=== PATIENT | female | born 1970 | race Caucasian/White ===

== ENCOUNTER 2020-05-08 11:27 | Day surgery (SDC) | payer OTHER ==
[2020-05-06 10:50] VITALS: BMI 47.3
[~2020-05-08 11:27] MED LIST: LACTATED RINGERS 1,000 ML IV SCH
[2020-05-08] MEDS ORDERED: LIDOCAINE 1% (10MG/ML) FOR IV START INTRADERMA ONE (12:14)
[2020-05-08 12:22] VITALS: TEMP 97.6
[2020-05-08 12:22] LABS: Glucose,Whole Blood 133 mg/dL (75-99)
[2020-05-08] MEDS ORDERED: MIDAZOLAM 2 MG/2 ML VIAL ONE (13:00)
[2020-05-08] MEDS ORDERED: fentaNYL (PF) 50 MCG/ML 2 ML AMP ONE (13:00)
[2020-05-08] MEDS ORDERED: LIDOCAINE 1% INJ 10MG/ML (20 ML MDV) ONE (13:00)
[2020-05-08] MEDS ORDERED: PROPOFOL 10 MG/ML 20 ML VIAL IV ONE (13:00)
--- NOTE | 2020-05-08 14:13 | P.PCN ---
Date of Procedure: 05/08/20 Description of Procedure: BRIEF HISTORY: Patient is a 49-year-old female presented for outpatient colonoscopy for screening for malignant neoplasm of the colon. No prior colonoscopies. No change in bowel habits. PROCEDURE PERFORMED: Colonoscopy with polypectomy. PREOPERATIVE DIAGNOSIS: Screening for malignant neoplasm of the colon, no prior colonoscopies. ESTIMATED BLOOD LOSS: Minimal. IV sedation per Anesthesia. PROCEDURE: After informed consent was obtained, the patient, was brought into the endoscopy unit. IV sedation was administered by Anesthesia under continuous monitoring. Digital rectal examination was normal. Initially the Olympus CF-190 flexible video colonoscope was then inserted in the rectum, gradually advanced into the cecum without any difficulty. Careful examination was performed as the scope was gradually being withdrawn. Ileocecal valve and the appendiceal orifice were visualized and appeared normal. Prep was excellent. Mucosa of the cecum, ascending colon, transverse colon, descending colon, sigmoid colon, and rectum appeared normal. 3 mm sigmoid polyp removed with cold forcep polypectomy. Retroflexion was performed in the rectum and no lesions were seen, low-grade internal hemorrhoids noted. The patient tolerated the procedure well. IMPRESSION: Sigmoid polyp removed with cold forcep polypectomy. Otherwise, normal-appearing colon from rectum to cecum. RECOMMENDATIONS: Findings of this examination were discussed with the patient and her family. Okay to resume diet. Okay to resume medications. Await pathology for polypectomy. Recommendation is for repeat colonoscopy in 5 years for polyps, pending pathology from polypectomy.
[2020-05-08 14:27] VITALS: BP 107/70; PULSE 74; RESP 16
== END 2020-05-08 14:46 | disposition home or self-care (01) ==
LOC: ORWHC2ENDO 11:27
PROVIDERS: ATTEND Internal Medicine
DX: Z12.11 Encounter for screening for malignant neoplasm of colon (principal); D12.5 Benign neoplasm of sigmoid colon; K64.8 Other hemorrhoids; J45.909 Unspecified asthma, uncomplicated; E66.01 Morbid (severe) obesity due to excess calories; Z87.891 Personal history of nicotine dependence; Z79.891 Long term (current) use of opiate analgesic; Z79.899 Other long term (current) drug therapy; Z87.19 Personal history of other diseases of the digestive system; Z98.890 Other specified postprocedural states; Z98.51 Tubal ligation status; Z68.42 Body mass index [BMI] 45.0-49.9, adult
CPT/HCPCS: 81025; 88305; 45380; J2250; J2001; J3010; J2704

== ENCOUNTER 2020-10-14 09:55 | Inpatient (IN) | payer OTHER ==
--- NOTE | 2020-10-14 10:31 | ED ---
General Adult HPI - General Chief complaint: Shortness of Breath Stated complaint: covid+/low oxygen Time Seen by Provider: 10/14/20 10:00 Source: patient, RN notes reviewed, old records reviewed Mode of arrival: ambulatory Limitations: no limitations - History of Present Illness Initial comments: This is a 49-year-old female with past medical history significant for diabetes and morbid obesity and asthma. Patient states she started having symptoms of COVID on October 03 she was tested on the and was positive on the . Patient states today she felt good but she was very short of breath so she came to the emergency department. Patient is oxygenating at 88% on 5 L. Patient denies any chest pain. Patient denies any recent fever chills per patient denies abdominal pain patient denies nausea or vomiting. Patient denies any swelling to the legs or calf tenderness. - Related Data Home Medications Medication Instructions Recorded Confirmed Albuterol Inhaler [Ventolin Hfa 1 puff INHALATION DIRECTED PRN 05/06/20 05/08/20 Inhaler] Aspirin/Acetaminophen/Caffeine 1 each PO DIRECTED PRN 05/06/20 05/08/20 [Excedrin Migraine Caplet] Cannabidiol (Cbd) [Epidiolex] 1 dose PO DIRECTED 05/06/20 05/08/20 L.acidoph,Paracasei, B.lactis 1 each PO DAILY 05/06/20 05/08/20 [Probiotic] Magnesium (Unknown Dose) 1 tab PO DAILY 05/06/20 05/08/20 Rizatriptan Benzoate [Rizatriptan] 10 mg PO DIRECTED PRN 05/06/20 05/08/20 traMADol HCL [Ultram] 50 mg PO Q6HR PRN 05/06/20 05/08/20 Allergies Allergy/AdvReac Type Severity Reaction Status Date / Time No Known Allergies Allergy Verified 10/14/20 10:08 Review of Systems ROS Statement: Those systems with pertinent positive or pertinent negative responses have been documented in the HPI. ROS Other: All systems not noted in ROS Statement are negative. Past Medical History Past Medical History: Asthma Additional Past Medical History / Comment(s): CHIARI MALFORMATION., MIGRAINES, 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, BORDERLINE DIABETES., STATES STOOL POSITIVE FOR BLOOD WITH SPICE MILLER HAMMER MILL EXAM EARLIER THIS YEAR. History of Any Multi-Drug Resistant Organisms: None Reported Past Surgical History: Hernia Repair, Orthopedic Surgery, Tubal Ligation, Uterine Ablation Additional Past Surgical History / Comment(s): ARTHROSCOPY KNEE, LEFT ANKLE SURGERY X2 FOR X-TRA BONE GROWTH, LEFT FX FIBULA WITH PLATE AND SCREWS, UMBILICAL HERNIA SURGERY (CHILD). Past Anesthesia/Blood Transfusion Reactions: No Reported Reaction Past Psychological History: Anxiety, Depression Smoking Status: Former smoker Past Alcohol Use History: Occasional Past Drug Use History: Marijuana - Past Family History Mother Family Medical History: No Reported History General Exam - General Exam Comments Initial Comments: GENERAL: Patient is well-developed and well-nourished. Patient is nontoxic and well- hydrated and is in mild distress. ENT: Neck is soft and supple. No significant lymphadenopathy is noted. Oropharynx is clear. Moist mucous membranes. Neck has full range of motion without eliciting any pain. EYES: The sclera were anicteric and conjunctiva were pink and moist. Extraocular movements were intact and pupils were equal round and reactive to light. Eyelids were unremarkable. PULMONARY: Unlabored respirations. Good breath sounds bilaterally. Patient has crackles bilaterally CARDIOVASCULAR: There is a regular rate and rhythm without any murmurs gallops or rubs. ABDOMEN: Soft and nontender with normal bowel sounds. SKIN: Skin is clear with no lesions or rashes and otherwise unremarkable. NEUROLOGIC: Patient is alert and oriented x3. Cranial nerves II through XII are grossly intact. Motor and sensory are also intact. Normal speech, volume and content. Symmetrical smile. MUSCULOSKELETAL: Normal extremities with adequate strength and full range of motion. No lower extremity swelling or edema. No calf tenderness. LYMPHATICS: No significant lymphadenopathy is noted PSYCHIATRIC: Normal psychiatric evaluation. Limitations: no limitations Course Vital Signs 10/14/20 10/14/20 10/14/20 10:06 11:19 12:11 Temperature 97.8 F Pulse Rate 99 86 Respiratory 20 18 Rate Blood Pressure 139/85 123/71 O2 Sat by Pulse 84 L 90 L 94 L Oximetry Medical Decision Making - Medical Decision Making EKG shows normal sinus rhythm at 91 bpm [place] interval 134 QRS is 88 QT interval 37 2 QTC is 467. EKG shows no ST segment elevation or depression Patient's chest x-ray shows bilateral opacifications consistent with COVID pneumonia I started the patient on steroids I spoke with Dr. Ortega he agreed to admit the patient admitted the patient I wrote admitting orders I consult the pulmonary - Lab Data Result diagrams: 10/14/20 10:56 10/14/20 10:56 Lab Results 10/14/20 10/14/20 10/14/20 Range/Units 10:56 10:56 10:56 WBC 6.6 (3.8-10.6) k/uL RBC 4.96 (3.80-5.40) m/uL Hgb 14.9 (11.4-16.0) gm/dL Hct 42.3 (34.0-46.0) % MCV 85.3 (80.0-100.0) fL MCH 30.0 (25.0-35.0) pg MCHC 35.2 (31.0-37.0) g/dL RDW 12.5 (11.5-15.5) % Plt Count 250 (150-450) k/uL MPV 7.5 Neutrophils % 81 % Lymphocytes % 14 % Monocytes % 3 % Eosinophils % 0 % Basophils % 1 % Neutrophils # 5.3 (1.3-7.7) k/uL Lymphocytes # 0.9 L (1.0-4.8) k/uL Monocytes # 0.2 (0-1.0) k/uL Eosinophils # 0.0 (0-0.7) k/uL Basophils # 0.0 (0-0.2) k/uL Sodium 139 (137-145) mmol/L Potassium 4.2 (3.5-5.1) mmol/L Chloride 103 (98-107) mmol/L Carbon Dioxide 28 (22-30) mmol/L Anion Gap 8 mmol/L BUN 9 (7-17) mg/dL Creatinine 0.59 (0.52-1.04) mg/dL Est GFR (CKD-EPI)AfAm >90 (>60 ml/min/1.73 sqM) Est GFR (CKD-EPI)NonAf >90 (>60 ml/min/1.73 sqM) Glucose 150 H (74-99) mg/dL Plasma Lactic Acid Jeffy 1.2 (0.7-2.0) mmol/L Calcium 8.7 (8.4-10.2) mg/dL Magnesium 2.2 (1.6-2.3) mg/dL Total Bilirubin 0.9 (0.2-1.3) mg/dL AST 70 H (14-36) U/L ALT 53 H (4-34) U/L Alkaline Phosphatase 49 (38-126) U/L Lactate Dehydrogenase 1491 H (313-618) U/L C-Reactive Protein 64.0 H (<10.0) mg/L Total Protein 6.8 (6.3-8.2) g/dL Albumin 3.8 (3.5-5.0) g/dL Disposition Clinical Impression: Pneumonia due to COVID-19 virus Disposition: ADMITTED IP TO THIS HOSP Referrals: Pierce Silva MD [Primary Care Provider] - 1-2 days Time of Disposition: 12:17
--- NOTE | 2020-10-14 11:07 | XR ---
EXAMINATION TYPE: XR chest 1V portable DATE OF EXAM: 10/14/2020 Comparison: None Clinical History: 49-year-old female Suspected COVID-19 pneumonia Findings: Heart normal size. Bilateral patchy and confluent consolidation especially in the mid and lower lungs . Impression: Bilateral patchy and confluent COVID pneumonia especially in the mid and lower lungs.
[2020-10-14 11:34] LABS: Basophils % (A) 1 %; Eosinophils % (A) 0 %; HCT 42.3 % (34.0-46.0); HGB 14.9 gm/dL (11.4-16.0); Lymphocytes # (A) 0.9 k/uL (1.0-4.8); Lymphocytes % (A) 14 %; MCHC 35.2 g/dL (31.0-37.0); MCV 85.3 fL (80.0-100.0); Mean Platelet Volume 7.5; Monocytes # (A) 0.2 k/uL (0-1.0); Monocytes % (A) 3 %; Neutrophils # (A) 5.3 k/uL (1.3-7.7); Neutrophils % (A) 81 %; Platelet Count 250 k/uL (150-450); RBC 4.96 m/uL (3.80-5.40); RDW 12.5 % (11.5-15.5); WBC 6.6 k/uL (3.8-10.6)
[2020-10-14 11:47] LABS: ALT 53 U/L (4-34); AST 70 U/L (14-36); African American GFR (CKD) >90 (>60 ml/min/1.73 sqM); Albumin 3.8 g/dL (3.5-5.0); Alkaline Phosphatase 49 U/L (38-126); Anion Gap 8 mmol/L; Blood Urea Nitrogen 9 mg/dL (7-17); Calcium 8.7 mg/dL (8.4-10.2); Carbon Dioxide 28 mmol/L (22-30); Chloride 103 mmol/L (98-107); Glucose 150 mg/dL (74-99); LDH 1491 U/L (313-618); Magnesium 2.2 mg/dL (1.6-2.3); Non-African American GFR(CKD) >90 (>60 ml/min/1.73 sqM); Potassium 4.2 mmol/L (3.5-5.1); Sodium 139 mmol/L (137-145); Total Bilirubin 0.9 mg/dL (0.2-1.3); Total Protein 6.8 g/dL (6.3-8.2)
[2020-10-14 11:56] LABS: D-Dimer 0.56 mg/L FEU (<0.60); INR 0.9 (<1.2)
[2020-10-14] MEDS ORDERED: DEXAMETHASONE SOD PHOSPHATE 10 MG/ML 1 ML VIAL IV STA (11:57)
[2020-10-14 12:17] LABS: Partial Thromboplastin Time 19.1 sec (22.0-30.0)
[2020-10-14] MEDS ORDERED: SODIUM CHLORIDE 0.9% 1,000 ML IV ONE (14:41)
[2020-10-14] MEDS: ZINC SULFATE 220 MG CAP PO SCH (17:51)
[2020-10-14] MEDS: ASCORBIC ACID 500 MG TAB PO SCH (17:51)
[2020-10-14] MEDS: ENOXAPARIN 40 MG/0.4 ML SYRINGE SQ SCH (17:51)
[2020-10-14] MEDS: CHOLECALCIFEROL 25 MCG (1000 IU) TABLET PO SCH (17:51)
--- NOTE | 2020-10-14 19:03 | P.HPIM ---
History of Present Illness H&P Date: 10/14/20 Chief Complaint: Short of breath History of presenting complaint: This is a pleasant 49-year-old patient of Dr. Logan Silva. Chronic stable medical conditions include but Chiari malformation of the brain, asthma, herniated disc in the back and neck, with pain anxiety depression, GERD, diabetes type 2. Patient around October stools started getting symptoms that included headache cough progressive shortness of breath diarrhea had fever and chills body aches. She did come back positive for COVID 19 on the fourth. Since symptoms have been progressive she came down to the ER. Initial pulse ox was 88% on 5 L. Review of systems: GEN.: Tired fever or chills EYES: None HEENT: None NECK: None RESPIRATORY: None CARDIOVASCULAR: None GASTROINTESTINAL: Some diarrhea GENITOURINARY: None MUSCULOSKELETAL: Aches and pains LYMPHATICS: None HEMATOLOGICAL: None PSYCHIATRY: None NEUROLOGICAL: None Past medical history to include: Asthma, but Chiari malformation, migraines, herniated disc with back and neck pain, diabetes mellitus type 2, anxiety depression Social history: Patient smoked up one pack a week for about 10 years stopped over 20 years ago. Does occasional marijuana Gummi's and CBD oil. Lives with her boyfriend. Family history: Reviewed, noncontributory to presentation Physical examination: VITAL SIGNS: 97.8, 99, 20, 139/85, 84% on room air GENERAL: BMI 48.6, sitting up in bed, she out of breath. EYES: Pupils equal. Conjunctiva normal. HEENT: External appearance of nose and ears normal, oral cavity grossly normal. NECK: JVD not raised; masses not palpable. HEART: First and second heart sounds are normal; no edema. LUNGS:[ Respiratory rate increased; decreased breath sounds. ABDOMEN: Soft, nontender, liver spleen not palpable, no masses palpable. PSYCH: [Alert and oriented x3; mood and affect tired. NEUROLOGICAL: Cranial nerves grossly intact; no facial asymmetry, power and sensation grossly intact. LYMPHATICS: No lymph nodes palpable in the axilla and neck INVESTIGATIONS, reviewed in the clinical context: WBC 6.6 hemoglobin 14.9 platelets 250 lymphocyte 0.9 d-dimer 0.56 potassium 4.2 creatinine 0.59 AST 70 ALT 53 CRP 64 Coronavirus [PCR]-detected EKG tracing personally reviewed by me-normal sinus rhythm Chest x-ray film personally reviewed by me-bilateral diffuse infiltrates Assessment and plan: -Acute bilateral COVID 19 pneumonia with symptoms starting about 10 days ago Patient started IV Decadron, subcu Lovenox, vitamin C vitamin D zinc and Pepcid. Pulmonary consulted. -Acute hypoxic respiratory failure from COVID 19 pneumonia Currently on 5 L of nasal cannula -Morbid obesity BMI 48.6 For weight loss measures and follow-up with PCP upon discharge -Diabetes mellitus type 2 Follow Accu-Cheks -GERD Continue with omeprazole -Chronic neck and back pain from arthralgia Tylenol when necessary -Nonspecific hepatitis Hepatic ultrasound Care was discussed with the patient. Questions were answered. Have the patient sit up in a chair and uses incentive spirometry Given the complexity and severity of patient's condition expect the patient to be in the hospital at least for 2 overnights Past Medical History Past Medical History: Asthma Additional Past Medical History / Comment(s): CHIARI MALFORMATION., MIGRAINES, 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, BORDERLINE DIABETES., STATES STOOL POSITIVE FOR BLOOD WITH STAFF COUNSEL EXAM EARLIER THIS YEAR. History of Any Multi-Drug Resistant Organisms: None Reported Past Surgical History: Hernia Repair, Orthopedic Surgery, Tubal Ligation, Uterine Ablation Additional Past Surgical History / Comment(s): ARTHROSCOPY KNEE, LEFT ANKLE SURGERY X2 FOR X-TRA BONE GROWTH, LEFT FX FIBULA WITH PLATE AND SCREWS, UMBILICAL HERNIA SURGERY (CHILD). Past Anesthesia/Blood Transfusion Reactions: No Reported Reaction Past Psychological History: Anxiety, Depression Smoking Status: Former smoker Past Alcohol Use History: Occasional Past Drug Use History: Marijuana - Past Family History Mother Family Medical History: No Reported History Medications and Allergies Home Medications Medication Instructions Recorded Confirmed Type Albuterol Inhaler [Ventolin Hfa 2 puff INHALATION RT-Q4H PRN 05/06/20 10/14/20 History Inhaler] Rizatriptan Benzoate [Rizatriptan] 10 mg PO DAILY PRN 05/06/20 10/14/20 History traMADol HCL [Ultram] 50 mg PO Q6HR PRN 05/06/20 10/14/20 History Albuterol Nebulized [Ventolin 2.5 mg INHALATION RT-Q6H PRN 10/14/20 10/14/20 History Nebulized] Azithromycin [Zithromax] 500 mg PO DAILY 10/14/20 10/14/20 History Dexamethasone [Decadron] 6 mg PO DAILY 10/14/20 10/14/20 History Liraglutide [Victoza 2-Primitivo] 0.6 mg PO DAILY 10/14/20 10/14/20 History Omeprazole 40 mg PO DAILY 10/14/20 10/14/20 History Allergies Allergy/AdvReac Type Severity Reaction Status Date / Time No Known Allergies Allergy Verified 10/14/20 12:37 Physical Exam Vitals: Vital Signs Temp Pulse Resp BP Pulse Ox 10/14/20 16:02 98.7 F 87 20 135/88 91 L 10/14/20 12:11 94 L 10/14/20 11:19 86 18 123/71 90 L 10/14/20 10:06 97.8 F 99 20 139/85 84 L Intake and Output 10/14/20 10/14/20 10/14/20 06:59 14:59 22:59 Other: Weight 153.768 kg Results CBC & Chem 7: 10/14/20 10:56 10/14/20 10:56 Labs: Abnormal Lab Results - Last 24 Hours (Table) 10/14/20 10/14/20 10/14/20 Range/Units 10:56 10:56 10:56 Lymphocytes # 0.9 L (1.0-4.8) k/uL APTT 19.1 L (22.0-30.0) sec Glucose 150 H (74-99) mg/dL AST 70 H (14-36) U/L ALT 53 H (4-34) U/L Lactate Dehydrogenase 1491 H (313-618) U/L C-Reactive Protein 64.0 H (<10.0) mg/L Coronavirus (PCR) (Not Detectd) 10/14/20 Range/Units 12:05 Lymphocytes # (1.0-4.8) k/uL APTT (22.0-30.0) sec Glucose (74-99) mg/dL AST (14-36) U/L ALT (4-34) U/L Lactate Dehydrogenase (313-618) U/L C-Reactive Protein (<10.0) mg/L Coronavirus (PCR) Detected A (Not Detectd)
[2020-10-14] MEDS: FAMOTIDINE 20 MG TAB PO SCH (21:35)
[2020-10-15 00:22] LABS: Ferritin 629.4 ng/mL (10.0-291.0)
[2020-10-15] MEDS ORDERED: VANCOMYCIN 1,000 MG in SODIUM CHLORIDE 0.9% 250 ML IVPB STA (05:39)
[2020-10-15] MEDS ORDERED: VANCOMYCIN IV PER PHARMACY 1 EACH MISC MISCELLANE PRN (05:47)
[2020-10-15] MEDS ORDERED: VANCOMYCIN 2,500 MG in SODIUM CHLORIDE 0.9% 500 ML 500 ML IVPB ONE (06:00)
[2020-10-15] MEDS: ENOXAPARIN 40 MG/0.4 ML SYRINGE SQ SCH ×2 (06:01→17:28)
[2020-10-15 07:30] LABS: C Reactive Protein 43.6 mg/L (<10.0)
[2020-10-15] MEDS: FAMOTIDINE 20 MG TAB PO SCH ×2 (08:34→20:34)
[2020-10-15] MEDS: ZINC SULFATE 220 MG CAP PO SCH (08:34)
[2020-10-15] MEDS: CHOLECALCIFEROL 25 MCG (1000 IU) TABLET PO SCH (08:34)
[2020-10-15] MEDS: DEXAMETHASONE SOD PHOSPHATE 10 MG/ML 1 ML VIAL IV SCH (08:34)
[2020-10-15] MEDS: ASCORBIC ACID 500 MG TAB PO SCH (08:34)
[2020-10-15] MEDS ORDERED: dexAMETHasone 2 MG TAB PO SCH (09:00)
--- NOTE | 2020-10-15 10:54 | US ---
EXAMINATION TYPE: US abdomen limited DATE OF EXAM: 10/15/2020 COMPARISON: NONE CLINICAL HISTORY: Mildly elevated LFT. COVID pneumonia EXAM MEASUREMENTS: Liver Length: 17.7 cm Gallbladder Wall: 0.2 cm CBD: 0.5 cm Right Kidney: 9.5 x 5.8 x 4.8 cm Pancreas: hyperechoic with mid and tail obscured by overlying bowel gas Liver: hyperechoic suggests fatty liver, especially noted left lobe. Gallbladder: wnl Evidence for sonographic Rose's sign: no CBD: wnl Right Kidney: No hydronephrosis or masses seen Suboptimal study due to underlying shortness of breath. Visualized portion of pancreas unremarkable. Visualized liver heterogeneously hyperechoic. No surrounding ascites. Evaluation for focal masses sub optimal due to the heterogeneity. No intrahepatic or extrahepatic biliary dilatation. Limited images right kidney show no gross hydronephrosis. Gallbladder shows no intraluminal stones. IMPRESSION: Heterogeneous hyperechoic appearance of the liver could be on basis of diffuse fatty infi ltration and/or underlying hepatocellular disease. Former is favored.
--- NOTE | 2020-10-15 14:34 | P.CNPUL ---
History of Present Illness Consult date: 10/15/20 Reason for consult: dyspnea, pneumonia History of present illness: 49-year-old female patient hospitalized for COVID 19 related pneumonia and a p ulmonary consultation was requested. The patient is morbidly obese and she has previous history of coronary artery malformation and migraines. She is diabetic and she has chronic anxiety and depression. Her symptoms started on 10/03/2020 where the patient became fatigued and tired and she was having some body aches and cough and progressively she developed shortness of breath. She got tested o n 10/04/2020 and outpatient basis and she checked positive. Following that, the patient was placed on steroids which I believe it was in the form of Decadron. Despite all this, the patient progressed and the patient came into the hospital because of worsening shortness of breath. She was found to be hypoxic and she is currently on 5 L about 2 by nasal cannula with a pulse ox of 88%. Chest x-ra y showing diffuse breath and pulmonary infiltrates. The blood work is showing an LDH level of 1445, CRP of 43.6, and a d-dimer of 0.57. Otherwise, the rest of the blood work essentially within normal limits. White cell count at 6.6 with a lymphopenia and a lymphocyte count of 0.9. Coagulation profile is within normal limits. D-dimer is at 0.57. She is currently back on Decadron orally and she is on 5 L of oxygen by nasal cannula. Review of Systems Constitutional: Reports fatigue, Reports fever, Reports poor appetite, Reports weakness Eyes: denies as per HPI, denies blurred vision, denies bulging eye, denies decreased vision, denies diplopia, denies discharge, denies dry eye, denies irritation, denies itching, denies pain, denies photophobia, denies loss of peripheral vision, denies loss of vision, denies tunnel vision/blind spots Ears: deny: decreased hearing, ear discharge, earache, tinnitus Ears, nose, mouth and throat: Reports as per HPI Breasts: absent: as per HPI, change in shape, gynecomastia, masses, nipple discharge, pain, skin changes, swelling Cardiovascular: Reports as per HPI, Reports decreased exercise tolerance, Reports dyspnea on exertion Respiratory: Reports cough, Reports dyspnea Genitourinary: Reports as per HPI Menstruation: Reports as per HPI Musculoskeletal: Reports as per HPI Musculoskeletal: absent: ankle pain, ankle stiffness, ankle swelling, as per HPI, elbow pain, elbow stiffness, elbow swelling, foot pain, foot stiffness, foot swelling, hand pain, hand stiffness, hand swelling, hip pain, hip stiffness, hip swelling, knee pain, knee stiffness, knee swelling, shoulder pain, shoulder stiffness, shoulder swelling, wrist pain, wrist stiffness, wrist swelling Integumentary: Reports as per HPI Neurological: Reports as per HPI, Reports weakness Psychiatric: Reports as per HPI Endocrine: Reports as per HPI, Reports fatigue Hematologic/Lymphatic: Reports as per HPI Allergic/Immunologic: Reports as per HPI Past Medical History Past Medical History: Asthma, Diabetes Mellitus, Sleep Apnea/CPAP/BIPAP Additional Past Medical History / Comment(s): CHIARI MALFORMATION., MIGRAINES, 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, STATES STOOL POSITIVE FOR BLOOD WITH BED PLACEMENT COORDINATOR EXAM EARLIER THIS YEAR. History of Any Multi-Drug Resistant Organisms: None Reported Past Surgical History: Hernia Repair, Orthopedic Surgery, Tubal Ligation, Uterine Ablation Additional Past Surgical History / Comment(s): ARTHROSCOPY KNEE, LEFT ANKLE SURGERY X2 FOR X-TRA BONE GROWTH, LEFT FX FIBULA WITH PLATE AND SCREWS, UMBILICAL HERNIA SURGERY (CHILD). Past Anesthesia/Blood Transfusion Reactions: No Reported Reaction Additional Past Anesthesia/Blood Transfusion Reaction / Comment(s): last time she had sx she had a hard time waking up from anethesia Past Psychological History: Anxiety, Depression Smoking Status: Former smoker Past Alcohol Use History: Occasional Additional Past Alcohol Use History / Comment(s): QUIT SMOKING 18 PLUS YEARS AG O, SMOKED 1 PACK/WEEK, SMOKED 10 YEARS. Past Drug Use History: Marijuana Additional Drug Use History / Comment(s): OCCASIONAL THC GUMMIES. , CBD OIL - Past Family History Mother Family Medical History: No Reported History Medications and Allergies Home Medications Medication Instructions Recorded Confirmed Type Albuterol Inhaler [Ventolin Hfa 2 puff INHALATION RT-Q4H PRN 05/06/20 10/14/20 History Inhaler] Rizatriptan Benzoate [Rizatriptan] 10 mg PO DAILY PRN 05/06/20 10/14/20 History traMADol HCL [Ultram] 50 mg PO Q6HR PRN 05/06/20 10/14/20 History Albuterol Nebulized [Ventolin 2.5 mg INHALATION RT-Q6H PRN 10/14/20 10/14/20 History Nebulized] Azithromycin [Zithromax] 500 mg PO DAILY 10/14/20 10/14/20 History Dexamethasone [Decadron] 6 mg PO DAILY 10/14/20 10/14/20 History Liraglutide [Victoza 2-Primitivo] 0.6 mg PO DAILY 10/14/20 10/14/20 History Omeprazole 40 mg PO DAILY 10/14/20 10/14/20 History Allergies Allergy/AdvReac Type Severity Reaction Status Date / Time No Known Allergies Allergy Verified 10/14/20 12:37 Physical Exam Vitals: Vital Signs Temp Pulse Pulse Resp BP BP Pulse Ox 10/15/20 09:32 98.7 F 85 18 130/83 90 L 10/15/20 07:57 89 L 10/15/20 07:20 79 16 10/15/20 06:18 98.0 F 79 16 105/71 90 L 10/15/20 02:45 98.8 F 82 16 118/82 90 L 10/14/20 22:03 98.8 F 76 15 131/84 93 L 10/14/20 21:38 20 10/14/20 18:40 98.1 F 83 18 134/90 91 L 10/14/20 16:02 98.7 F 87 20 135/88 91 L Intake and Output 10/14/20 10/15/20 10/15/20 22:59 06:59 14:59 Other: Voiding Method Toilet Toilet # Voids 4 Weight 153.768 kg morbidly obese, comfortable, nonacute distress, BMI of 48 Head exam was generally normal. There was no scleral icterus or corneal arcus. Mucous membranes were moist. Neck was supple and without jugular venous distension, thyromegaly, or carotid bruits. Carotids were easily palpable bilaterally. There was no adenopathy. Lung sounds are diminished and the patient has crackers the mid and lower lung hughes bilaterally Cardiac exam revealed the PMI to be normally situated and sized. The rhythm was regular and no extrasystoles were noted during several minutes of auscultation. The first and second heart sounds were normal and physiologic splitting of the second heart sound was noted. There were no murmurs, rubs, clicks, or gallops. Abdominal exam revealed normal bowel sounds. The abdomen was soft, non-tender, and without masses, organomegaly, or appreciable enlargement of the abdominal aorta. Examination of the extremities revealed easily palpable radial, femoral and pedal pulses. There was no cyanosis, clubbing or edema. Examination of the skin revealed no evidence of significant rashes, suspicious appearing nevi or other concerning lesions. Neurologically, the patient is awake and alert and the patient does not have any focal neurological deficit. Cranial nerves are essentially intact. Results - Laboratory Findings CBC and BMP: 10/14/20 10:56 10/14/20 10:56 PT/INR, D-dimer PT 10.0 sec (9.0-12.0) 10/14/20 10:56 INR 0.9 (<1.2) 10/14/20 10:56 D-Dimer 0.57 mg/L FEU (<0.60) 10/15/20 06:41 Abnormal lab findings: Abnormal Labs 10/14/20 10/14/20 10/14/20 10:56 10:56 10:56 Lymphocytes # 0.9 L APTT 19.1 L Glucose 150 H Ferritin 629.4 H AST 70 H ALT 53 H Lactate Dehydrogenase 1491 H C-Reactive Protein 64.0 H Procalcitonin Coronavirus (PCR) 10/14/20 10/14/20 10/15/20 10:56 12:05 06:41 Lymphocytes # APTT Glucose Ferritin AST ALT Lactate Dehydrogenase 1445 H C-Reactive Protein 43.6 H Procalcitonin 0.11 H Coronavirus (PCR) Detected A - Diagnostic Findings Chest x-ray: image reviewed Assessment and Plan Plan: 1 acute bilateral COVID 19 related pneumonia. The patient symptoms started on 10/03/2020. The patient checked positive on 10/04/2020. The patient was treated with Decadron on outpatient basis. The patient's presented with worsening shortness of breath and bilateral pneumonia 2 acute hypoxic respiratory failure currently on 5 L of oxygen by nasal cannula. D-dimer is low. Pulmonary embolism is unlikely.d-dimer is low at this point in time 3 obesity with a BMI of 48.6 4 chronic bronchial asthma currently inactive in stable 5 diabetes mellitus 6 coronary artery malformation 7 migraine headaches 8 chronic neck and back pain related to herniated disc disease Plan Keep oxygen at 5 L and titrate the flow to maintain a saturation above 90% Agree on continuing the Decadron 6 mg on a daily basis patient is outside the window for Remdesivir treatment Lovenox 40 mg subcu for DVT prophylaxis Vitamin supplements regarding COVID infections May consider tacilizumab at a later stage if there is any further decompensation the patient's history status
[2020-10-15] MEDS: VANCOMYCIN 2,250 MG in SODIUM CHLORIDE 0.9% 500 ML 500 ML IVPB SCH (19:00)
[2020-10-15] MEDS ORDERED: ALBUTEROL NEBULIZED 2.5 MG/3 ML INHALATION PRN (19:46)
[2020-10-15] MEDS ORDERED: SUMAtriptan succinate 50 MG TAB PO PRN (19:46)
--- NOTE | 2020-10-15 21:03 | P.PN ---
Progress Note - Text Progress Note Date: 10/15/20 Chief Complaint: Short of breath History of presenting complaint: This is a pleasant 49-year-old patient of Dr. Logan Silva. Chronic stable medical conditions include but Chiari malformation of the brain, asthma, herniated disc in the back and neck, with pain anxiety depression, GERD, diabetes type 2. Patient around October stools started getting symptoms that included headache cough progressive shortness of breath diarrhea had fever and chills body aches. She did come back positive for COVID 19 on the fourth. Since symptoms have been progressive she came down to the ER. Initial pulse ox was 88% on 5 L. Admitted with bilateral COVID 19 pneumonia, acute hypoxic respiratory failure. Initially put on 5 L of nasal cannula. Started on Decadron and Lovenox. Today: Sitting up in bed. Short of breath. Tired. Oral intake fair. Blood culture showing gram-positive pulse and blood clusters. Vancomycin ordered Review of systems: Was done for constitutional, cardiovascular, GI, pulmonary. relevant finding as above Active Medications Albuterol Sulfate (Albuterol Hfa Inhaler) 2 puff INHALATION RT-Q4H PRN PRN Reason: Shortness Of Breath Ascorbic Acid (Ascorbic Acid 500 Mg Tab) 1,000 mg PO DAILY [facility] Last Admin: 10/15/20 08:34 Dose: 1,000 mg Documented by: Cholecalciferol (Cholecalciferol 25 Mcg (1000 Iu) Tablet) 100 mcg PO DAILY [facility] Last Admin: 10/15/20 08:34 Dose: 100 mcg Documented by: Dexamethasone Sodium Phosphate (Dexamethasone Sod Phosphate 10 Mg/Ml 1 Ml Vial) 6 mg IV DAILY [facility] Last Admin: 10/15/20 08:34 Dose: 6 mg Documented by: Enoxaparin Sodium (Enoxaparin 40 Mg/0.4 Ml Syringe) 40 mg SQ Q12H [facility] Last Admin: 10/15/20 17:28 Dose: 40 mg Documented by: Famotidine (Famotidine 20 Mg Tab) 20 mg PO BID [facility] Last Admin: 10/15/20 20:34 Dose: 20 mg Documented by: Vancomycin HCl 2,250 mg/ (Sodium Chloride) 500 mls @ 167 mls/hr IVPB Q12H [facility] Last Admin: 10/15/20 19:00 Dose: 167 mls/hr Documented by: Non-Formulary Medication (Liraglutide [Victoza 2-Primitivo]) 0.6 mg PO DAILY [facility] Pantoprazole Sodium (Pantoprazole 40 Mg Tablet) 40 mg PO AC-BRKFST [facility] Sumatriptan Succinate (Sumatriptan Succinate 50 Mg Tab) 100 mg PO DAILY PRN PRN Reason: Migraine Headache Tramadol HCl (Tramadol 50 Mg Tab) 50 mg PO Q6HR PRN PRN Reason: Pain Zinc Sulfate (Zinc Sulfate 220 Mg Cap) 220 mg PO DAILY [facility] Last Admin: 10/15/20 08:34 Dose: 220 mg Documented by: Past medical history to include: Asthma, but Chiari malformation, migraines, herniated disc with back and neck pain, diabetes mellitus type 2, anxiety depression Social history: Patient smoked up one pack a week for about 10 years stopped over 20 years ago. Does occasional marijuana Gummi's and CBD oil. Lives with her boyfriend. Family history: Reviewed, noncontributory to presentation Physical examination: VITAL SIGNS: 98.1, 79, 18, 132.77, 93% on 5 L GENERAL: sitting up in bed, short of breath LUNGS:[ Respiratory rate increased; PSYCH: [Alert and oriented x3; mood and affect tired. NEUROLOGICAL: Cranial nerves grossly intact; no facial asymmetry, moving all 4 limbs. History of the exam as per pulmonary nursing INVESTIGATIONS, reviewed in the clinical context: October 15: D-dimer 0.57 LDH 1445 CRP 43.6 WBC 6.6 hemoglobin 14.9 platelets 250 lymphocyte 0.9 d-dimer 0.56 potassium 4.2 creatinine 0.59 AST 70 ALT 53 CRP 64 Coronavirus [PCR]-detected EKG tracing personally reviewed by me-normal sinus rhythm Chest x-ray film personally reviewed by me-bilateral diffuse infiltrates Assessment and plan: -Acute bilateral COVID 19 pneumonia with symptoms starting about 10 days ago- slow to respond On IV Decadron, subcu Lovenox, vitamin C vitamin D zinc and Pepcid. Pulmonary consulted. -Acute hypoxic respiratory failure from COVID 19 pneumonia-no improvement Currently on 5 L of nasal cannula -Morbid obesity BMI 48.6 For weight loss measures and follow-up with PCP upon discharge -Diabetes mellitus type 2 Follow Accu-Cheks -GERD Continue with omeprazole -Chronic neck and back pain from arthralgia Tylenol when necessary -Nonspecific hepatitis Hepatic ultrasound Care was discussed with the patient. Continue current medication treatment plan.
[2020-10-16] MEDS: ENOXAPARIN 40 MG/0.4 ML SYRINGE SQ SCH ×2 (04:58→16:13)
[2020-10-16] MEDS: VANCOMYCIN 2,250 MG in SODIUM CHLORIDE 0.9% 500 ML 500 ML IVPB SCH ×2 (06:00→18:06)
[2020-10-16 08:36] LABS: African American GFR (CKD) >90 (>60 ml/min/1.73 sqM); Non-African American GFR(CKD) >90 (>60 ml/min/1.73 sqM)
[2020-10-16] MEDS ORDERED: ONDANSETRON 4 MG/2 ML VIAL IVP PRN (09:29)
[2020-10-16] MEDS: ASCORBIC ACID 500 MG TAB PO SCH (09:32)
[2020-10-16] MEDS: ZINC SULFATE 220 MG CAP PO SCH (09:32)
[2020-10-16] MEDS: CHOLECALCIFEROL 25 MCG (1000 IU) TABLET PO SCH (09:32)
[2020-10-16] MEDS: PANTOPRAZOLE 40 MG TABLET PO SCH (09:32)
[2020-10-16] MEDS: DEXAMETHASONE SOD PHOSPHATE 10 MG/ML 1 ML VIAL IV SCH (09:33)
[2020-10-16] MEDS: traMADol 50 MG TAB PO PRN (09:40)
[2020-10-16] MEDS: NON FORMULARY DRUG (Liraglutide [Victoza 2-Pak] 0.6 MG/0.1 ML Pen.Injctr) PO SCH (09:52)
[2020-10-16] MEDS: FAMOTIDINE 20 MG TAB PO SCH ×2 (09:52→20:51)
[2020-10-16 11:42] LABS: Glucose,Whole Blood 194 mg/dL (75-99)
[2020-10-16] MEDS ORDERED: VANCOMYCIN IV PER PHARMACY 1 EACH MISC MISCELLANE PRN (12:31)
--- NOTE | 2020-10-16 12:32 | P.PN ---
Subjective Progress Note Date: 10/16/20 49-year-old female patient hospitalized for COVID 19 related pneumonia and a pulmonary consultation was requested. The patient is morbidly obese and she has previous history of coronary artery malformation and migraines. She is diabetic and she has chronic anxiety and depression. Her symptoms started on 10/03/2020 where the patient became fatigued and tired and she was having some body aches and cough and progressively she developed shortness of breath. She got tested on 10/04/2020 and outpatient basis and she checked positive. Following that, the patient was placed on steroids which I believe it was in the form of Decadron. Despite all this, the patient progressed and the patient came into the hospital because of worsening shortness of breath. She was found to be hypoxic and she is currently on 5 L about 2 by nasal cannula with a pulse ox of 88%. Chest x-ray showing diffuse breath and pulmonary infiltrates. The blood work is showing an LDH level of 1445, CRP of 43.6, and a d-dimer of 0.57. Otherwise, the rest of the blood work essentially within normal limits. White cell count at 6.6 with a lymphopenia and a lymphocyte count of 0.9. Coagulation profile is within normal limits. D-dimer is at 0.57. She is currently back on Decadron orally and she is on 5 L of oxygen by nasal cannula. On today's evaluation of 10/16/2020 the patient is on 5 L of oxygen by nasal cannula. She has been ranging between 4 and 6 L during this current hospital stay. She is feeling better. She is still coughing. She has a low-grade fever yesterday. She is pulling around 1500 on his incentive spirometer. Otherwise, the CRP level is at 36, d-dimer is at 1.07. Creatinine is at 0.7. No nausea. No vomiting. No diarrhea. No abdominal pain. No other complaints otherwise for now. The blood culture is showing coagulase-negative staph and the patient was given a dose of vancomycin. The blood cultures are being monitored. Affect irritable cultures are showing staph in the blood which is probably coagulase- negative staph. Both of 4 of the cultures are positive for gram-positive cocci in clusters and the finding cultures sensitivities are still pending for now. Objective - Vital Signs Vital signs: Vital Signs Temp 98.9 F 10/16/20 09:29 Pulse 94 10/16/20 09:29 Resp 18 10/16/20 09:29 BP 114/70 10/16/20 09:29 Pulse Ox 88 L 10/16/20 09:29 Intake & Output 10/15/20 10/16/20 10/16/20 18:59 06:59 18:59 Intake Total 240 Balance 240 Intake: Oral 240 Other: Voiding Method Toilet Toilet # Voids 1 2 - Exam Constitutional: Reports fatigue, Reports fever, Reports poor appetite, Reports weakness Eyes: denies as per HPI, denies blurred vision, denies bulging eye, denies decreased vision, denies diplopia, denies discharge, denies dry eye, denies irritation, denies itching, denies pain, denies photophobia, denies loss of peripheral vision, denies loss of vision, denies tunnel vision/blind spots Ears: deny: decreased hearing, ear discharge, earache, tinnitus Ears, nose, mouth and throat: Reports as per HPI Breasts: absent: as per HPI, change in shape, gynecomastia, masses, nipple discharge, pain, skin changes, swelling Cardiovascular: Reports as per HPI, Reports decreased exercise tolerance, Reports dyspnea on exertion Respiratory: Reports cough, Reports dyspnea Genitourinary: Reports as per HPI Menstruation: Reports as per HPI Musculoskeletal: Reports as per HPI Musculoskeletal: absent: ankle pain, ankle stiffness, ankle swelling, as per HPI, elbow pain, elbow stiffness, elbow swelling, foot pain, foot stiffness, foot swelling, hand pain, hand stiffness, hand swelling, hip pain, hip stiffness, hip swelling, knee pain, knee stiffness, knee swelling, shoulder pain, shoulder stiffness, shoulder swelling, wrist pain, wrist stiffness, wrist swelling Integumentary: Reports as per HPI Neurological: Reports as per HPI, Reports weakness Psychiatric: Reports as per HPI Endocrine: Reports as per HPI, Reports fatigue Hematologic/Lymphatic: Reports as per HPI Allergic/Immunologic: Reports as per HPI - Labs CBC & Chem 7: 10/14/20 10:56 10/16/20 07:54 Labs: Abnormal Lab Results - Last 24 Hours (Table) 10/15/20 10/16/20 10/16/20 Range/Units 22:21 07:54 07:54 D-Dimer 1.07 H (<0.60) mg/L FEU POC Glucose (mg/dL) (75-99) mg/dL Lactate Dehydrogenase 1451 H (313-618) U/L C-Reactive Protein 36.3 H (<10.0) mg/L 10/16/20 Range/Units 11:33 D-Dimer (<0.60) mg/L FEU POC Glucose (mg/dL) 194 H (75-99) mg/dL Lactate Dehydrogenase (313-618) U/L C-Reactive Protein (<10.0) mg/L Microbiology - Last 24 Hours (Table) 10/14/20 15:37 Blood Culture Gram Stain - Preliminary Blood 10/14/20 15:27 Blood Culture - Final Blood 10/14/20 10:56 Blood Culture - Final Blood 10/14/20 12:08 Blood Culture Gram Stain - Preliminary Blood Blood Culture - Preliminary Coagulase Negative Staph Assessment and Plan Plan: 1 acute bilateral COVID 19 related pneumonia. The patient symptoms started on 10/03/2020. The patient checked positive on 10/04/2020. The patient was treated with Decadron on outpatient basis. The patient's presented with worsening shortness of breath and bilateral pneumonia 2 acute hypoxic respiratory failure currently on 5 L of oxygen by nasal cannula. D-dimer is low. Pulmonary embolism is unlikely.d-dimer is low at this point in time 3 obesity with a BMI of 48.6 4 chronic bronchial asthma currently inactive in stable 5 diabetes mellitus 6 coronary artery malformation 7 migraine headaches 8 chronic neck and back pain related to herniated disc disease 9 coagulase-negative staph in the blood, likely contaminant. Nevertheless this was cultured and 2 out of 4 blood cultures. Monitor cultures will be repeated a nd the patient was given vancomycin. Plan Keep oxygen at 5 L and titrate the flow to maintain a saturation above 90% Agree on continuing the Decadron 6 mg on a daily basis patient is outside the window for Remdesivir treatment Lovenox 40 mg subcu for DVT prophylaxis Vitamin supplements regarding COVID infections Currently on 5 L and this will be gradually weaned off. Clinically she is feeling good. We'll monitor the blood cultures and will continue
[2020-10-16 17:31] LABS: Glucose,Whole Blood 190 mg/dL (75-99)
[2020-10-16] MEDS: INSULIN ASPART (NovoLOG) 100 UNIT/ML VIAL SQ SCH ×2 (17:31→20:51)
[2020-10-16 20:43] LABS: Glucose,Whole Blood 151 mg/dL (75-99)
--- NOTE | 2020-10-16 22:01 | P.PN ---
Progress Note - Text Progress Note Date: 10/16/20 Chief Complaint: Short of breath History of presenting complaint: This is a pleasant 49-year-old patient of Dr. Logan Silva. Chronic stable medical conditions include but Chiari malformation of the brain, asthma, herniated disc in the back and neck, with pain anxiety depression, GERD, diabetes type 2. Patient around October stools started getting symptoms that included headache cough progressive shortness of breath diarrhea had fever and chills body aches. She did come back positive for COVID 19 on the fourth. Since symptoms have been progressive she came down to the ER. Initial pulse ox was 88% on 5 L. Admitted with bilateral COVID 19 pneumonia, acute hypoxic respiratory failure. Initially put on 5 L of nasal cannula. Started on Decadron and Lovenox. Blood cultures contaminated with coagulase negative staph Today: Sitting up in bed. Short of breath. Tired. Oral intake about 50%. On 5 L nasal cannula Review of systems: Was done for constitutional, cardiovascular, GI, pulmonary. relevant finding as above Active Medications Albuterol Sulfate (Albuterol Hfa Inhaler) 2 puff INHALATION RT-Q4H PRN PRN Reason: Shortness Of Breath Ascorbic Acid (Ascorbic Acid 500 Mg Tab) 1,000 mg PO DAILY [facility] Last Admin: 10/16/20 09:32 Dose: 1,000 mg Documented by: Cholecalciferol (Cholecalciferol 25 Mcg (1000 Iu) Tablet) 100 mcg PO DAILY [facility] Last Admin: 10/16/20 09:32 Dose: 100 mcg Documented by: Dexamethasone Sodium Phosphate (Dexamethasone Sod Phosphate 10 Mg/Ml 1 Ml Vial) 6 mg IV DAILY [facility] Last Admin: 10/16/20 09:33 Dose: 6 mg Documented by: Enoxaparin Sodium (Enoxaparin 40 Mg/0.4 Ml Syringe) 40 mg SQ Q12H [facility] Last Admin: 10/16/20 16:13 Dose: 40 mg Documented by: Famotidine (Famotidine 20 Mg Tab) 20 mg PO BID [facility] Last Admin: 10/16/20 20:51 Dose: 20 mg Documented by: Vancomycin HCl 2,250 mg/ (Sodium Chloride) 500 mls @ 167 mls/hr IVPB Q12H [facility] Last Admin: 10/16/20 18:06 Dose: 167 mls/hr Documented by: Insulin Aspart (Insulin Aspart (Novolog) 100 Unit/Ml Vial) 0 unit SQ [facility]; Protocol Last Admin: 10/16/20 20:51 Dose: 2 unit Documented by: Non-Formulary Medication (Liraglutide [Victoza 2-Primitivo]) 0.6 mg PO DAILY [facility] Last Admin: 10/16/20 09:52 Dose: Not Given Documented by: Ondansetron HCl (Ondansetron 4 Mg/2 Ml Vial) 4 mg IVP Q8HR PRN PRN Reason: Nausea And Vomiting Last Admin: 10/16/20 09:41 Dose: 4 mg Documented by: Pantoprazole Sodium (Pantoprazole 40 Mg Tablet) 40 mg PO -BRKFST [facility] Last Admin: 10/16/20 09:32 Dose: 40 mg Documented by: Sumatriptan Succinate (Sumatriptan Succinate 50 Mg Tab) 100 mg PO DAILY PRN PRN Reason: Migraine Headache Tramadol HCl (Tramadol 50 Mg Tab) 50 mg PO Q6HR PRN PRN Reason: Pain Last Admin: 10/16/20 09:40 Dose: 50 mg Documented by: Zinc Sulfate (Zinc Sulfate 220 Mg Cap) 220 mg PO DAILY [facility] Last Admin: 10/16/20 09:32 Dose: 220 mg Documented by: Past medical history to include: Asthma, but Chiari malformation, migraines, herniated disc with back and neck pain, diabetes mellitus type 2, anxiety depression Social history: Patient smoked up one pack a week for about 10 years stopped over 20 years ago. Does occasional marijuana Gummi's and CBD oil. Lives with her boyfriend. Family history: Reviewed, noncontributory to presentation Physical examination: VITAL SIGNS: 98.9, 79, 18, 106/69, 90% on 5 L GENERAL: sitting up in bed, short of breath LUNGS:[ Respiratory rate increased; PSYCH: [Alert and oriented x3; mood and affect tired. NEUROLOGICAL: Cranial nerves grossly intact; no facial asymmetry, moving all 4 limbs. Rest of the exam as per pulmonary nursing INVESTIGATIONS, reviewed in the clinical context: October 16: D-dimer is 1.07 CRP 36.3 October 15: D-dimer 0.57 LDH 1445 CRP 43.6 WBC 6.6 hemoglobin 14.9 platelets 250 lymphocyte 0.9 d-dimer 0.56 potassium 4.2 creatinine 0.59 AST 70 ALT 53 CRP 64 Coronavirus [PCR]-detected EKG tracing personally reviewed by me-normal sinus rhythm Chest x-ray film personally reviewed by me-bilateral diffuse infiltrates Assessment and plan: -Acute bilateral COVID 19 pneumonia with symptoms starting about 10 days ago- slow to respond On IV Decadron, subcu Lovenox, vitamin C vitamin D zinc and Pepcid. Pulmonary consulted. -Acute hypoxic respiratory failure from COVID 19 pneumonia-no improvement Currently on 5 L of nasal cannula -Morbid obesity BMI 48.6 For weight loss measures and follow-up with PCP upon discharge -Diabetes mellitus type 2 Follow Accu-Cheks -GERD Continue with omeprazole -Chronic neck and back pain from arthralgia Tylenol when necessary -Nonspecific hepatitis Hepatic ultrasound Care was discussed with the patient. All of with pulmonary
[2020-10-17] MEDS: ENOXAPARIN 40 MG/0.4 ML SYRINGE SQ SCH ×2 (04:55→17:38)
[2020-10-17] MEDS: VANCOMYCIN 2,250 MG in SODIUM CHLORIDE 0.9% 500 ML 500 ML IVPB SCH ×2 (06:01→19:13)
[2020-10-17 07:19] LABS: Glucose,Whole Blood 108 mg/dL (75-99)
[2020-10-17] MEDS: ASCORBIC ACID 500 MG TAB PO SCH (07:21)
[2020-10-17] MEDS: PANTOPRAZOLE 40 MG TABLET PO SCH (07:22)
[2020-10-17] MEDS: DEXAMETHASONE SOD PHOSPHATE 10 MG/ML 1 ML VIAL IV SCH (07:22)
[2020-10-17] MEDS: CHOLECALCIFEROL 25 MCG (1000 IU) TABLET PO SCH (07:22)
[2020-10-17] MEDS: ZINC SULFATE 220 MG CAP PO SCH (07:22)
[2020-10-17] MEDS: NON FORMULARY DRUG (Liraglutide [Victoza 2-Pak] 0.6 MG/0.1 ML Pen.Injctr) PO SCH (07:23)
[2020-10-17] MEDS: FAMOTIDINE 20 MG TAB PO SCH ×2 (07:23→20:21)
--- NOTE | 2020-10-17 07:56 | XR ---
EXAMINATION TYPE: XR chest 1V portable DATE OF EXAM: 10/17/2020 COMPARISON: 10/14/2020 INDICATION: Covid TECHNIQUE: Single frontal view of the chest is obtained. FINDINGS: The heart size is normal. The pulmonary vasculature is normal. Diffuse patchy infiltrate bilaterally. Findings are worsening over the interval. IMPRESSION: 1. Worsening bilateral patchy lung infiltrates. Findings are more extensive comparison.
[2020-10-17 11:27] LABS: African American GFR (CKD) >90 (>60 ml/min/1.73 sqM); Non-African American GFR(CKD) >90 (>60 ml/min/1.73 sqM)
[2020-10-17 11:40] LABS: Glucose,Whole Blood 183 mg/dL (75-99)
[2020-10-17] MEDS: INSULIN ASPART (NovoLOG) 100 UNIT/ML VIAL SQ SCH ×4 (11:46→20:21)
--- NOTE | 2020-10-17 15:16 | P.PN ---
Subjective Progress Note Date: 10/17/20 49-year-old female patient hospitalized for COVID 19 related pneumonia and a pulmonary consultation was requested. The patient is morbidly obese and she has previous history of coronary artery malformation and migraines. She is diabetic and she has chronic anxiety and depression. Her symptoms started on 10/03/2020 where the patient became fatigued and tired and she was having some body aches and cough and progressively she developed shortness of breath. She got tested on 10/04/2020 and outpatient basis and she checked positive. Following that, the patient was placed on steroids which I believe it was in the form of Decadron. Despite all this, the patient progressed and the patient came into the hospital because of worsening shortness of breath. She was found to be hypoxic and she is currently on 5 L about 2 by nasal cannula with a pulse ox of 88%. Chest x-ray showing diffuse breath and pulmonary infiltrates. The blood work is showing an LDH level of 1445, CRP of 43.6, and a d-dimer of 0.57. Otherwise, the rest of the blood work essentially within normal limits. White cell count at 6.6 with a lymphopenia and a lymphocyte count of 0.9. Coagulation profile is within normal limits. D-dimer is at 0.57. She is currently back on Decadron orally and she is on 5 L of oxygen by nasal cannula. On today's evaluation of 10/16/2020 the patient is on 5 L of oxygen by nasal cannula. She has been ranging between 4 and 6 L during this current hospital stay. She is feeling better. She is still coughing. She has a low-grade fever yesterday. She is pulling around 1500 on his incentive spirometer. Otherwise, the CRP level is at 36, d-dimer is at 1.07. Creatinine is at 0.7. No nausea. No vomiting. No diarrhea. No abdominal pain. No other complaints otherwise for now. The blood culture is showing coagulase-negative staph and the patient was given a dose of vancomycin. The blood cultures are being monitored. Affect irritable cultures are showing staph in the blood which is probably coagulase- negative staph. Both of 4 of the cultures are positive for gram-positive cocci in clusters and the finding cultures sensitivities are still pending for now. 10/17/2020, the patient remains on 5 L of oxygen by nasal cannula. Essentially stable compared to yesterday. He remains on a combination of treatment including Decadron 6 mg IV daily and Lovenox 40 mg subcu every 12 hours. The patient's blood culture was also positive for coagulase-negative staph and this was repeated. The results of this culture were thought to be contaminated. Nevertheless there were 2 of the blood cultures and for that reason we decided to treat this patient with vancomycin. The patient is hemodynamically stable. The patient is afebrile. Clinically the patient was stable. D-dimer was 1.49. LDH is 1469 and the CRP is 86. She is having episodic dry nose and the patient is on oxygen by nasal cannula which is essentially humidified at this point in time. She has no other complaints otherwise for now. Repeat chest x-ray showing worsening in the bilateral patchy pulmonary filtrates compared to the earlier chest x-ray from 10/14/2020 and this was obviously a concern. Objective - Vital Signs Vital signs: Vital Signs Temp 98.3 F 10/17/20 14:00 Pulse 85 10/17/20 14:00 Resp 16 10/17/20 14:00 BP 108/70 10/17/20 14:00 Pulse Ox 87 L 10/17/20 14:00 Intake & Output 10/16/20 10/17/20 10/17/20 18:59 06:59 18:59 Intake Total 240 320 Balance 240 320 Intake: Oral 240 320 Other: Voiding Method Toilet # Voids 1 2 - Exam morbidly obese, comfortable, nonacute distress, BMI of 48, currently on 5 L of oxygen by nasal cannula Head exam was generally normal. There was no scleral icterus or corneal arcus. Mucous membranes were moist. Neck was supple and without jugular venous distension, thyromegaly, or carotid bruits. Carotids were easily palpable bilaterally. There was no adenopathy. Lung sounds are diminished and the patient has crackers the mid and lower lung hughes bilaterally Cardiac exam revealed the PMI to be normally situated and sized. The rhythm was regular and no extrasystoles were noted during several minutes of auscultation. The first and second heart sounds were normal and physiologic splitting of the second heart sound was noted. There were no murmurs, rubs, clicks, or gallops. Abdominal exam revealed normal bowel sounds. The abdomen was soft, non-tender, and without masses, organomegaly, or appreciable enlargement of the abdominal aorta. Examination of the extremities revealed easily palpable radial, femoral and pedal pulses. There was no cyanosis, clubbing or edema. Examination of the skin revealed no evidence of significant rashes, suspicious appearing nevi or other concerning lesions. Neurologically, the patient is awake and alert and the patient does not have any focal neurological deficit. Cranial nerves are essentially intact. - Labs CBC & Chem 7: 10/14/20 10:56 10/17/20 09:28 Labs: Abnormal Lab Results - Last 24 Hours (Table) 10/16/20 10/16/20 10/17/20 Range/Units 17:28 20:41 07:16 D-Dimer (<0.60) mg/L FEU POC Glucose (mg/dL) 190 H 151 H 108 H (75-99) mg/dL Lactate Dehydrogenase (313-618) U/L C-Reactive Protein (<10.0) mg/L 10/17/20 10/17/20 10/17/20 Range/Units 09:28 09:28 09:28 D-Dimer 1.49 H (<0.60) mg/L FEU POC Glucose (mg/dL) (75-99) mg/dL Lactate Dehydrogenase 1469 H (313-618) U/L C-Reactive Protein 86.0 H (<10.0) mg/L 10/17/20 Range/Units 11:25 D-Dimer (<0.60) mg/L FEU POC Glucose (mg/dL) 183 H (75-99) mg/dL Lactate Dehydrogenase (313-618) U/L C-Reactive Protein (<10.0) mg/L Microbiology - Last 24 Hours (Table) 10/14/20 15:37 Blood Culture Gram Stain - Final Blood Blood Culture - Final Coagulase Negative Staph 10/14/20 12:08 Blood Culture Gram Stain - Final Blood Blood Culture - Final Coagulase Negative Staph Coagulase Negative Staph#2 10/15/20 15:04 Blood Culture - Preliminary Blood No Growth after 24 hours Assessment and Plan Plan: 1 acute bilateral COVID 19 related pneumonia. The patient symptoms started on 10/03/2020. The patient checked positive on 10/04/2020. The patient was treated with Decadron on outpatient basis. The patient's presented with worsening shortness of breath and bilateral pneumonia. The patient is currently on 5 L of oxygen by nasal cannula. The chest x-ray showing interval worsening. Nevertheless, clinically, the patient is feeling stable. The patient also has a positive blood culture for coagulase-negative staph aureus, likely contaminant the patient is currently on vancomycin. 2 acute hypoxic respiratory failure currently on 5 L of oxygen by nasal cannula. D-dimer is low. Pulmonary embolism is unlikely.d-dimer is low at this point in time. The LDH level continues to be quite elevated. 3 obesity with a BMI of 48.6 4 chronic bronchial asthma currently inactive in stable 5 diabetes mellitus 6 coronary artery malformation 7 migraine headaches 8 chronic neck and back pain related to herniated disc disease 9 coagulase-negative staph in the blood, likely contaminant. Nevertheless this was cultured and 2 out of 4 blood cultures. Monitor cultures will be repeated and the patient was given vancomycin. Plan Keep oxygen at 5 L and titrate the flow to maintain a saturation above 90%, titrate the flow to maintain a saturation above 90% Agree on continuing the Decadron 6 mg on a daily basis patient is outside the window for Remdesivir treatment Lovenox 40 mg subcu for DVT prophylaxis Vitamin supplements regarding COVID infections Chest x-ray is worse if clinically the patient is stable. Monitor the follow-up blood cultures Currently on 5 L and this will be gradually weaned off if possible We'll continue to follow.
[2020-10-17 16:40] LABS: Glucose,Whole Blood 161 mg/dL (75-99)
[2020-10-17] MEDS ORDERED: VANCOMYCIN TROUGH DUE 1 EACH MISC MISCELLANE ONE (18:00)
[2020-10-17 20:14] LABS: Glucose,Whole Blood 162 mg/dL (75-99)
[2020-10-17] MEDS: ALBUTEROL HFA INHALER INHALATION PRN (20:52)
--- NOTE | 2020-10-17 23:16 | P.PN ---
Progress Note - Text Progress Note Date: 10/17/20 Chief Complaint: Short of breath History of presenting complaint: This is a pleasant 49-year-old patient of Dr. Logan Silva. Chronic stable medical conditions include but Chiari malformation of the brain, asthma, herniated disc in the back and neck, with pain anxiety depression, GERD, diabetes type 2. Patient around October stools started getting symptoms that included headache cough progressive shortness of breath diarrhea had fever and chills body aches. She did come back positive for COVID 19 on the fourth. Since symptoms have been progressive she came down to the ER. Initial pulse ox was 88% on 5 L. Admitted with bilateral COVID 19 pneumonia, acute hypoxic respiratory failure. Initially put on 5 L of nasal cannula. Started on Decadron and Lovenox. Blood cultures 2 sets positive for coagulase-negative staph hence vancomycin resumed. Today: Sitting up. Oral intake much better. Some shortness of breath. On 5 L of nasal cannula Review of systems: Was done for constitutional, cardiovascular, GI, pulmonary. relevant finding as above Active Medications Albuterol Sulfate (Albuterol Hfa Inhaler) 2 puff INHALATION RT-Q4H PRN PRN Reason: Shortness Of Breath Last Admin: 10/17/20 20:52 Dose: 2 puff Documented by: Ascorbic Acid (Ascorbic Acid 500 Mg Tab) 1,000 mg PO DAILY [facility] Last Admin: 10/17/20 07:21 Dose: 1,000 mg Documented by: Cholecalciferol (Cholecalciferol 25 Mcg (1000 Iu) Tablet) 100 mcg PO DAILY [facility] Last Admin: 10/17/20 07:22 Dose: 100 mcg Documented by: Dexamethasone Sodium Phosphate (Dexamethasone Sod Phosphate 10 Mg/Ml 1 Ml Vial) 6 mg IV DAILY [facility] Last Admin: 10/17/20 07:22 Dose: 6 mg Documented by: Enoxaparin Sodium (Enoxaparin 40 Mg/0.4 Ml Syringe) 40 mg SQ Q12H [facility] Last Admin: 10/17/20 17:38 Dose: 40 mg Documented by: Famotidine (Famotidine 20 Mg Tab) 20 mg PO BID [facility] Last Admin: 10/17/20 20:21 Dose: 20 mg Documented by: Vancomycin HCl 2,250 mg/ (Sodium Chloride) 500 mls @ 167 mls/hr IVPB Q8H [facility] Insulin Aspart (Insulin Aspart (Novolog) 100 Unit/Ml Vial) 0 unit SQ [facility]; Protocol Last Admin: 10/17/20 20:21 Dose: 3 unit Documented by: Miscellaneous Information (Vancomycin Trough Due 1 Each Misc) 1 each MISCELLANE ONCE ONE Stop: 10/19/20 09:01 Non-Formulary Medication (Liraglutide [Victoza 2-Primitivo]) 0.6 mg PO DAILY [facility] Last Admin: 10/17/20 07:23 Dose: Not Given Documented by: Ondansetron HCl (Ondansetron 4 Mg/2 Ml Vial) 4 mg IVP Q8HR PRN PRN Reason: Nausea And Vomiting Last Admin: 10/16/20 09:41 Dose: 4 mg Documented by: Pantoprazole Sodium (Pantoprazole 40 Mg Tablet) 40 mg PO AC-BRKFST [facility] Last Admin: 10/17/20 07:22 Dose: 40 mg Documented by: Sumatriptan Succinate (Sumatriptan Succinate 50 Mg Tab) 100 mg PO DAILY PRN PRN Reason: Migraine Headache Tramadol HCl (Tramadol 50 Mg Tab) 50 mg PO Q6HR PRN PRN Reason: Pain Last Admin: 10/16/20 09:40 Dose: 50 mg Documented by: Zinc Sulfate (Zinc Sulfate 220 Mg Cap) 220 mg PO DAILY [facility] Last Admin: 10/17/20 07:22 Dose: 220 mg Documented by: Past medical history to include: Asthma, but Chiari malformation, migraines, herniated disc with back and neck pain, diabetes mellitus type 2, anxiety depression Social history: Patient smoked up one pack a week for about 10 years stopped over 20 years ago. Does occasional marijuana Gummi's and CBD oil. Lives with her boyfriend. Family history: Reviewed, noncontributory to presentation Physical examination: VITAL SIGNS: 98.3, 85, 16, 141/78, 92% on 5 L GENERAL: sitting up in bed, short of breath LUNGS:[ Respiratory rate increased; PSYCH: [Alert and oriented x3; mood and affect tired. NEUROLOGICAL: Cranial nerves grossly intact; no facial asymmetry, moving all 4 limbs. Rest of the exam as per pulmonary nursing INVESTIGATIONS, reviewed in the clinical context: October 17: D-dimer 1.49 LDH 146 CRP 86 October 16: D-dimer is 1.07 CRP 36.3 October 15: D-dimer 0.57 LDH 1445 CRP 43.6 WBC 6.6 hemoglobin 14.9 platelets 250 lymphocyte 0.9 d-dimer 0.56 potassium 4.2 creatinine 0.59 AST 70 ALT 53 CRP 64 Coronavirus [PCR]-detected EKG tracing personally reviewed by me-normal sinus rhythm Chest x-ray film personally reviewed by me-bilateral diffuse infiltrates Assessment and plan: -Acute bilateral COVID 19 pneumonia with symptoms starting about 10 days ago- slow to respond On IV Decadron, subcu Lovenox, vitamin C vitamin D zinc and Pepcid. Pulmonary consulted. -Acute hypoxic respiratory failure from COVID 19 pneumonia-no improvement Currently on 5 L of nasal cannula -Morbid obesity BMI 48.6 For weight loss measures and follow-up with PCP upon discharge -Diabetes mellitus type 2 Follow Accu-Cheks -GERD Continue with omeprazole -Chronic neck and back pain from arthralgia Tylenol when necessary -Nonspecific hepatitis Hepatic ultrasound -Coagulase-negative staph in 2 sets of blood cultures on October 14 as decision made by about noon to treat with IV vancomycin. Continue current medication treatment plan. Discussed with the patient.
[2020-10-18] MEDS: VANCOMYCIN 2,250 MG in SODIUM CHLORIDE 0.9% 500 ML 500 ML IVPB SCH ×3 (02:12→17:33)
[2020-10-18] MEDS: ENOXAPARIN 40 MG/0.4 ML SYRINGE SQ SCH ×2 (04:26→17:33)
[2020-10-18 07:21] LABS: Glucose,Whole Blood 128 mg/dL (75-99)
[2020-10-18] MEDS: INSULIN ASPART (NovoLOG) 100 UNIT/ML VIAL SQ SCH ×4 (07:30→21:17)
--- NOTE | 2020-10-18 07:40 | XR ---
EXAMINATION TYPE: XR chest 1V portable DATE OF EXAM: 10/18/2020 CLINICAL HISTORY: Difficulty breathing progress study. TECHNIQUE: Single AP portable upright view of the chest is obtained. COMPARISON: Chest x-ray from one and 4 days earlier FINDINGS: Persistent bilateral multifocal and confluent opacities. Cardiac silhouette size stable an d within normal limits. Osseous structures are intact. IMPRESSION: Persistent bilateral multifocal and confluent opacities consistent with covid-19 infectio n, no significant change from one day earlier.
[2020-10-18] MEDS: ALBUTEROL HFA INHALER INHALATION PRN ×4 (09:52→20:32)
[2020-10-18 09:58] LABS: African American GFR (CKD) >90 (>60 ml/min/1.73 sqM); Non-African American GFR(CKD) >90 (>60 ml/min/1.73 sqM)
[2020-10-18] MEDS ORDERED: SODIUM CHLORIDE 0.65% NASAL SPRAY 44 ML BTL NASAL PRN (10:10)
[2020-10-18] MEDS: NON FORMULARY DRUG (Liraglutide [Victoza 2-Pak] 0.6 MG/0.1 ML Pen.Injctr) PO SCH (10:11)
[2020-10-18 10:14] LABS: C Reactive Protein 13.3 mg/dL (<1.0); LDH 1509 U/L (313-618)
[2020-10-18] MEDS: CHOLECALCIFEROL 25 MCG (1000 IU) TABLET PO SCH (10:16)
[2020-10-18] MEDS: FAMOTIDINE 20 MG TAB PO SCH ×2 (10:17→21:18)
[2020-10-18] MEDS: DEXAMETHASONE SOD PHOSPHATE 10 MG/ML 1 ML VIAL IV SCH (10:17)
[2020-10-18] MEDS: ASCORBIC ACID 500 MG TAB PO SCH (10:17)
[2020-10-18] MEDS: PANTOPRAZOLE 40 MG TABLET PO SCH (10:17)
[2020-10-18] MEDS: ZINC SULFATE 220 MG CAP PO SCH (10:17)
[2020-10-18] MEDS: ACETAMINOPHEN TAB 500 MG TAB PO PRN (11:21)
[2020-10-18 11:29] LABS: Glucose,Whole Blood 160 mg/dL (75-99)
--- NOTE | 2020-10-18 13:50 | P.PN ---
Subjective Progress Note Date: 10/18/20 Principal diagnosis: COVID-19 pneumonia 49-year-old female patient hospitalized for COVID 19 related pneumonia and a pulmonary consultation was requested. The patient is morbidly obese and she has previous history of coronary artery malformation and migraines. She is diabetic and she has chronic anxiety and depression. Her symptoms started on 10/03/2020 where the patient became fatigued and tired and she was having some body aches and cough and progressively she developed shortness of breath. She got tested on 10/04/2020 and outpatient basis and she checked positive. Following that, the patient was placed on steroids which I believe it was in the form of Decadron. Despite all this, the patient progressed and the patient came into the hospital because of worsening shortness of breath. She was found to be hypoxic and she is currently on 5 L about 2 by nasal cannula with a pulse ox of 88%. Chest x-ray showing diffuse breath and pulmonary infiltrates. The blood work is showing an LDH level of 1445, CRP of 43.6, and a d-dimer of 0.57. Otherwise, the rest of the blood work essentially within normal limits. White cell count at 6.6 with a lymphopenia and a lymphocyte count of 0.9. Coagulation profile is within normal limits. D-dimer is at 0.57. She is currently back on Decadron orally and she is on 5 L of oxygen by nasal cannula. On today's evaluation of 10/16/2020 the patient is on 5 L of oxygen by nasal cannula. She has been ranging between 4 and 6 L during this current hospital stay. She is feeling better. She is still coughing. She has a low-grade fever yesterday. She is pulling around 1500 on his incentive spirometer. Otherwise, the CRP level is at 36, d-dimer is at 1.07. Creatinine is at 0.7. No nausea. No vomiting. No diarrhea. No abdominal pain. No other complaints otherwise for now. The blood culture is showing coagulase-negative staph and the patient was given a dose of vancomycin. The blood cultures are being monitored. Affect irritable cultures are showing staph in the blood which is probably coagulase-negative staph. Both of 4 of the cultures are positive for gram- positive cocci in clusters and the finding cultures sensitivities are still pending for now. 10/17/2020, the patient remains on 5 L of oxygen by nasal cannula. Essentially stable compared to yesterday. He remains on a combination of treatment including Decadron 6 mg IV daily and Lovenox 40 mg subcu every 12 hours. The patient's blood culture was also positive for coagulase-negative staph and this was repeated. The results of this culture were thought to be contaminated. Nevertheless there were 2 of the blood cultures and for that reason we decided to treat this patient with vancomycin. The patient is hemodynamically stable. The patient is afebrile. Clinically the patient was stable. D-dimer was 1.49. LDH is 1469 and the CRP is 86. She is having episodic dry nose and the patient is on oxygen by nasal cannula which is essentially humidified at this point in time. She has no other complaints otherwise for now. Repeat chest x-ray showing worsening in the bilateral patchy pulmonary filtrates compared to the earlier chest x-ray from 10/14/2020 and this was obviously a concern. On 10/18/2020 patient seen in follow-up on medical floor, she is currently on 6 L of oxygen, looks comfortable, she sits up in the chair, no cough, no chest pain, no hemoptysis, repeat blood cultures have shown no growth thus far, final cultures are pending, patient had 2 previous blood cultures with coagulase- negative staph and she remains on vancomycin, vital signs have been stable, she has been afebrile, follow-up chest x-ray today shows persistent bilateral multifocal confluent opacities consistent with COVID-19 infection, stable in appearance. Today's follow-up labs showed d-dimer 1.88, LDH 1509, and CRP is 13.3. She had no acute events overnight Objective - Vital Signs Vital signs: Vital Signs Temp 98.6 F 10/18/20 10:00 Pulse 86 10/18/20 10:00 Resp 20 10/18/20 10:00 BP 108/68 10/18/20 10:00 Pulse Ox 89 L 10/18/20 10:00 Intake & Output 10/17/20 10/18/20 10/18/20 18:59 06:59 18:59 Intake Total 520 Balance 520 Intake: Oral 520 Other: Voiding Method Toilet # Voids 1 - Exam GENERAL EXAM: Alert, very pleasant, obese 49-year-old white female, on 6 L of oxygen and a pulse ox of 90%, her FiO2 was subsequently increased to 89% in view of an episode of desaturation, patient oxygenation currently recovered and she will be weaned back down to keep O2 sat saturation at around 89-90% comfortable in no apparent distress. HEAD: Normocephalic/atraumatic. EYES: Normal reaction of pupils, equal size. Conjunctiva pink, sclera white. NOSE: Clear with pink turbinates. THROAT: No erythema or exudates. NECK: No masses, no JVD, no thyroid enlargement, no adenopathy. CHEST: No chest wall deformity. Symmetrical expansion. LUNGS: Equal air entry with bibasilar crackles CVS: Regular rate and rhythm, normal S1 and S2, no gallops, no murmurs, no rubs ABDOMEN: Soft, nontender. No hepatosplenomegaly, normal bowel sounds, no guarding or rigidity. EXTREMITIES: No clubbing, no edema, no cyanosis, 2+ pulses and upper and lower extremities. MUSCULOSKELETAL: Muscle strength and tone normal. SPINE: No scoliosis or deformity SKIN: No rashes CENTRAL NERVOUS SYSTEM: Alert and oriented -3. No focal deficits, tone is normal in all 4 extremities. PSYCHIATRIC: Alert and oriented -3. Appropriate affect. Intact judgment and insight. - Labs CBC & Chem 7: 10/14/20 10:56 10/18/20 08:27 Labs: Abnormal Lab Results - Last 24 Hours (Table) 10/17/20 10/17/20 10/18/20 Range/Units 16:38 20:11 07:19 D-Dimer (<0.60) mg/L FEU POC Glucose (mg/dL) 161 H 162 H 128 H (75-99) mg/dL Lactate Dehydrogenase (313-618) U/L C-Reactive Protein (<1.0) mg/dL 10/18/20 10/18/20 10/18/20 Range/Units 08:27 08:27 11:24 D-Dimer 1.88 H (<0.60) mg/L FEU POC Glucose (mg/dL) 160 H (75-99) mg/dL Lactate Dehydrogenase 1509 H (313-618) U/L C-Reactive Protein 13.3 H (<1.0) mg/dL Microbiology - Last 24 Hours (Table) 04/14/21 15:04 Blood Culture - Preliminary Blood No Growth after 48 hours 10/16/20 12:47 Blood Culture - Preliminary Blood No Growth after 24 hours 10/16/20 12:40 Blood Culture - Preliminary Blood No Growth after 24 hours 10/14/20 15:37 Blood Culture Gram Stain - Final Blood Blood Culture - Final Coagulase Negative Staph 10/14/20 12:08 Blood Culture Gram Stain - Final Blood Blood Culture - Final Coagulase Negative Staph Coagulase Negative Staph#2 Assessment and Plan Plan: 1 acute bilateral COVID 19 related pneumonia. The patient symptoms started on 10/03/2020. The patient checked positive on 10/04/2020. The patient was treated with Decadron on outpatient basis. The patient's presented with worse lily shortness of breath and bilateral pneumonia. The patient is currently on 5 L of oxygen by nasal cannula. The chest x-ray showing interval worsening. Nevertheless, clinically, the patient is feeling stable. The patient also has a positive blood culture for coagulase-negative staph aureus, likely contaminant the patient is currently on vancomycin. 2 acute hypoxic respiratory failure currently on 5 L of oxygen by nasal cannula. D-dimer is low. Pulmonary embolism is unlikely.d-dimer is low at this point in time. The LDH level continues to be quite elevated. 3 obesity with a BMI of 48.6 4 chronic bronchial asthma currently inactive in stable 5 diabetes mellitus 6 coronary artery malformation 7 migraine headaches 8 chronic neck and back pain related to herniated disc disease 9 coagulase-negative staph in the blood, likely contaminant. Nevertheless this was cultured and 2 out of 4 blood cultures. Monitor cultures will be repeated and the patient was given vancomycin. Plan: We'll continue current medical treatment, and titrate FiO2 to keep O2 saturation at 9090%, continue current dose Decadron, Lovenox, LDH remains elevated, CRP has improved, but a signs are stable, no worsening dyspnea, she looks very comfortable, she is breathing comfortably, will await results of the final cultures, continue with vancomycin, we will follow I performed a history & physical examination of the patient and discussed their management with my nurse practitioner, Elinor Dobbs. I reviewed the nurse practitioner's note and agree with the documented findings and plan of care. Lung sounds are positive for diminished with bilateral crackles. The findings and the impression was discussed with the patient. I attest to the documentation by the nurse practitioner. Time with Patient: Less than 30
[2020-10-18 16:40] LABS: Glucose,Whole Blood 219 mg/dL (75-99)
[2020-10-18 20:46] LABS: Glucose,Whole Blood 216 mg/dL (75-99)
--- NOTE | 2020-10-18 22:30 | P.PN ---
Progress Note - Text Progress Note Date: 10/18/20 Chief Complaint: Short of breath History of presenting complaint: This is a pleasant 49-year-old patient of Dr. Logan Silva. Chronic stable medical conditions include but Chiari malformation of the brain, asthma, herniated disc in the back and neck, with pain anxiety depression, GERD, diabetes type 2. Patient around October stools started getting symptoms that included headache cough progressive shortness of breath diarrhea had fever and chills body aches. She did come back positive for COVID 19 on the fourth. Since symptoms have been progressive she came down to the ER. Initial pulse ox was 88% on 5 L. Admitted with bilateral COVID 19 pneumonia, acute hypoxic respiratory failure. Initially put on 5 L of nasal cannula. Started on Decadron and Lovenox. Blood cultures 2 sets positive for coagulase-negative staph hence vancomycin resumed. Today: Sitting up. A bit more tired and short of breath today. Oral intake fair. Review of systems: Was done for constitutional, cardiovascular, GI, pulmonary. relevant finding as above Active Medications Acetaminophen (Acetaminophen Tab 500 Mg Tab) 1,000 mg PO Q6HR PRN PRN Reason: Fever and/ or Pain Last Admin: 10/18/20 11:21 Dose: 1,000 mg Documented by: Albuterol Sulfate (Albuterol Hfa Inhaler) 2 puff INHALATION RT-Q4H PRN PRN Reason: Shortness Of Breath Last Admin: 10/18/20 20:32 Dose: 2 puff Documented by: Ascorbic Acid (Ascorbic Acid 500 Mg Tab) 1,000 mg PO DAILY [facility] Last Admin: 10/18/20 10:17 Dose: 1,000 mg Documented by: Cholecalciferol (Cholecalciferol 25 Mcg (1000 Iu) Tablet) 100 mcg PO DAILY [facility] Last Admin: 10/18/20 10:16 Dose: 100 mcg Documented by: Dexamethasone Sodium Phosphate (Dexamethasone Sod Phosphate 10 Mg/Ml 1 Ml Vial) 6 mg IV DAILY [facility] Last Admin: 10/18/20 10:17 Dose: 6 mg Documented by: Enoxaparin Sodium (Enoxaparin 40 Mg/0.4 Ml Syringe) 40 mg SQ Q12H [facility] Last Admin: 10/18/20 17:33 Dose: 40 mg Documented by: Famotidine (Famotidine 20 Mg Tab) 20 mg PO BID [facility] Last Admin: 10/18/20 21:18 Dose: 20 mg Documented by: Vancomycin HCl 2,250 mg/ (Sodium Chloride) 500 mls @ 167 mls/hr IVPB Q8H [facility] Last Admin: 10/18/20 17:33 Dose: 167 mls/hr Documented by: Insulin Aspart (Insulin Aspart (Novolog) 100 Unit/Ml Vial) 0 unit SQ [facility]CHS [facility]; Protocol Last Admin: 10/18/20 21:17 Dose: 7 unit Documented by: Miscellaneous Information (Vancomycin Trough Due 1 Each Misc) 1 each MISCELLANE ONCE ONE Stop: 10/19/20 09:01 Non-Formulary Medication (Liraglutide [Victoza 2-Primitivo]) 0.6 mg PO DAILY [facility] Last Admin: 10/18/20 10:11 Dose: Not Given Documented by: Ondansetron HCl (Ondansetron 4 Mg/2 Ml Vial) 4 mg IVP Q8HR PRN PRN Reason: Nausea And Vomiting Last Admin: 10/16/20 09:41 Dose: 4 mg Documented by: Pantoprazole Sodium (Pantoprazole 40 Mg Tablet) 40 mg PO AC-BRKFST [facility] Last Admin: 10/18/20 10:17 Dose: 40 mg Documented by: Sodium Chloride (Sodium Chloride 0.65% Nasal [place] 44 Ml Btl) 2 spray NASAL QID PRN PRN Reason: Dry Nasal Passages Last Admin: 10/18/20 11:29 Dose: 2 spray Documented by: Sumatriptan Succinate (Sumatriptan Succinate 50 Mg Tab) 100 mg PO DAILY PRN PRN Reason: Migraine Headache Tramadol HCl (Tramadol 50 Mg Tab) 50 mg PO Q6HR PRN PRN Reason: Pain Last Admin: 10/16/20 09:40 Dose: 50 mg Documented by: Zinc Sulfate (Zinc Sulfate 220 Mg Cap) 220 mg PO DAILY [facility] Last Admin: 10/18/20 10:17 Dose: 220 mg Documented by: Past medical history to include: Asthma, but Chiari malformation, migraines, herniated disc with back and neck pain, diabetes mellitus type 2, anxiety depression Social history: Patient smoked up one pack a week for about 10 years stopped over 20 years ago. Does occasional marijuana Gummi's and CBD oil. Lives with her boyfriend. Family history: Reviewed, noncontributory to presentation Physical examination: VITAL SIGNS: 97.7, 86, 18, 122/71, 89% on 15 L GENERAL: sitting up in bed, breathing better LUNGS:[ Respiratory rate increased; PSYCH: [Alert and oriented x3; mood and affect tired. NEUROLOGICAL: Cranial nerves grossly intact; no facial asymmetry, moving all 4 limbs. Rest of the exam as per pulmonary nursing INVESTIGATIONS, reviewed in the clinical context: October 18: D-dimer 1.8 date LDH 150CRP 13.3 procalcitonin 0.1 October 17: D-dimer 1.49 LDH 146 CRP 86 October 16: D-dimer is 1.07 CRP 36.3 October 15: D-dimer 0.57 LDH 1445 CRP 43.6 WBC 6.6 hemoglobin 14.9 platelets 250 lymphocyte 0.9 d-dimer 0.56 potassium 4.2 creatinine 0.59 AST 70 ALT 53 CRP 64 Coronavirus [PCR]-detected EKG tracing personally reviewed by me-normal sinus rhythm Chest x-ray film personally reviewed by me-bilateral diffuse infiltrates Hepatic ultrasound: Heterogenous hyperechoic appearance possibly from fatty liver Assessment and plan: -Acute bilateral COVID 19 pneumonia with symptoms starting about 10 days ago- slow to respond On IV Decadron, subcu Lovenox, vitamin C vitamin D zinc and Pepcid. Pulmonary consulted. -Acute hypoxic respiratory failure from COVID 19 slow to respond Currently on 15 L of nasal cannula -Morbid obesity BMI 48.6 For weight loss measures and follow-up with PCP upon discharge -Diabetes mellitus type 2, uncontrolled with hyperglycemia Follow Accu-Cheks -GERD Continue with omeprazole -Chronic neck and back pain from arthralgia Tylenol when necessary -Nonspecific hepatitis, likely from nonalcoholic fatty liver disease Follow with GI as an outpatient -Coagulase-negative staph in 2 sets of blood cultures on October 14 as decision made by pulmonary to treat with IV vancomycin. Discussed with patient. Continue current medications.
[2020-10-19] MEDS: VANCOMYCIN 2,250 MG in SODIUM CHLORIDE 0.9% 500 ML 500 ML IVPB SCH ×3 (01:51→17:42)
[2020-10-19] MEDS: ENOXAPARIN 40 MG/0.4 ML SYRINGE SQ SCH ×2 (05:27→17:43)
[2020-10-19 07:11] LABS: Glucose,Whole Blood 140 mg/dL (75-99)
[2020-10-19] MEDS: DEXAMETHASONE SOD PHOSPHATE 10 MG/ML 1 ML VIAL IV SCH (07:59)
[2020-10-19] MEDS: INSULIN ASPART (NovoLOG) 100 UNIT/ML VIAL SQ SCH ×4 (07:59→21:49)
[2020-10-19] MEDS: FAMOTIDINE 20 MG TAB PO SCH ×2 (08:00→21:49)
[2020-10-19] MEDS: CHOLECALCIFEROL 25 MCG (1000 IU) TABLET PO SCH (08:00)
[2020-10-19] MEDS: ASCORBIC ACID 500 MG TAB PO SCH (08:00)
[2020-10-19] MEDS: PANTOPRAZOLE 40 MG TABLET PO SCH (08:00)
[2020-10-19] MEDS: ZINC SULFATE 220 MG CAP PO SCH (08:00)
[2020-10-19] MEDS: NON FORMULARY DRUG (Liraglutide [Victoza 2-Pak] 0.6 MG/0.1 ML Pen.Injctr) PO SCH (08:01)
[2020-10-19] MEDS: ALBUTEROL HFA INHALER INHALATION PRN ×2 (08:45→16:11)
[2020-10-19] MEDS ORDERED: VANCOMYCIN TROUGH DUE 1 EACH MISC MISCELLANE ONE (09:00)
[2020-10-19 10:23] LABS: African American GFR (CKD) >90 (>60 ml/min/1.73 sqM); Non-African American GFR(CKD) >90 (>60 ml/min/1.73 sqM)
[2020-10-19 11:50] LABS: Glucose,Whole Blood 176 mg/dL (75-99)
--- NOTE | 2020-10-19 14:39 | P.PN ---
Subjective Progress Note Date: 10/19/20 Principal diagnosis: COVID-19 pneumonia 49-year-old female patient hospitalized for COVID 19 related pneumonia and a pulmonary consultation was requested. The patient is morbidly obese and she has previous history of coronary artery malformation and migraines. She is diabetic and she has chronic anxiety and depression. Her symptoms started on 10/03/2020 where the patient became fatigued and tired and she was having some body aches and cough and progressively she developed shortness of breath. She got tested on 10/04/2020 and outpatient basis and she checked positive. Following that, the patient was placed on steroids which I believe it was in the form of Decadron. Despite all this, the patient progressed and the patient came into the hospital because of worsening shortness of breath. She was found to be hypoxic and she is currently on 5 L about 2 by nasal cannula with a pulse ox of 88%. Chest x-ray showing diffuse breath and pulmonary infiltrates. The blood work is showing an LDH level of 1445, CRP of 43.6, and a d-dimer of 0.57. Otherwise, the rest of the blood work essentially within normal limits. White cell count at 6.6 with a lymphopenia and a lymphocyte count of 0.9. Coagulation profile is within normal limits. D-dimer is at 0.57. She is currently back on Decadron orally and she is on 5 L of oxygen by nasal cannula. On today's evaluation of 10/16/2020 the patient is on 5 L of oxygen by nasal cannula. She has been ranging between 4 and 6 L during this current hospital stay. She is feeling better. She is still coughing. She has a low-grade fever yesterday. She is pulling around 1500 on his incentive spirometer. Otherwise, the CRP level is at 36, d-dimer is at 1.07. Creatinine is at 0.7. No nausea. No vomiting. No diarrhea. No abdominal pain. No other complaints otherwise for now. The blood culture is showing coagulase-negative staph and the patient was given a dose of vancomycin. The blood cultures are being monitored. Affect irritable cultures are showing staph in the blood which is probably coagulase-negative staph. Both of 4 of the cultures are positive for gram- positive cocci in clusters and the finding cultures sensitivities are still pending for now. 10/17/2020, the patient remains on 5 L of oxygen by nasal cannula. Essentially stable compared to yesterday. He remains on a combination of treatment including Decadron 6 mg IV daily and Lovenox 40 mg subcu every 12 hours. The patient's blood culture was also positive for coagulase-negative staph and this was repeated. The results of this culture were thought to be contaminated. Nevertheless there were 2 of the blood cultures and for that reason we decided to treat this patient with vancomycin. The patient is hemodynamically stable. The patient is afebrile. Clinically the patient was stable. D-dimer was 1.49. LDH is 1469 and the CRP is 86. She is having episodic dry nose and the patient is on oxygen by nasal cannula which is essentially humidified at this point in time. She has no other complaints otherwise for now. Repeat chest x-ray showing worsening in the bilateral patchy pulmonary filtrates compared to the earlier chest x-ray from 10/14/2020 and this was obviously a concern. On 10/18/2020 patient seen in follow-up on medical floor, she is currently on 6 L of oxygen, looks comfortable, she sits up in the chair, no cough, no chest pain, no hemoptysis, repeat blood cultures have shown no growth thus far, final cultures are pending, patient had 2 previous blood cultures with coagulase- negative staph and she remains on vancomycin, vital signs have been stable, she has been afebrile, follow-up chest x-ray today shows persistent bilateral multifocal confluent opacities consistent with COVID-19 infection, stable in appearance. Today's follow-up labs showed d-dimer 1.88, LDH 1509, and CRP is 13.3. She had no acute events overnight On 10/19/2020 patient seen in follow-up on medical surgical floor, she sits up in the chair, she is currently on 6 L per high flow oxygen, her pulse ox is 90%, she still coughing, but overall she states she feels that she is doing better, follow blood cultures so far have been negative, she is working on her incentive spirometer she is achieving 1999, today's labs have been reviewed, showing white blood cell count is 60.4, hemoglobin of 12, d-dimer is trending down and is down to 1.19, sodium is 133,electrolytes and renal profile were unremarkable, LDH is trending today's labs, and is up to 1356, CRP is low at 0.5. no chest discomfort, breathing comfortably, tolerating oral intake. Objective - Vital Signs Vital signs: Vital Signs Temp 97.6 F 10/19/20 10:00 Pulse 92 10/19/20 10:00 Resp 22 10/19/20 10:00 BP 154/80 10/19/20 10:00 Pulse Ox 90 L 10/19/20 10:00 Intake & Output 10/18/20 10/19/20 10/19/20 18:59 06:59 18:59 Intake Total 500 Balance 500 Intake: Intake, IV Titration 500 Amount Vancomycin 2,250 mg In 500 Sodium Chloride 0.9% 500 ml 500 ml @ 167 mls/hr IVPB Q8H [facility] Rx#: [id number] Other: Voiding Method Bedside Commode # Voids 3 4 - Exam GENERAL EXAM: Alert, very pleasant, obese 49-year-old white female, on 15 L of oxygen and a pulse ox of 89%, her FiO2 was subsequently increased to 89% in view of an episode of desaturation, patient oxygenation currently recovered and she will be weaned back down to keep O2 sat saturation at around 89-90% comfortable in no apparent distress. HEAD: Normocephalic/atraumatic. EYES: Normal reaction of pupils, equal size. Conjunctiva pink, sclera white. NOSE: Clear with pink turbinates. THROAT: No erythema or exudates. NECK: No masses, no JVD, no thyroid enlargement, no adenopathy. CHEST: No chest wall deformity. Symmetrical expansion. LUNGS: Equal air entry with bibasilar crackles CVS: Regular rate and rhythm, normal S1 and S2, no gallops, no murmurs, no rubs ABDOMEN: Soft, nontender. No hepatosplenomegaly, normal bowel sounds, no guarding or rigidity. EXTREMITIES: No clubbing, no edema, no cyanosis, 2+ pulses and upper and lower extremities. MUSCULOSKELETAL: Muscle strength and tone normal. SPINE: No scoliosis or deformity SKIN: No rashes CENTRAL NERVOUS SYSTEM: Alert and oriented -3. No focal deficits, tone is normal in all 4 extremities. PSYCHIATRIC: Alert and oriented -3. Appropriate affect. Intact judgment and insight. - Labs CBC & Chem 7: 10/14/20 10:56 10/19/20 09:31 Labs: Abnormal Lab Results - Last 24 Hours (Table) 10/18/20 10/18/20 10/18/20 Range/Units 08:27 16:34 20:42 POC Glucose (mg/dL) 219 H 216 H (75-99) mg/dL Procalcitonin 0.10 H (0.02-0.09) ng/mL 10/19/20 10/19/20 Range/Units 07:10 11:34 POC Glucose (mg/dL) 140 H 176 H (75-99) mg/dL Procalcitonin (0.02-0.09) ng/mL Microbiology - Last 24 Hours (Table) 10/15/20 15:04 Blood Culture - Preliminary Blood No Growth after 72 hours 10/16/20 12:47 Blood Culture - Preliminary Blood No Growth after 48 hours 10/16/20 12:40 Blood Culture - Preliminary Blood No Growth after 48 hours Assessment and Plan Plan: 1 acute bilateral COVID 19 related pneumonia. The patient symptoms started on 10/03/2020. The patient checked positive on 10/04/2020. The patient was treated with Decadron on outpatient basis. The patient's presented with worsening shortness of breath and bilateral pneumonia. The patient is currently on 5 L of oxygen by nasal cannula. The chest x-ray showing interval worsening. Nevertheless, clinically, the patient is feeling stable. The patient also has a positive blood culture for coagulase-negative staph aureus, likely contaminant the patient is currently on vancomycin. 2 acute hypoxic respiratory failure currently on 5 L of oxygen by nasal cannula. D-dimer is low. Pulmonary embolism is unlikely.d-dimer is low at this point in time. The LDH level continues to be quite elevated. 3 obesity with a BMI of 48.6 4 chronic bronchial asthma currently inactive in stable 5 diabetes mellitus 6 coronary artery malformation 7 migraine headaches 8 chronic neck and back pain related to herniated disc disease 9 coagulase-negative staph in the blood, likely contaminant. Nevertheless this was cultured and 2 out of 4 blood cultures. Monitor cultures will be repeated and the patient was given vancomycin. Plan: Continue weaning FiO2 Follow-up chest x-ray in the morning Continue current dose steroids Continue anticoagulation will contact back the dose to 40 mg once daily We'll continue to follow Time with Patient: Less than 30
[2020-10-19 17:29] LABS: Glucose,Whole Blood 175 mg/dL (75-99)
[2020-10-19 20:59] LABS: Glucose,Whole Blood 214 mg/dL (75-99)
--- NOTE | 2020-10-19 21:36 | P.PN ---
Progress Note - Text Progress Note Date: 10/19/20 Chief Complaint: Short of breath History of presenting complaint: This is a pleasant 49-year-old patient of Dr. Logan Silva. Chronic stable medical conditions include but Chiari malformation of the brain, asthma, herniated disc in the back and neck, with pain anxiety depression, GERD, diabetes type 2. Patient around October stools started getting symptoms that included headache cough progressive shortness of breath diarrhea had fever and chills body aches. She did come back positive for COVID 19 on the fourth. Since symptoms have been progressive she came down to the ER. Initial pulse ox was 88% on 5 L. Admitted with bilateral COVID 19 pneumonia, acute hypoxic respiratory failure. Initially put on 5 L of nasal cannula. Started on Decadron and Lovenox. Blood cultures 2 sets positive for coagulase-negative staph hence vancomycin resumed. Today: Sitting up in a chair. Eating 100%. On 6 L of nasal cannula. Feels a bit better. Review of systems: Was done for constitutional, cardiovascular, GI, pulmonary. relevant finding as above Active Medications Acetaminophen (Acetaminophen Tab 500 Mg Tab) 1,000 mg PO Q6HR PRN PRN Reason: Fever and/ or Pain Last Admin: 10/18/20 11:21 Dose: 1,000 mg Documented by: Albuterol Sulfate (Albuterol Hfa Inhaler) 2 puff INHALATION RT-Q4H PRN PRN Reason: Shortness Of Breath Last Admin: 10/19/20 16:11 Dose: 2 puff Documented by: Ascorbic Acid (Ascorbic Acid 500 Mg Tab) 1,000 mg PO DAILY [facility] Last Admin: 10/19/20 08:00 Dose: 1,000 mg Documented by: Cholecalciferol (Cholecalciferol 25 Mcg (1000 Iu) Tablet) 100 mcg PO DAILY [facility] Last Admin: 10/19/20 08:00 Dose: 100 mcg Documented by: Dexamethasone Sodium Phosphate (Dexamethasone Sod Phosphate 10 Mg/Ml 1 Ml Vial) 6 mg IV DAILY [facility] Last Admin: 10/19/20 07:59 Dose: 6 mg Documented by: Enoxaparin Sodium (Enoxaparin 40 Mg/0.4 Ml Syringe) 40 mg SQ Q12H [facility] Last Admin: 10/19/20 17:43 Dose: 40 mg Documented by: Famotidine (Famotidine 20 Mg Tab) 20 mg PO BID [facility] Last Admin: 10/19/20 08:00 Dose: 20 mg Documented by: Vancomycin HCl 2,250 mg/ (Sodium Chloride) 500 mls @ 167 mls/hr IVPB Q8H [facility] Last Admin: 10/19/20 17:42 Dose: 167 mls/hr Documented by: Insulin Aspart (Insulin Aspart (Novolog) 100 Unit/Ml Vial) 0 unit SQ ACHS [facility]; Protocol Last Admin: 10/19/20 17:43 Dose: 4 unit Documented by: Non-Formulary Medication (Liraglutide [Victoza 2-Primitivo]) 0.6 mg PO DAILY [facility] Last Admin: 10/19/20 08:01 Dose: Not Given Documented by: Ondansetron HCl (Ondansetron 4 Mg/2 Ml Vial) 4 mg IVP Q8HR PRN PRN Reason: Nausea And Vomiting Last Admin: 10/16/20 09:41 Dose: 4 mg Documented by: Pantoprazole Sodium (Pantoprazole 40 Mg Tablet) 40 mg PO AC-BRKFST [facility] Last Admin: 10/19/20 08:00 Dose: 40 mg Documented by: Sodium Chloride (Sodium Chloride 0.65% Nasal [place] 44 Ml Btl) 2 spray NASAL QID PRN PRN Reason: Dry Nasal Passages Last Admin: 10/18/20 11:29 Dose: 2 spray Documented by: Sumatriptan Succinate (Sumatriptan Succinate 50 Mg Tab) 100 mg PO DAILY PRN PRN Reason: Migraine Headache Tramadol HCl (Tramadol 50 Mg Tab) 50 mg PO Q6HR PRN PRN Reason: Pain Last Admin: 10/16/20 09:40 Dose: 50 mg Documented by: Zinc Sulfate (Zinc Sulfate 220 Mg Cap) 220 mg PO DAILY [facility] Last Admin: 10/19/20 08:00 Dose: 220 mg Documented by: Past medical history to include: Asthma, but Chiari malformation, migraines, herniated disc with back and neck pain, diabetes mellitus type 2, anxiety depression Social history: Patient smoked up one pack a week for about 10 years stopped over 20 years ago. Does occasional marijuana Gummi's and CBD oil. Lives with her boyfriend. Family history: Reviewed, noncontributory to presentation Physical examination: VITAL SIGNS: 97.6, 92, 22, 154/80, 90% on 6 L GENERAL: Sitting upon a chair, breathing improving LUNGS:[ Respiratory rate increased; PSYCH: [Alert and oriented x3; mood and affect normal NEUROLOGICAL: Cranial nerves grossly intact; no facial asymmetry, moving all 4 limbs. Rest of the exam as per pulmonary nursing INVESTIGATIONS, reviewed in the clinical context: October 19: D-dimer 0.55 October 18: D-dimer 1.8 date LDH 150CRP 13.3 procalcitonin 0.1 October 17: D-dimer 1.49 LDH 146 CRP 86 October 16: D-dimer is 1.07 CRP 36.3 October 15: D-dimer 0.57 LDH 1445 CRP 43.6 WBC 6.6 hemoglobin 14.9 platelets 250 lymphocyte 0.9 d-dimer 0.56 potassium 4.2 creatinine 0.59 AST 70 ALT 53 CRP 64 Coronavirus [PCR]-detected EKG tracing personally reviewed by me-normal sinus rhythm Chest x-ray film personally reviewed by me-bilateral diffuse infiltrates Hepatic ultrasound: Heterogenous hyperechoic appearance possibly from fatty li hipolito Assessment and plan: -Acute bilateral COVID 19 pneumonia with symptoms starting about 10 days improving On IV Decadron, subcu Lovenox, vitamin C vitamin D zinc and Pepcid. Pulmonary consulted. -Acute hypoxic respiratory failure from COVID 19 improving From 15 L down to 6 L -Morbid obesity BMI 48.6 For weight loss measures and follow-up with PCP upon discharge -Diabetes mellitus type 2, uncontrolled with hyperglycemia Follow Accu-Cheks -GERD Continue with omeprazole -Chronic neck and back pain from arthralgia Tylenol when necessary -Nonspecific hepatitis, likely from nonalcoholic fatty liver disease Follow with GI as an outpatient -Coagulase-negative staph in 2 sets of blood cultures on October 14 as decision made by pulmonary to treat with IV vancomycin. Improving. Discussed with the patient. Continue current medications.
[2020-10-20] MEDS: VANCOMYCIN 2,250 MG in SODIUM CHLORIDE 0.9% 500 ML 500 ML IVPB SCH ×3 (02:38→16:49)
[2020-10-20] MEDS: traMADol 50 MG TAB PO PRN (02:45)
[2020-10-20] MEDS: ENOXAPARIN 40 MG/0.4 ML SYRINGE SQ SCH ×2 (05:37→16:49)
[2020-10-20 06:55] LABS: Glucose,Whole Blood 118 mg/dL (75-99)
[2020-10-20] MEDS: INSULIN ASPART (NovoLOG) 100 UNIT/ML VIAL SQ SCH ×4 (07:38→21:27)
--- NOTE | 2020-10-20 07:51 | XR ---
EXAMINATION TYPE: XR chest 1V portable DATE OF EXAM: 10/20/2020 CLINICAL HISTORY: Difficulty breathing and covid progress study. TECHNIQUE: Single AP portable upright view of the chest is obtained. COMPARISON: Chest x-ray from 2 days earlier and older studies FINDINGS: Persistent bilateral multifocal and confluent opacities. Cardiac silhouette size is stable and upper limits of normal. Osseous structures remain intact. IMPRESSION: Persistent bilateral multifocal and confluent opacities consistent with covid-19 infectio n, no significant change from most recent x-ray.
[2020-10-20 08:18] LABS: African American GFR (CKD) >90 (>60 ml/min/1.73 sqM); Non-African American GFR(CKD) >90 (>60 ml/min/1.73 sqM)
[2020-10-20] MEDS: ALBUTEROL HFA INHALER INHALATION PRN ×3 (09:02→22:06)
[2020-10-20] MEDS: DEXAMETHASONE SOD PHOSPHATE 10 MG/ML 1 ML VIAL IV SCH (09:57)
[2020-10-20] MEDS: FAMOTIDINE 20 MG TAB PO SCH ×2 (09:58→21:28)
[2020-10-20] MEDS: CHOLECALCIFEROL 25 MCG (1000 IU) TABLET PO SCH (09:58)
[2020-10-20] MEDS: PANTOPRAZOLE 40 MG TABLET PO SCH (09:58)
[2020-10-20] MEDS: ZINC SULFATE 220 MG CAP PO SCH (09:58)
[2020-10-20] MEDS: NON FORMULARY DRUG (Liraglutide [Victoza 2-Pak] 0.6 MG/0.1 ML Pen.Injctr) PO SCH (09:59)
[2020-10-20] MEDS: ASCORBIC ACID 500 MG TAB PO SCH (09:59)
[2020-10-20 11:11] LABS: C Reactive Protein 8.1 mg/dL (0.0-0.8)
[2020-10-20 11:53] LABS: Glucose,Whole Blood 162 mg/dL (75-99)
--- NOTE | 2020-10-20 15:59 | P.PN ---
Subjective Progress Note Date: 10/20/20 Principal diagnosis: COVID-19 pneumonia 49-year-old female patient hospitalized for COVID 19 related pneumonia and a pulmonary consultation was requested. The patient is morbidly obese and she has previous history of coronary artery malformation and migraines. She is diabetic and she has chronic anxiety and depression. Her symptoms started on 10/03/2020 where the patient became fatigued and tired and she was having some body aches and cough and progressively she developed shortness of breath. She got tested on 10/04/2020 and outpatient basis and she checked positive. Following that, the patient was placed on steroids which I believe it was in the form of Decadron. Despite all this, the patient progressed and the patient came into the hospital because of worsening shortness of breath. She was found to be hypoxic and she is currently on 5 L about 2 by nasal cannula with a pulse ox of 88%. Chest x-ray showing diffuse breath and pulmonary infiltrates. The blood work is showing an LDH level of 1445, CRP of 43.6, and a d-dimer of 0.57. Otherwise, the rest of the blood work essentially within normal limits. White cell count at 6.6 with a lymphopenia and a lymphocyte count of 0.9. Coagulation profile is within normal limits. D-dimer is at 0.57. She is currently back on Decadron orally and she is on 5 L of oxygen by nasal cannula. On today's evaluation of 10/16/2020 the patient is on 5 L of oxygen by nasal cannula. She has been ranging between 4 and 6 L during this current hospital stay. She is feeling better. She is still coughing. She has a low-grade fever yesterday. She is pulling around 1500 on his incentive spirometer. Otherwise, the CRP level is at 36, d-dimer is at 1.07. Creatinine is at 0.7. No nausea. No vomiting. No diarrhea. No abdominal pain. No other complaints otherwise for now. The blood culture is showing coagulase-negative staph and the patient was given a dose of vancomycin. The blood cultures are being monitored. Affect irritable cultures are showing staph in the blood which is probably coagulase-negative staph. Both of 4 of the cultures are positive for gram- positive cocci in clusters and the finding cultures sensitivities are still pending for now. 10/17/2020, the patient remains on 5 L of oxygen by nasal cannula. Essentially stable compared to yesterday. He remains on a combination of treatment including Decadron 6 mg IV daily and Lovenox 40 mg subcu every 12 hours. The patient's blood culture was also positive for coagulase-negative staph and this was repeated. The results of this culture were thought to be contaminated. Nevertheless there were 2 of the blood cultures and for that reason we decided to treat this patient with vancomycin. The patient is hemodynamically stable. The patient is afebrile. Clinically the patient was stable. D-dimer was 1.49. LDH is 1469 and the CRP is 86. She is having episodic dry nose and the patient is on oxygen by nasal cannula which is essentially humidified at this point in time. She has no other complaints otherwise for now. Repeat chest x-ray showing worsening in the bilateral patchy pulmonary filtrates compared to the earlier chest x-ray from 10/14/2020 and this was obviously a concern. On 10/18/2020 patient seen in follow-up on medical floor, she is currently on 6 L of oxygen, looks comfortable, she sits up in the chair, no cough, no chest pain, no hemoptysis, repeat blood cultures have shown no growth thus far, final cultures are pending, patient had 2 previous blood cultures with coagulase- negative staph and she remains on vancomycin, vital signs have been stable, she has been afebrile, follow-up chest x-ray today shows persistent bilateral multifocal confluent opacities consistent with COVID-19 infection, stable in appearance. Today's follow-up labs showed d-dimer 1.88, LDH 1509, and CRP is 13.3. She had no acute events overnight On 10/19/2020 patient seen in follow-up on medical surgical floor, she sits up in the chair, she is currently on 6 L per high flow oxygen, her pulse ox is 90%, she still coughing, but overall she states she feels that she is doing better, follow blood cultures so far have been negative, she is working on her incentive spirometer she is achieving 1999, today's labs have been reviewed, showing white blood cell count is 60.4, hemoglobin of 12, d-dimer is trending down and is down to 1.19, sodium is 133,electrolytes and renal profile were unremarkable, LDH is trending today's labs, and is up to 1356, CRP is low at 0.5. no chest discomfort, breathing comfortably, tolerating oral intake. On 10/20/2020 patient seen in follow-up on medical surgical floor, she remains on 6 L of oxygen, her pulse ox was 90%, she looks very comfortable, she sits up in the recliner, she is eating lunch, vital signs have been stable, breathing appears to be nonlabored, she does desaturate with exertion. Today's chest x- ray shows persistent bilateral multifocal confluent opacities consistent with COVID-19 infection with no significant change from previous chest x-ray, today's labs have been noted, d-dimer 3.55, creatinine is 0.6, LDH is improving, and is down to 583 from 2040, and CRP is improving as well and is at 8.1 on today's labs, Procan was negative at 0.10. Patient remains on vancomycin, and her follow blood cultures have been negative, 2 blood cultures from 10/14/2020 sh owed a coagulase-negative staph. Final cultures are pending, vital signs have been stable, patient has had no fever or chills, no altered mentation. Objective - Vital Signs Vital signs: Vital Signs Temp 98.6 F 10/20/20 14:00 Pulse 92 10/20/20 14:00 Resp 18 10/20/20 14:00 BP 115/60 10/20/20 14:00 Pulse Ox 90 L 10/20/20 14:00 Intake & Output 10/19/20 10/20/20 10/20/20 18:59 06:59 18:59 Other: Voiding Method Bedside Commode # Voids 3 4 - Exam GENERAL EXAM: Alert, very pleasant, obese 49-year-old white female, on 7 L of oxygen and a pulse ox of 90%, comfortable in no apparent distress. HEAD: Normocephalic/atraumatic. EYES: Normal reaction of pupils, equal size. Conjunctiva pink, sclera white. NOSE: Clear with pink turbinates. THROAT: No erythema or exudates. NECK: No masses, no JVD, no thyroid enlargement, no adenopathy. CHEST: No chest wall deformity. Symmetrical expansion. LUNGS: Equal air entry with bibasilar crackles CVS: Regular rate and rhythm, normal S1 and S2, no gallops, no murmurs, no rubs ABDOMEN: Soft, nontender. No hepatosplenomegaly, normal bowel sounds, no guarding or rigidity. EXTREMITIES: No clubbing, no edema, no cyanosis, 2+ pulses and upper and lower extremities. MUSCULOSKELETAL: Muscle strength and tone normal. SPINE: No scoliosis or deformity SKIN: No rashes CENTRAL NERVOUS SYSTEM: Alert and oriented -3. No focal deficits, tone is normal in all 4 extremities. PSYCHIATRIC: Alert and oriented -3. Appropriate affect. Intact judgment and insight. - Labs CBC & Chem 7: 10/14/20 10:56 10/20/20 06:59 Labs: Abnormal Lab Results - Last 24 Hours (Table) 10/19/20 10/19/20 10/19/20 Range/Units 09:30 17:25 20:57 D-Dimer (<0.60) mg/L FEU POC Glucose (mg/dL) 175 H 214 H (75-99) mg/dL Lactate Dehydrogenase 2041 H (313-618) U/L C-Reactive Protein (0.0-0.8) mg/dL 10/20/20 10/20/20 10/20/20 Range/Units 06:53 06:59 06:59 D-Dimer 3.55 H (<0.60) mg/L FEU POC Glucose (mg/dL) 118 H (75-99) mg/dL Lactate Dehydrogenase 583 H (313-618) U/L C-Reactive Protein 8.1 H (0.0-0.8) mg/dL 10/20/20 Range/Units 11:41 D-Dimer (<0.60) mg/L FEU POC Glucose (mg/dL) 162 H (75-99) mg/dL Lactate Dehydrogenase (313-618) U/L C-Reactive Protein (0.0-0.8) mg/dL Microbiology - Last 24 Hours (Table) 10/16/20 12:47 Blood Culture - Preliminary Blood No Growth after 96 hours 10/16/20 12:40 Blood Culture - Preliminary Blood No Growth after 96 hours 10/15/20 15:04 Blood Culture - Preliminary Blood No Growth after 96 hours Assessment and Plan Plan: 1 acute bilateral COVID 19 related pneumonia. The patient symptoms started on 10/03/2020. The patient checked positive on 10/04/2020. The patient was treated with Decadron on outpatient basis. The patient's presented with worsening shortness of breath and bilateral pneumonia. The patient is currently on 5 L of oxygen by nasal cannula. The chest x-ray showing interval worsening. Nevertheless, clinically, the patient is feeling stable. The patient also has a positive blood culture for coagulase-negative staph aureus, likely contaminant the patient is currently on vancomycin. 2 acute hypoxic respiratory failure currently on 5 L of oxygen by nasal cannula. D-dimer is low. Pulmonary embolism is unlikely.d-dimer is low at this point in time. The LDH level continues to be quite elevated. 3 obesity with a BMI of 48.6 4 chronic bronchial asthma currently inactive in stable 5 diabetes mellitus 6 coronary artery malformation 7 migraine headaches 8 chronic neck and back pain related to herniated disc disease 9 coagulase-negative staph in the blood, likely contaminant. Nevertheless this was cultured and 2 out of 4 blood cultures. Monitor cultures will be repeated and the patient was given vancomycin. Plan: Clinically stable, though still requiring 6 L of oxygen No worsening dyspnea Encourage deep breathing and coughing and incentive spirometry use Continue current dose Lovenox Continue vitamins Follow-up blood cultures have shown no growth Pro calcitonin was negative We'll consider discontinuing vancomycin final cultures are negative Weaning FiO2 Was down to 5 L and less may consider discharge home I performed a history & physical examination of the patient and discussed their management with my nurse practitioner, Elinor Dobbs. I reviewed the nurse practitioner's note and agree with the documented findings and plan of care. Lung sounds are positive for diminished breath sounds with bibasilar crackles. The findings and the impression was discussed with the patient. I attest to the documentation by the nurse practitioner. Time with Patient: Less than 30
[2020-10-20 16:51] LABS: Glucose,Whole Blood 204 mg/dL (75-99)
[2020-10-20 20:44] LABS: Glucose,Whole Blood 157 mg/dL (75-99)
--- NOTE | 2020-10-20 22:27 | P.PN ---
Progress Note - Text Progress Note Date: 10/20/20 Chief Complaint: Short of breath History of presenting complaint: This is a pleasant 49-year-old patient of Dr. Logan Silva. Chronic stable medical conditions include but Chiari malformation of the brain, asthma, herniated disc in the back and neck, with pain anxiety depression, GERD, diabetes type 2. Patient around October stools started getting symptoms that included headache cough progressive shortness of breath diarrhea had fever and chills body aches. She did come back positive for COVID 19 on the fourth. Since symptoms have been progressive she came down to the ER. Initial pulse ox was 88% on 5 L. Admitted with bilateral COVID 19 pneumonia, acute hypoxic respiratory failure. Initially put on 5 L of nasal cannula. Started on Decadron and Lovenox. Blood cultures 2 sets positive for coagulase-negative staph hence vancomycin resumed. Today: Sitting up in a chair. Oral intake 100%. On 7 L of nasal cannula. Review of systems: Was done for constitutional, cardiovascular, GI, pulmonary. relevant finding as above Active Medications Acetaminophen (Acetaminophen Tab 500 Mg Tab) 1,000 mg PO Q6HR PRN PRN Reason: Fever and/ or Pain Last Admin: 10/18/20 11:21 Dose: 1,000 mg Documented by: Albuterol Sulfate (Albuterol Hfa Inhaler) 2 puff INHALATION RT-Q4H PRN PRN Reason: Shortness Of Breath Last Admin: 10/20/20 22:06 Dose: 2 puff Documented by: Ascorbic Acid (Ascorbic Acid 500 Mg Tab) 1,000 mg PO DAILY [facility] Last Admin: 10/20/20 09:59 Dose: 1,000 mg Documented by: Cholecalciferol (Cholecalciferol 25 Mcg (1000 Iu) Tablet) 100 mcg PO DAILY [facility] Last Admin: 10/20/20 09:58 Dose: 100 mcg Documented by: Dexamethasone Sodium Phosphate (Dexamethasone Sod Phosphate 10 Mg/Ml 1 Ml Vial) 6 mg IV DAILY [facility] Last Admin: 10/20/20 09:57 Dose: 6 mg Documented by: Enoxaparin Sodium (Enoxaparin 40 Mg/0.4 Ml Syringe) 40 mg SQ Q12H [facility] Last Admin: 10/20/20 16:49 Dose: 40 mg Documented by: Famotidine (Famotidine 20 Mg Tab) 20 mg PO BID [facility] Last Admin: 10/20/20 21:28 Dose: 20 mg Documented by: Vancomycin HCl 2,250 mg/ (Sodium Chloride) 500 mls @ 167 mls/hr IVPB Q8H [facility] Last Admin: 10/20/20 16:49 Dose: 167 mls/hr Documented by: Insulin Aspart (Insulin Aspart (Novolog) 100 Unit/Ml Vial) 0 unit SQ ACHS [facility]; Protocol Last Admin: 10/20/20 21:27 Dose: 3 unit Documented by: Miscellaneous Information (Vancomycin Trough Due 1 Each Misc) 0 each MISCELLANE DIRECTED ONE Stop: 10/21/20 09:01 Non-Formulary Medication (Liraglutide [Victoza 2-Primitivo]) 0.6 mg PO DAILY [facility] Last Admin: 10/20/20 09:59 Dose: Not Given Documented by: Ondansetron HCl (Ondansetron 4 Mg/2 Ml Vial) 4 mg IVP Q8HR PRN PRN Reason: Nausea And Vomiting Last Admin: 10/16/20 09:41 Dose: 4 mg Documented by: Sodium Chloride (Sodium Chloride 0.65% Nasal [place] 44 Ml Btl) 2 spray NASAL QID PRN PRN Reason: Dry Nasal Passages Last Admin: 10/18/20 11:29 Dose: 2 spray Documented by: Sumatriptan Succinate (Sumatriptan Succinate 50 Mg Tab) 100 mg PO DAILY PRN PRN Reason: Migraine Headache Tramadol HCl (Tramadol 50 Mg Tab) 50 mg PO Q6HR PRN PRN Reason: Pain Last Admin: 10/20/20 02:45 Dose: 50 mg Documented by: Zinc Sulfate (Zinc Sulfate 220 Mg Cap) 220 mg PO DAILY [facility] Last Admin: 10/20/20 09:58 Dose: 220 mg Documented by: Past medical history to include: Asthma, but Chiari malformation, migraines, herniated disc with back and neck pain, diabetes mellitus type 2, anxiety depression Social history: Patient smoked up one pack a week for about 10 years stopped over 20 years ago. Does occasional marijuana Gummi's and CBD oil. Lives with her boyfriend. Family history: Reviewed, noncontributory to presentation Physical examination: VITAL SIGNS: 98.6, 92, 18, 115/60, 90% on 7 L GENERAL: Sitting in a chair, awake LUNGS:[ Respiratory rate increased; PSYCH: [Alert and oriented x3; mood and affect normal NEUROLOGICAL: Cranial nerves grossly intact; no facial asymmetry, moving all 4 limbs. Rest of the exam as per pulmonary nursing INVESTIGATIONS, reviewed in the clinical context: October 20: D-dimer 3.55 LDH 583 CRP 8.1 October 19: D-dimer 0.55 October 18: D-dimer 1.8 date LDH 150CRP 13.3 procalcitonin 0.1 October 17: D-dimer 1.49 LDH 146 CRP 86 October 16: D-dimer is 1.07 CRP 36.3 October 15: D-dimer 0.57 LDH 1445 CRP 43.6 WBC 6.6 hemoglobin 14.9 platelets 250 lymphocyte 0.9 d-dimer 0.56 potassium 4.2 creatinine 0.59 AST 70 ALT 53 CRP 64 Coronavirus [PCR]-detected EKG tracing personally reviewed by me-normal sinus rhythm Chest x-ray film personally reviewed by me-bilateral diffuse infiltrates Hepatic ultrasound: Heterogenous hyperechoic appearance possibly from fatty live r Assessment and plan: -Acute bilateral COVID 19 pneumonia with symptoms starting about 10 days before presentation-slow to respond On IV Decadron, subcu Lovenox, vitamin C vitamin D zinc and Pepcid. Pulmonary consulted. -Acute hypoxic respiratory failure from COVID 19 -slowly improving From 15 L down to 7 L -Morbid obesity BMI 48.6 For weight loss measures and follow-up with PCP upon discharge -Diabetes mellitus type 2, uncontrolled with hyperglycemia Follow Accu-Cheks -GERD Continue with omeprazole -Chronic neck and back pain from arthralgia Tylenol when necessary -Nonspecific hepatitis, likely from nonalcoholic fatty liver disease Follow with GI as an outpatient -Coagulase-negative staph in 2 sets of blood cultures on October 14 as decision made by pulmonary to treat with IV vancomycin. Ordered 2-D echocardiogram to rule out vegetation Improving gradually. Discussed with patient. Follow with pulmonary
[2020-10-21] MEDS: VANCOMYCIN 2,250 MG in SODIUM CHLORIDE 0.9% 500 ML 500 ML IVPB SCH ×2 (02:48→10:37)
[2020-10-21] MEDS: ENOXAPARIN 40 MG/0.4 ML SYRINGE SQ SCH ×2 (05:09→17:32)
[2020-10-21 07:01] LABS: Glucose,Whole Blood 128 mg/dL (75-99)
--- NOTE | 2020-10-21 07:55 | XR ---
EXAMINATION TYPE: XR chest 1V portable DATE OF EXAM: 10/21/2020 CLINICAL HISTORY: Difficulty breathing and covid progress study. TECHNIQUE: Single AP portable frontal view of the chest is obtained. COMPARISON: Chest x-ray from one day earlier and older studies. FINDINGS: Persistent bilateral multifocal and confluent opacities. Cardiac silhouette size is stable and upper limits of normal. Partial silhouetting of right and left heart borders is redemonstrated. Osseous structures remain intact. IMPRESSION: Persistent bilateral multifocal and confluent opacities consistent with covid-19 infectio n, no significant change from 1 day earlier.
[2020-10-21] MEDS: INSULIN ASPART (NovoLOG) 100 UNIT/ML VIAL SQ SCH ×4 (07:59→20:34)
[2020-10-21] MEDS: ALBUTEROL HFA INHALER INHALATION PRN ×3 (07:59→20:32)
[2020-10-21] MEDS ORDERED: VANCOMYCIN TROUGH DUE 1 EACH MISC MISCELLANE ONE (09:00)
[2020-10-21] MEDS: DEXAMETHASONE SOD PHOSPHATE 10 MG/ML 1 ML VIAL IV SCH ×2 (10:36→20:32)
[2020-10-21] MEDS: CHOLECALCIFEROL 25 MCG (1000 IU) TABLET PO SCH (10:36)
[2020-10-21] MEDS: FAMOTIDINE 20 MG TAB PO SCH ×2 (10:36→20:32)
[2020-10-21] MEDS: ASCORBIC ACID 500 MG TAB PO SCH (10:36)
[2020-10-21] MEDS: ZINC SULFATE 220 MG CAP PO SCH (10:36)
[2020-10-21] MEDS: NON FORMULARY DRUG (Liraglutide [Victoza 2-Pak] 0.6 MG/0.1 ML Pen.Injctr) PO SCH (10:37)
[2020-10-21 10:46] LABS: African American GFR (CKD) >90 (>60 ml/min/1.73 sqM); Non-African American GFR(CKD) >90 (>60 ml/min/1.73 sqM)
[2020-10-21 11:55] LABS: Glucose,Whole Blood 173 mg/dL (75-99)
--- NOTE | 2020-10-21 12:01 | ECHOF ---
Referral Reason:Rule out vegetation MEASUREMENTS -------- HEIGHT: 157.5 cm WEIGHT: 154.2 kg BP: RVIDd: 3.2 cm (< 3.3) IVSd: 1.2 cm (0.6 - 1.1) LVIDd: 4.4 cm (3.9 - 5.3) LVPWd: 1.5 cm (0.6 - 1.1) IVSs: 1.5 cm LVIDs: 3.0 cm LVPWs: 1.6 cm Ao Diam: 2.8 cm (2.0 - 3.7) AV Cusp: 2.1 cm (1.5 - 2.6) LA Diam: 3.7 cm (2.7 - 3.8) MV EXCURSION: 18.416 mm (> 18.000) MV EF SLOPE: 82 mm/s (70 - 150) EPSS: 0.3 cm RAP: 5.00 mmHg RVSP: 17.17 mmHg FINDINGS -------- Covid Positive Morbid Obesity The left ventricular size is normal. Left ventricular wall thickness is normal. Overall left vent ricular systolic function is normal with, an EF between 55 - 60 %. 5.0mg OF [place] UTLIZED: 2 OR MORE WALL SEGMENTS NOT VISUALIZED. The aortic valve was not well visualized. The mitral valve was not well visualized. The tricuspid valve was not well visualized. The pulmonic valve was not well visualized. There is no pericardial effusion. CONCLUSIONS -------- 1. Covid Positive Morbid Obesity 2. The left ventricular size is normal. 3. Left ventricular wall thickness is normal. 4. Overall left ventricular systolic function is normal with, an EF between 55 - 60 %. 5. 5.0mg OF Lumason UTLIZED: 2 OR MORE WALL SEGMENTS NOT VISUALIZED. 6. The aortic valve was not well visualized. 7. The mitral valve was not well visualized. 8. The tricuspid valve was not well visualized. 9. The pulmonic valve was not well visualized. 10. There is no pericardial effusion. [employer] MANAGER: Catherine Garcia, HORT[employer]
[2020-10-21 13:24] VITALS: BMI 48.6
--- NOTE | 2020-10-21 15:13 | P.PN ---
Subjective From records: This is a pleasant 49-year-old patient of Dr. Logan Silva. Chronic stable medical conditions include but Chiari malformation of the brain, asthma, herniated disc in the back and neck, with pain anxiety depression, GERD, diabetes type 2. Patient around October stools started getting symptoms that included headache cough progressive shortness of breath diarrhea had fever and chills body aches. She did come back positive for COVID 19 on the fourth. Since symptoms have been progressive she came down to the ER. Initial pulse ox was 88% on 5 L. Admitted with bilateral COVID 19 pneumonia, acute hypoxic respiratory failure. Initially put on 5 L of nasal cannula. Started on Decadron and Lovenox. Blood cultures 2 sets positive for coagulase-negative staph hence vancomycin resumed. Today: Sitting up in a chair. Oral intake 100%. On 7 L of nasal cannula. Subjective: 10/21/2020 This is a pleasant 49 years old female who presents with Covid pneumonia. She needs more oxygenated today with oxygen requirement increased from 7 up to 15 L/m. She still complaining of from dyspnea and coughing with little phlegm. No labs from today but yesterday her d-dimer was elevated at 3.5, LDH 553 and C- reactive protein 8.1. Liver enzymes slightly up. Patient is followed closely by pulmonary Chest x-ray showing bilateral pneumonia Patient is on dexamethasone and vancomycin as per pulmonary team for coagulase- negative staph aureus and the blood which is most probably contaminated. Also patient is on multiple vitamins and Lovenox 40 mg twice a day Echocardiogram showed ejection fraction of 55-60% Review of systems CONSTITUTIONAL: No fever, no malaise, no fatigue. HEENT: No recent visual problems or hearing problems. Denied any sore throat. CARDIOVASCULAR: No orthopnea, PND, no palpitations, no syncope. PULMONARY: No chest wall tenderness, no hemoptysis. GASTROINTESTINAL: No diarrhea, no nausea, no vomiting, no abdominal pain. Normoactive bowel sounds. NEUROLOGICAL: No headaches, no weakness, no numbness. Active Medications Generic Name Dose Route Start Last Admin Trade Name Freq PRN Reason Stop Dose Admin Acetaminophen 1,000 mg 10/18/20 11:04 10/18/20 11:21 Acetaminophen Tab 500 Mg Tab PO 1,000 mg Q6HR PRN Administration Fever and/ or Pain Albuterol Sulfate 2 puff 10/15/20 19:46 10/21/20 12:03 Albuterol Hfa Inhaler INHALATION 2 puff RT-Q4H PRN Administration Shortness Of Breath Ascorbic Acid 1,000 mg 10/14/20 16:45 10/21/20 10:36 Ascorbic Acid 500 Mg Tab PO 1,000 mg DAILY ZARIA Administration Cholecalciferol 100 mcg 10/14/20 16:45 10/21/20 10:36 Cholecalciferol 25 Mcg (1000 Iu) Tablet PO 100 mcg DAILY ZARIA Administration Dexamethasone Sodium Phosphate 6 mg 10/15/20 09:00 10/21/20 10:36 Dexamethasone Sod Phosphate 10 Mg/Ml 1 Ml Vial IV 6 mg DAILY ZARIA Administration Enoxaparin Sodium 40 mg 10/14/20 16:45 10/21/20 05:09 Enoxaparin 40 Mg/0.4 Ml Syringe SQ 40 mg Q12H ZARIA Administration Famotidine 20 mg 10/14/20 21:00 10/21/20 10:36 Famotidine 20 Mg Tab PO 20 mg BID ZARIA Administration Vancomycin HCl 2,000 mg/ 500 mls @ 167 mls/hr 10/21/20 18:00 Sodium Chloride IVPB Q8H [facility] Insulin Aspart 0 unit 10/16/20 17:30 10/21/20 13:20 Insulin Aspart (Novolog) 100 Unit/Ml Vial SQ Not Given ACHS [facility] Protocol Non-Formulary Medication 0.6 mg 10/16/20 09:00 10/21/20 10:37 Liraglutide [Victoza 2-Primitivo] PO Not Given DAILY [facility] Ondansetron HCl 4 mg 10/16/20 09:29 10/16/20 09:41 Ondansetron 4 Mg/2 Ml Vial IVP 4 mg Q8HR PRN Administration Nausea And Vomiting Sodium Chloride 2 spray 10/18/20 10:10 10/18/20 11:29 Sodium Chloride 0.65% Nasal [place] 44 Ml Btl NASAL 2 spray QID PRN Administration Dry Nasal Passages Sumatriptan Succinate 100 mg 10/15/20 19:46 Sumatriptan Succinate 50 Mg Tab PO DAILY PRN Migraine Headache Tramadol HCl 50 mg 10/15/20 19:46 10/20/20 02:45 Tramadol 50 Mg Tab PO 50 mg Q6HR PRN Administration Pain Zinc Sulfate 220 mg 10/14/20 17:00 10/21/20 10:36 Zinc Sulfate 220 Mg Cap PO 220 mg DAILY ZARIA Administration Objective - Vital Signs Vital signs: Vital Signs Temp 98.5 F 10/21/20 14:04 Pulse 92 10/21/20 14:04 Resp 20 10/21/20 14:04 BP 111/57 10/21/20 14:04 Pulse Ox 94 L 10/21/20 14:04 Intake & Output 10/20/20 10/21/20 10/21/20 18:59 06:59 18:59 Output Total 1999 Balance -1999 Weight 153.768 kg Output: Urine 1999 Other: Voiding Method Bedside Commode # Voids 3 5 # Bowel Movements 1 - Exam GENERAL: The patient is alert and oriented x3, not in any acute distress. Well developed, well nourished. HEENT: Pupils are round and equally reacting to light. EOMI. No scleral icterus. No conjunctival pallor. Normocephalic, atraumatic. No pharyngeal erythema. No thyromegaly. CARDIOVASCULAR: S1 and S2 present. No murmurs, rubs, or gallops. -PULMONARY: Chest is clear to auscultation, no wheezing. Bilateral crepitation ABDOMEN: Soft, nontender, nondistended, normoactive bowel sounds. No palpable organomegaly. MUSCULOSKELETAL: No joint swelling or deformity. EXTREMITIES: No cyanosis, clubbing, or pedal edema. NEUROLOGICAL: Gross neurological examination did not reveal any focal deficits. SKIN: No rashes. no petechiae. - Labs CBC & Chem 7: 10/14/20 10:56 10/21/20 08:42 Labs: Abnormal Lab Results - Last 24 Hours (Table) 10/20/20 10/20/20 10/21/20 Range/Units 16:48 20:41 07:00 POC Glucose (mg/dL) 204 H 157 H 128 H (75-99) mg/dL 10/21/20 Range/Units 11:53 POC Glucose (mg/dL) 173 H (75-99) mg/dL Microbiology - Last 24 Hours (Table) 10/15/20 15:04 Blood Culture - Preliminary Blood No Growth after 120 hours 10/16/20 12:47 Blood Culture - Preliminary Blood No Growth after 96 hours 10/16/20 12:40 Blood Culture - Preliminary Blood No Growth after 96 hours Assessment and Plan Assessment: -Acute bilateral pneumonia -Acute hypoxic respiratory failure -Increased inflammatory markers -Coagulase-negative staph aureus bacteremia, contamination is suspected -History of asthma -Diabetes mellitus -History of Chiari malformation -History of chronic back and neck pain due to disc herniation -History of migraine -History of sleep apnea Plan: This is a pleasant 49 years old female who presents with cough pneumonia. Continue with steroids, Lovenox, vitamin C, D&C with pulmonary team on the case Continue with IV vancomycin per pulmonary team recommendation follow for the results of blood culture Labs and medication were reviewed.. Continue same treatment. Continue with symptomatic treatment. Resume home medication. Monitor lytes and vitals. DVT and GI prophylaxis. Further recommendationsas per clinical course of the patient DVT prophylaxis: Subcutaneous Lovenox GI Prophylaxis: Pepcid Prognosis is guarded
[2020-10-21 16:49] LABS: Glucose,Whole Blood 214 mg/dL (75-99)
[2020-10-21] MEDS ORDERED: TOCILIZUMAB 800 MG in SODIUM CHLORIDE 0.9% 60 ML IV ONE (17:00)
[2020-10-21] MEDS ORDERED: VANCOMYCIN 2,000 MG in SODIUM CHLORIDE 0.9% 500 ML 500 ML IVPB SCH (18:00)
--- NOTE | 2020-10-21 18:08 | P.PN ---
Subjective Progress Note Date: 10/21/20 Principal diagnosis: COVID-19 pneumonia 49-year-old female patient hospitalized for COVID 19 related pneumonia and a pulmonary consultation was requested. The patient is morbidly obese and she has previous history of coronary artery malformation and migraines. She is diabetic and she has chronic anxiety and depression. Her symptoms started on 10/03/2020 where the patient became fatigued and tired and she was having some body aches and cough and progressively she developed shortness of breath. She got tested on 10/04/2020 and outpatient basis and she checked positive. Following that, the patient was placed on steroids which I believe it was in the form of Decadron. Despite all this, the patient progressed and the patient came into the hospital because of worsening shortness of breath. She was found to be hypoxic and she is currently on 5 L about 2 by nasal cannula with a pulse ox of 88%. Chest x-ray showing diffuse breath and pulmonary infiltrates. The blood work is showing an LDH level of 1445, CRP of 43.6, and a d-dimer of 0.57. Otherwise, the rest of the blood work essentially within normal limits. White cell count at 6.6 with a lymphopenia and a lymphocyte count of 0.9. Coagulation profile is within normal limits. D-dimer is at 0.57. She is currently back on Decadron orally and she is on 5 L of oxygen by nasal cannula. On today's evaluation of 10/16/2020 the patient is on 5 L of oxygen by nasal cannula. She has been ranging between 4 and 6 L during this current hospital stay. She is feeling better. She is still coughing. She has a low-grade fever yesterday. She is pulling around 1500 on his incentive spirometer. Otherwise, the CRP level is at 36, d-dimer is at 1.07. Creatinine is at 0.7. No nausea. No vomiting. No diarrhea. No abdominal pain. No other complaints otherwise for now. The blood culture is showing coagulase-negative staph and the patient was given a dose of vancomycin. The blood cultures are being monitored. Affect irritable cultures are showing staph in the blood which is probably coagulase-negative staph. Both of 4 of the cultures are positive for gram- positive cocci in clusters and the finding cultures sensitivities are still pending for now. 10/17/2020, the patient remains on 5 L of oxygen by nasal cannula. Essentially stable compared to yesterday. He remains on a combination of treatment including Decadron 6 mg IV daily and Lovenox 40 mg subcu every 12 hours. The patient's blood culture was also positive for coagulase-negative staph and this was repeated. The results of this culture were thought to be contaminated. Nevertheless there were 2 of the blood cultures and for that reason we decided to treat this patient with vancomycin. The patient is hemodynamically stable. The patient is afebrile. Clinically the patient was stable. D-dimer was 1.49. LDH is 1469 and the CRP is 86. She is having episodic dry nose and the patient is on oxygen by nasal cannula which is essentially humidified at this point in time. She has no other complaints otherwise for now. Repeat chest x-ray showing worsening in the bilateral patchy pulmonary filtrates compared to the earlier chest x-ray from 10/14/2020 and this was obviously a concern. On 10/18/2020 patient seen in follow-up on medical floor, she is currently on 6 L of oxygen, looks comfortable, she sits up in the chair, no cough, no chest pain, no hemoptysis, repeat blood cultures have shown no growth thus far, final cultures are pending, patient had 2 previous blood cultures with coagulase- negative staph and she remains on vancomycin, vital signs have been stable, she has been afebrile, follow-up chest x-ray today shows persistent bilateral multifocal confluent opacities consistent with COVID-19 infection, stable in appearance. Today's follow-up labs showed d-dimer 1.88, LDH 1509, and CRP is 13.3. She had no acute events overnight On 10/19/2020 patient seen in follow-up on medical surgical floor, she sits up in the chair, she is currently on 6 L per high flow oxygen, her pulse ox is 90%, she still coughing, but overall she states she feels that she is doing better, follow blood cultures so far have been negative, she is working on her incentive spirometer she is achieving 1999, today's labs have been reviewed, showing white blood cell count is 60.4, hemoglobin of 12, d-dimer is trending down and is down to 1.19, sodium is 133,electrolytes and renal profile were unremarkable, LDH is trending today's labs, and is up to 1356, CRP is low at 0.5. no chest discomfort, breathing comfortably, tolerating oral intake. On 10/20/2020 patient seen in follow-up on medical surgical floor, she remains on 6 L of oxygen, her pulse ox was 90%, she looks very comfortable, she sits up in the recliner, she is eating lunch, vital signs have been stable, breathing appears to be nonlabored, she does desaturate with exertion. Today's chest x- ray shows persistent bilateral multifocal confluent opacities consistent with COVID-19 infection with no significant change from previous chest x-ray, today's labs have been noted, d-dimer 3.55, creatinine is 0.6, LDH is improving, and is down to 583 from 2040, and CRP is improving as well and is at 8.1 on today's labs, Procan was negative at 0.10. Patient remains on vancomycin, and her follow blood cultures have been negative, 2 blood cultures from 10/14/2020 sh owed a coagulase-negative staph. Final cultures are pending, vital signs have been stable, patient has had no fever or chills, no altered mentation. On 10/21/2000 patient seen in follow-up on medical floor, her oxygen requirements have increased, she is currently on 15 L high flow and 100% nonrebr eather, her pulse ox is 94%, she feels like she is more short of breath on today's exam as well, easily desaturates. He is afebrile, remains on vancomycin, however follow-up blood cultures have shown no growth, previous blood cultures have shown an today's negative staph likely related to contamina tion, we'll stop her vancomycin, today's labs have been reviewed. Showing normal creatinine of 0.54, yesterday's labs showed a trending d-dimer up to 3.55, and improving inflammatory markers, echocardiogram was performed today showing EF of 55-60%, and this was a difficult study and the valves were not well visualized. The patient has been afebrile, still level is negative at 0.10, and we will discontinue the vancomycin. Her chest x-ray findings show persistent bilateral multifocal confluent opacities, without major change from the earlier Objective - Vital Signs Vital signs: Vital Signs Temp 98.2 F 10/21/20 17:40 Pulse 83 10/21/20 17:40 Resp 19 10/21/20 17:40 BP 129/77 10/21/20 17:40 Pulse Ox 93 L 10/21/20 17:40 Intake & Output 10/20/20 10/21/20 10/21/20 18:59 06:59 18:59 Output Total 3100 Balance -3100 Weight 153.768 kg Output: Urine 3100 Other: Voiding Method Bedside Commode # Voids 3 5 # Bowel Movements 1 - Exam GENERAL EXAM: Alert, very pleasant, obese 49-year-old white female, on 15 L of oxygen and nonrebreather with a pulse ox of 93%, comfortable in no apparent distress. HEAD: Normocephalic/atraumatic. EYES: Normal reaction of pupils, equal size. Conjunctiva pink, sclera white. NOSE: Clear with pink turbinates. THROAT: No erythema or exudates. NECK: No masses, no JVD, no thyroid enlargement, no adenopathy. CHEST: No chest wall deformity. Symmetrical expansion. LUNGS: Equal air entry with bibasilar crackles CVS: Regular rate and rhythm, normal S1 and S2, no gallops, no murmurs, no rubs ABDOMEN: Soft, nontender. No hepatosplenomegaly, normal bowel sounds, no guarding or rigidity. EXTREMITIES: No clubbing, no edema, no cyanosis, 2+ pulses and upper and lower extremities. MUSCULOSKELETAL: Muscle strength and tone normal. SPINE: No scoliosis or deformity SKIN: No rashes CENTRAL NERVOUS SYSTEM: Alert and oriented -3. No focal deficits, tone is normal in all 4 extremities. PSYCHIATRIC: Alert and oriented -3. Appropriate affect. Intact judgment and insight. - Labs CBC & Chem 7: 10/14/20 10:56 10/21/20 08:42 Labs: Abnormal Lab Results - Last 24 Hours (Table) 10/20/20 10/21/20 10/21/20 Range/Units 20:41 07:00 11:53 POC Glucose (mg/dL) 157 H 128 H 173 H (75-99) mg/dL 10/21/20 Range/Units 16:48 POC Glucose (mg/dL) 214 H (75-99) mg/dL Microbiology - Last 24 Hours (Table) 10/15/20 15:04 Blood Culture - Final Blood No Growth after 144 hours 10/16/20 12:47 Blood Culture - Preliminary Blood No Growth after 120 hours 10/16/20 12:40 Blood Culture - Preliminary Blood No Growth after 120 hours Assessment and Plan Plan: 1 acute bilateral COVID 19 related pneumonia. The patient symptoms started on 10/03/2020. The patient checked positive on 10/04/2020. The patient was luis m joanna with Decadron on outpatient basis. The patient's presented with worsening shortness of breath and bilateral pneumonia. The patient is currently on 5 L of oxygen by nasal cannula. The chest x-ray showing interval worsening. Nevertheless, clinically, the patient is feeling stable. The patient also has a positive blood culture for coagulase-negative staph aureus, likely contaminant the patient is currently on vancomycin. 2 acute hypoxic respiratory failure currently on 5 L of oxygen by nasal cannula. D-dimer is low. Pulmonary embolism is unlikely.d-dimer is low at this point in time. The LDH level continues to be quite elevated. Patient's oxygenation has worsened, and on 10/22/2019 when she will be given a dose of Tocilizumab 800 mg ivp 3 obesity with a BMI of 48.6 4 chronic bronchial asthma currently inactive in stable 5 diabetes mellitus 6 coronary artery malformation 7 migraine headaches 8 chronic neck and back pain related to herniated disc disease 9 coagulase-negative staph in the blood, likely contaminant. Nevertheless this was cultured and 2 out of 4 blood cultures. Monitor cultures will be repeated and the patient was given vancomycin. Plan: Patient's oxygenation has worsened We will stop the vancomycin, and to follow blood cultures have shown no growth, and coagulase negative staph is likely a contaminant We'll give the patient 1 dose of Tocilizumab Pro calcitonin was negative We'll consider discontinuing vancomycin final cultures are negative Continue Decadron Cut Back Lovenox to once daily We will continue to follow I performed a history & physical examination of the patient and discussed their management with my nurse practitioner, Elinor Dobbs. I reviewed the nurse practitioner's note and agree with the documented findings and plan of care. Lung sounds are positive for diminished breath sounds with bibasilar crackles. The findings and the impression was discussed with the patient. I attest to the documentation by the nurse practitioner. Time with Patient: Less than 30
[2020-10-21 20:21] LABS: Glucose,Whole Blood 182 mg/dL (75-99)
[2020-10-22 06:50] LABS: Glucose,Whole Blood 152 mg/dL (75-99)
[2020-10-22] MEDS: INSULIN ASPART (NovoLOG) 100 UNIT/ML VIAL SQ SCH ×4 (07:24→21:47)
[2020-10-22] MEDS: ASCORBIC ACID 500 MG TAB PO SCH (07:25)
[2020-10-22] MEDS: FAMOTIDINE 20 MG TAB PO SCH ×2 (07:25→20:48)
[2020-10-22] MEDS: ENOXAPARIN 40 MG/0.4 ML SYRINGE SQ SCH (07:25)
[2020-10-22] MEDS: CHOLECALCIFEROL 25 MCG (1000 IU) TABLET PO SCH (07:25)
[2020-10-22] MEDS: ZINC SULFATE 220 MG CAP PO SCH (07:25)
[2020-10-22] MEDS: DEXAMETHASONE SOD PHOSPHATE 10 MG/ML 1 ML VIAL IV SCH ×2 (07:26→20:48)
[2020-10-22] MEDS: NON FORMULARY DRUG (Liraglutide [Victoza 2-Pak] 0.6 MG/0.1 ML Pen.Injctr) PO SCH (07:26)
[2020-10-22] MEDS: ALBUTEROL HFA INHALER INHALATION PRN ×4 (07:53→19:14)
[2020-10-22 10:58] LABS: Basophils # (A) 0.02 X 10*3/uL (0.00-0.10); Basophils % (A) 0.2 %; Eosinophils # (A) 0.01 X 10*3/uL (0.04-0.35); Eosinophils % (A) 0.1 %; HCT 39.2 % (37.2-46.3); HGB 12.9 g/dL (12.0-15.0); Lymphocytes # (A) 1.29 X 10*3/uL (0.90-5.00); Lymphocytes % (A) 9.9 %; MCH 29.7 pg (27.0-32.0); MCHC 32.9 g/dL (32.0-37.0); MCV 90.1 fL (80.0-97.0); Mean Platelet Volume 10.2 fL (9.5-12.2); Monocytes # (A) 0.39 X 10*3/uL (0.20-1.00); Neutrophils # (A) 11.23 X 10*3/uL (1.80-7.70); Neutrophils % (A) 86.1 %; Platelet Count 323 X 10*3/uL (140-440); RBC 4.35 X 10*6/uL (4.10-5.20); RDW 12.2 % (11.5-14.5); WBC 13.03 X 10*3/uL (4.50-10.00)
[2020-10-22 11:57] LABS: Glucose,Whole Blood 182 mg/dL (75-99)
[2020-10-22] MEDS: PSEUDOEPHEDRINE 30 MG TAB PO PRN (12:40)
--- NOTE | 2020-10-22 15:56 | P.PN ---
Subjective From records: This is a pleasant 49-year-old patient of Dr. Logan Silva. Chronic stable medical conditions include but Chiari malformation of the brain, asthma, herniated disc in the back and neck, with pain anxiety depression, GERD, diabetes type 2. Patient around October stools started getting symptoms that included headache cough progressive shortness of breath diarrhea had fever and chills body aches. She did come back positive for COVID 19 on the fourth. Since symptoms have been progressive she came down to the ER. Initial pulse ox was 88% on 5 L. Admitted with bilateral COVID 19 pneumonia, acute hypoxic respiratory failure. Initially put on 5 L of nasal cannula. Started on Decadron and Lovenox. Blood cultures 2 sets positive for coagulase-negative staph hence vancomycin resumed. Today: Sitting up in a chair. Oral intake 100%. On 7 L of nasal cannula. Subjective: 10/21/2020 This is a pleasant 49 years old female who presents with Covid pneumonia. She needs more oxygenated today with oxygen requirement increased from 7 up to 15 L/m. She still complaining of from dyspnea and coughing with little phlegm. No labs from today but yesterday her d-dimer was elevated at 3.5, LDH 553 and C- reactive protein 8.1. Liver enzymes slightly up. Patient is followed closely by pulmonary Chest x-ray showing bilateral pneumonia Patient is on dexamethasone and vancomycin as per pulmonary team for coagulase- negative staph aureus and the blood which is most probably contaminated. Also patient is on multiple vitamins and Lovenox 40 mg twice a day Echocardiogram showed ejection fraction of 55-60% 10/22/2020 Patient respiratory status worsened today and she needed to at 60 L/m, she was complaining of from nasal congestion and symptomatic treatment is provided with Claritin-D. She was on a prone position and benefits and this morning. She is eating Ensure only because of her respiratory difficulty. Pulmonary team on the case. Labs showing leukocytosis, d-dimer stranding those 2.3, inflammatory markers not done today. Extremities on dexamethasone 6 mg, Lovenox 40 mg daily, multiple vitamins. Her IV vancomycin was stopped Review of systems CONSTITUTIONAL: No fever, no malaise, no fatigue. HEENT: No recent visual problems or hearing problems. Denied any sore throat. CARDIOVASCULAR: No orthopnea, PND, no palpitations, no syncope. PULMONARY: No chest wall tenderness, no hemoptysis. GASTROINTESTINAL: No diarrhea, no nausea, no vomiting, no abdominal pain. Normoactive bowel sounds. NEUROLOGICAL: No headaches, no weakness, no numbness. Active Medications Generic Name Dose Route Start Last Admin Trade Name Freq PRN Reason Stop Dose Admin Acetaminophen 1,000 mg 10/18/20 11:04 10/18/20 11:21 Acetaminophen Tab 500 Mg Tab PO 1,000 mg Q6HR PRN Administration Fever and/ or Pain Albuterol Sulfate 2 puff 10/15/20 19:46 10/22/20 15:15 Albuterol Hfa Inhaler INHALATION 2 puff RT-Q4H PRN Administration Shortness Of Breath Ascorbic Acid 1,000 mg 10/14/20 16:45 10/22/20 07:25 Ascorbic Acid 500 Mg Tab PO 1,000 mg DAILY ZARIA Administration Cholecalciferol 100 mcg 10/14/20 16:45 10/22/20 07:25 Cholecalciferol 25 Mcg (1000 Iu) Tablet PO 100 mcg DAILY ZARIA Administration Dexamethasone Sodium Phosphate 6 mg 10/21/20 21:00 10/22/20 07:26 Dexamethasone Sod Phosphate 10 Mg/Ml 1 Ml Vial IV 6 mg BID ZARIA Administration Enoxaparin Sodium 40 mg 10/22/20 09:00 10/22/20 07:25 Enoxaparin 40 Mg/0.4 Ml Syringe SQ 40 mg DAILY ZARIA Administration Famotidine 20 mg 10/14/20 21:00 10/22/20 07:25 Famotidine 20 Mg Tab PO 20 mg BID ZARIA Administration Insulin Aspart 0 unit 10/16/20 17:30 10/22/20 12:39 Insulin Aspart (Novolog) 100 Unit/Ml Vial SQ Not Given ACHS [facility] Protocol Loratadine 10 mg 10/22/20 10:16 Loratadine 10 Mg Tab PO DAILY PRN Allergy Symptoms Non-Formulary Medication 0.6 mg 10/16/20 09:00 10/22/20 07:26 Liraglutide [Victoza 2-Primitivo] PO Not Given DAILY ZARIA Ondansetron HCl 4 mg 10/16/20 09:29 10/16/20 09:41 Ondansetron 4 Mg/2 Ml Vial IVP 4 mg Q8HR PRN Administration Nausea And Vomiting Pseudoephedrine HCl 30 mg 10/22/20 10:15 10/22/20 12:40 Pseudoephedrine 30 Mg Tab PO 30 mg ONCE PRN Administration Nasal Congestion Sodium Chloride 2 spray 10/18/20 10:10 10/18/20 11:29 Sodium Chloride 0.65% Nasal [place] 44 Ml Btl NASAL 2 spray QID PRN Administration Dry Nasal Passages Sumatriptan Succinate 100 mg 10/15/20 19:46 Sumatriptan Succinate 50 Mg Tab PO DAILY PRN Migraine Headache Tramadol HCl 50 mg 10/15/20 19:46 10/20/20 02:45 Tramadol 50 Mg Tab PO 50 mg Q6HR PRN Administration Pain Zinc Sulfate 220 mg 10/14/20 17:00 10/22/20 07:25 Zinc Sulfate 220 Mg Cap PO 220 mg DAILY ZARIA Administration Objective - Vital Signs Vital signs: Vital Signs Temp 97.7 F 10/22/20 10:00 Pulse 94 10/22/20 10:00 Resp 20 10/22/20 10:00 BP 125/77 10/22/20 10:00 Pulse Ox 87 L 10/22/20 15:20 Intake & Output 10/21/20 10/22/20 10/22/20 18:59 06:59 18:59 Intake Total 200 Output Total 3100 2925 Balance -3100 -2925 200 Weight 153.768 kg Intake: Oral 200 Output: Urine 3100 2925 Other: Voiding Method Bedside Commode # Bowel Movements 1 1 - Exam GENERAL: The patient is alert and oriented x3, not in any acute distress. Well developed, well nourished. HEENT: Pupils are round and equally reacting to light. EOMI. No scleral icterus. No conjunctival pallor. Normocephalic, atraumatic. No pharyngeal erythema. No thyromegaly. CARDIOVASCULAR: S1 and S2 present. No murmurs, rubs, or gallops. -PULMONARY: Chest is clear to auscultation, no wheezing. Bilateral crepitation ABDOMEN: Soft, nontender, nondistended, normoactive bowel sounds. No palpable organomegaly. MUSCULOSKELETAL: No joint swelling or deformity. EXTREMITIES: No cyanosis, clubbing, or pedal edema. NEUROLOGICAL: Gross neurological examination did not reveal any focal deficits. SKIN: No rashes. no petechiae. - Labs CBC & Chem 7: 10/22/20 06:41 10/21/20 08:42 Labs: Abnormal Lab Results - Last 24 Hours (Table) 10/21/20 10/21/20 10/22/20 Range/Units 16:48 20:19 06:41 WBC 13.03 H (4.50-10.00) X 10*3/uL Immature Gran # 0.09 H (0.00-0.04) X 10*3/uL Neutrophils # 11.23 H (1.80-7.70) X 10*3/uL Eosinophils # 0.01 L (0.04-0.35) X 10*3/uL D-Dimer (<0.60) mg/L FEU POC Glucose (mg/dL) 214 H 182 H (75-99) mg/dL 10/22/20 10/22/20 10/22/20 Range/Units 06:41 06:48 11:45 WBC (4.50-10.00) X 10*3/uL Immature Gran # (0.00-0.04) X 10*3/uL Neutrophils # (1.80-7.70) X 10*3/uL Eosinophils # (0.04-0.35) X 10*3/uL D-Dimer 2.33 H (<0.60) mg/L FEU POC Glucose (mg/dL) 152 H 182 H (75-99) mg/dL Microbiology - Last 24 Hours (Table) 10/16/20 12:47 Blood Culture - Final Blood No Growth after 144 hours 10/16/20 12:40 Blood Culture - Final Blood No Growth after 144 hours 10/15/20 15:04 Blood Culture - Final Blood No Growth after 144 hours Assessment and Plan Assessment: -Acute bilateral pneumonia -Acute hypoxic respiratory failure -Increased inflammatory markers -Coagulase-negative staph aureus bacteremia, contamination is suspected -History of asthma -Diabetes mellitus -History of Chiari malformation -History of chronic back and neck pain due to disc herniation -History of migraine -History of sleep apnea Plan: This is a pleasant 49 years old female who presents with cough pneumonia. Continue with steroids, Lovenox, vitamin C, D&C with pulmonary team on the case Continue with IV vancomycin per pulmonary team recommendation follow for the re sults of blood culture Labs and medication were reviewed.. Continue same treatment. Continue with symptomatic treatment. Resume home medication. Monitor lytes and vitals. DVT and GI prophylaxis. Further recommendationsas per clinical course of the patient DVT prophylaxis: Subcutaneous Lovenox GI Prophylaxis: Pepcid Prognosis is guarded
[2020-10-22 17:11] LABS: Glucose,Whole Blood 154 mg/dL (75-99)
--- NOTE | 2020-10-22 17:25 | P.PN ---
Subjective Progress Note Date: 10/22/20 Principal diagnosis: COVID-19 pneumonia 49-year-old female patient hospitalized for COVID 19 related pneumonia and a pulmonary consultation was requested. The patient is morbidly obese and she has previous history of coronary artery malformation and migraines. She is diabetic and she has chronic anxiety and depression. Her symptoms started on 10/03/2020 where the patient became fatigued and tired and she was having some body aches and cough and progressively she developed shortness of breath. She got tested on 10/04/2020 and outpatient basis and she checked positive. Following that, the patient was placed on steroids which I believe it was in the form of Decadron. Despite all this, the patient progressed and the patient came into the hospital because of worsening shortness of breath. She was found to be hypoxic and she is currently on 5 L about 2 by nasal cannula with a pulse ox of 88%. Chest x-ray showing diffuse breath and pulmonary infiltrates. The blood work is showing an LDH level of 1445, CRP of 43.6, and a d-dimer of 0.57. Otherwise, the rest of the blood work essentially within normal limits. White cell count at 6.6 with a lymphopenia and a lymphocyte count of 0.9. Coagulation profile is within normal limits. D-dimer is at 0.57. She is currently back on Decadron orally and she is on 5 L of oxygen by nasal cannula. On today's evaluation of 10/16/2020 the patient is on 5 L of oxygen by nasal cannula. She has been ranging between 4 and 6 L during this current hospital stay. She is feeling better. She is still coughing. She has a low-grade fever yesterday. She is pulling around 1500 on his incentive spirometer. Otherwise, the CRP level is at 36, d-dimer is at 1.07. Creatinine is at 0.7. No nausea. No vomiting. No diarrhea. No abdominal pain. No other complaints otherwise for now. The blood culture is showing coagulase-negative staph and the patient was given a dose of vancomycin. The blood cultures are being monitored. Affect irritable cultures are showing staph in the blood which is probably coagulase-negative staph. Both of 4 of the cultures are positive for gram- positive cocci in clusters and the finding cultures sensitivities are still pending for now. 10/17/2020, the patient remains on 5 L of oxygen by nasal cannula. Essentially stable compared to yesterday. He remains on a combination of treatment including Decadron 6 mg IV daily and Lovenox 40 mg subcu every 12 hours. The patient's blood culture was also positive for coagulase-negative staph and this was repeated. The results of this culture were thought to be contaminated. Nevertheless there were 2 of the blood cultures and for that reason we decided to treat this patient with vancomycin. The patient is hemodynamically stable. The patient is afebrile. Clinically the patient was stable. D-dimer was 1.49. LDH is 1469 and the CRP is 86. She is having episodic dry nose and the patient is on oxygen by nasal cannula which is essentially humidified at this point in time. She has no other complaints otherwise for now. Repeat chest x-ray showing worsening in the bilateral patchy pulmonary filtrates compared to the earlier chest x-ray from 10/14/2020 and this was obviously a concern. On 10/18/2020 patient seen in follow-up on medical floor, she is currently on 6 L of oxygen, looks comfortable, she sits up in the chair, no cough, no chest pain, no hemoptysis, repeat blood cultures have shown no growth thus far, final cultures are pending, patient had 2 previous blood cultures with coagulase- negative staph and she remains on vancomycin, vital signs have been stable, she has been afebrile, follow-up chest x-ray today shows persistent bilateral multifocal confluent opacities consistent with COVID-19 infection, stable in appearance. Today's follow-up labs showed d-dimer 1.88, LDH 1509, and CRP is 13.3. She had no acute events overnight On 10/19/2020 patient seen in follow-up on medical surgical floor, she sits up in the chair, she is currently on 6 L per high flow oxygen, her pulse ox is 90%, she still coughing, but overall she states she feels that she is doing better, follow blood cultures so far have been negative, she is working on her incentive spirometer she is achieving 1999, today's labs have been reviewed, showing white blood cell count is 60.4, hemoglobin of 12, d-dimer is trending down and is down to 1.19, sodium is 133,electrolytes and renal profile were unremarkable, LDH is trending today's labs, and is up to 1356, CRP is low at 0.5. no chest discomfort, breathing comfortably, tolerating oral intake. On 10/20/2020 patient seen in follow-up on medical surgical floor, she remains on 6 L of oxygen, her pulse ox was 90%, she looks very comfortable, she sits up in the recliner, she is eating lunch, vital signs have been stable, breathing appears to be nonlabored, she does desaturate with exertion. Today's chest x- ray shows persistent bilateral multifocal confluent opacities consistent with COVID-19 infection with no significant change from previous chest x-ray, today's labs have been noted, d-dimer 3.55, creatinine is 0.6, LDH is improving, and is down to 583 from 2040, and CRP is improving as well and is at 8.1 on today's labs, Procan was negative at 0.10. Patient remains on vancomycin, and her follow blood cultures have been negative, 2 blood cultures from 10/14/2020 sh owed a coagulase-negative staph. Final cultures are pending, vital signs have been stable, patient has had no fever or chills, no altered mentation. On 10/21/2000 patient seen in follow-up on medical floor, her oxygen requirements have increased, she is currently on 15 L high flow and 100% nonrebr eather, her pulse ox is 94%, she feels like she is more short of breath on today's exam as well, easily desaturates. He is afebrile, remains on vancomycin, however follow-up blood cultures have shown no growth, previous blood cultures have shown an today's negative staph likely related to contamina tion, we'll stop her vancomycin, today's labs have been reviewed. Showing normal creatinine of 0.54, yesterday's labs showed a trending d-dimer up to 3.55, and improving inflammatory markers, echocardiogram was performed today showing EF of 55-60%, and this was a difficult study and the valves were not well visualized. The patient has been afebrile, still level is negative at 0.10, and we will discontinue the vancomycin. Her chest x-ray findings show persistent bilateral multifocal confluent opacities, without major change from the earlier On 10/22/2020 patient seen in follow-up on medical surgical floor, today her oxygen requirements have increased, and she was placed on Airvo at 60 L and FiO2 of 90%, and her pulse ox is between 87-90%, she seems to be breathing comfortably on the Airvo settings, and patient is repositioning self in bed, does not appear to be in any respiratory distress, does not appear to have increased work of breathing, she is afebrile, hemodynamically she stable, no new chest x-ray today, today's blood work shows d-dimer of 2.33, improved from yesterday, white blood cell count is 13, hemoglobin is 12.9, no inflammatory markers, she status post Tocilizumab yesterday for worsening hypoxia, and patient received 800 mg times one dose, and currently her Decadron is at 6 mg twice daily, and Lovenox at prophylactic dose. Follow-up blood cultures have remained negative, no recurrence of fever. Vancomycin has been discontinued Objective - Vital Signs Vital signs: Vital Signs Temp 97.7 F 10/22/20 10:00 Pulse 94 10/22/20 10:00 Resp 20 10/22/20 10:00 BP 125/77 10/22/20 10:00 Pulse Ox 87 L 10/22/20 15:20 Intake & Output 10/21/20 10/22/20 10/22/20 18:59 06:59 18:59 Intake Total 200 Output Total 3100 2925 Balance -3100 -2925 200 Weight 153.768 kg Intake: Oral 200 Output: Urine 3100 2925 Other: Voiding Method Bedside Commode # Bowel Movements 1 1 - Exam GENERAL EXAM: Alert, very pleasant, obese 49-year-old white female, on 60% FiO2 of 92%, with a pulse ox between 87-90%, without increased work of breathing, patient seems comfortable in no apparent distress. HEAD: Normocephalic/atraumatic. EYES: Normal reaction of pupils, equal size. Conjunctiva pink, sclera white. NOSE: Clear with pink turbinates. THROAT: No erythema or exudates. NECK: No masses, no JVD, no thyroid enlargement, no adenopathy. CHEST: No chest wall deformity. Symmetrical expansion. LUNGS: Equal air entry with bibasilar crackles CVS: Regular rate and rhythm, normal S1 and S2, no gallops, no murmurs, no rubs ABDOMEN: Soft, nontender. No hepatosplenomegaly, normal bowel sounds, no guarding or rigidity. EXTREMITIES: No clubbing, no edema, no cyanosis, 2+ pulses and upper and lower extremities. MUSCULOSKELETAL: Muscle strength and tone normal. SPINE: No scoliosis or deformity SKIN: No rashes CENTRAL NERVOUS SYSTEM: Alert and oriented -3. No focal deficits, tone is normal in all 4 extremities. PSYCHIATRIC: Alert and oriented -3. Appropriate affect. Intact judgment and insight. - Labs CBC & Chem 7: 10/22/20 06:41 10/21/20 08:42 Labs: Abnormal Lab Results - Last 24 Hours (Table) 10/21/20 10/22/20 10/22/20 Range/Units 20:19 06:41 06:41 WBC 13.03 H (4.50-10.00) X 10*3/uL Immature Gran # 0.09 H (0.00-0.04) X 10*3/uL Neutrophils # 11.23 H (1.80-7.70) X 10*3/uL Eosinophils # 0.01 L (0.04-0.35) X 10*3/uL D-Dimer 2.33 H (<0.60) mg/L FEU POC Glucose (mg/dL) 182 H (75-99) mg/dL 10/22/20 10/22/20 10/22/20 Range/Units 06:48 11:45 17:09 WBC (4.50-10.00) X 10*3/uL Immature Gran # (0.00-0.04) X 10*3/uL Neutrophils # (1.80-7.70) X 10*3/uL Eosinophils # (0.04-0.35) X 10*3/uL D-Dimer (<0.60) mg/L FEU POC Glucose (mg/dL) 152 H 182 H 154 H (75-99) mg/dL Microbiology - Last 24 Hours (Table) 10/16/20 12:47 Blood Culture - Final Blood No Growth after 144 hours 10/16/20 12:40 Blood Culture - Final Blood No Growth after 144 hours 10/15/20 15:04 Blood Culture - Final Blood No Growth after 144 hours Assessment and Plan Plan: 1 acute bilateral COVID 19 related pneumonia. The patient symptoms started on 10/03/2020. The patient checked positive on 10/04/2020. The patient was treated with Decadron on outpatient basis. The patient's presented with worsening shortness of breath and bilateral pneumonia. The patient is currently on 5 L of oxygen by nasal cannula. The chest x-ray showing interval worsening. Nevertheless, clinically, the patient is feeling stable. The patient also has a positive blood culture for coagulase-negative staph aureus, likely contaminant the patient is currently on vancomycin. 2 acute hypoxic respiratory failure currently on 5 L of oxygen by nasal cannula. D-dimer is low. Pulmonary embolism is unlikely.d-dimer is low at this point in time. The LDH level continues to be quite elevated. Patient's oxygenation has worsened, and on 10/22/2019 when she will be given a dose of To cilizumab 800 mg ivp 3 obesity with a BMI of 48.6 4 chronic bronchial asthma currently inactive in stable 5 diabetes mellitus 6 coronary artery malformation 7 migraine headaches 8 chronic neck and back pain related to herniated disc disease 9 coagulase-negative staph in the blood, likely contaminant. Nevertheless this was cultured and 2 out of 4 blood cultures. Monitor cultures will be repeated and the patient was given vancomycin. Plan: Patient's oxygenation has worsened again, patient was placed on Airvo No increased work of breathing, however we will consider BiPAP support if she starts feeling more dyspneic She received 1 dose Tocilizumab No fever or chills Continue Decadron 6 mg twice daily Continue current dose Lovenox Follow-up chest x-ray in the morning, follow-up inflammatory markers We will continue to follow I performed a history & physical examination of the patient and discussed their management with my nurse practitioner, Elinor Dobbs. I reviewed the nurse practitioner's note and agree with the documented findings and plan of care. Lung sounds are positive for diminished breath sounds with bibasilar crackles. The findings and the impression was discussed with the patient. I attest to the documentation by the nurse practitioner. Time with Patient: Less than 30
[2020-10-22 21:07] LABS: Glucose,Whole Blood 208 mg/dL (75-99)
[2020-10-23 06:08] LABS: African American GFR (CKD) 122.3 (60.0-200.0); Anion Gap 15.6 mmol/L (4.00-12.00); C Reactive Protein 10.6 mg/dL (0.0-0.8); Calcium 8.6 mg/dL (8.7-10.3); Carbon Dioxide 22.4 mmol/L (21.6-31.8); Non-African American GFR(CKD) 105.5 (60.0-200.0); Potassium 4.3 mmol/L (3.5-5.5)
[2020-10-23 07:27] LABS: Glucose,Whole Blood 135 mg/dL (75-99)
[2020-10-23 07:39] LABS: African American GFR (CKD) >90 (>60 ml/min/1.73 sqM); Anion Gap 6 mmol/L; Blood Urea Nitrogen 13 mg/dL (7-17); Calcium 8.7 mg/dL (8.4-10.2); Carbon Dioxide 30 mmol/L (22-30); Chloride 100 mmol/L (98-107); Glucose 160 mg/dL (74-99); LDH 1522 U/L (313-618); Non-African American GFR(CKD) >90 (>60 ml/min/1.73 sqM); Potassium 3.9 mmol/L (3.5-5.1); Sodium 136 mmol/L (137-145)
--- NOTE | 2020-10-23 07:41 | XR ---
EXAMINATION TYPE: XR chest 1V portable DATE OF EXAM: 10/23/2020 HISTORY: Covid 19 pneumonia COMPARISON: 10/21/2020 TECHNIQUE: Single view of the chest is submitted. FINDINGS: Demonstrated are scattered senescent parenchymal change. Diffuse airspace infiltrates persist with mild interval improvement suggested. The heart is stable. Hilar and mediastinal structures are within normal limits. Degenerative changes are seen of the dorsal spine. IMPRESSION: 1. Diffuse airspace infiltrates persist with mild interval improvement suggested.
[2020-10-23] MEDS: CHOLECALCIFEROL 25 MCG (1000 IU) TABLET PO SCH (07:48)
[2020-10-23] MEDS: ASCORBIC ACID 500 MG TAB PO SCH (07:48)
[2020-10-23] MEDS: ENOXAPARIN 40 MG/0.4 ML SYRINGE SQ SCH (07:48)
[2020-10-23] MEDS: ZINC SULFATE 220 MG CAP PO SCH (07:48)
[2020-10-23] MEDS: FAMOTIDINE 20 MG TAB PO SCH ×2 (07:48→20:01)
[2020-10-23] MEDS: DEXAMETHASONE SOD PHOSPHATE 10 MG/ML 1 ML VIAL IV SCH ×2 (07:49→20:01)
[2020-10-23] MEDS: NON FORMULARY DRUG (Liraglutide [Victoza 2-Pak] 0.6 MG/0.1 ML Pen.Injctr) PO SCH (07:49)
[2020-10-23] MEDS: INSULIN ASPART (NovoLOG) 100 UNIT/ML VIAL SQ SCH ×4 (07:49→21:34)
[2020-10-23 08:42] LABS: C Reactive Protein 5.6 mg/dL (<1.0)
[2020-10-23 11:31] LABS: Glucose,Whole Blood 172 mg/dL (75-99)
--- NOTE | 2020-10-23 14:09 | P.PN ---
Subjective From records: This is a pleasant 49-year-old patient of Dr. Logan Silva. Chronic stable medical conditions include but Chiari malformation of the brain, asthma, herniated disc in the back and neck, with pain anxiety depression, GERD, diabetes type 2. Patient around October stools started getting symptoms that included headache cough progressive shortness of breath diarrhea had fever and chills body aches. She did come back positive for COVID 19 on the fourth. Since symptoms have been progressive she came down to the ER. Initial pulse ox was 88% on 5 L. Admitted with bilateral COVID 19 pneumonia, acute hypoxic respiratory failure. Initially put on 5 L of nasal cannula. Started on Decadron and Lovenox. Blood cultures 2 sets positive for coagulase-negative staph hence vancomycin resumed. Today: Sitting up in a chair. Oral intake 100%. On 7 L of nasal cannula. Subjective: 10/21/2020 This is a pleasant 49 years old female who presents with Covid pneumonia. She needs more oxygenated today with oxygen requirement increased from 7 up to 15 L/m. She still complaining of from dyspnea and coughing with little phlegm. No labs from today but yesterday her d-dimer was elevated at 3.5, LDH 553 and C- reactive protein 8.1. Liver enzymes slightly up. Patient is followed closely by pulmonary Chest x-ray showing bilateral pneumonia Patient is on dexamethasone and vancomycin as per pulmonary team for coagulase- negative staph aureus and the blood which is most probably contaminated. Also patient is on multiple vitamins and Lovenox 40 mg twice a day Echocardiogram showed ejection fraction of 55-60% 10/22/2020 Patient respiratory status worsened today and she needed to at 60 L/m, she was complaining of from nasal congestion and symptomatic treatment is provided with Claritin-D. She was on a prone position and benefits and this morning. She is eating Ensure only because of her respiratory difficulty. Pulmonary team on the case. Labs showing leukocytosis, d-dimer stranding those 2.3, inflammatory markers not done today. Extremities on dexamethasone 6 mg, Lovenox 40 mg daily, multiple vitamins. Her IV vancomycin was stopped 10/23/20 Patient clinically looks similar to yesterday, she still with some tachypnea at rest, she still needs high flow oxygen via airvo . She still complaining of from nasal congestion although thinks medication on heparin her. She is able to eat Ensure only while she is on mask most of the day. Chest x-ray from today showing mild improvement in her bilateral airspace infiltrates. D-dimer is stable at 2.0. Patient remains on dexamethasone 6 mg twice daily, prophylactic dose of Lovenox, multiple vitamins. However her vancomycin was stopped yesterday We will keep monitoring Objective - Vital Signs Vital signs: Vital Signs Temp 98.7 F 10/23/20 09:44 Pulse 93 10/23/20 09:44 Resp 20 10/23/20 09:44 BP 130/75 10/23/20 09:44 Pulse Ox 88 L 10/23/20 09:44 Intake & Output 10/22/20 10/23/20 10/23/20 18:59 06:59 18:59 Intake Total 200 Output Total 1425 Balance 200 -1425 Intake: Oral 200 Output: Urine 1425 Other: Voiding Method External Catheter # Voids 3 # Bowel Movements 1 - Exam GENERAL: The patient is alert and oriented x3, not in any acute distress. Well developed, well nourished. HEENT: Pupils are round and equally reacting to light. EOMI. No scleral icterus. No conjunctival pallor. Normocephalic, atraumatic. No pharyngeal erythema. No thyromegaly. CARDIOVASCULAR: S1 and S2 present. No murmurs, rubs, or gallops. -PULMONARY: Chest is clear to auscultation, no wheezing. Bilateral crepitation ABDOMEN: Soft, nontender, nondistended, normoactive bowel sounds. No palpable organomegaly. MUSCULOSKELETAL: No joint swelling or deformity. EXTREMITIES: No cyanosis, clubbing, or pedal edema. NEUROLOGICAL: Gross neurological examination did not reveal any focal deficits. SKIN: No rashes. no petechiae. - Labs CBC & Chem 7: 10/22/20 06:41 10/23/20 06:59 Labs: Abnormal Lab Results - Last 24 Hours (Table) 10/22/20 10/22/20 10/22/20 Range/Units 06:41 17:09 21:06 D-Dimer (<0.60) mg/L FEU Sodium (137-145) mmol/L Anion Gap 15.60 H (4.00-12.00) mmol/L Glucose 181 H (70-110) mg/dL POC Glucose (mg/dL) 154 H 208 H (75-99) mg/dL Calcium 8.6 L (8.7-10.3) mg/dL Lactate Dehydrogenase 818 H (120-246) U/L C-Reactive Protein 10.6 H (0.0-0.8) mg/dL 10/23/20 10/23/20 10/23/20 Range/Units 06:59 06:59 07:19 D-Dimer 2.06 H (<0.60) mg/L FEU Sodium 136 L (137-145) mmol/L Anion Gap (4.00-12.00) mmol/L Glucose 160 H (70-110) mg/dL POC Glucose (mg/dL) 135 H (75-99) mg/dL Calcium (8.7-10.3) mg/dL Lactate Dehydrogenase 1522 H (120-246) U/L C-Reactive Protein 5.6 H (0.0-0.8) mg/dL 10/23/20 Range/Units 11:28 D-Dimer (<0.60) mg/L FEU Sodium (137-145) mmol/L Anion Gap (4.00-12.00) mmol/L Glucose (70-110) mg/dL POC Glucose (mg/dL) 172 H (75-99) mg/dL Calcium (8.7-10.3) mg/dL Lactate Dehydrogenase (120-246) U/L C-Reactive Protein (0.0-0.8) mg/dL Microbiology - Last 24 Hours (Table) 10/16/20 12:47 Blood Culture - Final Blood No Growth after 144 hours 10/16/20 12:40 Blood Culture - Final Blood No Growth after 144 hours Assessment and Plan Assessment: -Acute bilateral pneumonia -Acute hypoxic respiratory failure -Increased inflammatory markers -Coagulase-negative staph aureus bacteremia, contamination is suspected -History of asthma -Diabetes mellitus -History of Chiari malformation -History of chronic back and neck pain due to disc herniation -History of migraine -History of sleep apnea Plan: This is a pleasant 49 years old female who presents with cough pneumonia. Continue with steroids, Lovenox, vitamin C, D&C with pulmonary team on the case Continue with IV vancomycin per pulmonary team recommendation follow for the results of blood culture Labs and medication were reviewed.. Continue same treatment. Continue with symptomatic treatment. Resume home medication. Monitor lytes and vitals. DVT and GI prophylaxis. Further recommendationsas per clinical course of the patient DVT prophylaxis: Subcutaneous Lovenox GI Prophylaxis: Pepcid Prognosis is guarded
[2020-10-23] MEDS: PSEUDOEPHEDRINE 30 MG TAB PO PRN (15:05)
[2020-10-23 16:49] LABS: Glucose,Whole Blood 228 mg/dL (75-99)
--- NOTE | 2020-10-23 17:30 | P.PN ---
Subjective Progress Note Date: 10/23/20 Principal diagnosis: COVID-19 pneumonia 49-year-old female patient hospitalized for COVID 19 related pneumonia and a pulmonary consultation was requested. The patient is morbidly obese and she has previous history of coronary artery malformation and migraines. She is diabetic and she has chronic anxiety and depression. Her symptoms started on 10/03/2020 where the patient became fatigued and tired and she was having some body aches and cough and progressively she developed shortness of breath. She got tested on 10/04/2020 and outpatient basis and she checked positive. Following that, the patient was placed on steroids which I believe it was in the form of Decadron. Despite all this, the patient progressed and the patient came into the hospital because of worsening shortness of breath. She was found to be hypoxic and she is currently on 5 L about 2 by nasal cannula with a pulse ox of 88%. Chest x-ray showing diffuse breath and pulmonary infiltrates. The blood work is showing an LDH level of 1445, CRP of 43.6, and a d-dimer of 0.57. Otherwise, the rest of the blood work essentially within normal limits. White cell count at 6.6 with a lymphopenia and a lymphocyte count of 0.9. Coagulation profile is within normal limits. D-dimer is at 0.57. She is currently back on Decadron orally and she is on 5 L of oxygen by nasal cannula. On today's evaluation of 10/16/2020 the patient is on 5 L of oxygen by nasal cannula. She has been ranging between 4 and 6 L during this current hospital stay. She is feeling better. She is still coughing. She has a low-grade fever yesterday. She is pulling around 1500 on his incentive spirometer. Otherwise, the CRP level is at 36, d-dimer is at 1.07. Creatinine is at 0.7. No nausea. No vomiting. No diarrhea. No abdominal pain. No other complaints otherwise for now. The blood culture is showing coagulase-negative staph and the patient was given a dose of vancomycin. The blood cultures are being monitored. Affect irritable cultures are showing staph in the blood which is probably coagulase-negative staph. Both of 4 of the cultures are positive for gram- positive cocci in clusters and the finding cultures sensitivities are still pending for now. 10/17/2020, the patient remains on 5 L of oxygen by nasal cannula. Essentially stable compared to yesterday. He remains on a combination of treatment including Decadron 6 mg IV daily and Lovenox 40 mg subcu every 12 hours. The patient's blood culture was also positive for coagulase-negative staph and this was repeated. The results of this culture were thought to be contaminated. Nevertheless there were 2 of the blood cultures and for that reason we decided to treat this patient with vancomycin. The patient is hemodynamically stable. The patient is afebrile. Clinically the patient was stable. D-dimer was 1.49. LDH is 1469 and the CRP is 86. She is having episodic dry nose and the patient is on oxygen by nasal cannula which is essentially humidified at this point in time. She has no other complaints otherwise for now. Repeat chest x-ray showing worsening in the bilateral patchy pulmonary filtrates compared to the earlier chest x-ray from 10/14/2020 and this was obviously a concern. On 10/18/2020 patient seen in follow-up on medical floor, she is currently on 6 L of oxygen, looks comfortable, she sits up in the chair, no cough, no chest pain, no hemoptysis, repeat blood cultures have shown no growth thus far, final cultures are pending, patient had 2 previous blood cultures with coagulase- negative staph and she remains on vancomycin, vital signs have been stable, she has been afebrile, follow-up chest x-ray today shows persistent bilateral multifocal confluent opacities consistent with COVID-19 infection, stable in appearance. Today's follow-up labs showed d-dimer 1.88, LDH 1509, and CRP is 13.3. She had no acute events overnight On 10/19/2020 patient seen in follow-up on medical surgical floor, she sits up in the chair, she is currently on 6 L per high flow oxygen, her pulse ox is 90%, she still coughing, but overall she states she feels that she is doing better, follow blood cultures so far have been negative, she is working on her incentive spirometer she is achieving 1999, today's labs have been reviewed, showing white blood cell count is 60.4, hemoglobin of 12, d-dimer is trending down and is down to 1.19, sodium is 133,electrolytes and renal profile were unremarkable, LDH is trending today's labs, and is up to 1356, CRP is low at 0.5. no chest discomfort, breathing comfortably, tolerating oral intake. On 10/20/2020 patient seen in follow-up on medical surgical floor, she remains on 6 L of oxygen, her pulse ox was 90%, she looks very comfortable, she sits up in the recliner, she is eating lunch, vital signs have been stable, breathing appears to be nonlabored, she does desaturate with exertion. Today's chest x- ray shows persistent bilateral multifocal confluent opacities consistent with COVID-19 infection with no significant change from previous chest x-ray, today's labs have been noted, d-dimer 3.55, creatinine is 0.6, LDH is improving, and is down to 583 from 2040, and CRP is improving as well and is at 8.1 on today's labs, Procan was negative at 0.10. Patient remains on vancomycin, and her follow blood cultures have been negative, 2 blood cultures from 10/14/2020 sh owed a coagulase-negative staph. Final cultures are pending, vital signs have been stable, patient has had no fever or chills, no altered mentation. On 10/21/2000 patient seen in follow-up on medical floor, her oxygen requirements have increased, she is currently on 15 L high flow and 100% nonrebr eather, her pulse ox is 94%, she feels like she is more short of breath on today's exam as well, easily desaturates. He is afebrile, remains on vancomycin, however follow-up blood cultures have shown no growth, previous blood cultures have shown an today's negative staph likely related to contamina tion, we'll stop her vancomycin, today's labs have been reviewed. Showing normal creatinine of 0.54, yesterday's labs showed a trending d-dimer up to 3.55, and improving inflammatory markers, echocardiogram was performed today showing EF of 55-60%, and this was a difficult study and the valves were not well visualized. The patient has been afebrile, still level is negative at 0.10, and we will discontinue the vancomycin. Her chest x-ray findings show persistent bilateral multifocal confluent opacities, without major change from the earlier On 10/22/2020 patient seen in follow-up on medical surgical floor, today her oxygen requirements have increased, and she was placed on Airvo at 60 L and FiO2 of 90%, and her pulse ox is between 87-90%, she seems to be breathing comfortably on the Airvo settings, and patient is repositioning self in bed, does not appear to be in any respiratory distress, does not appear to have increased work of breathing, she is afebrile, hemodynamically she stable, no new chest x-ray today, today's blood work shows d-dimer of 2.33, improved from yesterday, white blood cell count is 13, hemoglobin is 12.9, no inflammatory markers, she status post Tocilizumab yesterday for worsening hypoxia, and patient received 800 mg times one dose, and currently her Decadron is at 6 mg twice daily, and Lovenox at prophylactic dose. Follow-up blood cultures have remained negative, no recurrence of fever. Vancomycin has been discontinued On 10/23/2020 patient seen in follow-up on medical surgical floor, continues on Airvo currently at 60 L and FiO2 of 80% in addition to 100% nonrebreather mask, and her pulse ox is between 87-88%, no worsening dyspnea, she is afebrile, hemodynamically stable, does not appear to be in any respiratory distress, today's chest x-ray shows diffuse airspace infiltrates with mild interval improvement. Vancomycin has been discontinued, she has had no fever or chills, follow blood cultures have been negative, she continues on twice daily dose of IV Decadron, and Lovenox currently at 40 mg daily. D-dimer today is 2.06, electrolytes and renal profile are unremarkable, her some inflammatory markers show increasing the LDH up to 1522, and CRP is 5.6, pro-calcitonin level was negative at 0.08. No acute events overnight, Objective - Vital Signs Vital signs: Vital Signs Temp 98.1 F 10/23/20 14:00 Pulse 70 10/23/20 14:00 Resp 22 10/23/20 14:00 BP 114/76 10/23/20 14:00 Pulse Ox 88 L 10/23/20 16:03 Intake & Output 10/22/20 10/23/20 10/23/20 18:59 06:59 18:59 Intake Total 200 Output Total 1425 Balance 200 -1425 Intake: Oral 200 Output: Urine 1425 Other: Voiding Method External Catheter # Voids 3 2 # Bowel Movements 1 - Exam GENERAL EXAM: Alert, very pleasant, obese 49-year-old white female, on 60% FiO2 of 88%, with a pulse ox between 87-90%, and 100% nonrebreather mask without increased work of breathing, patient seems comfortable in no apparent distress. HEAD: Normocephalic/atraumatic. EYES: Normal reaction of pupils, equal size. Conjunctiva pink, sclera white. NOSE: Clear with pink turbinates. THROAT: No erythema or exudates. NECK: No masses, no JVD, no thyroid enlargement, no adenopathy. CHEST: No chest wall deformity. Symmetrical expansion. LUNGS: Equal air entry with bibasilar crackles CVS: Regular rate and rhythm, normal S1 and S2, no gallops, no murmurs, no rubs ABDOMEN: Soft, nontender. No hepatosplenomegaly, normal bowel sounds, no guarding or rigidity. EXTREMITIES: No clubbing, no edema, no cyanosis, 2+ pulses and upper and lower extremities. MUSCULOSKELETAL: Muscle strength and tone normal. SPINE: No scoliosis or deformity SKIN: No rashes CENTRAL NERVOUS SYSTEM: Alert and oriented -3. No focal deficits, tone is normal in all 4 extremities. PSYCHIATRIC: Alert and oriented -3. Appropriate affect. Intact judgment and insight. - Labs CBC & Chem 7: 10/22/20 06:41 10/23/20 06:59 Labs: Abnormal Lab Results - Last 24 Hours (Table) 10/22/20 10/22/20 10/23/20 Range/Units 06:41 21:06 06:59 D-Dimer (<0.60) mg/L FEU Sodium 136 L (137-145) mmol/L Anion Gap 15.60 H (4.00-12.00) mmol/L Glucose 181 H 160 H (70-110) mg/dL POC Glucose (mg/dL) 208 H (75-99) mg/dL Calcium 8.6 L (8.7-10.3) mg/dL Lactate Dehydrogenase 818 H 1522 H (120-246) U/L C-Reactive Protein 10.6 H 5.6 H (0.0-0.8) mg/dL 10/23/20 10/23/20 10/23/20 Range/Units 06:59 07:19 11:28 D-Dimer 2.06 H (<0.60) mg/L FEU Sodium (137-145) mmol/L Anion Gap (4.00-12.00) mmol/L Glucose (70-110) mg/dL POC Glucose (mg/dL) 135 H 172 H (75-99) mg/dL Calcium (8.7-10.3) mg/dL Lactate Dehydrogenase (120-246) U/L C-Reactive Protein (0.0-0.8) mg/dL 10/23/20 Range/Units 16:47 D-Dimer (<0.60) mg/L FEU Sodium (137-145) mmol/L Anion Gap (4.00-12.00) mmol/L Glucose (70-110) mg/dL POC Glucose (mg/dL) 228 H (75-99) mg/dL Calcium (8.7-10.3) mg/dL Lactate Dehydrogenase (120-246) U/L C-Reactive Protein (0.0-0.8) mg/dL Microbiology - Last 24 Hours (Table) 10/16/20 12:47 Blood Culture - Final Blood No Growth after 144 hours 10/16/20 12:40 Blood Culture - Final Blood No Growth after 144 hours Assessment and Plan Plan: 1 acute bilateral COVID 19 related pneumonia. The patient symptoms started on 10/03/2020. The patient checked positive on 10/04/2020. The patient was treated with Decadron on outpatient basis. The patient's presented with worsening shortness of breath and bilateral pneumonia. The patient is currently on 5 L of oxygen by nasal cannula. The chest x-ray showing interval worsening. Nevertheless, clinically, the patient is feeling stable. The patient also has a positive blood culture for coagulase-negative staph aureus, likely contaminant the patient is currently on vancomycin. 2 acute hypoxic respiratory failure currently on 5 L of oxygen by nasal cannula. D-dimer is low. Pulmonary embolism is unlikely.d-dimer is low at this point in time. The LDH level continues to be quite elevated. Patient's oxygenation has worsened, and on 10/22/2019 when she will be given a dose of Tocilizumab 800 mg ivp 3 obesity with a BMI of 48.6 4 chronic bronchial asthma currently inactive in stable 5 diabetes mellitus 6 coronary artery malformation 7 migraine headaches 8 chronic neck and back pain related to herniated disc disease 9 coagulase-negative staph in the blood, likely contaminant. Nevertheless this was cultured and 2 out of 4 blood cultures. Monitor cultures will be repeated a nd the patient was given vancomycin. Plan: Continues to require high flow oxygen per Airvo and percent nonrebreather Case chest x-ray and labs were reviewed She received 1 dose Tocilizumab No fever or chills Continue Decadron 6 mg twice daily Continue current dose Lovenox We'll continue to follow, and make further recommendations on the clinical course I performed a history & physical examination of the patient and discussed their management with my nurse practitioner, Elinor Dobbs. I reviewed the nurse practitioner's note and agree with the documented findings and plan of care. Lung sounds are positive for diminished breath sounds with bibasilar crackles. The findings and the impression was discussed with the patient. I attest to the documentation by the nurse practitioner. Time with Patient: Less than 30
[2020-10-23 20:30] LABS: Glucose,Whole Blood 140 mg/dL (75-99)
[2020-10-24 07:25] LABS: Glucose,Whole Blood 146 mg/dL (75-99)
[2020-10-24 07:27] LABS: African American GFR (CKD) >90 (>60 ml/min/1.73 sqM); Non-African American GFR(CKD) 88 (>60 ml/min/1.73 sqM)
[2020-10-24] MEDS: INSULIN ASPART (NovoLOG) 100 UNIT/ML VIAL SQ SCH ×4 (07:36→22:09)
[2020-10-24] MEDS: CHOLECALCIFEROL 25 MCG (1000 IU) TABLET PO SCH (08:58)
[2020-10-24] MEDS: FAMOTIDINE 20 MG TAB PO SCH ×2 (08:58→20:08)
[2020-10-24] MEDS: ASCORBIC ACID 500 MG TAB PO SCH (08:58)
[2020-10-24] MEDS: ZINC SULFATE 220 MG CAP PO SCH (08:58)
[2020-10-24] MEDS: NON FORMULARY DRUG (Liraglutide [Victoza 2-Pak] 0.6 MG/0.1 ML Pen.Injctr) PO SCH (08:58)
[2020-10-24] MEDS: ENOXAPARIN 40 MG/0.4 ML SYRINGE SQ SCH (08:59)
[2020-10-24] MEDS: DEXAMETHASONE SOD PHOSPHATE 10 MG/ML 1 ML VIAL IV SCH ×2 (08:59→20:07)
[2020-10-24] MEDS: LORATADINE 10 MG TAB PO PRN (09:06)
[2020-10-24] MEDS: ALBUTEROL HFA INHALER INHALATION PRN ×4 (09:10→21:05)
[2020-10-24 11:39] LABS: Glucose,Whole Blood 168 mg/dL (75-99)
--- NOTE | 2020-10-24 13:34 | P.PN ---
Subjective From records: This is a pleasant 49-year-old patient of Dr. Logan Silva. Chronic stable medical conditions include but Chiari malformation of the brain, asthma, herniated disc in the back and neck, with pain anxiety depression, GERD, diabetes type 2. Patient around October stools started getting symptoms that included headache cough progressive shortness of breath diarrhea had fever and chills body aches. She did come back positive for COVID 19 on the fourth. Since symptoms have been progressive she came down to the ER. Initial pulse ox was 88% on 5 L. Admitted with bilateral COVID 19 pneumonia, acute hypoxic respiratory failure. Initially put on 5 L of nasal cannula. Started on Decadron and Lovenox. Blood cultures 2 sets positive for coagulase-negative staph hence vancomycin resumed. Today: Sitting up in a chair. Oral intake 100%. On 7 L of nasal cannula. Subjective: 10/21/2020 This is a pleasant 49 years old female who presents with Covid pneumonia. She needs more oxygenated today with oxygen requirement increased from 7 up to 15 L/m. She still complaining of from dyspnea and coughing with little phlegm. No labs from today but yesterday her d-dimer was elevated at 3.5, LDH 553 and C- reactive protein 8.1. Liver enzymes slightly up. Patient is followed closely by pulmonary Chest x-ray showing bilateral pneumonia Patient is on dexamethasone and vancomycin as per pulmonary team for coagulase- negative staph aureus and the blood which is most probably contaminated. Also patient is on multiple vitamins and Lovenox 40 mg twice a day Echocardiogram showed ejection fraction of 55-60% 10/22/2020 Patient respiratory status worsened today and she needed to at 60 L/m, she was complaining of from nasal congestion and symptomatic treatment is provided with Claritin-D. She was on a prone position and benefits and this morning. She is eating Ensure only because of her respiratory difficulty. Pulmonary team on the case. Labs showing leukocytosis, d-dimer stranding those 2.3, inflammatory markers not done today. Extremities on dexamethasone 6 mg, Lovenox 40 mg daily, multiple vitamins. Her IV vancomycin was stopped 10/23/20 Patient clinically looks similar to yesterday, she still with some tachypnea at rest, she still needs high flow oxygen via airvo . She still complaining of from nasal congestion although thinks medication on heparin her. She is able to eat Ensure only while she is on mask most of the day. Chest x-ray from today showing mild improvement in her bilateral airspace infiltrates. D-dimer is stable at 2.0. Patient remains on dexamethasone 6 mg twice daily, prophylactic dose of Lovenox, multiple vitamins. However her vancomycin was stopped yesterday We will keep monitoring 10/24/2020 Patient clinically looks the same as yesterday, she still needs high dose of oxygen although she is fully awake and oriented, she is in mild respiratory distress, she was sitting in chair with no significant breathing difficulty, talking appropriately. She still on 60 L of oxygen via airvo and with oxygen saturation of 88%, her blood pressure is borderline 89/64. CBC today however her creatinine is normal. Chest x-ray showing diffuse infiltrates persist with mild interval improvement. Patient remains on dexamethasone, multiple vitamins and Lovenox daily. Vancomycin has been discontinued. Patient is monitored closely Objective - Vital Signs Vital signs: Vital Signs Temp 97.7 F 10/24/20 09:40 Pulse 94 10/24/20 09:40 Resp 20 10/24/20 09:40 BP 89/64 10/24/20 09:40 Pulse Ox 91 L 10/24/20 11:51 Intake & Output 10/23/20 10/24/20 10/24/20 18:59 06:59 18:59 Output Total 700 400 Balance -700 -400 Output: Urine 700 400 Other: Voiding Method External Catheter Toilet # Voids 2 1 # Bowel Movements 1 - Exam GENERAL: The patient is alert and oriented x3, not in any acute distress. Well developed, well nourished. HEENT: Pupils are round and equally reacting to light. EOMI. No scleral icterus. No conjunctival pallor. Normocephalic, atraumatic. No pharyngeal erythema. No thyromegaly. CARDIOVASCULAR: S1 and S2 present. No murmurs, rubs, or gallops. -PULMONARY: Chest is clear to auscultation, no wheezing. Bilateral crepitation ABDOMEN: Soft, nontender, nondistended, normoactive bowel sounds. No palpable organomegaly. MUSCULOSKELETAL: No joint swelling or deformity. EXTREMITIES: No cyanosis, clubbing, or pedal edema. NEUROLOGICAL: Gross neurological examination did not reveal any focal deficits. SKIN: No rashes. no petechiae. - Labs CBC & Chem 7: 10/22/20 06:41 10/24/20 06:44 Labs: Abnormal Lab Results - Last 24 Hours (Table) 10/23/20 10/23/20 10/24/20 Range/Units 16:47 20:28 07:14 POC Glucose (mg/dL) 228 H 140 H 146 H (75-99) mg/dL 10/24/20 Range/Units 11:34 POC Glucose (mg/dL) 168 H (75-99) mg/dL Assessment and Plan Assessment: -Acute bilateral pneumonia -Acute hypoxic respiratory failure -Increased inflammatory markers -Coagulase-negative staph aureus bacteremia, contamination is suspected -History of asthma -Diabetes mellitus -History of Chiari malformation -History of chronic back and neck pain due to disc herniation -History of migraine -History of sleep apnea Plan: This is a pleasant 49 years old female who presents with cough pneumonia. Continue with steroids, Lovenox, vitamin C, D&C with pulmonary team on the case Continue with IV vancomycin per pulmonary team recommendation follow for the results of blood culture Labs and medication were reviewed.. Continue same treatment. Continue with symptomatic treatment. Resume home medication. Monitor lytes and vitals. DVT and GI prophylaxis. Further recommendationsas per clinical course of the patient DVT prophylaxis: Subcutaneous Lovenox GI Prophylaxis: Pepcid Prognosis is guarded
[2020-10-24 17:13] LABS: Glucose,Whole Blood 166 mg/dL (75-99)
[2020-10-24] MEDS: PSEUDOEPHEDRINE 30 MG TAB PO PRN (17:19)
--- NOTE | 2020-10-24 17:51 | P.PN ---
Subjective Progress Note Date: 10/24/20 Principal diagnosis: COVID-19 pneumonia 49-year-old female patient hospitalized for COVID 19 related pneumonia and a pulmonary consultation was requested. The patient is morbidly obese and she has previous history of coronary artery malformation and migraines. She is diabetic and she has chronic anxiety and depression. Her symptoms started on 10/03/2020 where the patient became fatigued and tired and she was having some body aches and cough and progressively she developed shortness of breath. She got tested on 10/04/2020 and outpatient basis and she checked positive. Following that, the patient was placed on steroids which I believe it was in the form of Decadron. Despite all this, the patient progressed and the patient came into the hospital because of worsening shortness of breath. She was found to be hypoxic and she is currently on 5 L about 2 by nasal cannula with a pulse ox of 88%. Chest x-ray showing diffuse breath and pulmonary infiltrates. The blood work is showing an LDH level of 1445, CRP of 43.6, and a d-dimer of 0.57. Otherwise, the rest of the blood work essentially within normal limits. White cell count at 6.6 with a lymphopenia and a lymphocyte count of 0.9. Coagulation profile is within normal limits. D-dimer is at 0.57. She is currently back on Decadron orally and she is on 5 L of oxygen by nasal cannula. On today's evaluation of 10/16/2020 the patient is on 5 L of oxygen by nasal cannula. She has been ranging between 4 and 6 L during this current hospital stay. She is feeling better. She is still coughing. She has a low-grade fever yesterday. She is pulling around 1500 on his incentive spirometer. Otherwise, the CRP level is at 36, d-dimer is at 1.07. Creatinine is at 0.7. No nausea. No vomiting. No diarrhea. No abdominal pain. No other complaints otherwise for now. The blood culture is showing coagulase-negative staph and the patient was given a dose of vancomycin. The blood cultures are being monitored. Affect irritable cultures are showing staph in the blood which is probably coagulase-negative staph. Both of 4 of the cultures are positive for gram- positive cocci in clusters and the finding cultures sensitivities are still pending for now. 10/17/2020, the patient remains on 5 L of oxygen by nasal cannula. Essentially stable compared to yesterday. He remains on a combination of treatment including Decadron 6 mg IV daily and Lovenox 40 mg subcu every 12 hours. The patient's blood culture was also positive for coagulase-negative staph and this was repeated. The results of this culture were thought to be contaminated. Nevertheless there were 2 of the blood cultures and for that reason we decided to treat this patient with vancomycin. The patient is hemodynamically stable. The patient is afebrile. Clinically the patient was stable. D-dimer was 1.49. LDH is 1469 and the CRP is 86. She is having episodic dry nose and the patient is on oxygen by nasal cannula which is essentially humidified at this point in time. She has no other complaints otherwise for now. Repeat chest x-ray showing worsening in the bilateral patchy pulmonary filtrates compared to the earlier chest x-ray from 10/14/2020 and this was obviously a concern. On 10/18/2020 patient seen in follow-up on medical floor, she is currently on 6 L of oxygen, looks comfortable, she sits up in the chair, no cough, no chest pain, no hemoptysis, repeat blood cultures have shown no growth thus far, final cultures are pending, patient had 2 previous blood cultures with coagulase- negative staph and she remains on vancomycin, vital signs have been stable, she has been afebrile, follow-up chest x-ray today shows persistent bilateral multifocal confluent opacities consistent with COVID-19 infection, stable in appearance. Today's follow-up labs showed d-dimer 1.88, LDH 1509, and CRP is 13.3. She had no acute events overnight On 10/19/2020 patient seen in follow-up on medical surgical floor, she sits up in the chair, she is currently on 6 L per high flow oxygen, her pulse ox is 90%, she still coughing, but overall she states she feels that she is doing better, follow blood cultures so far have been negative, she is working on her incentive spirometer she is achieving 1999, today's labs have been reviewed, showing white blood cell count is 60.4, hemoglobin of 12, d-dimer is trending down and is down to 1.19, sodium is 133,electrolytes and renal profile were unremarkable, LDH is trending today's labs, and is up to 1356, CRP is low at 0.5. no chest discomfort, breathing comfortably, tolerating oral intake. On 10/20/2020 patient seen in follow-up on medical surgical floor, she remains on 6 L of oxygen, her pulse ox was 90%, she looks very comfortable, she sits up in the recliner, she is eating lunch, vital signs have been stable, breathing appears to be nonlabored, she does desaturate with exertion. Today's chest x- ray shows persistent bilateral multifocal confluent opacities consistent with COVID-19 infection with no significant change from previous chest x-ray, today's labs have been noted, d-dimer 3.55, creatinine is 0.6, LDH is improving, and is down to 583 from 2040, and CRP is improving as well and is at 8.1 on today's labs, Procan was negative at 0.10. Patient remains on vancomycin, and her follow blood cultures have been negative, 2 blood cultures from 10/14/2020 sh owed a coagulase-negative staph. Final cultures are pending, vital signs have been stable, patient has had no fever or chills, no altered mentation. On 10/21/2000 patient seen in follow-up on medical floor, her oxygen requirements have increased, she is currently on 15 L high flow and 100% nonrebr eather, her pulse ox is 94%, she feels like she is more short of breath on today's exam as well, easily desaturates. He is afebrile, remains on vancomycin, however follow-up blood cultures have shown no growth, previous blood cultures have shown an today's negative staph likely related to contamina tion, we'll stop her vancomycin, today's labs have been reviewed. Showing normal creatinine of 0.54, yesterday's labs showed a trending d-dimer up to 3.55, and improving inflammatory markers, echocardiogram was performed today showing EF of 55-60%, and this was a difficult study and the valves were not well visualized. The patient has been afebrile, still level is negative at 0.10, and we will discontinue the vancomycin. Her chest x-ray findings show persistent bilateral multifocal confluent opacities, without major change from the earlier On 10/22/2020 patient seen in follow-up on medical surgical floor, today her oxygen requirements have increased, and she was placed on Airvo at 60 L and FiO2 of 90%, and her pulse ox is between 87-90%, she seems to be breathing comfortably on the Airvo settings, and patient is repositioning self in bed, does not appear to be in any respiratory distress, does not appear to have increased work of breathing, she is afebrile, hemodynamically she stable, no new chest x-ray today, today's blood work shows d-dimer of 2.33, improved from yesterday, white blood cell count is 13, hemoglobin is 12.9, no inflammatory markers, she status post Tocilizumab yesterday for worsening hypoxia, and patient received 800 mg times one dose, and currently her Decadron is at 6 mg twice daily, and Lovenox at prophylactic dose. Follow-up blood cultures have remained negative, no recurrence of fever. Vancomycin has been discontinued On 10/23/2020 patient seen in follow-up on medical surgical floor, continues on Airvo currently at 60 L and FiO2 of 80% in addition to 100% nonrebreather mask, and her pulse ox is between 87-88%, no worsening dyspnea, she is afebrile, hemodynamically stable, does not appear to be in any respiratory distress, today's chest x-ray shows diffuse airspace infiltrates with mild interval improvement. Vancomycin has been discontinued, she has had no fever or chills, follow blood cultures have been negative, she continues on twice daily dose of IV Decadron, and Lovenox currently at 40 mg daily. D-dimer today is 2.06, electrolytes and renal profile are unremarkable, her some inflammatory markers show increasing the LDH up to 1522, and CRP is 5.6, pro-calcitonin level was negative at 0.08. No acute events overnight On 10/24/2020 patient seen in follow-up on medical surgical floor. She remains on Airvo at 60 L and FiO2 of 80%, in addition to nonrebreather mask, she sat 92- 95%, appears to be breathing comfortably, she sits up in the chair, she is afebrile, hemodynamically patient is stable, she is awake and alert, oriented 3, yesterday's chest x-ray shows diffuse infiltrates. Continues on Decadron, multiple vitamins daily Lovenox. Objective - Vital Signs Vital signs: Vital Signs Temp 98.3 F 10/24/20 17:02 Pulse 86 10/24/20 17:02 Resp 18 10/24/20 17:02 BP 101/69 10/24/20 17:02 Pulse Ox 95 10/24/20 17:02 Intake & Output 10/23/20 10/24/20 10/24/20 18:59 06:59 18:59 Intake Total 480 Output Total 700 400 Balance -700 -400 480 Intake: Oral 480 Output: Urine 700 400 Other: Voiding Method External Catheter Toilet # Voids 2 1 3 # Bowel Movements 1 - Exam GENERAL EXAM: Alert, very pleasant, obese 49-year-old white female, on 60% FiO2 of 88%, with a pulse ox between 87-90%, and 100% nonrebreather mask without increased work of breathing, patient seems comfortable in no apparent distress. HEAD: Normocephalic/atraumatic. EYES: Normal reaction of pupils, equal size. Conjunctiva pink, sclera white. NOSE: Clear with pink turbinates. THROAT: No erythema or exudates. NECK: No masses, no JVD, no thyroid enlargement, no adenopathy. CHEST: No chest wall deformity. Symmetrical expansion. LUNGS: Equal air entry with bibasilar crackles CVS: Regular rate and rhythm, normal S1 and S2, no gallops, no murmurs, no rubs ABDOMEN: Soft, nontender. No hepatosplenomegaly, normal bowel sounds, no guarding or rigidity. EXTREMITIES: No clubbing, no edema, no cyanosis, 2+ pulses and upper and lower extremities. MUSCULOSKELETAL: Muscle strength and tone normal. SPINE: No scoliosis or deformity SKIN: No rashes CENTRAL NERVOUS SYSTEM: Alert and oriented -3. No focal deficits, tone is normal in all 4 extremities. PSYCHIATRIC: Alert and oriented -3. Appropriate affect. Intact judgment and insight. - Labs CBC & Chem 7: 10/22/20 06:41 10/24/20 06:44 Labs: Abnormal Lab Results - Last 24 Hours (Table) 10/23/20 10/24/20 10/24/20 Range/Units 20:28 07:14 11:34 POC Glucose (mg/dL) 140 H 146 H 168 H (75-99) mg/dL 10/24/20 Range/Units 17:06 POC Glucose (mg/dL) 166 H (75-99) mg/dL Assessment and Plan Plan: 1 acute bilateral COVID 19 related pneumonia. The patient symptoms started on 10/03/2020. The patient checked positive on 10/04/2020. The patient was treated with Decadron on outpatient basis. The patient's presented with worsening shortness of breath and bilateral pneumonia. The patient is on Airvo at 60 L and 80% FiO2 in addition to a nonrebreather mask 2 acute hypoxic respiratory failure currently on Airvo. D-dimer is low. Pulmonary embolism is unlikely.d-dimer is low at this point in time. The LDH level continues to be quite elevated. Patient's oxygenation has worsened, and on 10/22/2019 patient received Toci 800 mg ivpb 3 obesity with a BMI of 48.6 4 chronic bronchial asthma currently inactive in stable 5 diabetes mellitus 6 coronary artery malformation 7 migraine headaches 8 chronic neck and back pain related to herniated disc disease 9 coagulase-negative staph in the blood, likely contaminant. Nevertheless this was cultured and 2 out of 4 blood cultures. Monitor cultures will be repeated and the patient was given vancomycin. Plan: Continue current medical treatment, Decadron, Solu-Medrol, Lovenox Continues to require high flow oxygen per Airvo and percent nonrebreather S/P 1 dose Tocilizumab No fever or chills No worsening dyspnea, altered mentation, no fever or chills last sounds are stable We'll continue to follow, and make further recommendations on the clinical course I performed a history & physical examination of the patient and discussed their management with my nurse practitioner, Elinor Dobbs. I reviewed the nurse practitioner's note and agree with the documented findings and plan of care. Lung sounds are positive for diminished breath sounds with bibasilar crackles. The findings and the impression was discussed with the patient. I attest to the documentation by the nurse practitioner. Time with Patient: Less than 30
[2020-10-24 20:58] LABS: Glucose,Whole Blood 153 mg/dL (75-99)
[2020-10-25 06:52] LABS: Glucose,Whole Blood 139 mg/dL (75-99)
[2020-10-25] MEDS: ALBUTEROL HFA INHALER INHALATION PRN ×4 (07:24→19:36)
[2020-10-25] MEDS: INSULIN ASPART (NovoLOG) 100 UNIT/ML VIAL SQ SCH ×4 (07:47→20:56)
[2020-10-25] MEDS: LORATADINE 10 MG TAB PO PRN (08:57)
[2020-10-25] MEDS: ZINC SULFATE 220 MG CAP PO SCH (08:57)
[2020-10-25] MEDS: FAMOTIDINE 20 MG TAB PO SCH ×2 (08:57→20:56)
[2020-10-25] MEDS: CHOLECALCIFEROL 25 MCG (1000 IU) TABLET PO SCH (08:57)
[2020-10-25] MEDS: ASCORBIC ACID 500 MG TAB PO SCH (08:57)
[2020-10-25] MEDS: ENOXAPARIN 40 MG/0.4 ML SYRINGE SQ SCH (08:57)
[2020-10-25] MEDS: DEXAMETHASONE SOD PHOSPHATE 10 MG/ML 1 ML VIAL IV SCH ×2 (08:58→20:56)
[2020-10-25] MEDS: NON FORMULARY DRUG (Liraglutide [Victoza 2-Pak] 0.6 MG/0.1 ML Pen.Injctr) PO SCH (09:11)
[2020-10-25 11:38] LABS: Glucose,Whole Blood 146 mg/dL (75-99)
[2020-10-25 16:22] LABS: Glucose,Whole Blood 226 mg/dL (75-99)
--- NOTE | 2020-10-25 16:39 | P.PN ---
Subjective Progress Note Date: 10/25/20 Principal diagnosis: COVID-19 pneumonia 49-year-old female patient hospitalized for COVID 19 related pneumonia and a pulmonary consultation was requested. The patient is morbidly obese and she has previous history of coronary artery malformation and migraines. She is diabetic and she has chronic anxiety and depression. Her symptoms started on 10/03/2020 where the patient became fatigued and tired and she was having some body aches and cough and progressively she developed shortness of breath. She got tested on 10/04/2020 and outpatient basis and she checked positive. Following that, the patient was placed on steroids which I believe it was in the form of Decadron. Despite all this, the patient progressed and the patient came into the hospital because of worsening shortness of breath. She was found to be hypoxic and she is currently on 5 L about 2 by nasal cannula with a pulse ox of 88%. Chest x-ray showing diffuse breath and pulmonary infiltrates. The blood work is showing an LDH level of 1445, CRP of 43.6, and a d-dimer of 0.57. Otherwise, the rest of the blood work essentially within normal limits. White cell count at 6.6 with a lymphopenia and a lymphocyte count of 0.9. Coagulation profile is within normal limits. D-dimer is at 0.57. She is currently back on Decadron orally and she is on 5 L of oxygen by nasal cannula. On today's evaluation of 10/16/2020 the patient is on 5 L of oxygen by nasal cannula. She has been ranging between 4 and 6 L during this current hospital stay. She is feeling better. She is still coughing. She has a low-grade fever yesterday. She is pulling around 1500 on his incentive spirometer. Otherwise, the CRP level is at 36, d-dimer is at 1.07. Creatinine is at 0.7. No nausea. No vomiting. No diarrhea. No abdominal pain. No other complaints otherwise for now. The blood culture is showing coagulase-negative staph and the patient was given a dose of vancomycin. The blood cultures are being monitored. Affect irritable cultures are showing staph in the blood which is probably coagulase-negative staph. Both of 4 of the cultures are positive for gram- positive cocci in clusters and the finding cultures sensitivities are still pending for now. 10/17/2020, the patient remains on 5 L of oxygen by nasal cannula. Essentially stable compared to yesterday. He remains on a combination of treatment including Decadron 6 mg IV daily and Lovenox 40 mg subcu every 12 hours. The patient's blood culture was also positive for coagulase-negative staph and this was repeated. The results of this culture were thought to be contaminated. Nevertheless there were 2 of the blood cultures and for that reason we decided to treat this patient with vancomycin. The patient is hemodynamically stable. The patient is afebrile. Clinically the patient was stable. D-dimer was 1.49. LDH is 1469 and the CRP is 86. She is having episodic dry nose and the patient is on oxygen by nasal cannula which is essentially humidified at this point in time. She has no other complaints otherwise for now. Repeat chest x-ray showing worsening in the bilateral patchy pulmonary filtrates compared to the earlier chest x-ray from 10/14/2020 and this was obviously a concern. On 10/18/2020 patient seen in follow-up on medical floor, she is currently on 6 L of oxygen, looks comfortable, she sits up in the chair, no cough, no chest pain, no hemoptysis, repeat blood cultures have shown no growth thus far, final cultures are pending, patient had 2 previous blood cultures with coagulase- negative staph and she remains on vancomycin, vital signs have been stable, she has been afebrile, follow-up chest x-ray today shows persistent bilateral multifocal confluent opacities consistent with COVID-19 infection, stable in appearance. Today's follow-up labs showed d-dimer 1.88, LDH 1509, and CRP is 13.3. She had no acute events overnight On 10/19/2020 patient seen in follow-up on medical surgical floor, she sits up in the chair, she is currently on 6 L per high flow oxygen, her pulse ox is 90%, she still coughing, but overall she states she feels that she is doing better, follow blood cultures so far have been negative, she is working on her incentive spirometer she is achieving 1999, today's labs have been reviewed, showing white blood cell count is 60.4, hemoglobin of 12, d-dimer is trending down and is down to 1.19, sodium is 133,electrolytes and renal profile were unremarkable, LDH is trending today's labs, and is up to 1356, CRP is low at 0.5. no chest discomfort, breathing comfortably, tolerating oral intake. On 10/20/2020 patient seen in follow-up on medical surgical floor, she remains on 6 L of oxygen, her pulse ox was 90%, she looks very comfortable, she sits up in the recliner, she is eating lunch, vital signs have been stable, breathing appears to be nonlabored, she does desaturate with exertion. Today's chest x- ray shows persistent bilateral multifocal confluent opacities consistent with COVID-19 infection with no significant change from previous chest x-ray, today's labs have been noted, d-dimer 3.55, creatinine is 0.6, LDH is improving, and is down to 583 from 2040, and CRP is improving as well and is at 8.1 on today's labs, Procan was negative at 0.10. Patient remains on vancomycin, and her follow blood cultures have been negative, 2 blood cultures from 10/14/2020 sh owed a coagulase-negative staph. Final cultures are pending, vital signs have been stable, patient has had no fever or chills, no altered mentation. On 10/21/2000 patient seen in follow-up on medical floor, her oxygen requirements have increased, she is currently on 15 L high flow and 100% nonrebr eather, her pulse ox is 94%, she feels like she is more short of breath on today's exam as well, easily desaturates. He is afebrile, remains on vancomycin, however follow-up blood cultures have shown no growth, previous blood cultures have shown an today's negative staph likely related to contamina tion, we'll stop her vancomycin, today's labs have been reviewed. Showing normal creatinine of 0.54, yesterday's labs showed a trending d-dimer up to 3.55, and improving inflammatory markers, echocardiogram was performed today showing EF of 55-60%, and this was a difficult study and the valves were not well visualized. The patient has been afebrile, still level is negative at 0.10, and we will discontinue the vancomycin. Her chest x-ray findings show persistent bilateral multifocal confluent opacities, without major change from the earlier On 10/22/2020 patient seen in follow-up on medical surgical floor, today her oxygen requirements have increased, and she was placed on Airvo at 60 L and FiO2 of 90%, and her pulse ox is between 87-90%, she seems to be breathing comfortably on the Airvo settings, and patient is repositioning self in bed, does not appear to be in any respiratory distress, does not appear to have increased work of breathing, she is afebrile, hemodynamically she stable, no new chest x-ray today, today's blood work shows d-dimer of 2.33, improved from yesterday, white blood cell count is 13, hemoglobin is 12.9, no inflammatory markers, she status post Tocilizumab yesterday for worsening hypoxia, and patient received 800 mg times one dose, and currently her Decadron is at 6 mg twice daily, and Lovenox at prophylactic dose. Follow-up blood cultures have remained negative, no recurrence of fever. Vancomycin has been discontinued On 10/23/2020 patient seen in follow-up on medical surgical floor, continues on Airvo currently at 60 L and FiO2 of 80% in addition to 100% nonrebreather mask, and her pulse ox is between 87-88%, no worsening dyspnea, she is afebrile, hemodynamically stable, does not appear to be in any respiratory distress, today's chest x-ray shows diffuse airspace infiltrates with mild interval improvement. Vancomycin has been discontinued, she has had no fever or chills, follow blood cultures have been negative, she continues on twice daily dose of IV Decadron, and Lovenox currently at 40 mg daily. D-dimer today is 2.06, electrolytes and renal profile are unremarkable, her some inflammatory markers show increasing the LDH up to 1522, and CRP is 5.6, pro-calcitonin level was negative at 0.08. No acute events overnight On 10/24/2020 patient seen in follow-up on medical surgical floor. She remains on Airvo at 60 L and FiO2 of 80%, in addition to nonrebreather mask, she sat 92- 95%, appears to be breathing comfortably, she sits up in the chair, she is afebrile, hemodynamically patient is stable, she is awake and alert, oriented 3, yesterday's chest x-ray shows diffuse infiltrates. Continues on Decadron, multiple vitamins daily Lovenox. On 10/25/2020 patient seen in follow-up on medical surgical floor, she remains on Airvo, currently 60 L and FiO2 of 85%, she is off the additional known arrhythmias, she is maintaining O2 saturations at around 94-95%, she is up in the chair, appears to be breathing comfortably, occasional cough, no chest discomfort, she is afebrile, no new chest x-ray toda. No new labs. She rem ains on Lovenox 40 mg daily, and Decadron 6 mg twice daily, no acute events overnight, Objective - Vital Signs Vital signs: Vital Signs Temp 97.6 F 10/25/20 13:28 Pulse 86 10/25/20 13:28 Resp 20 10/25/20 13:28 BP 136/67 10/25/20 13:28 Pulse Ox 95 10/25/20 13:28 Intake & Output 10/24/20 10/25/20 10/25/20 18:59 06:59 18:59 Intake Total 480 Balance 480 Intake: Oral 480 Other: Voiding Method Toilet Toilet # Voids 3 3 - Exam GENERAL EXAM: Alert, very pleasant, obese 49-year-old white female, on 60% FiO2 of 85%, with a pulse ox between 95%, patient seems comfortable in no apparent distress. HEAD: Normocephalic/atraumatic. EYES: Normal reaction of pupils, equal size. Conjunctiva pink, sclera white. NOSE: Clear with pink turbinates. THROAT: No erythema or exudates. NECK: No masses, no JVD, no thyroid enlargement, no adenopathy. CHEST: No chest wall deformity. Symmetrical expansion. LUNGS: Equal air entry with bibasilar crackles CVS: Regular rate and rhythm, normal S1 and S2, no gallops, no murmurs, no rubs ABDOMEN: Soft, nontender. No hepatosplenomegaly, normal bowel sounds, no guarding or rigidity. EXTREMITIES: No clubbing, no edema, no cyanosis, 2+ pulses and upper and lower extremities. MUSCULOSKELETAL: Muscle strength and tone normal. SPINE: No scoliosis or deformity SKIN: No rashes CENTRAL NERVOUS SYSTEM: Alert and oriented -3. No focal deficits, tone is normal in all 4 extremities. PSYCHIATRIC: Alert and oriented -3. Appropriate affect. Intact judgment and insight. - Labs CBC & Chem 7: 10/22/20 06:41 10/24/20 06:44 Labs: Abnormal Lab Results - Last 24 Hours (Table) 10/24/20 10/24/20 10/25/20 Range/Units 17:06 20:57 06:47 POC Glucose (mg/dL) 166 H 153 H 139 H (75-99) mg/dL 10/25/20 10/25/20 Range/Units 11:37 16:20 POC Glucose (mg/dL) 146 H 226 H (75-99) mg/dL Assessment and Plan Plan: 1 acute bilateral COVID 19 related pneumonia. The patient symptoms started on 10/03/2020. The patient checked positive on 10/04/2020. The patient was treated with Decadron on outpatient basis. The patient's presented with worsening shortness of breath and bilateral pneumonia. The patient is on Airvo at 60 L and 80% FiO2 in addition to a nonrebreather mask 2 acute hypoxic respiratory failure currently on Airvo. D-dimer is low. Pulmonary embolism is unlikely.d-dimer is low at this point in time. The LDH level continues to be quite elevated. Patient's oxygenation has worsened, and on 10/22/2019 patient received Toci 800 mg ivpb 3 obesity with a BMI of 48.6 4 chronic bronchial asthma currently inactive in stable 5 diabetes mellitus 6 coronary artery malformation 7 migraine headaches 8 chronic neck and back pain related to herniated disc disease 9 coagulase-negative staph in the blood, likely contaminant. Nevertheless this was cultured and 2 out of 4 blood cultures. Monitor cultures will be repeated and the patient was given vancomycin. Plan: Continues on Airvo, without the additional nonrebreather mask, and she is maintaining O2 saturations above 90% Continue weaning FiO2, overall improving Continue current medical treatment, Decadron, Solu-Medrol, Lovenox No fever or chills No worsening dyspnea, altered mentation, no fever or chills last sounds are stable We'll continue to follow, and make further recommendations on the clinical course I performed a history & physical examination of the patient and discussed their management with my nurse practitioner, Elinor Dobbs. I reviewed the nurse practitioner's note and agree with the documented findings and plan of care. Lung sounds are positive for diminished breath sounds with bibasilar crackles. The findings and the impression was discussed with the patient. I attest to the documentation by the nurse practitioner. Time with Patient: Less than 30
[2020-10-25 20:34] LABS: Glucose,Whole Blood 159 mg/dL (75-99)
[2020-10-25] MEDS: PSEUDOEPHEDRINE 30 MG TAB PO PRN (20:55)
--- NOTE | 2020-10-26 00:19 | P.PN ---
Subjective Progress Note Date: 10/25/20 Principal diagnosis: Acute hypoxic respiratory failure due to COVID Pneumonia Ms. Saez is a 49-year-old female with a past medical history of Arnold-Chiari malformation, asthma, herniated disc in the back and neck, anxiety, GERD, diabetes mellitus coming in with a chief complaint of cough difficulty breathing and diarrhea. Patient is tested positive for COVID-19 on October 05 and since then her symptoms have worsened. On 10/25/2020 -patient was seen and examined at the bedside. She is comfortably sitting in a chair by the bedside appears to be no acute distress. She states she has mild difficulty in breathing along with the nonproductive cough. She denies having any chest pain or palpitations. No abdominal pain nausea vomiting or diarrhea. No dysuria or hematuria. On reviewing her vitals temperature of 97.9, heart rate 92, respiratory rate 18, blood pressure 103/66, saturating at 95% on 60 L of 85% FiO2. Reviewing the labs, no new labs from the past 2 days. Active Medications Acetaminophen (Acetaminophen Tab 500 Mg Tab) 1,000 mg PO Q6HR PRN PRN Reason: Fever and/ or Pain Last Admin: 10/18/20 11:21 Dose: 1,000 mg Documented by: Albuterol Sulfate (Albuterol Hfa Inhaler) 2 puff INHALATION RT-Q4H PRN PRN Reason: Shortness Of Breath Last Admin: 10/25/20 19:36 Dose: 2 puff Documented by: Ascorbic Acid (Ascorbic Acid 500 Mg Tab) 1,000 mg PO DAILY [facility] Last Admin: 10/25/20 08:57 Dose: 1,000 mg Documented by: Cholecalciferol (Cholecalciferol 25 Mcg (1000 Iu) Tablet) 100 mcg PO DAILY [facility] Last Admin: 10/25/20 08:57 Dose: 100 mcg Documented by: Dexamethasone Sodium Phosphate (Dexamethasone Sod Phosphate 10 Mg/Ml 1 Ml Vial) 6 mg IV BID [facility] Last Admin: 10/25/20 20:56 Dose: 6 mg Documented by: Enoxaparin Sodium (Enoxaparin 40 Mg/0.4 Ml Syringe) 40 mg SQ DAILY [facility] Last Admin: 10/25/20 08:57 Dose: 40 mg Documented by: Famotidine (Famotidine 20 Mg Tab) 20 mg PO BID [facility] Last Admin: 10/25/20 20:56 Dose: 20 mg Documented by: Insulin Aspart (Insulin Aspart (Novolog) 100 Unit/Ml Vial) 0 unit SQ ACHS [facility]; Protocol Last Admin: 10/25/20 20:56 Dose: 3 unit Documented by: Loratadine (Loratadine 10 Mg Tab) 10 mg PO DAILY PRN PRN Reason: Allergy Symptoms Last Admin: 10/25/20 08:57 Dose: 10 mg Documented by: Non-Formulary Medication (Liraglutide [Victoza 2-Primitivo]) 0.6 mg PO DAILY [facility] Last Admin: 10/25/20 09:11 Dose: Not Given Documented by: Ondansetron HCl (Ondansetron 4 Mg/2 Ml Vial) 4 mg IVP Q8HR PRN PRN Reason: Nausea And Vomiting Last Admin: 10/16/20 09:41 Dose: 4 mg Documented by: Pseudoephedrine HCl (Pseudoephedrine 30 Mg Tab) 30 mg PO DAILY PRN PRN Reason: Nasal Congestion Last Admin: 10/25/20 20:55 Dose: 30 mg Documented by: Sodium Chloride (Sodium Chloride 0.65% Nasal [place] 44 Ml Btl) 2 spray NASAL QID PRN PRN Reason: Dry Nasal Passages Last Admin: 10/18/20 11:29 Dose: 2 spray Documented by: Sumatriptan Succinate (Sumatriptan Succinate 50 Mg Tab) 100 mg PO DAILY PRN PRN Reason: Migraine Headache Tramadol HCl (Tramadol 50 Mg Tab) 50 mg PO Q6HR PRN PRN Reason: Pain Last Admin: 10/20/20 02:45 Dose: 50 mg Documented by: Zinc Sulfate (Zinc Sulfate 220 Mg Cap) 220 mg PO DAILY [facility] Last Admin: 10/25/20 08:57 Dose: 220 mg Documented by: Objective - Vital Signs Vital signs: Vital Signs Temp 97.6 F 10/25/20 13:28 Pulse 86 10/25/20 13:28 Resp 20 10/25/20 13:28 BP 136/67 10/25/20 13:28 Pulse Ox 95 10/25/20 13:28 Intake & Output 10/24/20 10/25/20 10/25/20 18:59 06:59 18:59 Intake Total 480 Balance 480 Intake: Oral 480 Other: Voiding Method Toilet Toilet # Voids 3 3 - Exam GENERAL: The patient is alert and oriented x3, not in any acute distress. Well developed, well nourished. HEENT: Pupils are round and equally reacting to light. EOMI. No scleral icterus. No conjunctival pallor. CARDIOVASCULAR: S1 and S2 present. No murmurs, rubs, or gallops. -PULMONARY: Bilateral ronchi ABDOMEN: Soft, nontender, nondistended, normoactive bowel sounds. No palpable organomegaly. MUSCULOSKELETAL: No joint swelling or deformity. EXTREMITIES: No cyanosis, clubbing, or pedal edema. NEUROLOGICAL: Gross neurological examination did not reveal any focal deficits. SKIN: No rashes. no petechiae. - Labs CBC & Chem 7: 10/22/20 06:41 10/24/20 06:44 Labs: Abnormal Lab Results - Last 24 Hours (Table) 10/24/20 10/24/20 10/25/20 Range/Units 17:06 20:57 06:47 POC Glucose (mg/dL) 166 H 153 H 139 H (75-99) mg/dL 10/25/20 Range/Units 11:37 POC Glucose (mg/dL) 146 H (75-99) mg/dL Assessment and Plan Assessment: ASSESSMENT -Acute hypoxic respiratory failure due to COVID Pneumonia -Acute bilateral pneumonia -Increased inflammatory markers -Coagulase-negative staph aureus bacteremia, contamination is suspected -History of asthma -Diabetes mellitus -History of Chiari malformation -History of chronic back and neck pain due to disc herniation -History of migraine -History of sleep apnea PLAN: As the blood cultures were positive for coagulase-negative staph which is a contaminant, vancomycin was discontinued. Patient to be continued on Decadron, Lovenox and multivitamin supplements. Continue with the current medication regimen. GI DVT prophylaxis. Further recommendations to follow depending on the progress of the patient.
[2020-10-26 07:11] LABS: Glucose,Whole Blood 149 mg/dL (75-99)
[2020-10-26] MEDS: ASCORBIC ACID 500 MG TAB PO SCH (08:56)
[2020-10-26] MEDS: CHOLECALCIFEROL 25 MCG (1000 IU) TABLET PO SCH (08:56)
[2020-10-26] MEDS: INSULIN ASPART (NovoLOG) 100 UNIT/ML VIAL SQ SCH ×4 (08:56→21:32)
[2020-10-26] MEDS: LORATADINE 10 MG TAB PO PRN (08:56)
[2020-10-26] MEDS: ZINC SULFATE 220 MG CAP PO SCH (08:56)
[2020-10-26] MEDS: FAMOTIDINE 20 MG TAB PO SCH ×2 (08:56→21:32)
[2020-10-26] MEDS: ENOXAPARIN 40 MG/0.4 ML SYRINGE SQ SCH (08:57)
[2020-10-26] MEDS: DEXAMETHASONE SOD PHOSPHATE 10 MG/ML 1 ML VIAL IV SCH ×2 (08:57→21:32)
[2020-10-26] MEDS: NON FORMULARY DRUG (Liraglutide [Victoza 2-Pak] 0.6 MG/0.1 ML Pen.Injctr) PO SCH (08:58)
[2020-10-26 10:08] LABS: Basophils # (A) 0.02 X 10*3/uL (0.00-0.10); Basophils % (A) 0.1 %; Eosinophils # (A) 0.11 X 10*3/uL (0.04-0.35); Eosinophils % (A) 0.8 %; HCT 39.6 % (37.2-46.3); HGB 13.2 g/dL (12.0-15.0); Lymphocytes # (A) 1.27 X 10*3/uL (0.90-5.00); Lymphocytes % (A) 9.2 %; MCH 29.9 pg (27.0-32.0); MCHC 33.3 g/dL (32.0-37.0); MCV 89.8 fL (80.0-97.0); Mean Platelet Volume 10.4 fL (9.5-12.2); Monocytes # (A) 0.58 X 10*3/uL (0.20-1.00); Monocytes % (A) 4.2 %; Neutrophils # (A) 11.71 X 10*3/uL (1.80-7.70); Neutrophils % (A) 85.1 %; Platelet Count 282 X 10*3/uL (140-440); RBC 4.41 X 10*6/uL (4.10-5.20); RDW 12.7 % (11.5-14.5); WBC 13.77 X 10*3/uL (4.50-10.00)
[2020-10-26 11:19] LABS: Glucose,Whole Blood 140 mg/dL (75-99)
[2020-10-26 11:27] LABS: African American GFR (CKD) 116.3 (60.0-200.0); Anion Gap 8.6 mmol/L (4.00-12.00); BUN/Creat Ratio 27.14 Ratio (12.00-20.00); C Reactive Protein 0.8 mg/dL (0.0-0.8); Calcium 9.1 mg/dL (8.7-10.3); Carbon Dioxide 26.4 mmol/L (21.6-31.8); Non-African American GFR(CKD) 100.3 (60.0-200.0); Potassium 4.5 mmol/L (3.5-5.5)
--- NOTE | 2020-10-26 15:07 | P.PN ---
Subjective Progress Note Date: 10/26/20 Principal diagnosis: COVID-19 pneumonia 49-year-old female patient hospitalized for COVID 19 related pneumonia and a pulmonary consultation was requested. The patient is morbidly obese and she has previous history of coronary artery malformation and migraines. She is diabetic and she has chronic anxiety and depression. Her symptoms started on 10/03/2020 where the patient became fatigued and tired and she was having some body aches and cough and progressively she developed shortness of breath. She got tested on 10/04/2020 and outpatient basis and she checked positive. Following that, the patient was placed on steroids which I believe it was in the form of Decadron. Despite all this, the patient progressed and the patient came into the hospital because of worsening shortness of breath. She was found to be hypoxic and she is currently on 5 L about 2 by nasal cannula with a pulse ox of 88%. Chest x-ray showing diffuse breath and pulmonary infiltrates. The blood work is showing an LDH level of 1445, CRP of 43.6, and a d-dimer of 0.57. Otherwise, the rest of the blood work essentially within normal limits. White cell count at 6.6 with a lymphopenia and a lymphocyte count of 0.9. Coagulation profile is within normal limits. D-dimer is at 0.57. She is currently back on Decadron orally and she is on 5 L of oxygen by nasal cannula. On today's evaluation of 10/16/2020 the patient is on 5 L of oxygen by nasal cannula. She has been ranging between 4 and 6 L during this current hospital stay. She is feeling better. She is still coughing. She has a low-grade fever yesterday. She is pulling around 1500 on his incentive spirometer. Otherwise, the CRP level is at 36, d-dimer is at 1.07. Creatinine is at 0.7. No nausea. No vomiting. No diarrhea. No abdominal pain. No other complaints otherwise for now. The blood culture is showing coagulase-negative staph and the patient was given a dose of vancomycin. The blood cultures are being monitored. Affect irritable cultures are showing staph in the blood which is probably coagulase-negative staph. Both of 4 of the cultures are positive for gram- positive cocci in clusters and the finding cultures sensitivities are still pending for now. 10/17/2020, the patient remains on 5 L of oxygen by nasal cannula. Essentially stable compared to yesterday. He remains on a combination of treatment including Decadron 6 mg IV daily and Lovenox 40 mg subcu every 12 hours. The patient's blood culture was also positive for coagulase-negative staph and this was repeated. The results of this culture were thought to be contaminated. Nevertheless there were 2 of the blood cultures and for that reason we decided to treat this patient with vancomycin. The patient is hemodynamically stable. The patient is afebrile. Clinically the patient was stable. D-dimer was 1.49. LDH is 1469 and the CRP is 86. She is having episodic dry nose and the patient is on oxygen by nasal cannula which is essentially humidified at this point in time. She has no other complaints otherwise for now. Repeat chest x-ray showing worsening in the bilateral patchy pulmonary filtrates compared to the earlier chest x-ray from 10/14/2020 and this was obviously a concern. On 10/18/2020 patient seen in follow-up on medical floor, she is currently on 6 L of oxygen, looks comfortable, she sits up in the chair, no cough, no chest pain, no hemoptysis, repeat blood cultures have shown no growth thus far, final cultures are pending, patient had 2 previous blood cultures with coagulase- negative staph and she remains on vancomycin, vital signs have been stable, she has been afebrile, follow-up chest x-ray today shows persistent bilateral multifocal confluent opacities consistent with COVID-19 infection, stable in appearance. Today's follow-up labs showed d-dimer 1.88, LDH 1509, and CRP is 13.3. She had no acute events overnight On 10/19/2020 patient seen in follow-up on medical surgical floor, she sits up in the chair, she is currently on 6 L per high flow oxygen, her pulse ox is 90%, she still coughing, but overall she states she feels that she is doing better, follow blood cultures so far have been negative, she is working on her incentive spirometer she is achieving 1999, today's labs have been reviewed, showing white blood cell count is 60.4, hemoglobin of 12, d-dimer is trending down and is down to 1.19, sodium is 133,electrolytes and renal profile were unremarkable, LDH is trending today's labs, and is up to 1356, CRP is low at 0.5. no chest discomfort, breathing comfortably, tolerating oral intake. On 10/20/2020 patient seen in follow-up on medical surgical floor, she remains on 6 L of oxygen, her pulse ox was 90%, she looks very comfortable, she sits up in the recliner, she is eating lunch, vital signs have been stable, breathing appears to be nonlabored, she does desaturate with exertion. Today's chest x- ray shows persistent bilateral multifocal confluent opacities consistent with COVID-19 infection with no significant change from previous chest x-ray, today's labs have been noted, d-dimer 3.55, creatinine is 0.6, LDH is improving, and is down to 583 from 2040, and CRP is improving as well and is at 8.1 on today's labs, Procan was negative at 0.10. Patient remains on vancomycin, and her follow blood cultures have been negative, 2 blood cultures from 10/14/2020 sh owed a coagulase-negative staph. Final cultures are pending, vital signs have been stable, patient has had no fever or chills, no altered mentation. On 10/21/2000 patient seen in follow-up on medical floor, her oxygen requirements have increased, she is currently on 15 L high flow and 100% nonrebr eather, her pulse ox is 94%, she feels like she is more short of breath on today's exam as well, easily desaturates. He is afebrile, remains on vancomycin, however follow-up blood cultures have shown no growth, previous blood cultures have shown an today's negative staph likely related to contamina tion, we'll stop her vancomycin, today's labs have been reviewed. Showing normal creatinine of 0.54, yesterday's labs showed a trending d-dimer up to 3.55, and improving inflammatory markers, echocardiogram was performed today showing EF of 55-60%, and this was a difficult study and the valves were not well visualized. The patient has been afebrile, still level is negative at 0.10, and we will discontinue the vancomycin. Her chest x-ray findings show persistent bilateral multifocal confluent opacities, without major change from the earlier On 10/22/2020 patient seen in follow-up on medical surgical floor, today her oxygen requirements have increased, and she was placed on Airvo at 60 L and FiO2 of 90%, and her pulse ox is between 87-90%, she seems to be breathing comfortably on the Airvo settings, and patient is repositioning self in bed, does not appear to be in any respiratory distress, does not appear to have increased work of breathing, she is afebrile, hemodynamically she stable, no new chest x-ray today, today's blood work shows d-dimer of 2.33, improved from yesterday, white blood cell count is 13, hemoglobin is 12.9, no inflammatory markers, she status post Tocilizumab yesterday for worsening hypoxia, and patient received 800 mg times one dose, and currently her Decadron is at 6 mg twice daily, and Lovenox at prophylactic dose. Follow-up blood cultures have remained negative, no recurrence of fever. Vancomycin has been discontinued On 10/23/2020 patient seen in follow-up on medical surgical floor, continues on Airvo currently at 60 L and FiO2 of 80% in addition to 100% nonrebreather mask, and her pulse ox is between 87-88%, no worsening dyspnea, she is afebrile, hemodynamically stable, does not appear to be in any respiratory distress, today's chest x-ray shows diffuse airspace infiltrates with mild interval improvement. Vancomycin has been discontinued, she has had no fever or chills, follow blood cultures have been negative, she continues on twice daily dose of IV Decadron, and Lovenox currently at 40 mg daily. D-dimer today is 2.06, electrolytes and renal profile are unremarkable, her some inflammatory markers show increasing the LDH up to 1522, and CRP is 5.6, pro-calcitonin level was negative at 0.08. No acute events overnight On 10/24/2020 patient seen in follow-up on medical surgical floor. She remains on Airvo at 60 L and FiO2 of 80%, in addition to nonrebreather mask, she sat 92- 95%, appears to be breathing comfortably, she sits up in the chair, she is afebrile, hemodynamically patient is stable, she is awake and alert, oriented 3, yesterday's chest x-ray shows diffuse infiltrates. Continues on Decadron, multiple vitamins daily Lovenox. On 10/25/2020 patient seen in follow-up on medical surgical floor, she remains on Airvo, currently 60 L and FiO2 of 85%, she is off the additional known arrhythmias, she is maintaining O2 saturations at around 94-95%, she is up in the chair, appears to be breathing comfortably, occasional cough, no chest discomfort, she is afebrile, no new chest x-ray toda. No new labs. She rem ains on Lovenox 40 mg daily, and Decadron 6 mg twice daily, no acute events overnight, The patient is seen today 10/26/2020 follow-up on the regular medical floor. She remains on AirVo high flow oxygen at 30 L and 75% FiO2. She is maintaining O2 saturations low 90s. She is breathing a bit better today compared to yesterday. She continues with a dry nonproductive cough. She did receive Tocilizumab. She remains on Lovenox, Decadron, vitamin supplements. White count 13.7. Hemoglobin 13.2. Lymphocytes 1.27. D-dimer 1.45. Sodium 135. Potassium 4.5. Creatinine 0.7. LDH 472. C-reactive protein 0.8. Objective - Vital Signs Vital signs: Vital Signs Temp 97.4 F L 10/26/20 14:00 Pulse 84 10/26/20 14:00 Resp 20 10/26/20 14:00 BP 131/65 10/26/20 14:00 Pulse Ox 94 L 10/26/20 14:00 Intake & Output 10/25/20 10/26/20 10/26/20 18:59 06:59 18:59 Other: Voiding Method Toilet # Voids 6 4 - Exam GENERAL EXAM: Alert, very pleasant 49-year-old female patient, on AirVo high flow oxygen at 30 L and 75% FiO2, comfortable in no apparent distress. HEAD: Normocephalic. EYES: Normal reaction of pupils, equal size. NOSE: Clear with pink turbinates. THROAT: No erythema or exudates. NECK: No masses, no JVD. CHEST: No chest wall deformity. LUNGS: Equal air entry with crackles in the bilateral posterior bases. CVS: S1 and S2 normal with no audible murmur, regular rhythm. ABDOMEN: No hepatosplenomegaly, normal bowel sounds, no guarding or rigidity. SPINE: No scoliosis or deformity SKIN: No rashes CENTRAL NERVOUS SYSTEM: No focal deficits, tone is normal in all 4 extremities. EXTREMITIES: There is no peripheral edema. No clubbing, no cyanosis. P eripheral pulses are intact. - Labs CBC & Chem 7: 10/26/20 06:39 10/26/20 06:39 Labs: Abnormal Lab Results - Last 24 Hours (Table) 10/25/20 10/25/20 10/26/20 Range/Units 16:20 20:32 06:39 WBC (4.50-10.00) X 10*3/uL Immature Gran # (0.00-0.04) X 10*3/uL Neutrophils # (1.80-7.70) X 10*3/uL D-Dimer 1.45 H (<0.60) mg/L FEU BUN/Creatinine Ratio (12.00-20.00) Ratio Glucose (70-110) mg/dL POC Glucose (mg/dL) 226 H 159 H (75-99) mg/dL Lactate Dehydrogenase (120-246) U/L 10/26/20 10/26/20 10/26/20 Range/Units 06:39 06:39 07:09 WBC 13.77 H (4.50-10.00) X 10*3/uL Immature Gran # 0.08 H (0.00-0.04) X 10*3/uL Neutrophils # 11.71 H (1.80-7.70) X 10*3/uL D-Dimer (<0.60) mg/L FEU BUN/Creatinine Ratio 27.14 H (12.00-20.00) Ratio Glucose 166 H (70-110) mg/dL POC Glucose (mg/dL) 149 H (75-99) mg/dL Lactate Dehydrogenase 472 H (120-246) U/L 10/26/20 Range/Units 11:17 WBC (4.50-10.00) X 10*3/uL Immature Gran # (0.00-0.04) X 10*3/uL Neutrophils # (1.80-7.70) X 10*3/uL D-Dimer (<0.60) mg/L FEU BUN/Creatinine Ratio (12.00-20.00) Ratio Glucose (70-110) mg/dL POC Glucose (mg/dL) 140 H (75-99) mg/dL Lactate Dehydrogenase (120-246) U/L Assessment and Plan Assessment: 1 Acute bilateral COVID 19 related pneumonia. The patient symptoms started on 10/03/2020. The patient checked positive on 10/04/2020. The patient was treated with Decadron on outpatient basis. The patient's presented with worsening shortness of breath and bilateral pneumonia. Patient's oxygenation had worsened, and on 10/22/2019 patient received Tocilizumab 800 mg ivpb. The patient is currently on Airvo at 30 L and 75% FiO2 in addition to a nonrebreather mask 2 Acute hypoxic respiratory failure secondary to above 3 Obesity with a BMI of 48.6 4 Chronic bronchial asthma currently inactive in stable 5 Diabetes mellitus 6 Coronary artery malformation 7 Migraine headaches 8 Chronic neck and back pain related to herniated disc disease 9 Coagulase-negative staph in the blood, likely contaminant. Nevertheless this was cultured and 2 out of 4 blood cultures. Follow-up blood cultures revealed no growth. Plan: The patient was seen and evaluated by Dr. Lieberman We'll continue with current treatment plan Titrate down the FiO2 as tolerated Increase her activity as tolerated We'll continue to follow I, the cosigning physician, performed a history & physical examination of the patient. Lungs sounds bilateral crackles. Maintaining good O2 saturations in the 90s on 75% FiO2 via the AirVo. I discussed the assessment and plan of care with my nurse practitioner, Elaine Son. I attest to the above note as dictated by her.
[2020-10-26 16:17] LABS: Glucose,Whole Blood 228 mg/dL (75-99)
[2020-10-26 20:43] LABS: Glucose,Whole Blood 248 mg/dL (75-99)
[2020-10-26] MEDS: PSEUDOEPHEDRINE 30 MG TAB PO PRN (21:32)
--- NOTE | 2020-10-27 00:51 | P.PN ---
Subjective Progress Note Date: 10/26/20 Principal diagnosis: Acute hypoxic respiratory failure due to COVID Pneumonia Ms. Saez is a 49-year-old female with a past medical history of Arnold-Chiari malformation, asthma, herniated disc in the back and neck, anxiety, GERD, diabetes mellitus coming in with a chief complaint of cough difficulty breathing and diarrhea. Patient is tested positive for COVID-19 on October 05 and since then her symptoms have worsened. On 10/25/2020 -patient was seen and examined at the bedside. She is comfortably sitting in a chair by the bedside appears to be no acute distress. She states she has mild difficulty in breathing along with the nonproductive cough. She denies having any chest pain or palpitations. No abdominal pain nausea vomiting or diarrhea. No dysuria or hematuria. On reviewing her vitals temperature of 97.9, heart rate 92, respiratory rate 18, blood pressure 103/66, saturating at 95% on 60 L of 85% FiO2. Reviewing the labs, no new labs from the past 2 days. On 10/26/2020 -patient was seen and examined at bedside. She is comfortably sitting in a chair by the bedside appears to be in no acute distress. Patient complains of nasal congestion, stating that Claritin has not been helping her. Patient denies having any fevers chills or rigors. Difficulty in breathing is slowly improving. No chest pain or palpitations. No abdominal pain nausea vomiting or diarrhea. Denies having any swelling of her lower extremities. On reviewing her vitals temperature of 98.4, heart rate 73, respiratory 20, blood pressure 99 x 64 and saturating at 95% on 30 L of 60% FiO2. Reviewing the labs white count of 13.7 hemoglobin is 13.2 platelets 282. Sodium 135, potassium 4.5, chloride 100, bicarb 26, BUN 19, creatinine 0.7. D-dimer 1.45. Patient's medications have been reviewed. Objective - Vital Signs Vital signs: Vital Signs Temp 97.4 F L 10/26/20 10:00 Pulse 77 10/26/20 10:00 Resp 20 10/26/20 10:00 BP 100/68 10/26/20 10:00 Pulse Ox 94 L 10/26/20 10:57 Intake & Output 10/25/20 10/26/20 10/26/20 18:59 06:59 18:59 Other: Voiding Method Toilet # Voids 6 4 - Exam GENERAL: The patient is alert and oriented x3, not in any acute distress.On Airvo HEENT: Pupils are round and equally reacting to light. EOMI. No scleral icterus. No conjunctival pallor. CARDIOVASCULAR: S1 and S2 present. No murmurs, rubs, or gallops. -PULMONARY: Bilateral ronchi ABDOMEN: Soft, nontender, nondistended, normoactive bowel sounds. No palpable organomegaly. MUSCULOSKELETAL: No joint swelling or deformity. EXTREMITIES: No cyanosis, clubbing, or pedal edema. NEUROLOGICAL: Gross neurological examination did not reveal any focal deficits. SKIN: No rashes. no petechiae. - Labs CBC & Chem 7: 10/26/20 06:39 10/26/20 06:39 Labs: Abnormal Lab Results - Last 24 Hours (Table) 10/25/20 10/25/20 10/26/20 Range/Units 16:20 20:32 06:39 WBC (4.50-10.00) X 10*3/uL Immature Gran # (0.00-0.04) X 10*3/uL Neutrophils # (1.80-7.70) X 10*3/uL D-Dimer 1.45 H (<0.60) mg/L FEU BUN/Creatinine Ratio (12.00-20.00) Ratio Glucose (70-110) mg/dL POC Glucose (mg/dL) 226 H 159 H (75-99) mg/dL Lactate Dehydrogenase (120-246) U/L 10/26/20 10/26/20 10/26/20 Range/Units 06:39 06:39 07:09 WBC 13.77 H (4.50-10.00) X 10*3/uL Immature Gran # 0.08 H (0.00-0.04) X 10*3/uL Neutrophils # 11.71 H (1.80-7.70) X 10*3/uL D-Dimer (<0.60) mg/L FEU BUN/Creatinine Ratio 27.14 H (12.00-20.00) Ratio Glucose 166 H (70-110) mg/dL POC Glucose (mg/dL) 149 H (75-99) mg/dL Lactate Dehydrogenase 472 H (120-246) U/L 10/26/20 Range/Units 11:17 WBC (4.50-10.00) X 10*3/uL Immature Gran # (0.00-0.04) X 10*3/uL Neutrophils # (1.80-7.70) X 10*3/uL D-Dimer (<0.60) mg/L FEU BUN/Creatinine Ratio (12.00-20.00) Ratio Glucose (70-110) mg/dL POC Glucose (mg/dL) 140 H (75-99) mg/dL Lactate Dehydrogenase (120-246) U/L Assessment and Plan Assessment: ASSESSMENT -Acute hypoxic respiratory failure due to COVID Pneumonia -Acute bilateral pneumonia -Increased inflammatory markers -Coagulase-negative staph aureus bacteremia, contamination is suspected -History of asthma -Diabetes mellitus -History of Chiari malformation -History of chronic back and neck pain due to disc herniation -History of migraine -History of sleep apnea PLAN: As the blood cultures were positive for coagulase-negative staph which is a contaminant, vancomycin was discontinued. Patient to be continued on Decadron, Lovenox and multivitamin supplements. Continue with the current medication regimen. GI DVT prophylaxis. Will follow inflammatory markers. Further recommendations to follow depending on the progress of the patient.
[2020-10-27 06:56] LABS: Glucose,Whole Blood 146 mg/dL (75-99)
[2020-10-27] MEDS: ENOXAPARIN 40 MG/0.4 ML SYRINGE SQ SCH (07:35)
[2020-10-27] MEDS: ZINC SULFATE 220 MG CAP PO SCH (07:35)
[2020-10-27] MEDS: DEXAMETHASONE SOD PHOSPHATE 10 MG/ML 1 ML VIAL IV SCH ×2 (07:35→20:54)
[2020-10-27] MEDS: FAMOTIDINE 20 MG TAB PO SCH ×2 (07:35→20:55)
[2020-10-27] MEDS: INSULIN ASPART (NovoLOG) 100 UNIT/ML VIAL SQ SCH ×4 (07:35→20:55)
[2020-10-27] MEDS: CHOLECALCIFEROL 25 MCG (1000 IU) TABLET PO SCH (07:35)
[2020-10-27] MEDS: ASCORBIC ACID 500 MG TAB PO SCH (07:35)
[2020-10-27] MEDS: NON FORMULARY DRUG (Liraglutide [Victoza 2-Pak] 0.6 MG/0.1 ML Pen.Injctr) PO SCH (07:36)
[2020-10-27] MEDS: LORATADINE 10 MG TAB PO PRN (07:45)
[2020-10-27 12:05] LABS: Glucose,Whole Blood 152 mg/dL (75-99)
[2020-10-27 16:54] LABS: Glucose,Whole Blood 137 mg/dL (75-99)
--- NOTE | 2020-10-27 17:00 | P.PN ---
Subjective Progress Note Date: 10/27/20 Principal diagnosis: COVID-19 pneumonia 49-year-old female patient hospitalized for COVID 19 related pneumonia and a pulmonary consultation was requested. The patient is morbidly obese and she has previous history of coronary artery malformation and migraines. She is diabetic and she has chronic anxiety and depression. Her symptoms started on 10/03/2020 where the patient became fatigued and tired and she was having some body aches and cough and progressively she developed shortness of breath. She got tested on 10/04/2020 and outpatient basis and she checked positive. Following that, the patient was placed on steroids which I believe it was in the form of Decadron. Despite all this, the patient progressed and the patient came into the hospital because of worsening shortness of breath. She was found to be hypoxic and she is currently on 5 L about 2 by nasal cannula with a pulse ox of 88%. Chest x-ray showing diffuse breath and pulmonary infiltrates. The blood work is showing an LDH level of 1445, CRP of 43.6, and a d-dimer of 0.57. Otherwise, the rest of the blood work essentially within normal limits. White cell count at 6.6 with a lymphopenia and a lymphocyte count of 0.9. Coagulation profile is within normal limits. D-dimer is at 0.57. She is currently back on Decadron orally and she is on 5 L of oxygen by nasal cannula. On today's evaluation of 10/16/2020 the patient is on 5 L of oxygen by nasal cannula. She has been ranging between 4 and 6 L during this current hospital stay. She is feeling better. She is still coughing. She has a low-grade fever yesterday. She is pulling around 1500 on his incentive spirometer. Otherwise, the CRP level is at 36, d-dimer is at 1.07. Creatinine is at 0.7. No nausea. No vomiting. No diarrhea. No abdominal pain. No other complaints otherwise for now. The blood culture is showing coagulase-negative staph and the patient was given a dose of vancomycin. The blood cultures are being monitored. Affect irritable cultures are showing staph in the blood which is probably coagulase-negative staph. Both of 4 of the cultures are positive for gram- positive cocci in clusters and the finding cultures sensitivities are still pending for now. 10/17/2020, the patient remains on 5 L of oxygen by nasal cannula. Essentially stable compared to yesterday. He remains on a combination of treatment including Decadron 6 mg IV daily and Lovenox 40 mg subcu every 12 hours. The patient's blood culture was also positive for coagulase-negative staph and this was repeated. The results of this culture were thought to be contaminated. Nevertheless there were 2 of the blood cultures and for that reason we decided to treat this patient with vancomycin. The patient is hemodynamically stable. The patient is afebrile. Clinically the patient was stable. D-dimer was 1.49. LDH is 1469 and the CRP is 86. She is having episodic dry nose and the patient is on oxygen by nasal cannula which is essentially humidified at this point in time. She has no other complaints otherwise for now. Repeat chest x-ray showing worsening in the bilateral patchy pulmonary filtrates compared to the earlier chest x-ray from 10/14/2020 and this was obviously a concern. On 10/18/2020 patient seen in follow-up on medical floor, she is currently on 6 L of oxygen, looks comfortable, she sits up in the chair, no cough, no chest pain, no hemoptysis, repeat blood cultures have shown no growth thus far, final cultures are pending, patient had 2 previous blood cultures with coagulase- negative staph and she remains on vancomycin, vital signs have been stable, she has been afebrile, follow-up chest x-ray today shows persistent bilateral multifocal confluent opacities consistent with COVID-19 infection, stable in appearance. Today's follow-up labs showed d-dimer 1.88, LDH 1509, and CRP is 13.3. She had no acute events overnight On 10/19/2020 patient seen in follow-up on medical surgical floor, she sits up in the chair, she is currently on 6 L per high flow oxygen, her pulse ox is 90%, she still coughing, but overall she states she feels that she is doing better, follow blood cultures so far have been negative, she is working on her incentive spirometer she is achieving 1999, today's labs have been reviewed, showing white blood cell count is 60.4, hemoglobin of 12, d-dimer is trending down and is down to 1.19, sodium is 133,electrolytes and renal profile were unremarkable, LDH is trending today's labs, and is up to 1356, CRP is low at 0.5. no chest discomfort, breathing comfortably, tolerating oral intake. On 10/20/2020 patient seen in follow-up on medical surgical floor, she remains on 6 L of oxygen, her pulse ox was 90%, she looks very comfortable, she sits up in the recliner, she is eating lunch, vital signs have been stable, breathing appears to be nonlabored, she does desaturate with exertion. Today's chest x- ray shows persistent bilateral multifocal confluent opacities consistent with COVID-19 infection with no significant change from previous chest x-ray, today's labs have been noted, d-dimer 3.55, creatinine is 0.6, LDH is improving, and is down to 583 from 2040, and CRP is improving as well and is at 8.1 on today's labs, Procan was negative at 0.10. Patient remains on vancomycin, and her follow blood cultures have been negative, 2 blood cultures from 10/14/2020 sh owed a coagulase-negative staph. Final cultures are pending, vital signs have been stable, patient has had no fever or chills, no altered mentation. On 10/21/2000 patient seen in follow-up on medical floor, her oxygen requirements have increased, she is currently on 15 L high flow and 100% nonrebr eather, her pulse ox is 94%, she feels like she is more short of breath on today's exam as well, easily desaturates. He is afebrile, remains on vancomycin, however follow-up blood cultures have shown no growth, previous blood cultures have shown an today's negative staph likely related to contamina tion, we'll stop her vancomycin, today's labs have been reviewed. Showing normal creatinine of 0.54, yesterday's labs showed a trending d-dimer up to 3.55, and improving inflammatory markers, echocardiogram was performed today showing EF of 55-60%, and this was a difficult study and the valves were not well visualized. The patient has been afebrile, still level is negative at 0.10, and we will discontinue the vancomycin. Her chest x-ray findings show persistent bilateral multifocal confluent opacities, without major change from the earlier On 10/22/2020 patient seen in follow-up on medical surgical floor, today her oxygen requirements have increased, and she was placed on Airvo at 60 L and FiO2 of 90%, and her pulse ox is between 87-90%, she seems to be breathing comfortably on the Airvo settings, and patient is repositioning self in bed, does not appear to be in any respiratory distress, does not appear to have increased work of breathing, she is afebrile, hemodynamically she stable, no new chest x-ray today, today's blood work shows d-dimer of 2.33, improved from yesterday, white blood cell count is 13, hemoglobin is 12.9, no inflammatory markers, she status post Tocilizumab yesterday for worsening hypoxia, and patient received 800 mg times one dose, and currently her Decadron is at 6 mg twice daily, and Lovenox at prophylactic dose. Follow-up blood cultures have remained negative, no recurrence of fever. Vancomycin has been discontinued On 10/23/2020 patient seen in follow-up on medical surgical floor, continues on Airvo currently at 60 L and FiO2 of 80% in addition to 100% nonrebreather mask, and her pulse ox is between 87-88%, no worsening dyspnea, she is afebrile, hemodynamically stable, does not appear to be in any respiratory distress, today's chest x-ray shows diffuse airspace infiltrates with mild interval improvement. Vancomycin has been discontinued, she has had no fever or chills, follow blood cultures have been negative, she continues on twice daily dose of IV Decadron, and Lovenox currently at 40 mg daily. D-dimer today is 2.06, electrolytes and renal profile are unremarkable, her some inflammatory markers show increasing the LDH up to 1522, and CRP is 5.6, pro-calcitonin level was negative at 0.08. No acute events overnight On 10/24/2020 patient seen in follow-up on medical surgical floor. She remains on Airvo at 60 L and FiO2 of 80%, in addition to nonrebreather mask, she sat 92- 95%, appears to be breathing comfortably, she sits up in the chair, she is afebrile, hemodynamically patient is stable, she is awake and alert, oriented 3, yesterday's chest x-ray shows diffuse infiltrates. Continues on Decadron, multiple vitamins daily Lovenox. On 10/25/2020 patient seen in follow-up on medical surgical floor, she remains on Airvo, currently 60 L and FiO2 of 85%, she is off the additional known arrhythmias, she is maintaining O2 saturations at around 94-95%, she is up in the chair, appears to be breathing comfortably, occasional cough, no chest discomfort, she is afebrile, no new chest x-ray toda. No new labs. She rem ains on Lovenox 40 mg daily, and Decadron 6 mg twice daily, no acute events overnight, On 10/27/2020 patient seen in follow-up on medical surgical floor, she is currently awake and alert, she is up in the chair, she is on 10 L per high flow nasal cannula her pulse ox is 93%, she is breathing comfortably, she is not utilizing 100% nonrebreather mask, seems to be doing better, tolerating oral intake, no nausea vomiting or diarrhea, no fever or chills, no new chest x-ray. Yesterday's labs have been reviewed, d-dimer is trending down and was down to 1.45, electrolytes were unremarkable, renal profile was within normal limits, CBC was noted, inflammatory markers were improving Objective - Vital Signs Vital signs: Vital Signs Temp 97.8 F 10/27/20 14:22 Pulse 88 10/27/20 14:22 Resp 18 10/27/20 14:22 BP 116/76 10/27/20 14:22 Pulse Ox 93 L 10/27/20 14:22 Intake & Output 10/26/20 10/27/20 10/27/20 18:59 06:59 18:59 Intake Total 400 Balance 400 Intake: Oral 400 Other: Voiding Method Toilet Toilet # Voids 8 5 - Exam GENERAL EXAM: Alert, very pleasant, obese 49-year-old white female, on 10 L of oxygen, with pulse ox of 93% patient seems comfortable in no apparent distress. HEAD: Normocephalic/atraumatic. EYES: Normal reaction of pupils, equal size. Conjunctiva pink, sclera white. NOSE: Clear with pink turbinates. THROAT: No erythema or exudates. NECK: No masses, no JVD, no thyroid enlargement, no adenopathy. CHEST: No chest wall deformity. Symmetrical expansion. LUNGS: Equal air entry with bibasilar crackles CVS: Regular rate and rhythm, normal S1 and S2, no gallops, no murmurs, no rubs ABDOMEN: Soft, nontender. No hepatosplenomegaly, normal bowel sounds, no guarding or rigidity. EXTREMITIES: No clubbing, no edema, no cyanosis, 2+ pulses and upper and lower extremities. MUSCULOSKELETAL: Muscle strength and tone normal. SPINE: No scoliosis or deformity SKIN: No rashes CENTRAL NERVOUS SYSTEM: Alert and oriented -3. No focal deficits, tone is normal in all 4 extremities. PSYCHIATRIC: Alert and oriented -3. Appropriate affect. Intact judgment and insight. - Labs CBC & Chem 7: 10/26/20 06:39 10/26/20 06:39 Labs: Abnormal Lab Results - Last 24 Hours (Table) 10/26/20 10/27/20 10/27/20 Range/Units 20:41 06:54 12:01 POC Glucose (mg/dL) 248 H 146 H 152 H (75-99) mg/dL 10/27/20 Range/Units 16:52 POC Glucose (mg/dL) 137 H (75-99) mg/dL Assessment and Plan Plan: 1 acute bilateral COVID 19 related pneumonia. The patient symptoms started on 10/03/2020. The patient checked positive on 10/04/2020. The patient was treated with Decadron on outpatient basis. The patient's presented with worsening shortness of breath and bilateral pneumonia. The patient is on Airvo at 60 L and 80% FiO2 in addition to a nonrebreather mask 2 acute hypoxic respiratory failure currently on Airvo. D-dimer is low. Pulmonary embolism is unlikely.d-dimer is low at this point in time. The LDH level continues to be quite elevated. Patient's oxygenation has worsened, and on 10/22/2019 patient received Toci 800 mg ivpb 3 obesity with a BMI of 48.6 4 chronic bronchial asthma currently inactive in stable 5 diabetes mellitus 6 coronary artery malformation 7 migraine headaches 8 chronic neck and back pain related to herniated disc disease 9 coagulase-negative staph in the blood, likely contaminant. Nevertheless this was cultured and 2 out of 4 blood cultures. Monitor cultures will be repeated and the patient was given vancomycin. Plan: Continue weaning FiO2 to maintain O2 saturations at or above 90% Patient is improving Breathing easier, FiO2 is being weaned down Continue current dose Lovenox and steroids No worsening dyspnea, no altered mentation, no fever or chills We'll continue to follow, and make further recommendations on the clinical course I performed a history & physical examination of the patient and discussed their management with my nurse practitioner, Elinor Dobbs. I reviewed the nurse practitioner's note and agree with the documented findings and plan of care. Lung sounds are positive for diminished breath sounds with bibasilar crackles. The findings and the impression was discussed with the patient. I attest to the documentation by the nurse practitioner. Time with Patient: Less than 30
--- NOTE | 2020-10-27 18:09 | P.PN ---
Subjective Progress Note Date: 10/27/20 Principal diagnosis: Acute hypoxic respiratory failure due to COVID Pneumonia Ms. Saez is a 49-year-old female with a past medical history of Arnold-Chiari malformation, asthma, herniated disc in the back and neck, anxiety, GERD, diabetes mellitus coming in with a chief complaint of cough difficulty breathing and diarrhea. Patient is tested positive for COVID-19 on October 05 and since then her symptoms have worsened. On 10/25/2020 -patient was seen and examined at the bedside. She is comfortably sitting in a chair by the bedside appears to be no acute distress. She states she has mild difficulty in breathing along with the nonproductive cough. She denies having any chest pain or palpitations. No abdominal pain nausea vomiting or diarrhea. No dysuria or hematuria. On reviewing her vitals temperature of 97.9, heart rate 92, respiratory rate 18, blood pressure 103/66, saturating at 95% on 60 L of 85% FiO2. Reviewing the labs, no new labs from the past 2 days. On 10/26/2020 -patient was seen and examined at bedside. She is comfortably sitting in a chair by the bedside appears to be in no acute distress. Patient complains of nasal congestion, stating that Claritin has not been helping her. Patient denies having any fevers chills or rigors. Difficulty in breathing is slowly improving. No chest pain or palpitations. No abdominal pain nausea vomiting or diarrhea. Denies having any swelling of her lower extremities. On reviewing her vitals temperature of 98.4, heart rate 73, respiratory 20, blood pressure 99 x 64 and saturating at 95% on 30 L of 60% FiO2. Reviewing the labs white count of 13.7 hemoglobin is 13.2 platelets 282. Sodium 135, potassium 4.5, chloride 100, bicarb 26, BUN 19, creatinine 0.7. D-dimer 1.45. On 10/27/2020- patient was seen and examined at bedside. She has been downgraded from a low to high flow nasal cannula, saturating at 90% on 10 L of oxygen. She states her difficulty in breathing is improving. No chest pain or palpitations. No abdominal pain nausea vomiting or diarrhea. No dysuria or hematuria. On reviewing her vitals temperature 97.8, heart rate 88, respiratory rate 18, blood pressure 116/76. No new labs from this morning. Patient's medications have been reviewed. Objective - Vital Signs Vital signs: Vital Signs Temp 97.9 F 10/27/20 09:09 Pulse 94 10/27/20 09:09 Resp 18 10/27/20 09:09 BP 148/78 10/27/20 09:09 Pulse Ox 93 L 10/27/20 11:11 Intake & Output 10/26/20 10/27/20 10/27/20 18:59 06:59 18:59 Other: Voiding Method Toilet Toilet # Voids 8 5 - Exam GENERAL: The patient is alert and oriented x3, not in any acute distress.on 10 L of oxygen saturating at 90% HEENT: Pupils are round and equally reacting to light. EOMI. CARDIOVASCULAR: S1 and S2 present. No murmurs, rubs, or gallops. -PULMONARY: Bilateral ronchi ABDOMEN: Soft, nontender, nondistended, normoactive bowel sounds. No palpable organomegaly. MUSCULOSKELETAL: No joint swelling or deformity. EXTREMITIES: No cyanosis, clubbing, or pedal edema. NEUROLOGICAL: Gross neurological examination did not reveal any focal deficits. SKIN: No rashes. no petechiae. - Labs CBC & Chem 7: 10/26/20 06:39 10/26/20 06:39 Labs: Abnormal Lab Results - Last 24 Hours (Table) 10/26/20 10/26/20 10/27/20 Range/Units 16:14 20:41 06:54 POC Glucose (mg/dL) 228 H 248 H 146 H (75-99) mg/dL 10/27/20 Range/Units 12:01 POC Glucose (mg/dL) 152 H (75-99) mg/dL Assessment and Plan Assessment: ASSESSMENT -Acute hypoxic respiratory failure due to COVID Pneumonia -Acute bilateral pneumonia -Increased inflammatory markers -Coagulase-negative staph aureus bacteremia, contamination is suspected -History of asthma -Diabetes mellitus -History of Chiari malformation -History of chronic back and neck pain due to disc herniation -History of migraine -History of sleep apnea PLAN: As the blood cultures were positive for coagulase-negative staph which is a contaminant, vancomycin was discontinued. Patient to be continued on Decadron, Lovenox and multivitamin supplements. Patient has been able to maintain her saturations above 90% on 10 L of high flow nasal cannula, and Airvo was discontinued . Responding slowly Continue with the current medication regimen. GI DVT prophylaxis. Will follow inflammatory markers. Further recommendations to follow depending on the progress of the patient.
[2020-10-27 20:39] LABS: Glucose,Whole Blood 175 mg/dL (75-99)
[2020-10-27] MEDS: PSEUDOEPHEDRINE 30 MG TAB PO PRN (22:08)
[2020-10-28] MEDS: DEXAMETHASONE SOD PHOSPHATE 10 MG/ML 1 ML VIAL IV SCH ×2 (08:03→20:18)
[2020-10-28] MEDS: ZINC SULFATE 220 MG CAP PO SCH (08:03)
[2020-10-28] MEDS: FAMOTIDINE 20 MG TAB PO SCH ×2 (08:03→20:18)
[2020-10-28] MEDS: CHOLECALCIFEROL 25 MCG (1000 IU) TABLET PO SCH (08:03)
[2020-10-28] MEDS: ENOXAPARIN 40 MG/0.4 ML SYRINGE SQ SCH (08:03)
[2020-10-28] MEDS: ASCORBIC ACID 500 MG TAB PO SCH (08:03)
[2020-10-28] MEDS: LORATADINE 10 MG TAB PO PRN (08:03)
[2020-10-28] MEDS: INSULIN ASPART (NovoLOG) 100 UNIT/ML VIAL SQ SCH ×4 (08:16→21:16)
[2020-10-28 08:18] LABS: Glucose,Whole Blood 159 mg/dL (75-99)
[2020-10-28] MEDS: NON FORMULARY DRUG (Liraglutide [Victoza 2-Pak] 0.6 MG/0.1 ML Pen.Injctr) PO SCH (09:29)
[2020-10-28 10:29] LABS: Basophils # (A) 0.01 X 10*3/uL (0.00-0.10); Basophils % (A) 0.1 %; Eosinophils # (A) 0.08 X 10*3/uL (0.04-0.35); Eosinophils % (A) 0.7 %; HCT 40.6 % (37.2-46.3); HGB 13.4 g/dL (12.0-15.0); Lymphocytes % (A) 11.2 %; MCH 30.1 pg (27.0-32.0); MCV 91.2 fL (80.0-97.0); Mean Platelet Volume 11.2 fL (9.5-12.2); Monocytes # (A) 0.58 X 10*3/uL (0.20-1.00); Monocytes % (A) 5.4 %; Neutrophils # (A) 8.79 X 10*3/uL (1.80-7.70); Neutrophils % (A) 81.9 %; Platelet Count 210 X 10*3/uL (140-440); RBC 4.45 X 10*6/uL (4.10-5.20); RDW 13.2 % (11.5-14.5); WBC 10.73 X 10*3/uL (4.50-10.00)
[2020-10-28 11:05] LABS: African American GFR (CKD) 116.3 (60.0-200.0); Anion Gap 5.1 mmol/L (4.00-12.00); BUN/Creat Ratio 25.71 Ratio (12.00-20.00); Calcium 8.6 mg/dL (8.7-10.3); Carbon Dioxide 29.9 mmol/L (21.6-31.8); Non-African American GFR(CKD) 100.3 (60.0-200.0); Potassium 4.7 mmol/L (3.5-5.5)
[2020-10-28 11:10] LABS: Glucose,Whole Blood 153 mg/dL (75-99)
[2020-10-28] MEDS ORDERED: FUROSEMIDE 10 MG/ML 4 ML VIAL IV STA (11:26)
--- NOTE | 2020-10-28 12:57 | P.PN ---
Subjective Progress Note Date: 10/28/20 Principal diagnosis: COVID-19 pneumonia 49-year-old female patient hospitalized for COVID 19 related pneumonia and a pulmonary consultation was requested. The patient is morbidly obese and she has previous history of coronary artery malformation and migraines. She is diabetic and she has chronic anxiety and depression. Her symptoms started on 10/03/2020 where the patient became fatigued and tired and she was having some body aches and cough and progressively she developed shortness of breath. She got tested on 10/04/2020 and outpatient basis and she checked positive. Following that, the patient was placed on steroids which I believe it was in the form of Decadron. Despite all this, the patient progressed and the patient came into the hospital because of worsening shortness of breath. She was found to be hypoxic and she is currently on 5 L about 2 by nasal cannula with a pulse ox of 88%. Chest x-ray showing diffuse breath and pulmonary infiltrates. The blood work is showing an LDH level of 1445, CRP of 43.6, and a d-dimer of 0.57. Otherwise, the rest of the blood work essentially within normal limits. White cell count at 6.6 with a lymphopenia and a lymphocyte count of 0.9. Coagulation profile is within normal limits. D-dimer is at 0.57. She is currently back on Decadron orally and she is on 5 L of oxygen by nasal cannula. On today's evaluation of 10/16/2020 the patient is on 5 L of oxygen by nasal cannula. She has been ranging between 4 and 6 L during this current hospital stay. She is feeling better. She is still coughing. She has a low-grade fever yesterday. She is pulling around 1500 on his incentive spirometer. Otherwise, the CRP level is at 36, d-dimer is at 1.07. Creatinine is at 0.7. No nausea. No vomiting. No diarrhea. No abdominal pain. No other complaints otherwise for now. The blood culture is showing coagulase-negative staph and the patient was given a dose of vancomycin. The blood cultures are being monitored. Affect irritable cultures are showing staph in the blood which is probably coagulase-negative staph. Both of 4 of the cultures are positive for gram- positive cocci in clusters and the finding cultures sensitivities are still pending for now. 10/17/2020, the patient remains on 5 L of oxygen by nasal cannula. Essentially stable compared to yesterday. He remains on a combination of treatment including Decadron 6 mg IV daily and Lovenox 40 mg subcu every 12 hours. The patient's blood culture was also positive for coagulase-negative staph and this was repeated. The results of this culture were thought to be contaminated. Nevertheless there were 2 of the blood cultures and for that reason we decided to treat this patient with vancomycin. The patient is hemodynamically stable. The patient is afebrile. Clinically the patient was stable. D-dimer was 1.49. LDH is 1469 and the CRP is 86. She is having episodic dry nose and the patient is on oxygen by nasal cannula which is essentially humidified at this point in time. She has no other complaints otherwise for now. Repeat chest x-ray showing worsening in the bilateral patchy pulmonary filtrates compared to the earlier chest x-ray from 10/14/2020 and this was obviously a concern. On 10/18/2020 patient seen in follow-up on medical floor, she is currently on 6 L of oxygen, looks comfortable, she sits up in the chair, no cough, no chest pain, no hemoptysis, repeat blood cultures have shown no growth thus far, final cultures are pending, patient had 2 previous blood cultures with coagulase- negative staph and she remains on vancomycin, vital signs have been stable, she has been afebrile, follow-up chest x-ray today shows persistent bilateral multifocal confluent opacities consistent with COVID-19 infection, stable in appearance. Today's follow-up labs showed d-dimer 1.88, LDH 1509, and CRP is 13.3. She had no acute events overnight On 10/19/2020 patient seen in follow-up on medical surgical floor, she sits up in the chair, she is currently on 6 L per high flow oxygen, her pulse ox is 90%, she still coughing, but overall she states she feels that she is doing better, follow blood cultures so far have been negative, she is working on her incentive spirometer she is achieving 1999, today's labs have been reviewed, showing white blood cell count is 60.4, hemoglobin of 12, d-dimer is trending down and is down to 1.19, sodium is 133,electrolytes and renal profile were unremarkable, LDH is trending today's labs, and is up to 1356, CRP is low at 0.5. no chest discomfort, breathing comfortably, tolerating oral intake. On 10/20/2020 patient seen in follow-up on medical surgical floor, she remains on 6 L of oxygen, her pulse ox was 90%, she looks very comfortable, she sits up in the recliner, she is eating lunch, vital signs have been stable, breathing appears to be nonlabored, she does desaturate with exertion. Today's chest x- ray shows persistent bilateral multifocal confluent opacities consistent with COVID-19 infection with no significant change from previous chest x-ray, today's labs have been noted, d-dimer 3.55, creatinine is 0.6, LDH is improving, and is down to 583 from 2040, and CRP is improving as well and is at 8.1 on today's labs, Procan was negative at 0.10. Patient remains on vancomycin, and her follow blood cultures have been negative, 2 blood cultures from 10/14/2020 sh owed a coagulase-negative staph. Final cultures are pending, vital signs have been stable, patient has had no fever or chills, no altered mentation. On 10/21/2000 patient seen in follow-up on medical floor, her oxygen requirements have increased, she is currently on 15 L high flow and 100% nonrebr eather, her pulse ox is 94%, she feels like she is more short of breath on today's exam as well, easily desaturates. He is afebrile, remains on vancomycin, however follow-up blood cultures have shown no growth, previous blood cultures have shown an today's negative staph likely related to contamina tion, we'll stop her vancomycin, today's labs have been reviewed. Showing normal creatinine of 0.54, yesterday's labs showed a trending d-dimer up to 3.55, and improving inflammatory markers, echocardiogram was performed today showing EF of 55-60%, and this was a difficult study and the valves were not well visualized. The patient has been afebrile, still level is negative at 0.10, and we will discontinue the vancomycin. Her chest x-ray findings show persistent bilateral multifocal confluent opacities, without major change from the earlier On 10/22/2020 patient seen in follow-up on medical surgical floor, today her oxygen requirements have increased, and she was placed on Airvo at 60 L and FiO2 of 90%, and her pulse ox is between 87-90%, she seems to be breathing comfortably on the Airvo settings, and patient is repositioning self in bed, does not appear to be in any respiratory distress, does not appear to have increased work of breathing, she is afebrile, hemodynamically she stable, no new chest x-ray today, today's blood work shows d-dimer of 2.33, improved from yesterday, white blood cell count is 13, hemoglobin is 12.9, no inflammatory markers, she status post Tocilizumab yesterday for worsening hypoxia, and patient received 800 mg times one dose, and currently her Decadron is at 6 mg twice daily, and Lovenox at prophylactic dose. Follow-up blood cultures have remained negative, no recurrence of fever. Vancomycin has been discontinued On 10/23/2020 patient seen in follow-up on medical surgical floor, continues on Airvo currently at 60 L and FiO2 of 80% in addition to 100% nonrebreather mask, and her pulse ox is between 87-88%, no worsening dyspnea, she is afebrile, hemodynamically stable, does not appear to be in any respiratory distress, today's chest x-ray shows diffuse airspace infiltrates with mild interval improvement. Vancomycin has been discontinued, she has had no fever or chills, follow blood cultures have been negative, she continues on twice daily dose of IV Decadron, and Lovenox currently at 40 mg daily. D-dimer today is 2.06, electrolytes and renal profile are unremarkable, her some inflammatory markers show increasing the LDH up to 1522, and CRP is 5.6, pro-calcitonin level was negative at 0.08. No acute events overnight On 10/24/2020 patient seen in follow-up on medical surgical floor. She remains on Airvo at 60 L and FiO2 of 80%, in addition to nonrebreather mask, she sat 92- 95%, appears to be breathing comfortably, she sits up in the chair, she is afebrile, hemodynamically patient is stable, she is awake and alert, oriented 3, yesterday's chest x-ray shows diffuse infiltrates. Continues on Decadron, multiple vitamins daily Lovenox. On 10/25/2020 patient seen in follow-up on medical surgical floor, she remains on Airvo, currently 60 L and FiO2 of 85%, she is off the additional known arrhythmias, she is maintaining O2 saturations at around 94-95%, she is up in the chair, appears to be breathing comfortably, occasional cough, no chest discomfort, she is afebrile, no new chest x-ray toda. No new labs. She rem ains on Lovenox 40 mg daily, and Decadron 6 mg twice daily, no acute events overnight, On 10/27/2020 patient seen in follow-up on medical surgical floor, she is currently awake and alert, she is up in the chair, she is on 10 L per high flow nasal cannula her pulse ox is 93%, she is breathing comfortably, she is not utilizing 100% nonrebreather mask, seems to be doing better, tolerating oral intake, no nausea vomiting or diarrhea, no fever or chills, no new chest x-ray. Yesterday's labs have been reviewed, d-dimer is trending down and was down to 1.45, electrolytes were unremarkable, renal profile was within normal limits, CBC was noted, inflammatory markers were improving On 10/28/2020 patient seen in follow-up on medical surgical floor, doing well, FiO2 is currently down to 9 L, her pulse ox is 90%, breathing comfortably, although she does still desaturate quite easily with any exertion, lasting patient try to sleep in her bed and desatted quite significantly to 64%, and it took a while to recover, and patient went back to sleep in the chair, she has been getting up to the bedside commode, tolerates it well. Overall he has been able to come down on the oxygen requirement, no new chest x-ray today, today's labs have been reviewed showing white blood cell count of 10.73, hemoglobin is 13.4, electrolytes and renal profile are unremarkable. Objective - Vital Signs Vital signs: Vital Signs Temp 97.6 F 10/28/20 08:06 Pulse 68 10/28/20 08:06 Resp 18 10/28/20 08:06 BP 104/74 10/28/20 08:06 Pulse Ox 92 L 10/28/20 08:06 Intake & Output 10/27/20 10/28/2021 18:59 06:59 18:59 Intake Total 400 Balance 400 Intake: Oral 400 Other: Voiding Method Toilet # Voids 2 2 - Exam GENERAL EXAM: Alert, very pleasant, obese 49-year-old white female, on 9 L of oxygen, with pulse ox of 90% patient seems comfortable in no apparent distress. HEAD: Normocephalic/atraumatic. EYES: Normal reaction of pupils, equal size. Conjunctiva pink, sclera white. NOSE: Clear with pink turbinates. THROAT: No erythema or exudates. NECK: No masses, no JVD, no thyroid enlargement, no adenopathy. CHEST: No chest wall deformity. Symmetrical expansion. LUNGS: Equal air entry with bibasilar crackles CVS: Regular rate and rhythm, normal S1 and S2, no gallops, no murmurs, no rubs ABDOMEN: Soft, nontender. No hepatosplenomegaly, normal bowel sounds, no guarding or rigidity. EXTREMITIES: No clubbing, no edema, no cyanosis, 2+ pulses and upper and lower extremities. MUSCULOSKELETAL: Muscle strength and tone normal. SPINE: No scoliosis or deformity SKIN: No rashes CENTRAL NERVOUS SYSTEM: Alert and oriented -3. No focal deficits, tone is normal in all 4 extremities. PSYCHIATRIC: Alert and oriented -3. Appropriate affect. Intact judgment and insight. - Labs CBC & Chem 7: 10/28/20 06:24 10/28/20 06:24 Labs: Abnormal Lab Results - Last 24 Hours (Table) 10/27/20 10/27/20 10/28/20 Range/Units 16:52 20:37 06:24 WBC 10.73 H (4.50-10.00) X 10*3/uL Immature Gran # 0.07 H (0.00-0.04) X 10*3/uL Neutrophils # 8.79 H (1.80-7.70) X 10*3/uL BUN/Creatinine Ratio (12.00-20.00) Ratio Glucose (70-110) mg/dL POC Glucose (mg/dL) 137 H 175 H (75-99) mg/dL Calcium (8.7-10.3) mg/dL 10/28/20 10/28/20 10/28/20 Range/Units 06:24 06:48 11:08 WBC (4.50-10.00) X 10*3/uL Immature Gran # (0.00-0.04) X 10*3/uL Neutrophils # (1.80-7.70) X 10*3/uL BUN/Creatinine Ratio 25.71 H (12.00-20.00) Ratio Glucose 179 H (70-110) mg/dL POC Glucose (mg/dL) 159 H 153 H (75-99) mg/dL Calcium 8.6 L (8.7-10.3) mg/dL Assessment and Plan Plan: 1 acute bilateral COVID 19 related pneumonia. The patient symptoms started on 10/03/2020. The patient checked positive on 10/04/2020. The patient was treated with Decadron on outpatient basis. The patient's presented with worsening shortness of breath and bilateral pneumonia. Patient was irritable, currently down to 9 L per high flow nasal cannula with pulse ox of 92% 2 acute hypoxic respiratory failure currently on Airvo. D-dimer is low. Pulmonary embolism is unlikely.d-dimer is low at this point in time. The LDH level continues to be quite elevated. Patient's oxygenation has worsened, and on 10/22/2019 patient received Toci 800 mg ivpb 3 obesity with a BMI of 48.6 4 chronic bronchial asthma currently inactive in stable 5 diabetes mellitus 6 coronary artery malformation 7 migraine headaches 8 chronic neck and back pain related to herniated disc disease 9 coagulase-negative staph in the blood, likely contaminant. Nevertheless this was cultured and 2 out of 4 blood cultures. Monitor cultures will be repeated and the patient was given vancomycin. Plan: Continue weaning FiO2 to maintain O2 saturations at or above 90% Patient is improving Breathing easier, FiO2 is being weaned down, currently down to 9 L Continue current dose Lovenox and steroids She seems to be generally swollen, and we'll give her a dose of IV Lasix 40 mg 1 Follow-up chest x-ray in the morning We'll continue to follow, and make further recommendations on the clinical cou rse I performed a history & physical examination of the patient and discussed their management with my nurse practitioner, Elinor Dobbs. I reviewed the nurse practitioner's note and agree with the documented findings and plan of care. Lung sounds are positive for diminished breath sounds with bibasilar crackles. The findings and the impression was discussed with the patient. I attest to the documentation by the nurse practitioner. Time with Patient: Less than 30
--- NOTE | 2020-10-28 15:41 | P.PN ---
Subjective Progress Note Date: 10/28/20 Acute hypoxic respiratory failure due to COVID Pneumonia Ms. Saez is a 49-year-old female with a past medical history of Arnold-Chiari malformation, asthma, herniated disc in the back and neck, anxiety, GERD, diabetes mellitus coming in with a chief complaint of cough difficulty breathing and diarrhea. Patient is tested positive for COVID-19 on October 05 and since then her symptoms have worsened. On 10/25/2020 -patient was seen and examined at the bedside. She is comfortably sitting in a chair by the bedside appears to be no acute distress. She states she has mild difficulty in breathing along with the nonproductive cough. She denies having any chest pain or palpitations. No abdominal pain nausea vomiting or diarrhea. No dysuria or hematuria. On reviewing her vitals temperature of 97.9, heart rate 92, respiratory rate 18, blood pressure 103/66, saturating at 95% on 60 L of 85% FiO2. Reviewing the labs, no new labs from the past 2 days. On 10/26/2020 -patient was seen and examined at bedside. She is comfortably sitting in a chair by the bedside appears to be in no acute distress. Patient complains of nasal congestion, stating that Claritin has not been helping her. Patient denies having any fevers chills or rigors. Difficulty in breathing is slowly improving. No chest pain or palpitations. No abdominal pain nausea vomiting or diarrhea. Denies having any swelling of her lower extremities. On reviewing her vitals temperature of 98.4, heart rate 73, respiratory 20, blood pressure 99 x 64 and saturating at 95% on 30 L of 60% FiO2. Reviewing the labs white count of 13.7 hemoglobin is 13.2 platelets 282. Sodium 135, potassium 4.5, chloride 100, bicarb 26, BUN 19, creatinine 0.7. D-dimer 1.45. On 10/27/2020- patient was seen and examined at bedside. She has been downgraded from a low to high flow nasal cannula, saturating at 90% on 10 L of oxygen. She states her difficulty in breathing is improving. No chest pain or palpitations. No abdominal pain nausea vomiting or diarrhea. No dysuria or hematuria. On reviewing her vitals temperature 97.8, heart rate 88, respiratory rate 18, blood pressure 116/76. No new labs from this morning. 10/28/2020 Is seen this morning in follow-up maintaining 9010 L of oxygen high flow via nasal cannula and tolerating. Patient is extremely dyspneic with minimal exertion and taking longer to recover although states feels slightly better today. Patient was taken off Airvo yesterday. Pulmonary following closely. P atient using incentive spirometer frequently. Will repeat a.m. labs along with chest x-ray in the morning. Active Medications Acetaminophen (Acetaminophen Tab 500 Mg Tab) 1,000 mg PO Q6HR PRN PRN Reason: Fever and/ or Pain Last Admin: 10/18/20 11:21 Dose: 1,000 mg Documented by: Albuterol Sulfate (Albuterol Hfa Inhaler) 2 puff INHALATION RT-Q4H PRN PRN Reason: Shortness Of Breath Last Admin: 10/25/20 19:36 Dose: 2 puff Documented by: Ascorbic Acid (Ascorbic Acid 500 Mg Tab) 1,000 mg PO DAILY [facility] Last Admin: 10/28/20 08:03 Dose: 1,000 mg Documented by: Cholecalciferol (Cholecalciferol 25 Mcg (1000 Iu) Tablet) 100 mcg PO DAILY [facility] Last Admin: 10/28/20 08:03 Dose: 100 mcg Documented by: Dexamethasone Sodium Phosphate (Dexamethasone Sod Phosphate 10 Mg/Ml 1 Ml Vial) 6 mg IV BID [facility] Last Admin: 10/28/20 08:03 Dose: 6 mg Documented by: Enoxaparin Sodium (Enoxaparin 40 Mg/0.4 Ml Syringe) 40 mg SQ DAILY [facility] Last Admin: 10/28/20 08:03 Dose: 40 mg Documented by: Famotidine (Famotidine 20 Mg Tab) 20 mg PO BID [facility] Last Admin: 10/28/20 08:03 Dose: 20 mg Documented by: Insulin Aspart (Insulin Aspart (Novolog) 100 Unit/Ml Vial) 0 unit SQ [facility]; Protocol Last Admin: 10/28/20 14:55 Dose: Not Given Documented by: Loratadine (Loratadine 10 Mg Tab) 10 mg PO DAILY PRN PRN Reason: Allergy Symptoms Last Admin: 10/28/20 08:03 Dose: 10 mg Documented by: Non-Formulary Medication (Liraglutide [Victoza 2-Primitivo]) 0.6 mg PO DAILY [facility] Last Admin: 10/28/20 09:29 Dose: Not Given Documented by: Ondansetron HCl (Ondansetron 4 Mg/2 Ml Vial) 4 mg IVP Q8HR PRN PRN Reason: Nausea And Vomiting Last Admin: 10/16/20 09:41 Dose: 4 mg Documented by: Pseudoephedrine HCl (Pseudoephedrine 30 Mg Tab) 30 mg PO DAILY PRN PRN Reason: Nasal Congestion Last Admin: 10/27/20 22:08 Dose: 30 mg Documented by: Sodium Chloride (Sodium Chloride 0.65% Nasal [place] 44 Ml Btl) 2 spray NASAL QID PRN PRN Reason: Dry Nasal Passages Last Admin: 10/18/20 11:29 Dose: 2 spray Documented by: Sumatriptan Succinate (Sumatriptan Succinate 50 Mg Tab) 100 mg PO DAILY PRN PRN Reason: Migraine Headache Tramadol HCl (Tramadol 50 Mg Tab) 50 mg PO Q6HR PRN PRN Reason: Pain Last Admin: 10/20/20 02:45 Dose: 50 mg Documented by: Zinc Sulfate (Zinc Sulfate 220 Mg Cap) 220 mg PO DAILY [facility] Last Admin: 10/28/20 08:03 Dose: 220 mg Documented by: Patient's medications have been reviewed. Objective - Vital Signs Vital signs: Vital Signs Temp 97.6 F 10/28/20 08:06 Pulse 68 10/28/20 08:06 Resp 18 10/28/20 08:06 BP 104/74 10/28/20 08:06 Pulse Ox 92 L 10/28/20 08:06 Intake & Output 10/27/20 10/28/20 10/28/20 18:59 06:59 18:59 Intake Total 400 Balance 400 Intake: Oral 400 Other: Voiding Method Toilet # Voids 2 2 - Exam GENERAL: The patient is alert and oriented x3, not in any acute distress.on 9-10 L of oxygen saturating at 90% HEENT: Pupils are round and equally reacting to light. EOMI. CARDIOVASCULAR: S1 and S2 present. No murmurs, rubs, or gallops. PULMONARY: Bilateral ronchi ABDOMEN: Soft, nontender, nondistended, normoactive bowel sounds. No palpable organomegaly. MUSCULOSKELETAL: No joint swelling or deformity. EXTREMITIES: No cyanosis, clubbing, or pedal edema. NEUROLOGICAL: Gross neurological examination did not reveal any focal deficits. SKIN: No rashes. no petechiae. - Labs CBC & Chem 7: 10/28/20 06:24 10/28/20 06:24 Labs: Abnormal Lab Results - Last 24 Hours (Table) 10/27/20 10/27/20 10/27/20 Range/Units 12:01 16:52 20:37 POC Glucose (mg/dL) 152 H 137 H 175 H (75-99) mg/dL 10/28/20 Range/Units 06:48 POC Glucose (mg/dL) 159 H (75-99) mg/dL Assessment and Plan Assessment: -Acute hypoxic respiratory failure due to COVID Pneumonia -Acute bilateral pneumonia -Increased inflammatory markers -Coagulase-negative staph aureus bacteremia, contamination is suspected -History of asthma -Diabetes mellitus -History of Chiari malformation -History of chronic back and neck pain due to disc herniation -History of migraine -History of sleep apnea PLAN: As the blood cultures were positive for coagulase-negative staph which is a contaminant, vancomycin was discontinued. Patient maintained on Decadron, Lovenox and multivitamin supplements. Patient has been able to maintain her saturations above 90% on 10 L of high flow nasal cannula, and Airvo was discontinued . Responding slowly Continue with the current medication regimen. GI DVT prophylaxis. Will follow inflammatory markers. Will repeat labs and chest x-ray in the morning. Further recommendations to follow depending on the progress of the patient.
[2020-10-28 16:30] LABS: Glucose,Whole Blood 198 mg/dL (75-99)
[2020-10-28 20:57] LABS: Glucose,Whole Blood 169 mg/dL (75-99)
[2020-10-29 07:19] LABS: Glucose,Whole Blood 152 mg/dL (75-99)
--- NOTE | 2020-10-29 07:22 | XR ---
EXAMINATION TYPE: XR chest 1V portable DATE OF EXAM: 10/29/2020 CLINICAL HISTORY: Difficulty breathing progress study. TECHNIQUE: Single AP portable upright view of the chest is obtained. COMPARISON: Chest x-ray from 6 days earlier and older studies FINDINGS: Persistent bilateral multifocal and confluent opacities background somewhat low lung volum es. Cardiac silhouette size is stable and upper limits of normal. Osseous structures remain intact. IMPRESSION: Persistent bilateral multifocal and confluent opacities consistent with covid-19 infectio n, no significant change from most recent x-ray.
[2020-10-29] MEDS: DEXAMETHASONE SOD PHOSPHATE 10 MG/ML 1 ML VIAL IV SCH ×2 (07:50→20:57)
[2020-10-29] MEDS: ZINC SULFATE 220 MG CAP PO SCH (07:50)
[2020-10-29] MEDS: CHOLECALCIFEROL 25 MCG (1000 IU) TABLET PO SCH (07:50)
[2020-10-29] MEDS: LORATADINE 10 MG TAB PO PRN (07:50)
[2020-10-29] MEDS: ENOXAPARIN 40 MG/0.4 ML SYRINGE SQ SCH (07:50)
[2020-10-29] MEDS: FAMOTIDINE 20 MG TAB PO SCH ×2 (07:50→20:57)
[2020-10-29] MEDS: ASCORBIC ACID 500 MG TAB PO SCH (07:50)
[2020-10-29] MEDS: INSULIN ASPART (NovoLOG) 100 UNIT/ML VIAL SQ SCH ×4 (07:51→20:57)
[2020-10-29] MEDS: NON FORMULARY DRUG (Liraglutide [Victoza 2-Pak] 0.6 MG/0.1 ML Pen.Injctr) PO SCH (08:16)
[2020-10-29 11:04] LABS: Basophils # (A) 0.03 X 10*3/uL (0.00-0.10); Basophils % (A) 0.3 %; Eosinophils # (A) 0.13 X 10*3/uL (0.04-0.35); Eosinophils % (A) 1.1 %; HCT 42.2 % (37.2-46.3); HGB 13.5 g/dL (12.0-15.0); Lymphocytes # (A) 1.74 X 10*3/uL (0.90-5.00); Lymphocytes % (A) 15.2 %; MCH 29.4 pg (27.0-32.0); MCV 91.9 fL (80.0-97.0); Mean Platelet Volume 10.9 fL (9.5-12.2); Monocytes # (A) 0.78 X 10*3/uL (0.20-1.00); Monocytes % (A) 6.8 %; Neutrophils # (A) 8.69 X 10*3/uL (1.80-7.70); Platelet Count 222 X 10*3/uL (140-440); RBC 4.59 X 10*6/uL (4.10-5.20); RDW 13.3 % (11.5-14.5); WBC 11.44 X 10*3/uL (4.50-10.00)
[2020-10-29 11:32] LABS: Glucose,Whole Blood 163 mg/dL (75-99)
[2020-10-29 13:17] LABS: African American GFR (CKD) 98.9 (60.0-200.0); BUN/Creat Ratio 23.75 Ratio (12.00-20.00); C Reactive Protein <0.4 mg/dL (0.0-0.8); Carbon Dioxide 27.2 mmol/L (21.6-31.8); Chloride 99 mmol/L (96-109); Glucose 154 mg/dL (70-110); LDH 397 U/L (120-246); Non-African American GFR(CKD) 85.4 (60.0-200.0); Potassium 4.3 mmol/L (3.5-5.5); Sodium 138 mmol/L (135-145)
--- NOTE | 2020-10-29 14:52 | P.PN ---
Subjective Progress Note Date: 10/29/20 Principal diagnosis: COVID-19 pneumonia 49-year-old female patient hospitalized for COVID 19 related pneumonia and a pulmonary consultation was requested. The patient is morbidly obese and she has previous history of coronary artery malformation and migraines. She is diabetic and she has chronic anxiety and depression. Her symptoms started on 10/03/2020 where the patient became fatigued and tired and she was having some body aches and cough and progressively she developed shortness of breath. She got tested on 10/04/2020 and outpatient basis and she checked positive. Following that, the patient was placed on steroids which I believe it was in the form of Decadron. Despite all this, the patient progressed and the patient came into the hospital because of worsening shortness of breath. She was found to be hypoxic and she is currently on 5 L about 2 by nasal cannula with a pulse ox of 88%. Chest x-ray showing diffuse breath and pulmonary infiltrates. The blood work is showing an LDH level of 1445, CRP of 43.6, and a d-dimer of 0.57. Otherwise, the rest of the blood work essentially within normal limits. White cell count at 6.6 with a lymphopenia and a lymphocyte count of 0.9. Coagulation profile is within normal limits. D-dimer is at 0.57. She is currently back on Decadron orally and she is on 5 L of oxygen by nasal cannula. On today's evaluation of 10/16/2020 the patient is on 5 L of oxygen by nasal cannula. She has been ranging between 4 and 6 L during this current hospital stay. She is feeling better. She is still coughing. She has a low-grade fever yesterday. She is pulling around 1500 on his incentive spirometer. Otherwise, the CRP level is at 36, d-dimer is at 1.07. Creatinine is at 0.7. No nausea. No vomiting. No diarrhea. No abdominal pain. No other complaints otherwise for now. The blood culture is showing coagulase-negative staph and the patient was given a dose of vancomycin. The blood cultures are being monitored. Affect irritable cultures are showing staph in the blood which is probably coagulase-negative staph. Both of 4 of the cultures are positive for gram- positive cocci in clusters and the finding cultures sensitivities are still pending for now. 10/17/2020, the patient remains on 5 L of oxygen by nasal cannula. Essentially stable compared to yesterday. He remains on a combination of treatment including Decadron 6 mg IV daily and Lovenox 40 mg subcu every 12 hours. The patient's blood culture was also positive for coagulase-negative staph and this was repeated. The results of this culture were thought to be contaminated. Nevertheless there were 2 of the blood cultures and for that reason we decided to treat this patient with vancomycin. The patient is hemodynamically stable. The patient is afebrile. Clinically the patient was stable. D-dimer was 1.49. LDH is 1469 and the CRP is 86. She is having episodic dry nose and the patient is on oxygen by nasal cannula which is essentially humidified at this point in time. She has no other complaints otherwise for now. Repeat chest x-ray showing worsening in the bilateral patchy pulmonary filtrates compared to the earlier chest x-ray from 10/14/2020 and this was obviously a concern. On 10/18/2020 patient seen in follow-up on medical floor, she is currently on 6 L of oxygen, looks comfortable, she sits up in the chair, no cough, no chest pain, no hemoptysis, repeat blood cultures have shown no growth thus far, final cultures are pending, patient had 2 previous blood cultures with coagulase- negative staph and she remains on vancomycin, vital signs have been stable, she has been afebrile, follow-up chest x-ray today shows persistent bilateral multifocal confluent opacities consistent with COVID-19 infection, stable in appearance. Today's follow-up labs showed d-dimer 1.88, LDH 1509, and CRP is 13.3. She had no acute events overnight On 10/19/2020 patient seen in follow-up on medical surgical floor, she sits up in the chair, she is currently on 6 L per high flow oxygen, her pulse ox is 90%, she still coughing, but overall she states she feels that she is doing better, follow blood cultures so far have been negative, she is working on her incentive spirometer she is achieving 1999, today's labs have been reviewed, showing white blood cell count is 60.4, hemoglobin of 12, d-dimer is trending down and is down to 1.19, sodium is 133,electrolytes and renal profile were unremarkable, LDH is trending today's labs, and is up to 1356, CRP is low at 0.5. no chest discomfort, breathing comfortably, tolerating oral intake. On 10/20/2020 patient seen in follow-up on medical surgical floor, she remains on 6 L of oxygen, her pulse ox was 90%, she looks very comfortable, she sits up in the recliner, she is eating lunch, vital signs have been stable, breathing appears to be nonlabored, she does desaturate with exertion. Today's chest x- ray shows persistent bilateral multifocal confluent opacities consistent with COVID-19 infection with no significant change from previous chest x-ray, today's labs have been noted, d-dimer 3.55, creatinine is 0.6, LDH is improving, and is down to 583 from 2040, and CRP is improving as well and is at 8.1 on today's labs, Procan was negative at 0.10. Patient remains on vancomycin, and her follow blood cultures have been negative, 2 blood cultures from 10/14/2020 sh owed a coagulase-negative staph. Final cultures are pending, vital signs have been stable, patient has had no fever or chills, no altered mentation. On 10/21/2000 patient seen in follow-up on medical floor, her oxygen requirements have increased, she is currently on 15 L high flow and 100% nonrebr eather, her pulse ox is 94%, she feels like she is more short of breath on today's exam as well, easily desaturates. He is afebrile, remains on vancomycin, however follow-up blood cultures have shown no growth, previous blood cultures have shown an today's negative staph likely related to contamina tion, we'll stop her vancomycin, today's labs have been reviewed. Showing normal creatinine of 0.54, yesterday's labs showed a trending d-dimer up to 3.55, and improving inflammatory markers, echocardiogram was performed today showing EF of 55-60%, and this was a difficult study and the valves were not well visualized. The patient has been afebrile, still level is negative at 0.10, and we will discontinue the vancomycin. Her chest x-ray findings show persistent bilateral multifocal confluent opacities, without major change from the earlier On 10/22/2020 patient seen in follow-up on medical surgical floor, today her oxygen requirements have increased, and she was placed on Airvo at 60 L and FiO2 of 90%, and her pulse ox is between 87-90%, she seems to be breathing comfortably on the Airvo settings, and patient is repositioning self in bed, does not appear to be in any respiratory distress, does not appear to have increased work of breathing, she is afebrile, hemodynamically she stable, no new chest x-ray today, today's blood work shows d-dimer of 2.33, improved from yesterday, white blood cell count is 13, hemoglobin is 12.9, no inflammatory markers, she status post Tocilizumab yesterday for worsening hypoxia, and patient received 800 mg times one dose, and currently her Decadron is at 6 mg twice daily, and Lovenox at prophylactic dose. Follow-up blood cultures have remained negative, no recurrence of fever. Vancomycin has been discontinued On 10/23/2020 patient seen in follow-up on medical surgical floor, continues on Airvo currently at 60 L and FiO2 of 80% in addition to 100% nonrebreather mask, and her pulse ox is between 87-88%, no worsening dyspnea, she is afebrile, hemodynamically stable, does not appear to be in any respiratory distress, today's chest x-ray shows diffuse airspace infiltrates with mild interval improvement. Vancomycin has been discontinued, she has had no fever or chills, follow blood cultures have been negative, she continues on twice daily dose of IV Decadron, and Lovenox currently at 40 mg daily. D-dimer today is 2.06, electrolytes and renal profile are unremarkable, her some inflammatory markers show increasing the LDH up to 1522, and CRP is 5.6, pro-calcitonin level was negative at 0.08. No acute events overnight On 10/24/2020 patient seen in follow-up on medical surgical floor. She remains on Airvo at 60 L and FiO2 of 80%, in addition to nonrebreather mask, she sat 92- 95%, appears to be breathing comfortably, she sits up in the chair, she is afebrile, hemodynamically patient is stable, she is awake and alert, oriented 3, yesterday's chest x-ray shows diffuse infiltrates. Continues on Decadron, multiple vitamins daily Lovenox. On 10/25/2020 patient seen in follow-up on medical surgical floor, she remains on Airvo, currently 60 L and FiO2 of 85%, she is off the additional known arrhythmias, she is maintaining O2 saturations at around 94-95%, she is up in the chair, appears to be breathing comfortably, occasional cough, no chest discomfort, she is afebrile, no new chest x-ray toda. No new labs. She rem ains on Lovenox 40 mg daily, and Decadron 6 mg twice daily, no acute events overnight, On 10/27/2020 patient seen in follow-up on medical surgical floor, she is currently awake and alert, she is up in the chair, she is on 10 L per high flow nasal cannula her pulse ox is 93%, she is breathing comfortably, she is not utilizing 100% nonrebreather mask, seems to be doing better, tolerating oral intake, no nausea vomiting or diarrhea, no fever or chills, no new chest x-ray. Yesterday's labs have been reviewed, d-dimer is trending down and was down to 1.45, electrolytes were unremarkable, renal profile was within normal limits, CBC was noted, inflammatory markers were improving On 10/28/2020 patient seen in follow-up on medical surgical floor, doing well, FiO2 is currently down to 9 L, her pulse ox is 90%, breathing comfortably, although she does still desaturate quite easily with any exertion, lasting patient try to sleep in her bed and desatted quite significantly to 64%, and it took a while to recover, and patient went back to sleep in the chair, she has been getting up to the bedside commode, tolerates it well. Overall he has been able to come down on the oxygen requirement, no new chest x-ray today, today's labs have been reviewed showing white blood cell count of 10.73, hemoglobin is 13.4, electrolytes and renal profile are unremarkable. On 10/29/2020 patient seen in follow-up on medical surgical floor, she is currently on his oxygen, her pulse ox is 92%, she states her pulse ox does drop when she goes to use the bedside commode, she does become dyspneic, but recovers , her FiO2 is further drop to 8 L, and patient is maintaining saturations above 90%, appears fairly comfortable at rest, no acute events overnight, no fever or chills, vital signs have been stable. No nausea vomiting or diarrhea. Today's labs have been noted Objective - Vital Signs Vital signs: Vital Signs Temp 97.8 F 10/29/20 10:00 Pulse 80 10/29/20 10:00 Resp 23 10/29/20 10:00 BP 97/63 10/29/20 10:00 Pulse Ox 92 L 10/29/20 10:00 Intake & Output 10/28/20 10/29/20 10/29/20 18:59 06:59 18:59 Intake Total 2160 4320 Balance 2160 4320 Intake: Oral 2160 4320 Other: Voiding Method Bedside Commode # Voids 15 2 # Bowel Movements 1 - Exam GENERAL EXAM: Alert, very pleasant, obese 49-year-old white female, on 9 L of oxygen, with pulse ox of 90% patient seems comfortable in no apparent distress. HEAD: Normocephalic/atraumatic. EYES: Normal reaction of pupils, equal size. Conjunctiva pink, sclera white. NOSE: Clear with pink turbinates. THROAT: No erythema or exudates. NECK: No masses, no JVD, no thyroid enlargement, no adenopathy. CHEST: No chest wall deformity. Symmetrical expansion. LUNGS: Equal air entry with bibasilar crackles CVS: Regular rate and rhythm, normal S1 and S2, no gallops, no murmurs, no rubs ABDOMEN: Soft, nontender. No hepatosplenomegaly, normal bowel sounds, no guarding or rigidity. EXTREMITIES: No clubbing, no edema, no cyanosis, 2+ pulses and upper and lower extremities. MUSCULOSKELETAL: Muscle strength and tone normal. SPINE: No scoliosis or deformity SKIN: No rashes CENTRAL NERVOUS SYSTEM: Alert and oriented -3. No focal deficits, tone is normal in all 4 extremities. PSYCHIATRIC: Alert and oriented -3. Appropriate affect. Intact judgment and insight. - Labs CBC & Chem 7: 10/29/20 07:07 10/29/20 07:07 Labs: Abnormal Lab Results - Last 24 Hours (Table) 10/28/20 10/28/20 10/29/20 Range/Units 16:28 20:55 07:07 WBC 11.44 H (4.50-10.00) X 10*3/uL Immature Gran # 0.07 H (0.00-0.04) X 10*3/uL Neutrophils # 8.69 H (1.80-7.70) X 10*3/uL D-Dimer (<0.60) mg/L FEU BUN/Creatinine Ratio (12.00-20.00) Ratio Glucose (70-110) mg/dL POC Glucose (mg/dL) 198 H 169 H (75-99) mg/dL Lactate Dehydrogenase (120-246) U/L 10/29/20 10/29/20 10/29/20 Range/Units 07:07 07:07 07:18 WBC (4.50-10.00) X 10*3/uL Immature Gran # (0.00-0.04) X 10*3/uL Neutrophils # (1.80-7.70) X 10*3/uL D-Dimer 1.24 H (<0.60) mg/L FEU BUN/Creatinine Ratio 23.75 H (12.00-20.00) Ratio Glucose 154 H (70-110) mg/dL POC Glucose (mg/dL) 152 H (75-99) mg/dL Lactate Dehydrogenase 397 H (120-246) U/L 10/29/20 Range/Units 11:31 WBC (4.50-10.00) X 10*3/uL Immature Gran # (0.00-0.04) X 10*3/uL Neutrophils # (1.80-7.70) X 10*3/uL D-Dimer (<0.60) mg/L FEU BUN/Creatinine Ratio (12.00-20.00) Ratio Glucose (70-110) mg/dL POC Glucose (mg/dL) 163 H (75-99) mg/dL Lactate Dehydrogenase (120-246) U/L Assessment and Plan Plan: 1 acute bilateral COVID 19 related pneumonia. The patient symptoms started on 10/03/2020. The patient checked positive on 10/04/2020. The patient was treated with Decadron on outpatient basis. The patient's presented with worsening shortness of breath and bilateral pneumonia. Patient was irritable, currently down to 9 L per high flow nasal cannula with pulse ox of 92% 2 acute hypoxic respiratory failure currently on Airvo. D-dimer is low. Pulmonary embolism is unlikely.d-dimer is low at this point in time. The LDH level continues to be quite elevated. Patient's oxygenation has worsened, and on 10/22/2019 patient received Toci 800 mg ivpb 3 obesity with a BMI of 48.6 4 chronic bronchial asthma currently inactive in stable 5 diabetes mellitus 6 coronary artery malformation 7 migraine headaches 8 chronic neck and back pain related to herniated disc disease 9 coagulase-negative staph in the blood, likely contaminant. Nevertheless this was cultured and 2 out of 4 blood cultures. Monitor cultures will be repeated and the patient was given vancomycin. Plan: Continue weaning FiO2 to be continued O2 saturations at or above 90% Patient continues to improve She's been diuresed, and her generalized edema is improved Continue current dose Lovenox, We will come back to Decadron to once daily Once the patient's FiO2 is down to 5 L and she remains stable may be considered for discharge home I performed a history & physical examination of the patient and discussed their management with my nurse practitioner, Elinor Dobbs. I reviewed the nurse practitioner's note and agree with the documented findings and plan of care. Lung sounds are positive for diminished breath sounds with bibasilar crackles. The findings and the impression was discussed with the patient. I attest to the documentation by the nurse practitioner. Time with Patient: Less than 30
[2020-10-29 16:37] LABS: Glucose,Whole Blood 167 mg/dL (75-99)
[2020-10-29] MEDS: ALBUTEROL HFA INHALER INHALATION PRN ×2 (16:41→20:40)
[2020-10-29 20:52] LABS: Glucose,Whole Blood 221 mg/dL (75-99)
--- NOTE | 2020-10-29 22:25 | P.PN ---
Progress Note - Text Progress Note Date: 10/29/20 Chief Complaint: Short of breath History of presenting complaint: This is a pleasant 49-year-old patient of Dr. Logan Silva. Chronic stable medical conditions include [place] Chiari malformation of the brain, asthma, herniated disc in the back and neck, with pain anxiety depression, GERD, diabetes type 2. Patient around October started getting symptoms that included headache cough progressive shortness of breath diarrhea had fever and chills body aches. She did come back positive for COVID 19 on the fourth. Since symptoms have been progressive she came down to the ER. Initial pulse ox was 88% on 5 L. Admitted with bilateral COVID 19 pneumonia, acute hypoxic respiratory failure. Initially put on 5 L of nasal cannula. Started on Decadron and Lovenox. Blood cultures 2 sets positive for coagulase-negative staph hence vancomycin . Today: Sitting up in a chair. Eating fairly well. On 8 L of high flow nasal cannula. Using a bedside commode. Easily gets short winded. Review of systems: Was done for constitutional, cardiovascular, GI, pulmonary. relevant finding as above Active Medications Acetaminophen (Acetaminophen Tab 500 Mg Tab) 1,000 mg PO Q6HR PRN PRN Reason: Fever and/ or Pain Last Admin: 10/18/20 11:21 Dose: 1,000 mg Documented by: Albuterol Sulfate (Albuterol Hfa Inhaler) 2 puff INHALATION RT-Q4H PRN PRN Reason: Shortness Of Breath Last Admin: 10/29/20 20:40 Dose: 2 puff Documented by: Ascorbic Acid (Ascorbic Acid 500 Mg Tab) 1,000 mg PO DAILY [facility] Last Admin: 10/29/20 07:50 Dose: 1,000 mg Documented by: Cholecalciferol (Cholecalciferol 25 Mcg (1000 Iu) Tablet) 100 mcg PO DAILY [facility] Last Admin: 10/29/20 07:50 Dose: 100 mcg Documented by: Dexamethasone Sodium Phosphate (Dexamethasone Sod Phosphate 10 Mg/Ml 1 Ml Vial) 6 mg IV BID [facility] Last Admin: 10/29/20 20:57 Dose: 6 mg Documented by: Enoxaparin Sodium (Enoxaparin 40 Mg/0.4 Ml Syringe) 40 mg SQ DAILY [facility] Last Admin: 10/29/20 07:50 Dose: 40 mg Documented by: Famotidine (Famotidine 20 Mg Tab) 20 mg PO BID [facility] Last Admin: 10/29/20 20:57 Dose: 20 mg Documented by: Insulin Aspart (Insulin Aspart (Novolog) 100 Unit/Ml Vial) 0 unit SQ ACHS [facility]; Protocol Last Admin: 10/29/20 20:57 Dose: 7 unit Documented by: Loratadine (Loratadine 10 Mg Tab) 10 mg PO DAILY PRN PRN Reason: Allergy Symptoms Last Admin: 10/29/20 07:50 Dose: 10 mg Documented by: Non-Formulary Medication (Liraglutide [Victoza 2-Primitivo]) 0.6 mg PO DAILY [facility] Last Admin: 10/29/20 08:16 Dose: Not Given Documented by: Ondansetron HCl (Ondansetron 4 Mg/2 Ml Vial) 4 mg IVP Q8HR PRN PRN Reason: Nausea And Vomiting Last Admin: 10/16/20 09:41 Dose: 4 mg Documented by: Pseudoephedrine HCl (Pseudoephedrine 30 Mg Tab) 30 mg PO DAILY PRN PRN Reason: Nasal Congestion Last Admin: 10/27/20 22:08 Dose: 30 mg Documented by: Sodium Chloride (Sodium Chloride 0.65% Nasal [place] 44 Ml Btl) 2 spray NASAL QID PRN PRN Reason: Dry Nasal Passages Last Admin: 10/18/20 11:29 Dose: 2 spray Documented by: Sumatriptan Succinate (Sumatriptan Succinate 50 Mg Tab) 100 mg PO DAILY PRN PRN Reason: Migraine Headache Tramadol HCl (Tramadol 50 Mg Tab) 50 mg PO Q6HR PRN PRN Reason: Pain Last Admin: 10/20/20 02:45 Dose: 50 mg Documented by: Zinc Sulfate (Zinc Sulfate 220 Mg Cap) 220 mg PO DAILY [facility] Last Admin: 10/29/20 07:50 Dose: 220 mg Documented by: Past medical history to include: Asthma, but Chiari malformation, migraines, herniated disc with back and neck pain, diabetes mellitus type 2, anxiety depression Social history: Patient smoked up one pack a week for about 10 years stopped over 20 years ago. Does occasional marijuana Gummi's and CBD oil. Lives with her boyfriend. Family history: Reviewed, noncontributory to presentation Physical examination: VITAL SIGNS: 97.6, 68, 22, 118/77, 92% on 8 L GENERAL: Sitting in a chair, awake LUNGS:[ Respiratory rate increased; PSYCH: [Alert and oriented x3; mood and affect normal NEUROLOGICAL: Cranial nerves grossly intact; no facial asymmetry, moving all 4 limbs. Rest of the exam as per pulmonary nursing INVESTIGATIONS, reviewed in the clinical context: October 29: D-dimer 1.24 CRP is less than 0.4 2-D echocardiogram: EF 55/60%. No thrombus/vegetation reported October 15: D-dimer 0.57 LDH 1445 CRP 43.6 WBC 6.6 hemoglobin 14.9 platelets 250 lymphocyte 0.9 d-dimer 0.56 potassium 4.2 creatinine 0.59 AST 70 ALT 53 CRP 64 Coronavirus [PCR]-detected EKG tracing personally reviewed by me-normal sinus rhythm Chest x-ray film personally reviewed by me-bilateral diffuse infiltrates Hepatic ultrasound: Heterogenous hyperechoic appearance possibly from fatty li hipolito Assessment and plan: -Acute bilateral COVID 19 pneumonia with symptoms starting about 10 days before presentation-slow to respond On IV Decadron, subcu Lovenox, vitamin C vitamin D zinc and Pepcid. -Acute hypoxic respiratory failure from COVID 19 -slowly to respond 8 L - oxygen -Morbid obesity BMI 48.6 For weight loss measures and follow-up with PCP upon discharge -Diabetes mellitus type 2, uncontrolled with hyperglycemia Follow Accu-Cheks -GERD Continue with omeprazole -Chronic neck and back pain from arthralgia Tylenol when necessary -Nonspecific hepatitis, likely from nonalcoholic fatty liver disease Follow with GI as an outpatient -Coagulase-negative staph in 2 sets of blood cultures on October 14 as decision made by pulmonary to treat with IV vancomycin./Sepsis Completed course . Discussed with patient. Follow with pulmonary
[2020-10-30 07:16] LABS: Glucose,Whole Blood 148 mg/dL (75-99)
[2020-10-30] MEDS: ALBUTEROL HFA INHALER INHALATION PRN ×3 (07:29→19:58)
[2020-10-30] MEDS: ASCORBIC ACID 500 MG TAB PO SCH (07:38)
[2020-10-30] MEDS: CHOLECALCIFEROL 25 MCG (1000 IU) TABLET PO SCH (07:38)
[2020-10-30] MEDS: FAMOTIDINE 20 MG TAB PO SCH ×2 (07:38→20:28)
[2020-10-30] MEDS: DEXAMETHASONE SOD PHOSPHATE 10 MG/ML 1 ML VIAL IV SCH ×2 (07:38→20:28)
[2020-10-30] MEDS: ZINC SULFATE 220 MG CAP PO SCH (07:38)
[2020-10-30] MEDS: LORATADINE 10 MG TAB PO PRN (07:38)
[2020-10-30] MEDS: INSULIN ASPART (NovoLOG) 100 UNIT/ML VIAL SQ SCH ×4 (07:39→20:28)
[2020-10-30] MEDS: ENOXAPARIN 40 MG/0.4 ML SYRINGE SQ SCH (07:39)
[2020-10-30] MEDS: NON FORMULARY DRUG (Liraglutide [Victoza 2-Pak] 0.6 MG/0.1 ML Pen.Injctr) PO SCH (07:39)
[2020-10-30 11:32] LABS: Glucose,Whole Blood 189 mg/dL (75-99)
--- NOTE | 2020-10-30 14:41 | P.PN ---
Subjective Progress Note Date: 10/30/20 Principal diagnosis: COVID-19 pneumonia 49-year-old female patient hospitalized for COVID 19 related pneumonia and a pulmonary consultation was requested. The patient is morbidly obese and she has previous history of coronary artery malformation and migraines. She is diabetic and she has chronic anxiety and depression. Her symptoms started on 10/03/2020 where the patient became fatigued and tired and she was having some body aches and cough and progressively she developed shortness of breath. She got tested on 10/04/2020 and outpatient basis and she checked positive. Following that, the patient was placed on steroids which I believe it was in the form of Decadron. Despite all this, the patient progressed and the patient came into the hospital because of worsening shortness of breath. She was found to be hypoxic and she is currently on 5 L about 2 by nasal cannula with a pulse ox of 88%. Chest x-ray showing diffuse breath and pulmonary infiltrates. The blood work is showing an LDH level of 1445, CRP of 43.6, and a d-dimer of 0.57. Otherwise, the rest of the blood work essentially within normal limits. White cell count at 6.6 with a lymphopenia and a lymphocyte count of 0.9. Coagulation profile is within normal limits. D-dimer is at 0.57. She is currently back on Decadron orally and she is on 5 L of oxygen by nasal cannula. On today's evaluation of 10/16/2020 the patient is on 5 L of oxygen by nasal cannula. She has been ranging between 4 and 6 L during this current hospital stay. She is feeling better. She is still coughing. She has a low-grade fever yesterday. She is pulling around 1500 on his incentive spirometer. Otherwise, the CRP level is at 36, d-dimer is at 1.07. Creatinine is at 0.7. No nausea. No vomiting. No diarrhea. No abdominal pain. No other complaints otherwise for now. The blood culture is showing coagulase-negative staph and the patient was given a dose of vancomycin. The blood cultures are being monitored. Affect irritable cultures are showing staph in the blood which is probably coagulase-negative staph. Both of 4 of the cultures are positive for gram- positive cocci in clusters and the finding cultures sensitivities are still pending for now. 10/17/2020, the patient remains on 5 L of oxygen by nasal cannula. Essentially stable compared to yesterday. He remains on a combination of treatment including Decadron 6 mg IV daily and Lovenox 40 mg subcu every 12 hours. The patient's blood culture was also positive for coagulase-negative staph and this was repeated. The results of this culture were thought to be contaminated. Nevertheless there were 2 of the blood cultures and for that reason we decided to treat this patient with vancomycin. The patient is hemodynamically stable. The patient is afebrile. Clinically the patient was stable. D-dimer was 1.49. LDH is 1469 and the CRP is 86. She is having episodic dry nose and the patient is on oxygen by nasal cannula which is essentially humidified at this point in time. She has no other complaints otherwise for now. Repeat chest x-ray showing worsening in the bilateral patchy pulmonary filtrates compared to the earlier chest x-ray from 10/14/2020 and this was obviously a concern. On 10/18/2020 patient seen in follow-up on medical floor, she is currently on 6 L of oxygen, looks comfortable, she sits up in the chair, no cough, no chest pain, no hemoptysis, repeat blood cultures have shown no growth thus far, final cultures are pending, patient had 2 previous blood cultures with coagulase- negative staph and she remains on vancomycin, vital signs have been stable, she has been afebrile, follow-up chest x-ray today shows persistent bilateral multifocal confluent opacities consistent with COVID-19 infection, stable in appearance. Today's follow-up labs showed d-dimer 1.88, LDH 1509, and CRP is 13.3. She had no acute events overnight On 10/19/2020 patient seen in follow-up on medical surgical floor, she sits up in the chair, she is currently on 6 L per high flow oxygen, her pulse ox is 90%, she still coughing, but overall she states she feels that she is doing better, follow blood cultures so far have been negative, she is working on her incentive spirometer she is achieving 1999, today's labs have been reviewed, showing white blood cell count is 60.4, hemoglobin of 12, d-dimer is trending down and is down to 1.19, sodium is 133,electrolytes and renal profile were unremarkable, LDH is trending today's labs, and is up to 1356, CRP is low at 0.5. no chest discomfort, breathing comfortably, tolerating oral intake. On 10/20/2020 patient seen in follow-up on medical surgical floor, she remains on 6 L of oxygen, her pulse ox was 90%, she looks very comfortable, she sits up in the recliner, she is eating lunch, vital signs have been stable, breathing appears to be nonlabored, she does desaturate with exertion. Today's chest x- ray shows persistent bilateral multifocal confluent opacities consistent with COVID-19 infection with no significant change from previous chest x-ray, today's labs have been noted, d-dimer 3.55, creatinine is 0.6, LDH is improving, and is down to 583 from 2040, and CRP is improving as well and is at 8.1 on today's labs, Procan was negative at 0.10. Patient remains on vancomycin, and her follow blood cultures have been negative, 2 blood cultures from 10/14/2020 sh owed a coagulase-negative staph. Final cultures are pending, vital signs have been stable, patient has had no fever or chills, no altered mentation. On 10/21/2000 patient seen in follow-up on medical floor, her oxygen requirements have increased, she is currently on 15 L high flow and 100% nonrebr eather, her pulse ox is 94%, she feels like she is more short of breath on today's exam as well, easily desaturates. He is afebrile, remains on vancomycin, however follow-up blood cultures have shown no growth, previous blood cultures have shown an today's negative staph likely related to contamina tion, we'll stop her vancomycin, today's labs have been reviewed. Showing normal creatinine of 0.54, yesterday's labs showed a trending d-dimer up to 3.55, and improving inflammatory markers, echocardiogram was performed today showing EF of 55-60%, and this was a difficult study and the valves were not well visualized. The patient has been afebrile, still level is negative at 0.10, and we will discontinue the vancomycin. Her chest x-ray findings show persistent bilateral multifocal confluent opacities, without major change from the earlier On 10/22/2020 patient seen in follow-up on medical surgical floor, today her oxygen requirements have increased, and she was placed on Airvo at 60 L and FiO2 of 90%, and her pulse ox is between 87-90%, she seems to be breathing comfortably on the Airvo settings, and patient is repositioning self in bed, does not appear to be in any respiratory distress, does not appear to have increased work of breathing, she is afebrile, hemodynamically she stable, no new chest x-ray today, today's blood work shows d-dimer of 2.33, improved from yesterday, white blood cell count is 13, hemoglobin is 12.9, no inflammatory markers, she status post Tocilizumab yesterday for worsening hypoxia, and patient received 800 mg times one dose, and currently her Decadron is at 6 mg twice daily, and Lovenox at prophylactic dose. Follow-up blood cultures have remained negative, no recurrence of fever. Vancomycin has been discontinued On 10/23/2020 patient seen in follow-up on medical surgical floor, continues on Airvo currently at 60 L and FiO2 of 80% in addition to 100% nonrebreather mask, and her pulse ox is between 87-88%, no worsening dyspnea, she is afebrile, hemodynamically stable, does not appear to be in any respiratory distress, today's chest x-ray shows diffuse airspace infiltrates with mild interval improvement. Vancomycin has been discontinued, she has had no fever or chills, follow blood cultures have been negative, she continues on twice daily dose of IV Decadron, and Lovenox currently at 40 mg daily. D-dimer today is 2.06, electrolytes and renal profile are unremarkable, her some inflammatory markers show increasing the LDH up to 1522, and CRP is 5.6, pro-calcitonin level was negative at 0.08. No acute events overnight On 10/24/2020 patient seen in follow-up on medical surgical floor. She remains on Airvo at 60 L and FiO2 of 80%, in addition to nonrebreather mask, she sat 92- 95%, appears to be breathing comfortably, she sits up in the chair, she is afebrile, hemodynamically patient is stable, she is awake and alert, oriented 3, yesterday's chest x-ray shows diffuse infiltrates. Continues on Decadron, multiple vitamins daily Lovenox. On 10/25/2020 patient seen in follow-up on medical surgical floor, she remains on Airvo, currently 60 L and FiO2 of 85%, she is off the additional known arrhythmias, she is maintaining O2 saturations at around 94-95%, she is up in the chair, appears to be breathing comfortably, occasional cough, no chest discomfort, she is afebrile, no new chest x-ray toda. No new labs. She rem ains on Lovenox 40 mg daily, and Decadron 6 mg twice daily, no acute events overnight, On 10/27/2020 patient seen in follow-up on medical surgical floor, she is currently awake and alert, she is up in the chair, she is on 10 L per high flow nasal cannula her pulse ox is 93%, she is breathing comfortably, she is not utilizing 100% nonrebreather mask, seems to be doing better, tolerating oral intake, no nausea vomiting or diarrhea, no fever or chills, no new chest x-ray. Yesterday's labs have been reviewed, d-dimer is trending down and was down to 1.45, electrolytes were unremarkable, renal profile was within normal limits, CBC was noted, inflammatory markers were improving On 10/28/2020 patient seen in follow-up on medical surgical floor, doing well, FiO2 is currently down to 9 L, her pulse ox is 90%, breathing comfortably, although she does still desaturate quite easily with any exertion, lasting patient try to sleep in her bed and desatted quite significantly to 64%, and it took a while to recover, and patient went back to sleep in the chair, she has been getting up to the bedside commode, tolerates it well. Overall he has been able to come down on the oxygen requirement, no new chest x-ray today, today's labs have been reviewed showing white blood cell count of 10.73, hemoglobin is 13.4, electrolytes and renal profile are unremarkable. On 10/29/2020 patient seen in follow-up on medical surgical floor, she is currently on his oxygen, her pulse ox is 92%, she states her pulse ox does drop when she goes to use the bedside commode, she does become dyspneic, but recovers , her FiO2 is further drop to 8 L, and patient is maintaining saturations above 90%, appears fairly comfortable at rest, no acute events overnight, no fever or chills, vital signs have been stable. No nausea vomiting or diarrhea. Today's labs have been noted On 10/30/2020 patient seen in follow-up on medical surgical floor, she sits up in the recliner, she is currently down to 8 L, she is satting about 92%, her FiO2 was further decreased to 6 L, patient still complains that she gets worn out just going to the bathroom, but at rest feeling well, breathing comfortably, has had no fever or chills, no acute events overnight, tolerating oral intake, no new chest x-rays today, no new labs, and patient continues on Decadron 6 mg twice daily, and Lovenox 40 mg daily. Objective - Vital Signs Vital signs: Vital Signs Temp 97.8 F 10/30/20 09:55 Pulse 68 10/30/20 09:55 Resp 16 10/30/20 09:55 BP 132/76 10/30/20 09:55 Pulse Ox 94 L 10/30/20 09:55 Intake & Output 10/29/20 10/30/20 10/30/20 18:59 06:59 18:59 Intake Total 4320 2396 Balance 4320 2396 Intake: Oral 4320 2396 Other: Voiding Method Bedside Commode # Voids 4 3 # Bowel Movements 1 - Exam GENERAL EXAM: Alert, very pleasant, obese 49-year-old white female, on 8 L of o xygen, with pulse ox of 94% patient seems comfortable in no apparent distress. HEAD: Normocephalic/atraumatic. EYES: Normal reaction of pupils, equal size. Conjunctiva pink, sclera white. NOSE: Clear with pink turbinates. THROAT: No erythema or exudates. NECK: No masses, no JVD, no thyroid enlargement, no adenopathy. CHEST: No chest wall deformity. Symmetrical expansion. LUNGS: Equal air entry with bibasilar crackles CVS: Regular rate and rhythm, normal S1 and S2, no gallops, no murmurs, no rubs ABDOMEN: Soft, nontender. No hepatosplenomegaly, normal bowel sounds, no guarding or rigidity. EXTREMITIES: No clubbing, no edema, no cyanosis, 2+ pulses and upper and lower extremities. MUSCULOSKELETAL: Muscle strength and tone normal. SPINE: No scoliosis or deformity SKIN: No rashes CENTRAL NERVOUS SYSTEM: Alert and oriented -3. No focal deficits, tone is normal in all 4 extremities. PSYCHIATRIC: Alert and oriented -3. Appropriate affect. Intact judgment and insight. - Labs CBC & Chem 7: 10/29/20 07:07 10/29/20 07:07 Labs: Abnormal Lab Results - Last 24 Hours (Table) 10/29/20 10/29/20 10/30/20 Range/Units 16:33 20:50 07:15 POC Glucose (mg/dL) 167 H 221 H 148 H (75-99) mg/dL 10/30/20 Range/Units 11:31 POC Glucose (mg/dL) 189 H (75-99) mg/dL Assessment and Plan Plan: 1 acute bilateral COVID 19 related pneumonia. The patient symptoms started on 10/03/2020. The patient checked positive on 10/04/2020. The patient was treated with Decadron on outpatient basis. The patient's presented with worsening shortness of breath and bilateral pneumonia. Patient was irritable, currently down to 9 L per high flow nasal cannula with pulse ox of 92% 2 acute hypoxic respiratory failure currently on Airvo. D-dimer is low. Pulmonary embolism is unlikely.d-dimer is low at this point in time. The LDH level continues to be quite elevated. Patient's oxygenation has worsened, and on 10/22/2019 patient received Toci 800 mg ivpb 3 obesity with a BMI of 48.6 4 chronic bronchial asthma currently inactive in stable 5 diabetes mellitus 6 coronary artery malformation 7 migraine headaches 8 chronic neck and back pain related to herniated disc disease 9 coagulase-negative staph in the blood, likely contaminant. Nevertheless this was cultured and 2 out of 4 blood cultures. Monitor cultures will be repeated and the patient was given vancomycin. Plan: Continue weaning FiO2 to be continued O2 saturations at or above 90% Patient continues to improve Continue same dose Decadron and Lovenox FiO2 was cut back to 6 L Increase activity, encourage IS use Once the patient's FiO2 is down to 5 L and she remains stable may be considered for discharge home I performed a history & physical examination of the patient and discussed their management with my nurse practitioner, Elinor Dobbs. I reviewed the nurse practitioner's note and agree with the documented findings and plan of care. Lung sounds are positive for diminished breath sounds with bibasilar crackles. The findings and the impression was discussed with the patient. I attest to the documentation by the nurse practitioner. Time with Patient: Less than 30
[2020-10-30 17:28] LABS: Glucose,Whole Blood 166 mg/dL (75-99)
[2020-10-30 20:23] LABS: Glucose,Whole Blood 144 mg/dL (75-99)
--- NOTE | 2020-10-30 20:42 | P.PN ---
Progress Note - Text Progress Note Date: 10/30/20 Chief Complaint: Short of breath History of presenting complaint: This is a pleasant 49-year-old patient of Dr. Logan Silva. Chronic stable medical conditions include [place] Chiari malformation of the brain, asthma, herniated disc in the back and neck, with pain anxiety depression, GERD, diabetes type 2. Patient around October started getting symptoms that included headache cough progressive shortness of breath diarrhea had fever and chills body aches. She did come back positive for COVID 19 on the fourth. Since symptoms have been progressive she came down to the ER. Initial pulse ox was 88% on 5 L. Admitted with bilateral COVID 19 pneumonia, acute hypoxic respiratory failure. Initially put on 5 L of nasal cannula. Started on Decadron and Lovenox. Blood cultures 2 sets positive for coagulase-negative staph hence vancomycin . Today: Sitting up in a chair. Oral intake good. Using incentive spirometry. On 8 L of oxygen. Review of systems: Was done for constitutional, cardiovascular, GI, pulmonary. relevant finding as above Active Medications Acetaminophen (Acetaminophen Tab 500 Mg Tab) 1,000 mg PO Q6HR PRN PRN Reason: Fever and/ or Pain Last Admin: 10/18/20 11:21 Dose: 1,000 mg Documented by: Albuterol Sulfate (Albuterol Hfa Inhaler) 2 puff INHALATION RT-Q4H PRN PRN Reason: Shortness Of Breath Last Admin: 10/30/20 19:58 Dose: 2 puff Documented by: Ascorbic Acid (Ascorbic Acid 500 Mg Tab) 1,000 mg PO DAILY [facility] Last Admin: 10/30/20 07:38 Dose: 1,000 mg Documented by: Cholecalciferol (Cholecalciferol 25 Mcg (1000 Iu) Tablet) 100 mcg PO DAILY [facility] Last Admin: 10/30/20 07:38 Dose: 100 mcg Documented by: Dexamethasone Sodium Phosphate (Dexamethasone Sod Phosphate 10 Mg/Ml 1 Ml Vial) 6 mg IV BID [facility] Last Admin: 10/30/20 20:28 Dose: 6 mg Documented by: Enoxaparin Sodium (Enoxaparin 40 Mg/0.4 Ml Syringe) 40 mg SQ DAILY [facility] Last Admin: 10/30/20 07:39 Dose: 40 mg Documented by: Famotidine (Famotidine 20 Mg Tab) 20 mg PO BID [facility] Last Admin: 10/30/20 20:28 Dose: 20 mg Documented by: Insulin Aspart (Insulin Aspart (Novolog) 100 Unit/Ml Vial) 0 unit SQ ACHS [facility]; Protocol Last Admin: 10/30/20 20:28 Dose: 2 unit Documented by: Loratadine (Loratadine 10 Mg Tab) 10 mg PO DAILY PRN PRN Reason: Allergy Symptoms Last Admin: 10/30/20 07:38 Dose: 10 mg Documented by: Non-Formulary Medication (Liraglutide [Victoza 2-Primitivo]) 0.6 mg PO DAILY [facility] Last Admin: 10/30/20 07:39 Dose: Not Given Documented by: Ondansetron HCl (Ondansetron 4 Mg/2 Ml Vial) 4 mg IVP Q8HR PRN PRN Reason: Nausea And Vomiting Last Admin: 10/16/20 09:41 Dose: 4 mg Documented by: Pseudoephedrine HCl (Pseudoephedrine 30 Mg Tab) 30 mg PO DAILY PRN PRN Reason: Nasal Congestion Last Admin: 10/27/20 22:08 Dose: 30 mg Documented by: Sodium Chloride (Sodium Chloride 0.65% Nasal [place] 44 Ml Btl) 2 spray NASAL QID PRN PRN Reason: Dry Nasal Passages Last Admin: 10/18/20 11:29 Dose: 2 spray Documented by: Sumatriptan Succinate (Sumatriptan Succinate 50 Mg Tab) 100 mg PO DAILY PRN PRN Reason: Migraine Headache Tramadol HCl (Tramadol 50 Mg Tab) 50 mg PO Q6HR PRN PRN Reason: Pain Last Admin: 10/20/20 02:45 Dose: 50 mg Documented by: Zinc Sulfate (Zinc Sulfate 220 Mg Cap) 220 mg PO DAILY [facility] Last Admin: 10/30/20 07:38 Dose: 220 mg Documented by: Past medical history to include: Asthma, but Chiari malformation, migraines, herniated disc with back and neck pain, diabetes mellitus type 2, anxiety depression Social history: Patient smoked up one pack a week for about 10 years stopped over 20 years ago. Does occasional marijuana Gummi's and CBD oil. Lives with her boyfriend. Family history: Reviewed, noncontributory to presentation Physical examination: VITAL SIGNS: 97.8, 68, 16, 1 32 x 76, 94% on 8 L GENERAL: Sitting in a chair, awake LUNGS:[ Respiratory rate increased; PSYCH: [Alert and oriented x3; mood and affect normal NEUROLOGICAL: Cranial nerves grossly intact; no facial asymmetry, moving all 4 limbs. Rest of the exam as per pulmonary nursing INVESTIGATIONS, reviewed in the clinical context: October 29: D-dimer 1.24 CRP is less than 0.4 2-D echocardiogram: EF 55/60%. No thrombus/vegetation reported October 15: D-dimer 0.57 LDH 1445 CRP 43.6 WBC 6.6 hemoglobin 14.9 platelets 250 lymphocyte 0.9 d-dimer 0.56 potassium 4.2 creatinine 0.59 AST 70 ALT 53 CRP 64 Coronavirus [PCR]-detected EKG tracing personally reviewed by me-normal sinus rhythm Chest x-ray film personally reviewed by me-bilateral diffuse infiltrates Hepatic ultrasound: Heterogenous hyperechoic appearance possibly from fatty liver Assessment and plan: -Acute bilateral COVID 19 pneumonia with symptoms starting about 10 days before presentation-slow to respond On IV Decadron, subcu Lovenox, vitamin C vitamin D zinc and Pepcid. -Acute hypoxic respiratory failure from COVID 19 -slow to respond 8 L - oxygen -Morbid obesity BMI 48.6 For weight loss measures and follow-up with PCP upon discharge -Diabetes mellitus type 2, uncontrolled with hyperglycemia Follow Accu-Cheks -GERD Continue with omeprazole -Chronic neck and back pain from arthralgia Tylenol when necessary -Nonspecific hepatitis, likely from nonalcoholic fatty liver disease Follow with GI as an outpatient -Coagulase-negative staph in 2 sets of blood cultures on October 14 as decision made by pulmonary to treat with IV vancomycin./Sepsis Completed course . Discussed with patient. Encouraged to use incentive spirometry. Attempt to decrease FiO2.
[2020-10-31 07:19] LABS: Glucose,Whole Blood 187 mg/dL (75-99)
[2020-10-31] MEDS: CHOLECALCIFEROL 25 MCG (1000 IU) TABLET PO SCH (07:25)
[2020-10-31] MEDS: FAMOTIDINE 20 MG TAB PO SCH ×2 (07:25→20:59)
[2020-10-31] MEDS: INSULIN ASPART (NovoLOG) 100 UNIT/ML VIAL SQ SCH ×4 (07:26→20:59)
[2020-10-31] MEDS: ENOXAPARIN 40 MG/0.4 ML SYRINGE SQ SCH (07:26)
[2020-10-31] MEDS: ZINC SULFATE 220 MG CAP PO SCH (07:26)
[2020-10-31] MEDS: DEXAMETHASONE SOD PHOSPHATE 10 MG/ML 1 ML VIAL IV SCH ×2 (07:26→20:59)
[2020-10-31] MEDS: ASCORBIC ACID 500 MG TAB PO SCH (07:26)
[2020-10-31] MEDS: NON FORMULARY DRUG (Liraglutide [Victoza 2-Pak] 0.6 MG/0.1 ML Pen.Injctr) PO SCH (07:27)
[2020-10-31] MEDS: ALBUTEROL HFA INHALER INHALATION PRN ×4 (08:04→20:29)
[2020-10-31 11:59] LABS: Glucose,Whole Blood 171 mg/dL (75-99)
--- NOTE | 2020-10-31 12:50 | P.PN ---
Subjective Progress Note Date: 10/31/20 Principal diagnosis: COVID-19 pneumonia 49-year-old female patient hospitalized for COVID 19 related pneumonia and a pulmonary consultation was requested. The patient is morbidly obese and she has previous history of coronary artery malformation and migraines. She is diabetic and she has chronic anxiety and depression. Her symptoms started on 10/03/2020 where the patient became fatigued and tired and she was having some body aches and cough and progressively she developed shortness of breath. She got tested on 10/04/2020 and outpatient basis and she checked positive. Following that, the patient was placed on steroids which I believe it was in the form of Decadron. Despite all this, the patient progressed and the patient came into the hospital because of worsening shortness of breath. She was found to be hypoxic and she is currently on 5 L about 2 by nasal cannula with a pulse ox of 88%. Chest x-ray showing diffuse breath and pulmonary infiltrates. The blood work is showing an LDH level of 1445, CRP of 43.6, and a d-dimer of 0.57. Otherwise, the rest of the blood work essentially within normal limits. White cell count at 6.6 with a lymphopenia and a lymphocyte count of 0.9. Coagulation profile is within normal limits. D-dimer is at 0.57. She is currently back on Decadron orally and she is on 5 L of oxygen by nasal cannula. On today's evaluation of 10/16/2020 the patient is on 5 L of oxygen by nasal cannula. She has been ranging between 4 and 6 L during this current hospital stay. She is feeling better. She is still coughing. She has a low-grade fever yesterday. She is pulling around 1500 on his incentive spirometer. Otherwise, the CRP level is at 36, d-dimer is at 1.07. Creatinine is at 0.7. No nausea. No vomiting. No diarrhea. No abdominal pain. No other complaints otherwise for now. The blood culture is showing coagulase-negative staph and the patient was given a dose of vancomycin. The blood cultures are being monitored. Affect irritable cultures are showing staph in the blood which is probably coagulase-negative staph. Both of 4 of the cultures are positive for gram- positive cocci in clusters and the finding cultures sensitivities are still pending for now. 10/17/2020, the patient remains on 5 L of oxygen by nasal cannula. Essentially stable compared to yesterday. He remains on a combination of treatment including Decadron 6 mg IV daily and Lovenox 40 mg subcu every 12 hours. The patient's blood culture was also positive for coagulase-negative staph and this was repeated. The results of this culture were thought to be contaminated. Nevertheless there were 2 of the blood cultures and for that reason we decided to treat this patient with vancomycin. The patient is hemodynamically stable. The patient is afebrile. Clinically the patient was stable. D-dimer was 1.49. LDH is 1469 and the CRP is 86. She is having episodic dry nose and the patient is on oxygen by nasal cannula which is essentially humidified at this point in time. She has no other complaints otherwise for now. Repeat chest x-ray showing worsening in the bilateral patchy pulmonary filtrates compared to the earlier chest x-ray from 10/14/2020 and this was obviously a concern. On 10/18/2020 patient seen in follow-up on medical floor, she is currently on 6 L of oxygen, looks comfortable, she sits up in the chair, no cough, no chest pain, no hemoptysis, repeat blood cultures have shown no growth thus far, final cultures are pending, patient had 2 previous blood cultures with coagulase- negative staph and she remains on vancomycin, vital signs have been stable, she has been afebrile, follow-up chest x-ray today shows persistent bilateral multifocal confluent opacities consistent with COVID-19 infection, stable in appearance. Today's follow-up labs showed d-dimer 1.88, LDH 1509, and CRP is 13.3. She had no acute events overnight On 10/19/2020 patient seen in follow-up on medical surgical floor, she sits up in the chair, she is currently on 6 L per high flow oxygen, her pulse ox is 90%, she still coughing, but overall she states she feels that she is doing better, follow blood cultures so far have been negative, she is working on her incentive spirometer she is achieving 1999, today's labs have been reviewed, showing white blood cell count is 60.4, hemoglobin of 12, d-dimer is trending down and is down to 1.19, sodium is 133,electrolytes and renal profile were unremarkable, LDH is trending today's labs, and is up to 1356, CRP is low at 0.5. no chest discomfort, breathing comfortably, tolerating oral intake. On 10/20/2020 patient seen in follow-up on medical surgical floor, she remains on 6 L of oxygen, her pulse ox was 90%, she looks very comfortable, she sits up in the recliner, she is eating lunch, vital signs have been stable, breathing appears to be nonlabored, she does desaturate with exertion. Today's chest x- ray shows persistent bilateral multifocal confluent opacities consistent with COVID-19 infection with no significant change from previous chest x-ray, today's labs have been noted, d-dimer 3.55, creatinine is 0.6, LDH is improving, and is down to 583 from 2040, and CRP is improving as well and is at 8.1 on today's labs, Procan was negative at 0.10. Patient remains on vancomycin, and her follow blood cultures have been negative, 2 blood cultures from 10/14/2020 sh owed a coagulase-negative staph. Final cultures are pending, vital signs have been stable, patient has had no fever or chills, no altered mentation. On 10/21/2000 patient seen in follow-up on medical floor, her oxygen requirements have increased, she is currently on 15 L high flow and 100% nonrebr eather, her pulse ox is 94%, she feels like she is more short of breath on today's exam as well, easily desaturates. He is afebrile, remains on vancomycin, however follow-up blood cultures have shown no growth, previous blood cultures have shown an today's negative staph likely related to contamina tion, we'll stop her vancomycin, today's labs have been reviewed. Showing normal creatinine of 0.54, yesterday's labs showed a trending d-dimer up to 3.55, and improving inflammatory markers, echocardiogram was performed today showing EF of 55-60%, and this was a difficult study and the valves were not well visualized. The patient has been afebrile, still level is negative at 0.10, and we will discontinue the vancomycin. Her chest x-ray findings show persistent bilateral multifocal confluent opacities, without major change from the earlier On 10/22/2020 patient seen in follow-up on medical surgical floor, today her oxygen requirements have increased, and she was placed on Airvo at 60 L and FiO2 of 90%, and her pulse ox is between 87-90%, she seems to be breathing comfortably on the Airvo settings, and patient is repositioning self in bed, does not appear to be in any respiratory distress, does not appear to have increased work of breathing, she is afebrile, hemodynamically she stable, no new chest x-ray today, today's blood work shows d-dimer of 2.33, improved from yesterday, white blood cell count is 13, hemoglobin is 12.9, no inflammatory markers, she status post Tocilizumab yesterday for worsening hypoxia, and patient received 800 mg times one dose, and currently her Decadron is at 6 mg twice daily, and Lovenox at prophylactic dose. Follow-up blood cultures have remained negative, no recurrence of fever. Vancomycin has been discontinued On 10/23/2020 patient seen in follow-up on medical surgical floor, continues on Airvo currently at 60 L and FiO2 of 80% in addition to 100% nonrebreather mask, and her pulse ox is between 87-88%, no worsening dyspnea, she is afebrile, hemodynamically stable, does not appear to be in any respiratory distress, today's chest x-ray shows diffuse airspace infiltrates with mild interval improvement. Vancomycin has been discontinued, she has had no fever or chills, follow blood cultures have been negative, she continues on twice daily dose of IV Decadron, and Lovenox currently at 40 mg daily. D-dimer today is 2.06, electrolytes and renal profile are unremarkable, her some inflammatory markers show increasing the LDH up to 1522, and CRP is 5.6, pro-calcitonin level was negative at 0.08. No acute events overnight On 10/24/2020 patient seen in follow-up on medical surgical floor. She remains on Airvo at 60 L and FiO2 of 80%, in addition to nonrebreather mask, she sat 92- 95%, appears to be breathing comfortably, she sits up in the chair, she is afebrile, hemodynamically patient is stable, she is awake and alert, oriented 3, yesterday's chest x-ray shows diffuse infiltrates. Continues on Decadron, multiple vitamins daily Lovenox. On 10/25/2020 patient seen in follow-up on medical surgical floor, she remains on Airvo, currently 60 L and FiO2 of 85%, she is off the additional known arrhythmias, she is maintaining O2 saturations at around 94-95%, she is up in the chair, appears to be breathing comfortably, occasional cough, no chest discomfort, she is afebrile, no new chest x-ray toda. No new labs. She rem ains on Lovenox 40 mg daily, and Decadron 6 mg twice daily, no acute events overnight, On 10/27/2020 patient seen in follow-up on medical surgical floor, she is currently awake and alert, she is up in the chair, she is on 10 L per high flow nasal cannula her pulse ox is 93%, she is breathing comfortably, she is not utilizing 100% nonrebreather mask, seems to be doing better, tolerating oral intake, no nausea vomiting or diarrhea, no fever or chills, no new chest x-ray. Yesterday's labs have been reviewed, d-dimer is trending down and was down to 1.45, electrolytes were unremarkable, renal profile was within normal limits, CBC was noted, inflammatory markers were improving On 10/28/2020 patient seen in follow-up on medical surgical floor, doing well, FiO2 is currently down to 9 L, her pulse ox is 90%, breathing comfortably, although she does still desaturate quite easily with any exertion, lasting patient try to sleep in her bed and desatted quite significantly to 64%, and it took a while to recover, and patient went back to sleep in the chair, she has been getting up to the bedside commode, tolerates it well. Overall he has been able to come down on the oxygen requirement, no new chest x-ray today, today's labs have been reviewed showing white blood cell count of 10.73, hemoglobin is 13.4, electrolytes and renal profile are unremarkable. On 10/29/2020 patient seen in follow-up on medical surgical floor, she is currently on his oxygen, her pulse ox is 92%, she states her pulse ox does drop when she goes to use the bedside commode, she does become dyspneic, but recovers , her FiO2 is further drop to 8 L, and patient is maintaining saturations above 90%, appears fairly comfortable at rest, no acute events overnight, no fever or chills, vital signs have been stable. No nausea vomiting or diarrhea. Today's labs have been noted On 10/30/2020 patient seen in follow-up on medical surgical floor, she sits up in the recliner, she is currently down to 8 L, she is satting about 92%, her FiO2 was further decreased to 6 L, patient still complains that she gets worn out just going to the bathroom, but at rest feeling well, breathing comfortably, has had no fever or chills, no acute events overnight, tolerating oral intake, no new chest x-rays today, no new labs, and patient continues on Decadron 6 mg twice daily, and Lovenox 40 mg daily. On 10/31/2020 patient seen in follow-up on medical surgical floor. She is currently down to 5 L of oxygen per pulse ox is around 91%, breathing much more comfortably, states she has used the nasal saline for a 4 hours yesterday and that helped her clear her sinuses, feels much better, breathing easier, she is afebrile, vital signs have been stable. She does desaturate in takes her a while to recover, however she is tolerating activity better, she was able to get in the shower today, she was able to go back in the bathroom and brush her teeth after a period of recovery. She thinks she could is not 24 hours inpatient t reatment to make sure she is ready for discharge. Overall she is improving. Objective - Vital Signs Vital signs: Vital Signs Temp 98.5 F 10/31/20 10:00 Pulse 75 10/31/20 10:00 Resp 18 10/31/20 10:00 BP 112/76 10/31/20 10:00 Pulse Ox 91 L 10/31/20 10:00 Intake & Output 10/30/20 10/31/20 10/31/20 18:59 06:59 18:59 Intake Total 2596 Balance 2596 Intake: Oral 2596 Other: Voiding Method Bedside Commode # Voids 3 4 - Exam GENERAL EXAM: Alert, very pleasant, obese 49-year-old white female, on 5 L of oxygen, with pulse ox of 91% patient seems comfortable in no apparent distress. HEAD: Normocephalic/atraumatic. EYES: Normal reaction of pupils, equal size. Conjunctiva pink, sclera white. NOSE: Clear with pink turbinates. THROAT: No erythema or exudates. NECK: No masses, no JVD, no thyroid enlargement, no adenopathy. CHEST: No chest wall deformity. Symmetrical expansion. LUNGS: Equal air entry with bibasilar crackles CVS: Regular rate and rhythm, normal S1 and S2, no gallops, no murmurs, no rubs ABDOMEN: Soft, nontender. No hepatosplenomegaly, normal bowel sounds, no guarding or rigidity. EXTREMITIES: No clubbing, no edema, no cyanosis, 2+ pulses and upper and lower extremities. MUSCULOSKELETAL: Muscle strength and tone normal. SPINE: No scoliosis or deformity SKIN: No rashes CENTRAL NERVOUS SYSTEM: Alert and oriented -3. No focal deficits, tone is normal in all 4 extremities. PSYCHIATRIC: Alert and oriented -3. Appropriate affect. Intact judgment and insight. - Labs CBC & Chem 7: 10/29/20 07:07 10/29/20 07:07 Labs: Abnormal Lab Results - Last 24 Hours (Table) 10/30/20 10/30/20 10/31/20 Range/Units 17:15 20:21 07:17 POC Glucose (mg/dL) 166 H 144 H 187 H (75-99) mg/dL 10/31/20 Range/Units 11:57 POC Glucose (mg/dL) 171 H (75-99) mg/dL Assessment and Plan Plan: 1 acute bilateral COVID 19 related pneumonia. The patient symptoms started on 10/03/2020. The patient checked positive on 10/04/2020. The patient was treated with Decadron on outpatient basis. The patient's presented with worsening shortness of breath and bilateral pneumonia. Patient was irritable, currently down to 9 L per high flow nasal cannula with pulse ox of 92% 2 acute hypoxic respiratory failure currently on Airvo. D-dimer is low. Pulmonary embolism is unlikely.d-dimer is low at this point in time. The LDH level continues to be quite elevated. Patient's oxygenation has worsened, and on 10/22/2019 patient received Toci 800 mg ivpb 3 obesity with a BMI of 48.6 4 chronic bronchial asthma currently inactive in stable 5 diabetes mellitus 6 coronary artery malformation 7 migraine headaches 8 chronic neck and back pain related to herniated disc disease 9 coagulase-negative staph in the blood, likely contaminant. Nevertheless this was cultured and 2 out of 4 blood cultures. Monitor cultures will be repeated and the patient was given vancomycin. Plan: Patient is improving, currently down to 5 L of oxygen, still has significant exertional dyspnea, and generalized weakness But overall improving Continue weaning FiO2 to be continued O2 saturations at or above 90% Continue same dose Decadron and Lovenox Increase activity, encourage IS use From pulmonary perspective continues to get stronger she may be considered for discharge home in the next 24 hours on home oxygen I performed a history & physical examination of the patient and discussed their management with my nurse practitioner, Elinor Dobbs. I reviewed the nurse practitioner's note and agree with the documented findings and plan of care. Lung sounds are positive for diminished breath sounds with bibasilar crackles. The findings and the impression was discussed with the patient. I attest to the documentation by the nurse practitioner. Time with Patient: Less than 30
[2020-10-31] MEDS: ACETAMINOPHEN TAB 500 MG TAB PO PRN (15:53)
[2020-10-31 17:12] LABS: Glucose,Whole Blood 170 mg/dL (75-99)
--- NOTE | 2020-10-31 19:51 | P.PN ---
Progress Note - Text Progress Note Date: 10/31/20 Chief Complaint: Short of breath History of presenting complaint: This is a pleasant 49-year-old patient of Dr. Logan Silva. Chronic stable medical conditions include [place] Chiari malformation of the brain, asthma, herniated disc in the back and neck, with pain anxiety depression, GERD, diabetes type 2. Patient around October started getting symptoms that included headache cough progressive shortness of breath diarrhea had fever and chills body aches. She did come back positive for COVID 19 on the fourth. Since symptoms have been progressive she came down to the ER. Initial pulse ox was 88% on 5 L. Admitted with bilateral COVID 19 pneumonia, acute hypoxic respiratory failure. Initially put on 5 L of nasal cannula. Started on Decadron and Lovenox. Blood cultures 2 sets positive for coagulase-negative staph hence vancomycin . Today: Up in a chair. Eating well. Breathing better. On 5 L of nasal cannula. Review of systems: Was done for constitutional, cardiovascular, GI, pulmonary. relevant finding as above Active Medications Acetaminophen (Acetaminophen Tab 500 Mg Tab) 1,000 mg PO Q6HR PRN PRN Reason: Fever and/ or Pain Last Admin: 10/31/20 15:53 Dose: 1,000 mg Documented by: Albuterol Sulfate (Albuterol Hfa Inhaler) 2 puff INHALATION RT-Q4H PRN PRN Reason: Shortness Of Breath Last Admin: 10/31/20 15:16 Dose: 2 puff Documented by: Ascorbic Acid (Ascorbic Acid 500 Mg Tab) 1,000 mg PO DAILY [facility] Last Admin: 10/31/20 07:26 Dose: 1,000 mg Documented by: Cholecalciferol (Cholecalciferol 25 Mcg (1000 Iu) Tablet) 100 mcg PO DAILY [facility] Last Admin: 10/31/20 07:25 Dose: 100 mcg Documented by: Dexamethasone Sodium Phosphate (Dexamethasone Sod Phosphate 10 Mg/Ml 1 Ml Vial) 6 mg IV BID [facility] Last Admin: 10/31/20 07:26 Dose: 6 mg Documented by: Enoxaparin Sodium (Enoxaparin 40 Mg/0.4 Ml Syringe) 40 mg SQ DAILY [facility] Last Admin: 10/31/20 07:26 Dose: 40 mg Documented by: Famotidine (Famotidine 20 Mg Tab) 20 mg PO BID [facility] Last Admin: 10/31/20 07:25 Dose: 20 mg Documented by: Insulin Aspart (Insulin Aspart (Novolog) 100 Unit/Ml Vial) 0 unit SQ ACHS [facility]; Protocol Last Admin: 10/31/20 17:03 Dose: 3 unit Documented by: Loratadine (Loratadine 10 Mg Tab) 10 mg PO DAILY PRN PRN Reason: Allergy Symptoms Last Admin: 10/30/20 07:38 Dose: 10 mg Documented by: Non-Formulary Medication (Liraglutide [Victoza 2-Primitivo]) 0.6 mg PO DAILY [facility] Last Admin: 10/31/20 07:27 Dose: Not Given Documented by: Ondansetron HCl (Ondansetron 4 Mg/2 Ml Vial) 4 mg IVP Q8HR PRN PRN Reason: Nausea And Vomiting Last Admin: 10/16/20 09:41 Dose: 4 mg Documented by: Pseudoephedrine HCl (Pseudoephedrine 30 Mg Tab) 30 mg PO DAILY PRN PRN Reason: Nasal Congestion Last Admin: 10/27/20 22:08 Dose: 30 mg Documented by: Sodium Chloride (Sodium Chloride 0.65% Nasal [place] 44 Ml Btl) 2 spray NASAL QID PRN PRN Reason: Dry Nasal Passages Last Admin: 10/18/20 11:29 Dose: 2 spray Documented by: Sumatriptan Succinate (Sumatriptan Succinate 50 Mg Tab) 100 mg PO DAILY PRN PRN Reason: Migraine Headache Zinc Sulfate (Zinc Sulfate 220 Mg Cap) 220 mg PO DAILY [facility] Last Admin: 10/31/20 07:26 Dose: 220 mg Documented by: Past medical history to include: Asthma, but Chiari malformation, migraines, herniated disc with back and neck pain, diabetes mellitus type 2, anxiety depression Social history: Patient smoked up one pack a week for about 10 years stopped over 20 years ago. Does occasional marijuana Gummi's and CBD oil. Lives with her boyfriend. Family history: Reviewed, noncontributory to presentation Physical examination: VITAL SIGNS: 98.5, 75, 18, 112/76, 91% on 5 L GENERAL: Sitting in a chair, awake LUNGS:[ Respiratory rate increased; PSYCH: [Alert and oriented x3; mood and affect normal NEUROLOGICAL: Cranial nerves grossly intact; no facial asymmetry, moving all 4 limbs. Rest of the exam as per pulmonary nursing INVESTIGATIONS, reviewed in the clinical context: October 29: D-dimer 1.24 CRP is less than 0.4 2-D echocardiogram: EF 55/60%. No thrombus/vegetation reported October 15: D-dimer 0.57 LDH 1445 CRP 43.6 WBC 6.6 hemoglobin 14.9 platelets 250 lymphocyte 0.9 d-dimer 0.56 potassium 4.2 creatinine 0.59 AST 70 ALT 53 CRP 64 Coronavirus [PCR]-detected EKG tracing personally reviewed by me-normal sinus rhythm Chest x-ray film personally reviewed by me-bilateral diffuse infiltrates Hepatic ultrasound: Heterogenous hyperechoic appearance possibly from fatty liver Assessment and plan: -Acute bilateral COVID 19 pneumonia with symptoms starting about 10 days before slowly improving On IV Decadron, subcu Lovenox, vitamin C vitamin D zinc and Pepcid. -Acute hypoxic respiratory failure from COVID 19 -improving slowly 5 L - oxygen -Morbid obesity BMI 48.6 For weight loss measures and follow-up with PCP upon discharge -Diabetes mellitus type 2, uncontrolled with hyperglycemia Follow Accu-Cheks -GERD Continue with omeprazole -Chronic neck and back pain from arthralgia Tylenol when necessary -Nonspecific hepatitis, likely from nonalcoholic fatty liver disease Follow with GI as an outpatient -Coagulase-negative staph in 2 sets of blood cultures on October 14 as decision made by pulmonary to treat with IV vancomycin./Sepsis Completed course . Discussed with patient. Breathing better.
[2020-10-31 20:28] LABS: Glucose,Whole Blood 263 mg/dL (75-99)
[2020-11-01 07:41] LABS: Glucose,Whole Blood 159 mg/dL (75-99)
[2020-11-01] MEDS: ALBUTEROL HFA INHALER INHALATION PRN ×3 (08:20→15:40)
[2020-11-01] MEDS: FAMOTIDINE 20 MG TAB PO SCH ×2 (08:29→21:15)
[2020-11-01] MEDS: DEXAMETHASONE SOD PHOSPHATE 10 MG/ML 1 ML VIAL IV SCH (08:29)
[2020-11-01] MEDS: ASCORBIC ACID 500 MG TAB PO SCH (08:29)
[2020-11-01] MEDS: CHOLECALCIFEROL 25 MCG (1000 IU) TABLET PO SCH (08:29)
[2020-11-01] MEDS: ENOXAPARIN 40 MG/0.4 ML SYRINGE SQ SCH (08:30)
[2020-11-01] MEDS: INSULIN ASPART (NovoLOG) 100 UNIT/ML VIAL SQ SCH ×4 (08:30→21:15)
[2020-11-01 11:46] LABS: Glucose,Whole Blood 153 mg/dL (75-99)
[2020-11-01] MEDS ORDERED: FUROSEMIDE 10 MG/ML 2 ML VIAL IV STA (12:14)
[2020-11-01] MEDS: ZINC SULFATE 220 MG CAP PO SCH (12:44)
[2020-11-01] MEDS: NON FORMULARY DRUG (Liraglutide [Victoza 2-Pak] 0.6 MG/0.1 ML Pen.Injctr) PO SCH (13:43)
--- NOTE | 2020-11-01 13:58 | P.PN ---
Subjective Progress Note Date: 11/01/20 Principal diagnosis: COVID-19 pneumonia 49-year-old female patient hospitalized for COVID 19 related pneumonia and a pulmonary consultation was requested. The patient is morbidly obese and she has previous history of coronary artery malformation and migraines. She is diabetic and she has chronic anxiety and depression. Her symptoms started on 10/03/2020 where the patient became fatigued and tired and she was having some body aches and cough and progressively she developed shortness of breath. She got tested on 10/04/2020 and outpatient basis and she checked positive. Following that, the patient was placed on steroids which I believe it was in the form of Decadron. Despite all this, the patient progressed and the patient came into the hospital because of worsening shortness of breath. She was found to be hypoxic and she is currently on 5 L about 2 by nasal cannula with a pulse ox of 88%. Chest x-ray showing diffuse breath and pulmonary infiltrates. The blood work is showing an LDH level of 1445, CRP of 43.6, and a d-dimer of 0.57. Otherwise, the rest of the blood work essentially within normal limits. White cell count at 6.6 with a lymphopenia and a lymphocyte count of 0.9. Coagulation profile is within normal limits. D-dimer is at 0.57. She is currently back on Decadron orally and she is on 5 L of oxygen by nasal cannula. On today's evaluation of 10/16/2020 the patient is on 5 L of oxygen by nasal cannula. She has been ranging between 4 and 6 L during this current hospital stay. She is feeling better. She is still coughing. She has a low-grade fever yesterday. She is pulling around 1500 on his incentive spirometer. Otherwise, the CRP level is at 36, d-dimer is at 1.07. Creatinine is at 0.7. No nausea. No vomiting. No diarrhea. No abdominal pain. No other complaints otherwise for now. The blood culture is showing coagulase-negative staph and the patient was given a dose of vancomycin. The blood cultures are being monitored. Affect irritable cultures are showing staph in the blood which is probably coagulase-negative staph. Both of 4 of the cultures are positive for gram- positive cocci in clusters and the finding cultures sensitivities are still pending for now. 10/17/2020, the patient remains on 5 L of oxygen by nasal cannula. Essentially stable compared to yesterday. He remains on a combination of treatment including Decadron 6 mg IV daily and Lovenox 40 mg subcu every 12 hours. The patient's blood culture was also positive for coagulase-negative staph and this was repeated. The results of this culture were thought to be contaminated. Nevertheless there were 2 of the blood cultures and for that reason we decided to treat this patient with vancomycin. The patient is hemodynamically stable. The patient is afebrile. Clinically the patient was stable. D-dimer was 1.49. LDH is 1469 and the CRP is 86. She is having episodic dry nose and the patient is on oxygen by nasal cannula which is essentially humidified at this point in time. She has no other complaints otherwise for now. Repeat chest x-ray showing worsening in the bilateral patchy pulmonary filtrates compared to the earlier chest x-ray from 10/14/2020 and this was obviously a concern. On 10/18/2020 patient seen in follow-up on medical floor, she is currently on 6 L of oxygen, looks comfortable, she sits up in the chair, no cough, no chest pain, no hemoptysis, repeat blood cultures have shown no growth thus far, final cultures are pending, patient had 2 previous blood cultures with coagulase- negative staph and she remains on vancomycin, vital signs have been stable, she has been afebrile, follow-up chest x-ray today shows persistent bilateral multifocal confluent opacities consistent with COVID-19 infection, stable in appearance. Today's follow-up labs showed d-dimer 1.88, LDH 1509, and CRP is 13.3. She had no acute events overnight On 10/19/2020 patient seen in follow-up on medical surgical floor, she sits up in the chair, she is currently on 6 L per high flow oxygen, her pulse ox is 90%, she still coughing, but overall she states she feels that she is doing better, follow blood cultures so far have been negative, she is working on her incentive spirometer she is achieving 1999, today's labs have been reviewed, showing white blood cell count is 60.4, hemoglobin of 12, d-dimer is trending down and is down to 1.19, sodium is 133,electrolytes and renal profile were unremarkable, LDH is trending today's labs, and is up to 1356, CRP is low at 0.5. no chest discomfort, breathing comfortably, tolerating oral intake. On 10/20/2020 patient seen in follow-up on medical surgical floor, she remains on 6 L of oxygen, her pulse ox was 90%, she looks very comfortable, she sits up in the recliner, she is eating lunch, vital signs have been stable, breathing appears to be nonlabored, she does desaturate with exertion. Today's chest x- ray shows persistent bilateral multifocal confluent opacities consistent with COVID-19 infection with no significant change from previous chest x-ray, today's labs have been noted, d-dimer 3.55, creatinine is 0.6, LDH is improving, and is down to 583 from 2040, and CRP is improving as well and is at 8.1 on today's labs, Procan was negative at 0.10. Patient remains on vancomycin, and her follow blood cultures have been negative, 2 blood cultures from 10/14/2020 sh owed a coagulase-negative staph. Final cultures are pending, vital signs have been stable, patient has had no fever or chills, no altered mentation. On 10/21/2000 patient seen in follow-up on medical floor, her oxygen requirements have increased, she is currently on 15 L high flow and 100% nonrebr eather, her pulse ox is 94%, she feels like she is more short of breath on today's exam as well, easily desaturates. He is afebrile, remains on vancomycin, however follow-up blood cultures have shown no growth, previous blood cultures have shown an today's negative staph likely related to contamina tion, we'll stop her vancomycin, today's labs have been reviewed. Showing normal creatinine of 0.54, yesterday's labs showed a trending d-dimer up to 3.55, and improving inflammatory markers, echocardiogram was performed today showing EF of 55-60%, and this was a difficult study and the valves were not well visualized. The patient has been afebrile, still level is negative at 0.10, and we will discontinue the vancomycin. Her chest x-ray findings show persistent bilateral multifocal confluent opacities, without major change from the earlier On 10/22/2020 patient seen in follow-up on medical surgical floor, today her oxygen requirements have increased, and she was placed on Airvo at 60 L and FiO2 of 90%, and her pulse ox is between 87-90%, she seems to be breathing comfortably on the Airvo settings, and patient is repositioning self in bed, does not appear to be in any respiratory distress, does not appear to have increased work of breathing, she is afebrile, hemodynamically she stable, no new chest x-ray today, today's blood work shows d-dimer of 2.33, improved from yesterday, white blood cell count is 13, hemoglobin is 12.9, no inflammatory markers, she status post Tocilizumab yesterday for worsening hypoxia, and patient received 800 mg times one dose, and currently her Decadron is at 6 mg twice daily, and Lovenox at prophylactic dose. Follow-up blood cultures have remained negative, no recurrence of fever. Vancomycin has been discontinued On 10/23/2020 patient seen in follow-up on medical surgical floor, continues on Airvo currently at 60 L and FiO2 of 80% in addition to 100% nonrebreather mask, and her pulse ox is between 87-88%, no worsening dyspnea, she is afebrile, hemodynamically stable, does not appear to be in any respiratory distress, today's chest x-ray shows diffuse airspace infiltrates with mild interval improvement. Vancomycin has been discontinued, she has had no fever or chills, follow blood cultures have been negative, she continues on twice daily dose of IV Decadron, and Lovenox currently at 40 mg daily. D-dimer today is 2.06, electrolytes and renal profile are unremarkable, her some inflammatory markers show increasing the LDH up to 1522, and CRP is 5.6, pro-calcitonin level was negative at 0.08. No acute events overnight On 10/24/2020 patient seen in follow-up on medical surgical floor. She remains on Airvo at 60 L and FiO2 of 80%, in addition to nonrebreather mask, she sat 92- 95%, appears to be breathing comfortably, she sits up in the chair, she is afebrile, hemodynamically patient is stable, she is awake and alert, oriented 3, yesterday's chest x-ray shows diffuse infiltrates. Continues on Decadron, multiple vitamins daily Lovenox. On 10/25/2020 patient seen in follow-up on medical surgical floor, she remains on Airvo, currently 60 L and FiO2 of 85%, she is off the additional known arrhythmias, she is maintaining O2 saturations at around 94-95%, she is up in the chair, appears to be breathing comfortably, occasional cough, no chest discomfort, she is afebrile, no new chest x-ray toda. No new labs. She rem ains on Lovenox 40 mg daily, and Decadron 6 mg twice daily, no acute events overnight, On 10/27/2020 patient seen in follow-up on medical surgical floor, she is currently awake and alert, she is up in the chair, she is on 10 L per high flow nasal cannula her pulse ox is 93%, she is breathing comfortably, she is not utilizing 100% nonrebreather mask, seems to be doing better, tolerating oral intake, no nausea vomiting or diarrhea, no fever or chills, no new chest x-ray. Yesterday's labs have been reviewed, d-dimer is trending down and was down to 1.45, electrolytes were unremarkable, renal profile was within normal limits, CBC was noted, inflammatory markers were improving On 10/28/2020 patient seen in follow-up on medical surgical floor, doing well, FiO2 is currently down to 9 L, her pulse ox is 90%, breathing comfortably, although she does still desaturate quite easily with any exertion, lasting patient try to sleep in her bed and desatted quite significantly to 64%, and it took a while to recover, and patient went back to sleep in the chair, she has been getting up to the bedside commode, tolerates it well. Overall he has been able to come down on the oxygen requirement, no new chest x-ray today, today's labs have been reviewed showing white blood cell count of 10.73, hemoglobin is 13.4, electrolytes and renal profile are unremarkable. On 10/29/2020 patient seen in follow-up on medical surgical floor, she is currently on his oxygen, her pulse ox is 92%, she states her pulse ox does drop when she goes to use the bedside commode, she does become dyspneic, but recovers , her FiO2 is further drop to 8 L, and patient is maintaining saturations above 90%, appears fairly comfortable at rest, no acute events overnight, no fever or chills, vital signs have been stable. No nausea vomiting or diarrhea. Today's labs have been noted On 10/30/2020 patient seen in follow-up on medical surgical floor, she sits up in the recliner, she is currently down to 8 L, she is satting about 92%, her FiO2 was further decreased to 6 L, patient still complains that she gets worn out just going to the bathroom, but at rest feeling well, breathing comfortably, has had no fever or chills, no acute events overnight, tolerating oral intake, no new chest x-rays today, no new labs, and patient continues on Decadron 6 mg twice daily, and Lovenox 40 mg daily. On 10/31/2020 patient seen in follow-up on medical surgical floor. She is currently down to 5 L of oxygen per pulse ox is around 91%, breathing much more comfortably, states she has used the nasal saline for a 4 hours yesterday and that helped her clear her sinuses, feels much better, breathing easier, she is afebrile, vital signs have been stable. She does desaturate in takes her a while to recover, however she is tolerating activity better, she was able to get in the shower today, she was able to go back in the bathroom and brush her teeth after a period of recovery. She thinks she could is not 24 hours inpatient t reatment to make sure she is ready for discharge. Overall she is improving. On 11/01/2020 patient seen in follow-up on medical surgical floor, she is currently down to 4 L of oxygen, her pulse ox is 96-98%, and FiO2 was further cut back to 2 L, she is breathing much easier, her is much improved, and exertional edema are improved, but she is complaining of some residual mild cough, and mild lower extremity edema, and we will give her a dose of Lasix today. We will switch the IV Decadron to oral Decadron, and will continue with prophylactic dose of Lovenox. No acute events overnight. No new chest x-ray, no new labs, clinically patient is improving Objective - Vital Signs Vital signs: Vital Signs Temp 97.7 F 11/01/20 10:00 Pulse 65 11/01/20 10:00 Resp 22 11/01/20 10:00 BP 113/70 11/01/20 10:00 Pulse Ox 96 11/01/20 12:14 Intake & Output 10/31/20 11/01/20 11/01/20 18:59 06:59 18:59 Other: Voiding Method Bedside Commode Bedside Commode # Voids 4 1 - Exam GENERAL EXAM: Alert, very pleasant, obese 49-year-old white female, on 3 L of oxygen, with pulse ox of 96% patient seems comfortable in no apparent distress. HEAD: Normocephalic/atraumatic. EYES: Normal reaction of pupils, equal size. Conjunctiva pink, sclera white. NOSE: Clear with pink turbinates. THROAT: No erythema or exudates. NECK: No masses, no JVD, no thyroid enlargement, no adenopathy. CHEST: No chest wall deformity. Symmetrical expansion. LUNGS: Equal air entry with bibasilar crackles CVS: Regular rate and rhythm, normal S1 and S2, no gallops, no murmurs, no rubs ABDOMEN: Soft, nontender. No hepatosplenomegaly, normal bowel sounds, no guarding or rigidity. EXTREMITIES: No clubbing, mild pretibial edema no cyanosis, 2+ pulses and upper and lower extremities. MUSCULOSKELETAL: Muscle strength and tone normal. SPINE: No scoliosis or deformity SKIN: No rashes CENTRAL NERVOUS SYSTEM: Alert and oriented -3. No focal deficits, tone is normal in all 4 extremities. PSYCHIATRIC: Alert and oriented -3. Appropriate affect. Intact judgment and insight. - Labs CBC & Chem 7: 10/29/20 07:07 10/29/20 07:07 Labs: Abnormal Lab Results - Last 24 Hours (Table) 10/31/20 10/31/20 11/01/20 Range/Units 16:52 20:27 07:36 POC Glucose (mg/dL) 170 H 263 H 159 H (75-99) mg/dL 11/01/20 Range/Units 11:42 POC Glucose (mg/dL) 153 H (75-99) mg/dL Assessment and Plan Plan: 1 acute bilateral COVID 19 related pneumonia. The patient symptoms started on 10/03/2020. The patient checked positive on 10/04/2020. The patient was luis m joanna with Decadron on outpatient basis. The patient's presented with worsening shortness of breath and bilateral pneumonia. Patient was irritable, currently down to 9 L per high flow nasal cannula with pulse ox of 92% 2 acute hypoxic respiratory failure currently on Airvo. D-dimer is low. Pulmo nary embolism is unlikely.d-dimer is low at this point in time. The LDH level continues to be quite elevated. Patient's oxygenation has worsened, and on 10/22/2019 patient received Toci 800 mg ivpb 3 obesity with a BMI of 48.6 4 chronic bronchial asthma currently inactive in stable 5 diabetes mellitus 6 coronary artery malformation 7 migraine headaches 8 chronic neck and back pain related to herniated disc disease 9 coagulase-negative staph in the blood, likely contaminant. Nevertheless this was cultured and 2 out of 4 blood cultures. Monitor cultures will be repeated and the patient was given vancomycin. Plan: FiO2 has been further cut back to 2 L, Patient is maintaining O2 saturations above 90%, Worsening dyspnea Complaining of some mild lower extremity edema we'll give 1 dose of Lasix Continue weaning oxygen, we'll switch the Decadron to oral Decadron continue Lovenox From pulmonary perspective she can be considered for discharge home today or tomorrow I performed a history & physical examination of the patient and discussed their management with my nurse practitioner, Elinor Dobbs. I reviewed the nurse practitioner's note and agree with the documented findings and plan of care. Lung sounds are positive for diminished breath sounds with bibasilar crackles. The findings and the impression was discussed with the patient. I attest to the documentation by the nurse practitioner. Time with Patient: Less than 30
[2020-11-01 14:50] LABS: Hemoglobin A1C 6.9 % (4.0-6.0)
--- NOTE | 2020-11-01 17:16 | P.PN ---
Progress Note - Text Progress Note Date: 11/01/20 Chief Complaint: Short of breath History of presenting complaint: This is a pleasant 49-year-old patient of Dr. Logan Silva. Chronic stable medical conditions include [place] Chiari malformation of the brain, asthma, herniated disc in the back and neck, with pain anxiety depression, GERD, diabetes type 2. Patient around October started getting symptoms that included headache cough progressive shortness of breath diarrhea had fever and chills body aches. She did come back positive for COVID 19 on the fourth. Since symptoms have been progressive she came down to the ER. Initial pulse ox was 88% on 5 L. Admitted with bilateral COVID 19 pneumonia, acute hypoxic respiratory failure. Initially put on 5 L of nasal cannula. Started on Decadron and Lovenox. Blood cultures 2 sets positive for coagulase-negative staph hence vancomycin . Home oxygen requirement is slowly gone up. Subsequently patient started to turn around. Today: Patient is ambulating the room with nasal cannula. Oral intake fair. Down to 4 L nasal cannula. Review of systems: Was done for constitutional, cardiovascular, GI, pulmonary. relevant finding as above Active Medications Acetaminophen (Acetaminophen Tab 500 Mg Tab) 1,000 mg PO Q6HR PRN PRN Reason: Fever and/ or Pain Last Admin: 10/31/20 15:53 Dose: 1,000 mg Documented by: Albuterol Sulfate (Albuterol Hfa Inhaler) 2 puff INHALATION RT-Q4H PRN PRN Reason: Shortness Of Breath Last Admin: 11/01/20 15:40 Dose: 2 puff Documented by: Ascorbic Acid (Ascorbic Acid 500 Mg Tab) 1,000 mg PO DAILY [facility] Last Admin: 11/01/20 08:29 Dose: 1,000 mg Documented by: Cholecalciferol (Cholecalciferol 25 Mcg (1000 Iu) Tablet) 100 mcg PO DAILY [facility] Last Admin: 11/01/20 08:29 Dose: 100 mcg Documented by: Dexamethasone (Dexamethasone 2 Mg Tab) 6 mg PO DAILY [facility] Enoxaparin Sodium (Enoxaparin 40 Mg/0.4 Ml Syringe) 40 mg SQ DAILY [facility] Last Admin: 11/01/20 08:30 Dose: 40 mg Documented by: Famotidine (Famotidine 20 Mg Tab) 20 mg PO BID [facility] Last Admin: 11/01/20 08:29 Dose: 20 mg Documented by: Insulin Aspart (Insulin Aspart (Novolog) 100 Unit/Ml Vial) 0 unit SQ ACHS [facility]; Protocol Last Admin: 11/01/20 12:44 Dose: 2 unit Documented by: Loratadine (Loratadine 10 Mg Tab) 10 mg PO DAILY PRN PRN Reason: Allergy Symptoms Last Admin: 10/30/20 07:38 Dose: 10 mg Documented by: Non-Formulary Medication (Liraglutide [Victoza 2-Primitivo]) 0.6 mg PO DAILY [facility] Last Admin: 11/01/20 13:43 Dose: Not Given Documented by: Ondansetron HCl (Ondansetron 4 Mg/2 Ml Vial) 4 mg IVP Q8HR PRN PRN Reason: Nausea And Vomiting Last Admin: 10/16/20 09:41 Dose: 4 mg Documented by: Pseudoephedrine HCl (Pseudoephedrine 30 Mg Tab) 30 mg PO DAILY PRN PRN Reason: Nasal Congestion Last Admin: 10/27/20 22:08 Dose: 30 mg Documented by: Sodium Chloride (Sodium Chloride 0.65% Nasal [place] 44 Ml Btl) 2 spray NASAL QID PRN PRN Reason: Dry Nasal Passages Last Admin: 10/18/20 11:29 Dose: 2 spray Documented by: Sumatriptan Succinate (Sumatriptan Succinate 50 Mg Tab) 100 mg PO DAILY PRN PRN Reason: Migraine Headache Zinc Sulfate (Zinc Sulfate 220 Mg Cap) 220 mg PO DAILY [facility] Last Admin: 11/01/20 12:44 Dose: 220 mg Documented by: Past medical history to include: Asthma, but Chiari malformation, migraines, herniated disc with back and neck pain, diabetes mellitus type 2, anxiety depression Social history: Patient smoked up one pack a week for about 10 years stopped over 20 years ago. Does occasional marijuana Gummi's and CBD oil. Lives with her boyfriend. Family history: Reviewed, noncontributory to presentation Physical examination: VITAL SIGNS: 97.7, 65, 22, 113/70, 96% on 4 L GENERAL: Sitting in a chair, awake LUNGS:[ Respiratory rate increased; PSYCH: [Alert and oriented x3; mood and affect normal NEUROLOGICAL: Cranial nerves grossly intact; no facial asymmetry, moving all 4 limbs. Rest of the exam as per pulmonary nursing INVESTIGATIONS, reviewed in the clinical context: Christine 28: D-dimer 1.24 CRP is less than 0.4 2-D echocardiogram: EF 55/60%. No thrombus/vegetation reported October 15: D-dimer 0.57 LDH 1445 CRP 43.6 WBC 6.6 hemoglobin 14.9 platelets 250 lymphocyte 0.9 d-dimer 0.56 potassium 4.2 creatinine 0.59 AST 70 ALT 53 CRP 64 Coronavirus [PCR]-detected EKG tracing personally reviewed by me-normal sinus rhythm Chest x-ray film personally reviewed by me-bilateral diffuse infiltrates Hepatic ultrasound: Heterogenous hyperechoic appearance possibly from fatty liver Assessment and plan: -Acute bilateral COVID 19 pneumonia with symptoms starting about 10 days before- improving On IV Decadron, subcu Lovenox, vitamin C vitamin D zinc and Pepcid. -Acute hypoxic respiratory failure from COVID 19 -improving slowly 4 L - oxygen -Morbid obesity BMI 48.6 For weight loss measures and follow-up with PCP upon discharge -Diabetes mellitus type 2, uncontrolled with hyperglycemia Follow Accu-Cheks -GERD Continue with omeprazole -Chronic neck and back pain from arthralgia Tylenol when necessary -Nonspecific hepatitis, likely from nonalcoholic fatty liver disease Follow with GI as an outpatient -Coagulase-negative staph in 2 sets of blood cultures on October 14 as decision made by pulmonary to treat with IV vancomycin./Sepsis Completed course . Discussed with patient. Decrease FiO2. Possible discharge in next 24 hours
[2020-11-01 17:38] LABS: Glucose,Whole Blood 174 mg/dL (75-99)
[2020-11-01 21:04] LABS: Glucose,Whole Blood 146 mg/dL (75-99)
[2020-11-02] MEDS: NON FORMULARY DRUG (Liraglutide [Victoza 2-Pak] 0.6 MG/0.1 ML Pen.Injctr) PO SCH (06:35)
[2020-11-02 07:08] LABS: Glucose,Whole Blood 106 mg/dL (75-99)
[2020-11-02] MEDS: INSULIN ASPART (NovoLOG) 100 UNIT/ML VIAL SQ SCH ×4 (07:28→20:48)
[2020-11-02] MEDS: ZINC SULFATE 220 MG CAP PO SCH (07:33)
[2020-11-02] MEDS: dexAMETHasone 2 MG TAB PO SCH (07:33)
[2020-11-02] MEDS: CHOLECALCIFEROL 25 MCG (1000 IU) TABLET PO SCH (07:34)
[2020-11-02] MEDS: ASCORBIC ACID 500 MG TAB PO SCH (07:34)
[2020-11-02] MEDS: ENOXAPARIN 40 MG/0.4 ML SYRINGE SQ SCH (07:34)
[2020-11-02] MEDS: FAMOTIDINE 20 MG TAB PO SCH ×2 (07:34→20:48)
[2020-11-02] MEDS: ALBUTEROL HFA INHALER INHALATION PRN ×2 (11:28→16:44)
[2020-11-02 11:55] LABS: Glucose,Whole Blood 188 mg/dL (75-99)
[2020-11-02] MEDS: NYSTATIN 100,000 UNIT/GM POWD 15 GM TOPICAL SCH ×2 (12:12→20:48)
--- NOTE | 2020-11-02 14:16 | P.PN ---
Subjective Progress Note Date: 11/02/20 Principal diagnosis: COVID-19 pneumonia 49-year-old female patient hospitalized for COVID 19 related pneumonia and a pulmonary consultation was requested. The patient is morbidly obese and she has previous history of coronary artery malformation and migraines. She is diabetic and she has chronic anxiety and depression. Her symptoms started on 10/03/2020 where the patient became fatigued and tired and she was having some body aches and cough and progressively she developed shortness of breath. She got tested on 10/04/2020 and outpatient basis and she checked positive. Following that, the patient was placed on steroids which I believe it was in the form of Decadron. Despite all this, the patient progressed and the patient came into the hospital because of worsening shortness of breath. She was found to be hypoxic and she is currently on 5 L about 2 by nasal cannula with a pulse ox of 88%. Chest x-ray showing diffuse breath and pulmonary infiltrates. The blood work is showing an LDH level of 1445, CRP of 43.6, and a d-dimer of 0.57. Otherwise, the rest of the blood work essentially within normal limits. White cell count at 6.6 with a lymphopenia and a lymphocyte count of 0.9. Coagulation profile is within normal limits. D-dimer is at 0.57. She is currently back on Decadron orally and she is on 5 L of oxygen by nasal cannula. On today's evaluation of 10/16/2020 the patient is on 5 L of oxygen by nasal cannula. She has been ranging between 4 and 6 L during this current hospital stay. She is feeling better. She is still coughing. She has a low-grade fever yesterday. She is pulling around 1500 on his incentive spirometer. Otherwise, the CRP level is at 36, d-dimer is at 1.07. Creatinine is at 0.7. No nausea. No vomiting. No diarrhea. No abdominal pain. No other complaints otherwise for now. The blood culture is showing coagulase-negative staph and the patient was given a dose of vancomycin. The blood cultures are being monitored. Affect irritable cultures are showing staph in the blood which is probably coagulase-negative staph. Both of 4 of the cultures are positive for gram- positive cocci in clusters and the finding cultures sensitivities are still pending for now. 10/17/2020, the patient remains on 5 L of oxygen by nasal cannula. Essentially stable compared to yesterday. He remains on a combination of treatment including Decadron 6 mg IV daily and Lovenox 40 mg subcu every 12 hours. The patient's blood culture was also positive for coagulase-negative staph and this was repeated. The results of this culture were thought to be contaminated. Nevertheless there were 2 of the blood cultures and for that reason we decided to treat this patient with vancomycin. The patient is hemodynamically stable. The patient is afebrile. Clinically the patient was stable. D-dimer was 1.49. LDH is 1469 and the CRP is 86. She is having episodic dry nose and the patient is on oxygen by nasal cannula which is essentially humidified at this point in time. She has no other complaints otherwise for now. Repeat chest x-ray showing worsening in the bilateral patchy pulmonary filtrates compared to the earlier chest x-ray from 10/14/2020 and this was obviously a concern. On 10/18/2020 patient seen in follow-up on medical floor, she is currently on 6 L of oxygen, looks comfortable, she sits up in the chair, no cough, no chest pain, no hemoptysis, repeat blood cultures have shown no growth thus far, final cultures are pending, patient had 2 previous blood cultures with coagulase- negative staph and she remains on vancomycin, vital signs have been stable, she has been afebrile, follow-up chest x-ray today shows persistent bilateral multifocal confluent opacities consistent with COVID-19 infection, stable in appearance. Today's follow-up labs showed d-dimer 1.88, LDH 1509, and CRP is 13.3. She had no acute events overnight On 10/19/2020 patient seen in follow-up on medical surgical floor, she sits up in the chair, she is currently on 6 L per high flow oxygen, her pulse ox is 90%, she still coughing, but overall she states she feels that she is doing better, follow blood cultures so far have been negative, she is working on her incentive spirometer she is achieving 1999, today's labs have been reviewed, showing white blood cell count is 60.4, hemoglobin of 12, d-dimer is trending down and is down to 1.19, sodium is 133,electrolytes and renal profile were unremarkable, LDH is trending today's labs, and is up to 1356, CRP is low at 0.5. no chest discomfort, breathing comfortably, tolerating oral intake. On 10/20/2020 patient seen in follow-up on medical surgical floor, she remains on 6 L of oxygen, her pulse ox was 90%, she looks very comfortable, she sits up in the recliner, she is eating lunch, vital signs have been stable, breathing appears to be nonlabored, she does desaturate with exertion. Today's chest x- ray shows persistent bilateral multifocal confluent opacities consistent with COVID-19 infection with no significant change from previous chest x-ray, today's labs have been noted, d-dimer 3.55, creatinine is 0.6, LDH is improving, and is down to 583 from 2040, and CRP is improving as well and is at 8.1 on today's labs, Procan was negative at 0.10. Patient remains on vancomycin, and her follow blood cultures have been negative, 2 blood cultures from 10/14/2020 sh owed a coagulase-negative staph. Final cultures are pending, vital signs have been stable, patient has had no fever or chills, no altered mentation. On 10/21/2000 patient seen in follow-up on medical floor, her oxygen requirements have increased, she is currently on 15 L high flow and 100% nonrebr eather, her pulse ox is 94%, she feels like she is more short of breath on today's exam as well, easily desaturates. He is afebrile, remains on vancomycin, however follow-up blood cultures have shown no growth, previous blood cultures have shown an today's negative staph likely related to contamina tion, we'll stop her vancomycin, today's labs have been reviewed. Showing normal creatinine of 0.54, yesterday's labs showed a trending d-dimer up to 3.55, and improving inflammatory markers, echocardiogram was performed today showing EF of 55-60%, and this was a difficult study and the valves were not well visualized. The patient has been afebrile, still level is negative at 0.10, and we will discontinue the vancomycin. Her chest x-ray findings show persistent bilateral multifocal confluent opacities, without major change from the earlier On 10/22/2020 patient seen in follow-up on medical surgical floor, today her oxygen requirements have increased, and she was placed on Airvo at 60 L and FiO2 of 90%, and her pulse ox is between 87-90%, she seems to be breathing comfortably on the Airvo settings, and patient is repositioning self in bed, does not appear to be in any respiratory distress, does not appear to have increased work of breathing, she is afebrile, hemodynamically she stable, no new chest x-ray today, today's blood work shows d-dimer of 2.33, improved from yesterday, white blood cell count is 13, hemoglobin is 12.9, no inflammatory markers, she status post Tocilizumab yesterday for worsening hypoxia, and patient received 800 mg times one dose, and currently her Decadron is at 6 mg twice daily, and Lovenox at prophylactic dose. Follow-up blood cultures have remained negative, no recurrence of fever. Vancomycin has been discontinued On 10/23/2020 patient seen in follow-up on medical surgical floor, continues on Airvo currently at 60 L and FiO2 of 80% in addition to 100% nonrebreather mask, and her pulse ox is between 87-88%, no worsening dyspnea, she is afebrile, hemodynamically stable, does not appear to be in any respiratory distress, today's chest x-ray shows diffuse airspace infiltrates with mild interval improvement. Vancomycin has been discontinued, she has had no fever or chills, follow blood cultures have been negative, she continues on twice daily dose of IV Decadron, and Lovenox currently at 40 mg daily. D-dimer today is 2.06, electrolytes and renal profile are unremarkable, her some inflammatory markers show increasing the LDH up to 1522, and CRP is 5.6, pro-calcitonin level was negative at 0.08. No acute events overnight On 10/24/2020 patient seen in follow-up on medical surgical floor. She remains on Airvo at 60 L and FiO2 of 80%, in addition to nonrebreather mask, she sat 92- 95%, appears to be breathing comfortably, she sits up in the chair, she is afebrile, hemodynamically patient is stable, she is awake and alert, oriented 3, yesterday's chest x-ray shows diffuse infiltrates. Continues on Decadron, multiple vitamins daily Lovenox. On 10/25/2020 patient seen in follow-up on medical surgical floor, she remains on Airvo, currently 60 L and FiO2 of 85%, she is off the additional known arrhythmias, she is maintaining O2 saturations at around 94-95%, she is up in the chair, appears to be breathing comfortably, occasional cough, no chest discomfort, she is afebrile, no new chest x-ray toda. No new labs. She rem ains on Lovenox 40 mg daily, and Decadron 6 mg twice daily, no acute events overnight, On 10/27/2020 patient seen in follow-up on medical surgical floor, she is currently awake and alert, she is up in the chair, she is on 10 L per high flow nasal cannula her pulse ox is 93%, she is breathing comfortably, she is not utilizing 100% nonrebreather mask, seems to be doing better, tolerating oral intake, no nausea vomiting or diarrhea, no fever or chills, no new chest x-ray. Yesterday's labs have been reviewed, d-dimer is trending down and was down to 1.45, electrolytes were unremarkable, renal profile was within normal limits, CBC was noted, inflammatory markers were improving On 10/28/2020 patient seen in follow-up on medical surgical floor, doing well, FiO2 is currently down to 9 L, her pulse ox is 90%, breathing comfortably, although she does still desaturate quite easily with any exertion, lasting patient try to sleep in her bed and desatted quite significantly to 64%, and it took a while to recover, and patient went back to sleep in the chair, she has been getting up to the bedside commode, tolerates it well. Overall he has been able to come down on the oxygen requirement, no new chest x-ray today, today's labs have been reviewed showing white blood cell count of 10.73, hemoglobin is 13.4, electrolytes and renal profile are unremarkable. On 10/29/2020 patient seen in follow-up on medical surgical floor, she is currently on his oxygen, her pulse ox is 92%, she states her pulse ox does drop when she goes to use the bedside commode, she does become dyspneic, but recovers , her FiO2 is further drop to 8 L, and patient is maintaining saturations above 90%, appears fairly comfortable at rest, no acute events overnight, no fever or chills, vital signs have been stable. No nausea vomiting or diarrhea. Today's labs have been noted On 10/30/2020 patient seen in follow-up on medical surgical floor, she sits up in the recliner, she is currently down to 8 L, she is satting about 92%, her FiO2 was further decreased to 6 L, patient still complains that she gets worn out just going to the bathroom, but at rest feeling well, breathing comfortably, has had no fever or chills, no acute events overnight, tolerating oral intake, no new chest x-rays today, no new labs, and patient continues on Decadron 6 mg twice daily, and Lovenox 40 mg daily. On 10/31/2020 patient seen in follow-up on medical surgical floor. She is currently down to 5 L of oxygen per pulse ox is around 91%, breathing much more comfortably, states she has used the nasal saline for a 4 hours yesterday and that helped her clear her sinuses, feels much better, breathing easier, she is afebrile, vital signs have been stable. She does desaturate in takes her a while to recover, however she is tolerating activity better, she was able to get in the shower today, she was able to go back in the bathroom and brush her teeth after a period of recovery. She thinks she could is not 24 hours inpatient t reatment to make sure she is ready for discharge. Overall she is improving. On 11/01/2020 patient seen in follow-up on medical surgical floor, she is currently down to 4 L of oxygen, her pulse ox is 96-98%, and FiO2 was further cut back to 2 L, she is breathing much easier, her is much improved, and exertional edema are improved, but she is complaining of some residual mild cough, and mild lower extremity edema, and we will give her a dose of Lasix today. We will switch the IV Decadron to oral Decadron, and will continue with prophylactic dose of Lovenox. No acute events overnight. No new chest x-ray, no new labs, clinically patient is improving On 11/02/2020 patient seen in follow-up on medical surgical floor, she is currently down to 2 L of oxygen her pulse ox is 92%, patient has been get not to the bathroom, though has some exertional dyspnea which is improving, she was able to take a shower, tolerated activity fairly well, recovers easier. Last 2 nights she was able to finally sleep in her bed instead of recliner chair. She is afebrile, hemodynamically she stable. Discharged home is anticipated in the next 24 hours Objective - Vital Signs Vital signs: Vital Signs Temp 97.8 F 11/02/20 09:59 Pulse 69 11/02/20 09:59 Resp 18 11/02/20 09:59 BP 100/68 11/02/20 09:59 Pulse Ox 92 L 11/02/20 09:59 Intake & Output 11/01/20 11/02/20 11/02/20 18:59 06:59 18:59 Other: Voiding Method Bedside Commode Bedside Commode # Voids 4 4 - Exam GENERAL EXAM: Alert, very pleasant, obese 49-year-old white female, on 2 L of oxygen, with pulse ox of 92% patient seems comfortable in no apparent distress. HEAD: Normocephalic/atraumatic. EYES: Normal reaction of pupils, equal size. Conjunctiva pink, sclera white. NOSE: Clear with pink turbinates. THROAT: No erythema or exudates. NECK: No masses, no JVD, no thyroid enlargement, no adenopathy. CHEST: No chest wall deformity. Symmetrical expansion. LUNGS: Equal air entry with bibasilar crackles CVS: Regular rate and rhythm, normal S1 and S2, no gallops, no murmurs, no rubs ABDOMEN: Soft, nontender. No hepatosplenomegaly, normal bowel sounds, no guarding or rigidity. EXTREMITIES: No clubbing, mild pretibial edema no cyanosis, 2+ pulses and upper and lower extremities. MUSCULOSKELETAL: Muscle strength and tone normal. SPINE: No scoliosis or deformity SKIN: No rashes CENTRAL NERVOUS SYSTEM: Alert and oriented -3. No focal deficits, tone is normal in all 4 extremities. PSYCHIATRIC: Alert and oriented -3. Appropriate affect. Intact judgment and insight. - Labs CBC & Chem 7: 10/29/20 07:07 10/29/20 07:07 Labs: Abnormal Lab Results - Last 24 Hours (Table) 10/29/20 11/01/20 11/01/20 Range/Units 07:07 17:23 21:02 POC Glucose (mg/dL) 174 H 146 H (75-99) mg/dL Hemoglobin A1c 6.9 H (4.0-6.0) % 11/02/20 11/02/20 Range/Units 07:06 11:53 POC Glucose (mg/dL) 106 H 188 H (75-99) mg/dL Hemoglobin A1c (4.0-6.0) % Assessment and Plan Plan: 1 acute bilateral COVID 19 related pneumonia. The patient symptoms started on 0 10/03/2020. The patient checked positive on 10/04/2020. The patient was treated with Decadron on outpatient basis. The patient's presented with worsening shortness of breath and bilateral pneumonia. Patient was irritable, currently down to 9 L per high flow nasal cannula with pulse ox of 92% 2 acute hypoxic respiratory failure currently on Airvo. D-dimer is low. Pulmonary embolism is unlikely.d-dimer is low at this point in time. The LDH level continues to be quite elevated. Patient's oxygenation has worsened, and on 10/22/2019 patient received Toci 800 mg ivpb 3 obesity with a BMI of 48.6 4 chronic bronchial asthma currently inactive in stable 5 diabetes mellitus 6 coronary artery malformation 7 migraine headaches 8 chronic neck and back pain related to herniated disc disease 9 coagulase-negative staph in the blood, likely contaminant. Nevertheless this was cultured and 2 out of 4 blood cultures. Monitor cultures will be repeated and the patient was given vancomycin. Plan: FiO2 remains at 2 L, and patient is maintaining O2 saturations above 90% Feeling well, no acute events overnight Tolerating ambulation in the room Continue current dose Decadron and Lovenox Anticipate discharge home in the next 24 hours Outpatient follow-up with Dr. Frost in 2 weeks I performed a history & physical examination of the patient and discussed their management with my nurse practitioner, Elinor Dobbs. I reviewed the nurse practitioner's note and agree with the documented findings and plan of care. Lung sounds are positive for diminished breath sounds with bibasilar crackles. The findings and the impression was discussed with the patient. I attest to the documentation by the nurse practitioner. Time with Patient: Less than 30
--- NOTE | 2020-11-02 14:27 | P.PN ---
Progress Note - Text Progress Note Date: 11/02/20 Chief Complaint: Short of breath History of presenting complaint: This is a pleasant 49-year-old patient of Dr. Logan Silva. Chronic stable medical conditions include [place] Chiari malformation of the brain, asthma, herniated disc in the back and neck, with pain anxiety depression, GERD, diabetes type 2. Patient around October started getting symptoms that included headache cough progressive shortness of breath diarrhea had fever and chills body aches. She did come back positive for COVID 19 on the fourth. Since symptoms have been progressive she came down to the ER. Initial pulse ox was 88% on 5 L. Admitted with bilateral COVID 19 pneumonia, acute hypoxic respiratory failure. Initially put on 5 L of nasal cannula. Started on Decadron and Lovenox. Blood cultures 2 sets positive for coagulase-negative staph hence vancomycin . Home oxygen requirement is slowly gone up. Subsequently patient started to turn around. Today: FiO2 down to 2 L. Does get short winded with slow activity. Oral intake good. Up in a chair. Review of systems: Was done for constitutional, cardiovascular, GI, pulmonary. relevant finding as above Active Medications Acetaminophen (Acetaminophen Tab 500 Mg Tab) 1,000 mg PO Q6HR PRN PRN Reason: Fever and/ or Pain Last Admin: 10/31/20 15:53 Dose: 1,000 mg Documented by: Albuterol Sulfate (Albuterol Hfa Inhaler) 2 puff INHALATION RT-Q4H PRN PRN Reason: Shortness Of Breath Last Admin: 11/02/20 11:28 Dose: 2 puff Documented by: Ascorbic Acid (Ascorbic Acid 500 Mg Tab) 1,000 mg PO DAILY [facility] Last Admin: 11/02/20 07:34 Dose: 1,000 mg Documented by: Cholecalciferol (Cholecalciferol 25 Mcg (1000 Iu) Tablet) 100 mcg PO DAILY [facility] Last Admin: 11/02/20 07:34 Dose: 100 mcg Documented by: Dexamethasone (Dexamethasone 2 Mg Tab) 6 mg PO DAILY [facility] Last Admin: 11/02/20 07:33 Dose: 6 mg Documented by: Enoxaparin Sodium (Enoxaparin 40 Mg/0.4 Ml Syringe) 40 mg SQ DAILY [facility] Last Admin: 11/02/20 07:34 Dose: 40 mg Documented by: Famotidine (Famotidine 20 Mg Tab) 20 mg PO BID [facility] Last Admin: 11/02/20 07:34 Dose: 20 mg Documented by: Insulin Aspart (Insulin Aspart (Novolog) 100 Unit/Ml Vial) [address] [facility]; Protocol Last Admin: 11/02/20 12:12 Dose: 5 unit Documented by: Loratadine (Loratadine 10 Mg Tab) 10 mg PO DAILY PRN PRN Reason: Allergy Symptoms Last Admin: 10/30/20 07:38 Dose: 10 mg Documented by: Non-Formulary Medication (Liraglutide [Victoza 2-Primitivo]) 0.6 mg PO DAILY [facility] Last Admin: 11/02/20 06:35 Dose: Not Given Documented by: Nystatin (Nystatin 100,000 Unit/Gm Powd 15 Gm) 1 applic TOPICAL BID [facility] Last Admin: 11/02/20 12:12 Dose: 1 applic Documented by: Ondansetron HCl (Ondansetron 4 Mg/2 Ml Vial) 4 mg IVP Q8HR PRN PRN Reason: Nausea And Vomiting Last Admin: 10/16/20 09:41 Dose: 4 mg Documented by: Pseudoephedrine HCl (Pseudoephedrine 30 Mg Tab) 30 mg PO DAILY PRN PRN Reason: Nasal Congestion Last Admin: 10/27/20 22:08 Dose: 30 mg Documented by: Sodium Chloride (Sodium Chloride 0.65% Nasal [place] 44 Ml Btl) 2 spray NASAL QID PRN PRN Reason: Dry Nasal Passages Last Admin: 10/18/20 11:29 Dose: 2 spray Documented by: Sumatriptan Succinate (Sumatriptan Succinate 50 Mg Tab) 100 mg PO DAILY PRN PRN Reason: Migraine Headache Zinc Sulfate (Zinc Sulfate 220 Mg Cap) 220 mg PO DAILY [facility] Last Admin: 11/02/20 07:33 Dose: 220 mg Documented by: Past medical history to include: Asthma, but Chiari malformation, migraines, herniated disc with back and neck pain, diabetes mellitus type 2, anxiety depression Social history: Patient smoked up one pack a week for about 10 years stopped over 20 years ago. Does occasional marijuana Gummi's and CBD oil. Lives with her boyfriend. Family history: Reviewed, noncontributory to presentation Physical examination: VITAL SIGNS: 97.8, 69, 18, 100/68, 92% on 2 L GENERAL: Sitting in a chair, awake LUNGS:[ Respiratory rate normal PSYCH: [Alert and oriented x3; mood and affect normal NEUROLOGICAL: Cranial nerves grossly intact; no facial asymmetry, moving all 4 limbs. Rest of the exam as per pulmonary nursing INVESTIGATIONS, reviewed in the clinical context: October 29: D-dimer 1.24 CRP is less than 0.4 2-D echocardiogram: EF 55/60%. No thrombus/vegetation reported October 15: D-dimer 0.57 LDH 1445 CRP 43.6 WBC 6.6 hemoglobin 14.9 platelets 250 lymphocyte 0.9 d-dimer 0.56 potassium 4.2 creatinine 0.59 AST 70 ALT 53 CRP 64 Coronavirus [PCR]-detected EKG tracing personally reviewed by me-normal sinus rhythm Chest x-ray film personally reviewed by me-bilateral diffuse infiltrates Hepatic ultrasound: Heterogenous hyperechoic appearance possibly from fatty liver Assessment and plan: -Acute bilateral COVID 19 pneumonia with symptoms starting about 10 days before- improving On IV Decadron, subcu Lovenox, vitamin C vitamin D zinc and Pepcid. -Acute hypoxic respiratory failure from COVID 19 -improving slowly 2 L - oxygen -Morbid obesity BMI 48.6 For weight loss measures and follow-up with PCP upon discharge -Diabetes mellitus type 2, uncontrolled with hyperglycemia Follow Accu-Cheks -GERD Continue with omeprazole -Chronic neck and back pain from arthralgia Tylenol when necessary -Nonspecific hepatitis, likely from nonalcoholic fatty liver disease Follow with GI as an outpatient -Coagulase-negative staph in 2 sets of blood cultures on October 14 as decision made by pulmonary to treat with IV vancomycin./Sepsis Completed course Discussed with the patient. Recheck oxygen with ambulation in the morning. And patient hopefully can be discharged home tomorrow
[2020-11-02 16:57] LABS: Glucose,Whole Blood 136 mg/dL (75-99)
[2020-11-02 20:45] LABS: Glucose,Whole Blood 210 mg/dL (75-99)
[2020-11-03 06:56] LABS: Glucose,Whole Blood 111 mg/dL (75-99)
[2020-11-03] MEDS: INSULIN ASPART (NovoLOG) 100 UNIT/ML VIAL SQ SCH ×2 (07:22→13:37)
[2020-11-03] MEDS: NON FORMULARY DRUG (Liraglutide [Victoza 2-Pak] 0.6 MG/0.1 ML Pen.Injctr) PO SCH (07:22)
[2020-11-03] MEDS: ASCORBIC ACID 500 MG TAB PO SCH (07:43)
[2020-11-03] MEDS: dexAMETHasone 2 MG TAB PO SCH (07:43)
[2020-11-03] MEDS: CHOLECALCIFEROL 25 MCG (1000 IU) TABLET PO SCH (07:44)
[2020-11-03] MEDS: FAMOTIDINE 20 MG TAB PO SCH (07:44)
[2020-11-03] MEDS: ENOXAPARIN 40 MG/0.4 ML SYRINGE SQ SCH (07:44)
[2020-11-03] MEDS: ZINC SULFATE 220 MG CAP PO SCH (07:44)
[2020-11-03] MEDS: NYSTATIN 100,000 UNIT/GM POWD 15 GM TOPICAL SCH (07:52)
[2020-11-03 10:17] VITALS: BP 105/68; PULSE 71; RESP 18; TEMP 98.4
--- NOTE | 2020-11-03 12:12 | P.PN ---
Subjective Progress Note Date: 11/03/20 Principal diagnosis: COVID-19 pneumonia 49-year-old female patient hospitalized for COVID 19 related pneumonia and a pulmonary consultation was requested. The patient is morbidly obese and she has previous history of coronary artery malformation and migraines. She is diabetic and she has chronic anxiety and depression. Her symptoms started on 10/03/2020 where the patient became fatigued and tired and she was having some body aches and cough and progressively she developed shortness of breath. She got tested on 10/04/2020 and outpatient basis and she checked positive. Following that, the patient was placed on steroids which I believe it was in the form of Decadron. Despite all this, the patient progressed and the patient came into the hospital because of worsening shortness of breath. She was found to be hypoxic and she is currently on 5 L about 2 by nasal cannula with a pulse ox of 88%. Chest x-ray showing diffuse breath and pulmonary infiltrates. The blood work is showing an LDH level of 1445, CRP of 43.6, and a d-dimer of 0.57. Otherwise, the rest of the blood work essentially within normal limits. White cell count at 6.6 with a lymphopenia and a lymphocyte count of 0.9. Coagulation profile is within normal limits. D-dimer is at 0.57. She is currently back on Decadron orally and she is on 5 L of oxygen by nasal cannula. On today's evaluation of 10/16/2020 the patient is on 5 L of oxygen by nasal cannula. She has been ranging between 4 and 6 L during this current hospital stay. She is feeling better. She is still coughing. She has a low-grade fever yesterday. She is pulling around 1500 on his incentive spirometer. Otherwise, the CRP level is at 36, d-dimer is at 1.07. Creatinine is at 0.7. No nausea. No vomiting. No diarrhea. No abdominal pain. No other complaints otherwise for now. The blood culture is showing coagulase-negative staph and the patient was given a dose of vancomycin. The blood cultures are being monitored. Affect irritable cultures are showing staph in the blood which is probably coagulase-negative staph. Both of 4 of the cultures are positive for gram- positive cocci in clusters and the finding cultures sensitivities are still pending for now. 10/17/2020, the patient remains on 5 L of oxygen by nasal cannula. Essentially stable compared to yesterday. He remains on a combination of treatment including Decadron 6 mg IV daily and Lovenox 40 mg subcu every 12 hours. The patient's blood culture was also positive for coagulase-negative staph and this was repeated. The results of this culture were thought to be contaminated. Nevertheless there were 2 of the blood cultures and for that reason we decided to treat this patient with vancomycin. The patient is hemodynamically stable. The patient is afebrile. Clinically the patient was stable. D-dimer was 1.49. LDH is 1469 and the CRP is 86. She is having episodic dry nose and the patient is on oxygen by nasal cannula which is essentially humidified at this point in time. She has no other complaints otherwise for now. Repeat chest x-ray showing worsening in the bilateral patchy pulmonary filtrates compared to the earlier chest x-ray from 10/14/2020 and this was obviously a concern. On 10/18/2020 patient seen in follow-up on medical floor, she is currently on 6 L of oxygen, looks comfortable, she sits up in the chair, no cough, no chest pain, no hemoptysis, repeat blood cultures have shown no growth thus far, final cultures are pending, patient had 2 previous blood cultures with coagulase- negative staph and she remains on vancomycin, vital signs have been stable, she has been afebrile, follow-up chest x-ray today shows persistent bilateral multifocal confluent opacities consistent with COVID-19 infection, stable in appearance. Today's follow-up labs showed d-dimer 1.88, LDH 1509, and CRP is 13.3. She had no acute events overnight On 10/19/2020 patient seen in follow-up on medical surgical floor, she sits up in the chair, she is currently on 6 L per high flow oxygen, her pulse ox is 90%, she still coughing, but overall she states she feels that she is doing better, follow blood cultures so far have been negative, she is working on her incentive spirometer she is achieving 1999, today's labs have been reviewed, showing white blood cell count is 60.4, hemoglobin of 12, d-dimer is trending down and is down to 1.19, sodium is 133,electrolytes and renal profile were unremarkable, LDH is trending today's labs, and is up to 1356, CRP is low at 0.5. no chest discomfort, breathing comfortably, tolerating oral intake. On 10/20/2020 patient seen in follow-up on medical surgical floor, she remains on 6 L of oxygen, her pulse ox was 90%, she looks very comfortable, she sits up in the recliner, she is eating lunch, vital signs have been stable, breathing appears to be nonlabored, she does desaturate with exertion. Today's chest x- ray shows persistent bilateral multifocal confluent opacities consistent with COVID-19 infection with no significant change from previous chest x-ray, today's labs have been noted, d-dimer 3.55, creatinine is 0.6, LDH is improving, and is down to 583 from 2040, and CRP is improving as well and is at 8.1 on today's labs, Procan was negative at 0.10. Patient remains on vancomycin, and her follow blood cultures have been negative, 2 blood cultures from 10/14/2020 sh owed a coagulase-negative staph. Final cultures are pending, vital signs have been stable, patient has had no fever or chills, no altered mentation. On 10/21/2000 patient seen in follow-up on medical floor, her oxygen requirements have increased, she is currently on 15 L high flow and 100% nonrebr eather, her pulse ox is 94%, she feels like she is more short of breath on today's exam as well, easily desaturates. He is afebrile, remains on vancomycin, however follow-up blood cultures have shown no growth, previous blood cultures have shown an today's negative staph likely related to contamina tion, we'll stop her vancomycin, today's labs have been reviewed. Showing normal creatinine of 0.54, yesterday's labs showed a trending d-dimer up to 3.55, and improving inflammatory markers, echocardiogram was performed today showing EF of 55-60%, and this was a difficult study and the valves were not well visualized. The patient has been afebrile, still level is negative at 0.10, and we will discontinue the vancomycin. Her chest x-ray findings show persistent bilateral multifocal confluent opacities, without major change from the earlier On 10/22/2020 patient seen in follow-up on medical surgical floor, today her oxygen requirements have increased, and she was placed on Airvo at 60 L and FiO2 of 90%, and her pulse ox is between 87-90%, she seems to be breathing comfortably on the Airvo settings, and patient is repositioning self in bed, does not appear to be in any respiratory distress, does not appear to have increased work of breathing, she is afebrile, hemodynamically she stable, no new chest x-ray today, today's blood work shows d-dimer of 2.33, improved from yesterday, white blood cell count is 13, hemoglobin is 12.9, no inflammatory markers, she status post Tocilizumab yesterday for worsening hypoxia, and patient received 800 mg times one dose, and currently her Decadron is at 6 mg twice daily, and Lovenox at prophylactic dose. Follow-up blood cultures have remained negative, no recurrence of fever. Vancomycin has been discontinued On 10/23/2020 patient seen in follow-up on medical surgical floor, continues on Airvo currently at 60 L and FiO2 of 80% in addition to 100% nonrebreather mask, and her pulse ox is between 87-88%, no worsening dyspnea, she is afebrile, hemodynamically stable, does not appear to be in any respiratory distress, today's chest x-ray shows diffuse airspace infiltrates with mild interval improvement. Vancomycin has been discontinued, she has had no fever or chills, follow blood cultures have been negative, she continues on twice daily dose of IV Decadron, and Lovenox currently at 40 mg daily. D-dimer today is 2.06, electrolytes and renal profile are unremarkable, her some inflammatory markers show increasing the LDH up to 1522, and CRP is 5.6, pro-calcitonin level was negative at 0.08. No acute events overnight On 10/24/2020 patient seen in follow-up on medical surgical floor. She remains on Airvo at 60 L and FiO2 of 80%, in addition to nonrebreather mask, she sat 92- 95%, appears to be breathing comfortably, she sits up in the chair, she is afebrile, hemodynamically patient is stable, she is awake and alert, oriented 3, yesterday's chest x-ray shows diffuse infiltrates. Continues on Decadron, multiple vitamins daily Lovenox. On 10/25/2020 patient seen in follow-up on medical surgical floor, she remains on Airvo, currently 60 L and FiO2 of 85%, she is off the additional known arrhythmias, she is maintaining O2 saturations at around 94-95%, she is up in the chair, appears to be breathing comfortably, occasional cough, no chest discomfort, she is afebrile, no new chest x-ray toda. No new labs. She rem ains on Lovenox 40 mg daily, and Decadron 6 mg twice daily, no acute events overnight, On 10/27/2020 patient seen in follow-up on medical surgical floor, she is currently awake and alert, she is up in the chair, she is on 10 L per high flow nasal cannula her pulse ox is 93%, she is breathing comfortably, she is not utilizing 100% nonrebreather mask, seems to be doing better, tolerating oral intake, no nausea vomiting or diarrhea, no fever or chills, no new chest x-ray. Yesterday's labs have been reviewed, d-dimer is trending down and was down to 1.45, electrolytes were unremarkable, renal profile was within normal limits, CBC was noted, inflammatory markers were improving On 10/28/2020 patient seen in follow-up on medical surgical floor, doing well, FiO2 is currently down to 9 L, her pulse ox is 90%, breathing comfortably, although she does still desaturate quite easily with any exertion, lasting patient try to sleep in her bed and desatted quite significantly to 64%, and it took a while to recover, and patient went back to sleep in the chair, she has been getting up to the bedside commode, tolerates it well. Overall he has been able to come down on the oxygen requirement, no new chest x-ray today, today's labs have been reviewed showing white blood cell count of 10.73, hemoglobin is 13.4, electrolytes and renal profile are unremarkable. On 10/29/2020 patient seen in follow-up on medical surgical floor, she is currently on his oxygen, her pulse ox is 92%, she states her pulse ox does drop when she goes to use the bedside commode, she does become dyspneic, but recovers , her FiO2 is further drop to 8 L, and patient is maintaining saturations above 90%, appears fairly comfortable at rest, no acute events overnight, no fever or chills, vital signs have been stable. No nausea vomiting or diarrhea. Today's labs have been noted On 10/30/2020 patient seen in follow-up on medical surgical floor, she sits up in the recliner, she is currently down to 8 L, she is satting about 92%, her FiO2 was further decreased to 6 L, patient still complains that she gets worn out just going to the bathroom, but at rest feeling well, breathing comfortably, has had no fever or chills, no acute events overnight, tolerating oral intake, no new chest x-rays today, no new labs, and patient continues on Decadron 6 mg twice daily, and Lovenox 40 mg daily. On 10/31/2020 patient seen in follow-up on medical surgical floor. She is currently down to 5 L of oxygen per pulse ox is around 91%, breathing much more comfortably, states she has used the nasal saline for a 4 hours yesterday and that helped her clear her sinuses, feels much better, breathing easier, she is afebrile, vital signs have been stable. She does desaturate in takes her a while to recover, however she is tolerating activity better, she was able to get in the shower today, she was able to go back in the bathroom and brush her teeth after a period of recovery. She thinks she could is not 24 hours inpatient t reatment to make sure she is ready for discharge. Overall she is improving. On 11/01/2020 patient seen in follow-up on medical surgical floor, she is currently down to 4 L of oxygen, her pulse ox is 96-98%, and FiO2 was further cut back to 2 L, she is breathing much easier, her is much improved, and exertional edema are improved, but she is complaining of some residual mild cough, and mild lower extremity edema, and we will give her a dose of Lasix today. We will switch the IV Decadron to oral Decadron, and will continue with prophylactic dose of Lovenox. No acute events overnight. No new chest x-ray, no new labs, clinically patient is improving On 11/02/2020 patient seen in follow-up on medical surgical floor, she is currently down to 2 L of oxygen her pulse ox is 92%, patient has been get not to the bathroom, though has some exertional dyspnea which is improving, she was able to take a shower, tolerated activity fairly well, recovers easier. Last 2 nights she was able to finally sleep in her bed instead of recliner chair. She is afebrile, hemodynamically she stable. Discharged home is anticipated in the next 24 hours On 11/03/2020 patient seen in follow-up on medical surgical floor, she is ambulating in the hallway on oxygen, and she does desaturate to 88% with ambula tion, and she does qualify for home oxygen at 2 L/m. Vital signs have been stable, she is stronger in the feeling better every day, tolerating activity, and today she is tolerating ambulation in the hallway quite well, she is afebrile, vital signs have been stable. Appetite is fair, no nausea vomiting or diarrhea. She remains on oral Decadron 6 mg daily, she is on Lovenox 40 mg daily. No acute events overnight, and discharge home is pending for today Objective - Vital Signs Vital signs: Vital Signs Temp 98.4 F 11/03/20 09:24 Pulse 71 11/03/20 09:24 Resp 18 11/03/20 09:24 BP 105/68 11/03/20 09:24 Pulse Ox 95 11/03/20 09:24 Intake & Output 11/02/20 11/03/20 11/03/20 18:59 06:59 18:59 Intake Total 1200 500 Balance 1200 500 Intake: Oral 1200 500 Other: Voiding Method Bedside Commode # Voids 4 3 - Exam GENERAL EXAM: Alert, very pleasant, obese 49-year-old white female, on 2 L of oxygen, with pulse ox of 92% patient seems comfortable in no apparent distress. HEAD: Normocephalic/atraumatic. EYES: Normal reaction of pupils, equal size. Conjunctiva pink, sclera white. NOSE: Clear with pink turbinates. THROAT: No erythema or exudates. NECK: No masses, no JVD, no thyroid enlargement, no adenopathy. CHEST: No chest wall deformity. Symmetrical expansion. LUNGS: Equal air entry with bibasilar crackles CVS: Regular rate and rhythm, normal S1 and S2, no gallops, no murmurs, no rubs ABDOMEN: Soft, nontender. No hepatosplenomegaly, normal bowel sounds, no guarding or rigidity. EXTREMITIES: No clubbing, mild pretibial edema no cyanosis, 2+ pulses and upper and lower extremities. MUSCULOSKELETAL: Muscle strength and tone normal. SPINE: No scoliosis or deformity SKIN: No rashes CENTRAL NERVOUS SYSTEM: Alert and oriented -3. No focal deficits, tone is normal in all 4 extremities. PSYCHIATRIC: Alert and oriented -3. Appropriate affect. Intact judgment and insight. - Labs CBC & Chem 7: 10/29/20 07:07 10/29/20 07:07 Labs: Abnormal Lab Results - Last 24 Hours (Table) 11/02/20 11/02/20 11/03/20 Range/Units 16:53 20:43 06:54 POC Glucose (mg/dL) 136 H 210 H 111 H (75-99) mg/dL Assessment and Plan Plan: 1 acute bilateral COVID 19 related pneumonia. The patient symptoms started on 10/03/2020. The patient checked positive on 10/04/2020. The patient was treated with Decadron on outpatient basis. The patient's presented with worsening shortness of breath and bilateral pneumonia. Patient was irritable, currently down to 9 L per high flow nasal cannula with pulse ox of 92% 2 acute hypoxic respiratory failure currently on Airvo. D-dimer is low. Pulmonary embolism is unlikely.d-dimer is low at this point in time. The LDH level continues to be quite elevated. Patient's oxygenation has worsened, and on 10/22/2019 patient received Toci 800 mg ivpb 3 obesity with a BMI of 48.6 4 chronic bronchial asthma currently inactive in stable 5 diabetes mellitus 6 coronary artery malformation 7 migraine headaches 8 chronic neck and back pain related to herniated disc disease 9 coagulase-negative staph in the blood, likely contaminant. Nevertheless this was cultured and 2 out of 4 blood cultures. Monitor cultures will be repeated and the patient was given vancomycin. Plan: Patient has been stable, no acute events overnight No fever or chills, she remains on 2 L supplemental oxygen Patient qualified for home oxygen and she does desaturate with ambulation Oxygen has been set up and already delivered to her house She is tolerating ambulation, Discharge home is pending for today Outpatient follow-up with Dr. Daniels in 2 weeks per patient request I performed a history & physical examination of the patient and discussed their management with my nurse practitioner, Elinor Dobbs. I reviewed the nurse practitioner's note and agree with the documented findings and plan of care. Lung sounds are positive for diminished breath sounds with bibasilar crackles. The findings and the impression was discussed with the patient. I attest to the documentation by the nurse practitioner. Time with Patient: Less than 30
[2020-11-03 12:16] LABS: Glucose,Whole Blood 190 mg/dL (75-99)
--- NOTE | 2020-11-03 19:46 | P.DS ---
Providers Date of admission: 10/14/20 14:41 Expected date of discharge: 11/03/20 Attending physician: Catracho Ortega Consults: 10/14/20 14:41 Consult Physician Urgent Consulting Provider: Kavita Daniels Consult Reason/Comments: COVID pneumonia Do you want consulting provider notified?: Yes Primary care physician: Pierce Silva [facility] Course: Chief Complaint: Short of breath History of presenting complaint: This is a pleasant 49-year-old patient of Dr. Logan Silva. Chronic stable medical conditions include [place] Chiari malformation of the brain, asthma, herniated disc in the back and neck, with pain anxiety depression, GERD, diabetes type 2. Patient around October started getting symptoms that included headache cough progressive shortness of breath diarrhea had fever and chills body aches. She did come back positive for COVID 19 on the fourth. Since symptoms have been progressive she came down to the ER. Initial pulse ox was 88% on 5 L. Admitted with bilateral COVID 19 pneumonia, acute hypoxic respiratory failure. Initially put on 5 L of nasal cannula. Started on Decadron and Lovenox. Blood cultures 2 sets positive for coagulase-negative staph hence vancomycin . Home oxygen requirement is slowly gone up. Subsequently patient started to turn around. Improved Today: Sitting up in a chair. At rest 2 L of oxygen. Walking about the room. Oral intake good. Cleared by pulmonary. Care was discussed with the patient. Questions answered. Discussion and discharge planning more than 35 minutes Consultation: Dr. Daniels and colleagues from pulmonary Past medical history to include: Asthma, but Chiari malformation, migraines, herniated disc with back and neck pain, diabetes mellitus type 2, anxiety depression Social history: Patient smoked up one pack a week for about 10 years stopped over 20 years ago. Does occasional marijuana Gummi's and CBD oil. Lives with her boyfriend. Family history: Reviewed, noncontributory to presentation Physical examination: VITAL SIGNS: 97.9, 73, 16, 112/72, 95% on 2 L GENERAL: Sitting in a chair, comfortable LUNGS:[ Respiratory rate normal PSYCH: [Alert and oriented x3; mood and affect normal NEUROLOGICAL: Cranial nerves grossly intact; no facial asymmetry, moving all 4 limbs. Rest of the exam as per pulmonary nursing INVESTIGATIONS, reviewed in the clinical context: October 29: D-dimer 1.24 CRP is less than 0.4 2-D echocardiogram: EF 55/60%. No thrombus/vegetation reported October 15: D-dimer 0.57 LDH 1445 CRP 43.6 WBC 6.6 hemoglobin 14.9 platelets 250 lymphocyte 0.9 d-dimer 0.56 potassium 4.2 creatinine 0.59 AST 70 ALT 53 CRP 64 Coronavirus [PCR]-detected EKG tracing personally reviewed by me-normal sinus rhythm Chest x-ray film personally reviewed by me-bilateral diffuse infiltrates Hepatic ultrasound: Heterogenous hyperechoic appearance possibly from fatty liver Assessment and plan: -Acute bilateral COVID 19 pneumonia with symptoms starting about 10 days before- improving On IV Decadron, subcu Lovenox, vitamin C vitamin D zinc and Pepcid. Discharged home on prednisone taper -Acute hypoxic respiratory failure from COVID 19 -improving 2 L - oxygen -Morbid obesity BMI 48.6 For weight loss measures and follow-up with PCP upon discharge -Diabetes mellitus type 2, uncontrolled with hyperglycemia Follow Accu-Cheks -GERD Continue with omeprazole -Chronic neck and back pain from arthralgia Tylenol when necessary -Nonspecific hepatitis, likely from nonalcoholic fatty liver disease Follow with GI as an outpatient -Coagulase-negative staph in 2 sets of blood cultures on October 14 as decision made by pulmonary to treat with IV vancomycin./Sepsis Completed course Disposition: Home Plan - Discharge Summary Discharge Rx Participant: Yes New Discharge Prescriptions: New Rivaroxaban [Xarelto] 10 mg PO DAILY 30 Days #30 tab Zinc Sulfate [Orazinc] 220 mg PO DAILY #30 cap Ascorbic Acid [Vitamin C] 1,000 mg PO DAILY #30 tab Dexamethasone [Decadron] 6 mg PO DAILY 7 Days #7 tablet Sodium Chloride 0.65% Nasal [Deep Sea (Saline)] 2 spray NASAL QID PRN spray PRN Reason: Dry Nasal Passages predniSONE 10 mg PO DAILY #30 tab Cholecalciferol [Vitamin D3 (25 Mcg = 1000 Iu)] 100 mcg PO DAILY #30 tablet Continue traMADol HCL [Ultram] 50 mg PO Q6HR PRN PRN Reason: Pain Albuterol Inhaler [Ventolin Hfa Inhaler] 2 puff INHALATION RT-Q4H PRN PRN Reason: Shortness Of Breath Rizatriptan Benzoate [Rizatriptan] 10 mg PO DAILY PRN PRN Reason: Migraine Headache Liraglutide [Victoza 2-Primitivo] 0.6 mg PO DAILY Omeprazole 40 mg PO DAILY Albuterol Nebulized [Ventolin Nebulized] 2.5 mg INHALATION RT-Q6H PRN PRN Reason: Shortness Of Breath Discontinued Azithromycin [Zithromax] 500 mg PO DAILY Dexamethasone [Decadron] 6 mg PO DAILY Discharge Medication List Albuterol Inhaler [Ventolin Hfa Inhaler] 2 puff INHALATION RT-Q4H PRN 05/06/20 [History] Rizatriptan Benzoate [Rizatriptan] 10 mg PO DAILY PRN 05/06/20 [History] traMADol HCL [Ultram] 50 mg PO Q6HR PRN 05/06/20 [History] Albuterol Nebulized [Ventolin Nebulized] 2.5 mg INHALATION RT-Q6H PRN 10/14/20 [History] Liraglutide [Victoza 2-Primitivo] 0.6 mg PO DAILY 10/14/20 [History] Omeprazole 40 mg PO DAILY 10/14/20 [History] Dexamethasone [Decadron] 6 mg PO DAILY 7 Days #7 tablet 10/31/20 [Rx] Rivaroxaban [Xarelto] 10 mg PO DAILY 30 Days #30 tab 10/31/20 [Rx] Ascorbic Acid [Vitamin C] 1,000 mg PO DAILY #30 tab 11/03/20 [Rx] Cholecalciferol [Vitamin D3 (25 Mcg = 1000 Iu)] 100 mcg PO DAILY #30 tablet 11/03/20 [Rx] Sodium Chloride 0.65% Nasal [Deep Sea (Saline)] 2 spray NASAL QID PRN spray 11/03/20 [Rx] Zinc Sulfate [Orazinc] 220 mg PO DAILY #30 cap 11/03/20 [Rx] predniSONE 10 mg PO DAILY #30 tab 11/03/20 [Rx] Follow up Appointment(s)/Referral(s): Pierce Silva MD [Primary Care Provider] - 1-2 days (office not answering please call to schedule appointment ) [facility],Equipment [NON-STAFF] - (*[facility] will deliver portable oxyg en to the patient's bedside prior to discharge. Patient to call [facility] IMMEDIATELY once home to arrange delivery of oxygen concentrator. ) Kavita Daniels MD [STAFF PHYSICIAN] - 12/23/20 9:30 am Patient Instructions/Handouts: Coronavirus Disease 2019 (COVID-19) Activity/Diet/Wound Care/Special Instructions: [phone] Discharge Disposition: HOME SELF-CARE
== END 2020-11-03 13:35 | disposition home health service (06) | DRG 177 ==
LOC: EC 09:55 → 4SSUR 14:41
PROVIDERS: ADMIT Hospitalist; ATTEND Hospitalist
PROC: 5A0955A Assistance with Respiratory Ventilation, Greater than 96 Consecutive Hours, High Flow/Velocity Cannula (ICD-10-PCS; 2020-10-18)
PROC: 05HC33Z Insertion of Infusion Device into Left Basilic Vein, Percutaneous Approach (ICD-10-PCS; 2020-10-21)
PROC: XW033H5 Introduction of Tocilizumab into Peripheral Vein, Percutaneous Approach, New Technology Group 5 (ICD-10-PCS; principal; 2020-10-21 16:40)
DX: U07.1 COVID-19 (principal); J12.82 Pneumonia due to coronavirus disease 2019; J96.01 Acute respiratory failure with hypoxia; R78.81 Bacteremia; A08.39 Other viral enteritis; Z68.42 Body mass index [BMI] 45.0-49.9, adult; E66.01 Morbid (severe) obesity due to excess calories; D72.810 Lymphocytopenia; E11.65 Type 2 diabetes mellitus with hyperglycemia; Q07.00 Arnold-Chiari syndrome without spina bifida or hydrocephalus; G43.909 Migraine, unspecified, not intractable, without status migrainosus; K76.0 Fatty (change of) liver, not elsewhere classified; J45.909 Unspecified asthma, uncomplicated; F41.8 Other specified anxiety disorders; G89.29 Other chronic pain; M54.2 Cervicalgia; M54.9 Dorsalgia, unspecified; G47.30 Sleep apnea, unspecified; K21.9 Gastro-esophageal reflux disease without esophagitis; Z79.899 Other long term (current) drug therapy; Z87.891 Personal history of nicotine dependence; Z98.51 Tubal ligation status; Z87.19 Personal history of other diseases of the digestive system; Z87.42 Personal history of other diseases of the female genital tract; Z98.890 Other specified postprocedural states; Z87.81 Personal history of (healed) traumatic fracture; Z87.39 Personal history of other diseases of the musculoskeletal system and connective tissue; Z71.3 Dietary counseling and surveillance
CPT/HCPCS: 36410; 36415; 71045; 76705; 76937; 80048; 80053; 80202; 82565; 82728; 83036; 83605; 83615; 83735; 84145; 85025; 85379; 85610; 85730; 86140; 87040; 87635; 93005; 93306; 94640; 94667; 94668; 94760; 96374; 99285

== ENCOUNTER 2021-03-01 16:13 | Inpatient (IN) | payer OTHER ==
[2021-03-01] MEDS ORDERED: ASPIRIN 81 MG PO STA (16:43)
[2021-03-01] MEDS ORDERED: NITROGLYCERIN OINT 1 INCH/GM PACKET TOPICAL STA (16:43)
--- NOTE | 2021-03-01 16:46 | ED ---
General Adult HPI - General Chief complaint: Chest Pain Stated complaint: chest pain Time Seen by Provider: 03/01/21 16:28 Source: patient, RN notes reviewed Mode of arrival: ambulatory Limitations: no limitations - History of Present Illness Initial comments: Patient is a pleasant 50-year-old female presenting to the emergency department with concerns for chest discomfort. Onset of symptoms was today. Patient has had several episodes of sharp discomfort in her chest. Episodes usually last less than 10 minutes, possibly closer to 5. No associated dyspnea. Patient has been having indigestion. Patient felt sweaty this morning. Currently patient is symptom-free. Patient did have some tingling to her left arm earlier however occasionally gets that chronically secondary to Arnold-Chiari malformation. - Related Data Home Medications Medication Instructions Recorded Confirmed Albuterol Inhaler [Ventolin Hfa 2 puff INHALATION RT-Q4H PRN 05/06/20 10/14/20 Inhaler] Rizatriptan Benzoate [Rizatriptan] 10 mg PO DAILY PRN 05/06/20 10/14/20 traMADol HCL [Ultram] 50 mg PO Q6HR PRN 05/06/20 10/14/20 Albuterol Nebulized [Ventolin 2.5 mg INHALATION RT-Q6H PRN 10/14/20 10/14/20 Nebulized] Liraglutide [Victoza 2-Primitivo] 0.6 mg PO DAILY 10/14/20 10/14/20 Omeprazole 40 mg PO DAILY 10/14/20 10/14/20 Previous Rx's Medication Instructions Recorded Dexamethasone [Decadron] 6 mg PO DAILY 7 Days #7 tablet 10/31/20 Rivaroxaban [Xarelto] 10 mg PO DAILY 30 Days #30 tab 10/31/20 Ascorbic Acid [Vitamin C] 1,000 mg PO DAILY #30 tab 11/03/20 Cholecalciferol [Vitamin D3 (25 100 mcg PO DAILY #30 tablet 11/03/20 Mcg = 1000 Iu)] Sodium Chloride 0.65% Nasal [Deep 2 spray NASAL QID PRN spray 11/03/20 Sea (Saline)] Zinc Sulfate [Orazinc] 220 mg PO DAILY #30 cap 11/03/20 predniSONE 10 mg PO DAILY #30 tab 11/03/20 Allergies Allergy/AdvReac Type Severity Reaction Status Date / Time No Known Allergies Allergy Verified 10/14/20 12:37 Review of Systems ROS Statement: Those systems with pertinent positive or pertinent negative responses have been documented in the HPI. ROS Other: All systems not noted in ROS Statement are negative. 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 History of Any Multi-Drug Resistant Organisms: None Reported Past Surgical History: Hernia Repair, Orthopedic Surgery, Tubal Ligation, Uterine Ablation Additional Past Surgical History / Comment(s): ARTHROSCOPY KNEE, LEFT ANKLE SURGERY X2 FOR X-TRA BONE GROWTH, LEFT FX FIBULA WITH PLATE AND SCREWS, UMBILICAL HERNIA SURGERY (CHILD). Past Anesthesia/Blood Transfusion Reactions: No Reported Reaction Additional Past Anesthesia/Blood Transfusion Reaction / Comment(s): last time she had sx she had a hard time waking up from anethesia Past Psychological History: Anxiety, Depression Smoking Status: Former smoker Past Alcohol Use History: Occasional Past Drug Use History: None Reported - Past Family History Mother Family Medical History: No Reported History General Exam Limitations: no limitations General appearance: alert, in no apparent distress Head exam: Present: normocephalic Eye exam: Present: normal appearance Neck exam: Present: normal inspection Respiratory exam: Present: normal lung sounds bilaterally. Absent: chest wall tenderness Cardiovascular Exam: Present: regular rate, normal rhythm Expanded Peripheral pulses: 2+: Radial (R), Radial (L), Dorsalis Pedis (R), Dorsalis Pedis (L) GI/Abdominal exam: Present: soft. Absent: tenderness Extremities exam: Present: normal inspection. Absent: pedal edema, calf tenderness Neurological exam: Present: alert Psychiatric exam: Present: normal affect, normal mood Skin exam: Present: normal color Course Vital Signs 03/01/21 16:22 Temperature 98.1 F Pulse Rate 104 H Respiratory 18 Rate Blood Pressure 167/100 O2 Sat by Pulse 98 Oximetry EKG Findings - EKG Comments: EKG Findings:: Normal sinus rhythm with a rate of 94. LA 146. QRS 76. QT 370. QTc 462. Normal axis. Normal QRS. No acute ST change. Medical Decision Making - Medical Decision Making Patient reevaluated and resting comfortably in bed. Patient and family updated on results and plan. Case was discussed with Dr. Burnett, who will admit covering Dr. Silva. - Lab Data Result diagrams: 03/01/21 17:03 03/01/21 17:03 Lab Results 03/01/21 03/01/21 03/01/21 Range/Units 17:03 17:03 17:03 WBC 9.9 (3.8-10.6) k/uL RBC 4.99 (3.80-5.40) m/uL Hgb 15.3 (11.4-16.0) gm/dL Hct 45.9 (34.0-46.0) % MCV 92.0 (80.0-100.0) fL MCH 30.7 (25.0-35.0) pg MCHC 33.4 (31.0-37.0) g/dL RDW 14.0 (11.5-15.5) % Plt Count 231 (150-450) k/uL MPV 8.2 Neutrophils % 73 % Lymphocytes % 19 % Monocytes % 5 % Eosinophils % 1 % Basophils % 1 % Neutrophils # 7.3 (1.3-7.7) k/uL Lymphocytes # 1.9 (1.0-4.8) k/uL Monocytes # 0.5 (0-1.0) k/uL Eosinophils # 0.1 (0-0.7) k/uL Basophils # 0.1 (0-0.2) k/uL Poikilocytosis Slight PT 10.5 (9.0-12.0) sec INR 1.0 (<1.2) APTT 25.1 (22.0-30.0) sec D-Dimer 0.33 (<0.60) mg/L FEU Sodium 139 (137-145) mmol/L Potassium 3.8 (3.5-5.1) mmol/L Chloride 105 (98-107) mmol/L Carbon Dioxide 26 (22-30) mmol/L Anion Gap 8 mmol/L BUN 14 (7-17) mg/dL Creatinine 0.71 (0.52-1.04) mg/dL Est GFR (CKD-EPI)AfAm >90 (>60 ml/min/1.73 sqM) Est GFR (CKD-EPI)NonAf >90 (>60 ml/min/1.73 sqM) Glucose 138 H (74-99) mg/dL Calcium 9.6 (8.4-10.2) mg/dL Magnesium 2.1 (1.6-2.3) mg/dL Total Bilirubin 0.4 (0.2-1.3) mg/dL AST 27 (14-36) U/L ALT 31 (4-34) U/L Alkaline Phosphatase 55 (38-126) U/L Creatine Kinase 80 (30-135) U/L Troponin I (0.000-0.034) ng/mL Total Protein 7.1 (6.3-8.2) g/dL Albumin 4.6 (3.5-5.0) g/dL 03/01/21 Range/Units 17:03 WBC (3.8-10.6) k/uL RBC (3.80-5.40) m/uL Hgb (11.4-16.0) gm/dL Hct (34.0-46.0) % MCV (80.0-100.0) fL MCH (25.0-35.0) pg MCHC (31.0-37.0) g/dL RDW (11.5-15.5) % Plt Count (150-450) k/uL MPV Neutrophils % % Lymphocytes % % Monocytes % % Eosinophils % % Basophils % % Neutrophils # (1.3-7.7) k/uL Lymphocytes # (1.0-4.8) k/uL Monocytes # (0-1.0) k/uL Eosinophils # (0-0.7) k/uL Basophils # (0-0.2) k/uL Poikilocytosis PT (9.0-12.0) sec INR (<1.2) APTT (22.0-30.0) sec D-Dimer (<0.60) mg/L FEU Sodium (137-145) mmol/L Potassium (3.5-5.1) mmol/L Chloride (98-107) mmol/L Carbon Dioxide (22-30) mmol/L Anion Gap mmol/L BUN (7-17) mg/dL Creatinine (0.52-1.04) mg/dL Est GFR (CKD-EPI)AfAm (>60 ml/min/1.73 sqM) Est GFR (CKD-EPI)NonAf (>60 ml/min/1.73 sqM) Glucose (74-99) mg/dL Calcium (8.4-10.2) mg/dL Magnesium (1.6-2.3) mg/dL Total Bilirubin (0.2-1.3) mg/dL AST (14-36) U/L ALT (4-34) U/L Alkaline Phosphatase (38-126) U/L Creatine Kinase (30-135) U/L Troponin I <0.012 (0.000-0.034) ng/mL Total Protein (6.3-8.2) g/dL Albumin (3.5-5.0) g/dL - Radiology Data Radiology results: image reviewed (Chest x-ray does show some increase in interstitial markings.) Disposition Clinical Impression: Chest pain Disposition: ADMITTED IP TO THIS HOSP Is patient prescribed a controlled substance at d/c from ED?: No Referrals: Pierce Silva MD [Primary Care Provider] - 1-2 days Decision Time: 18:12
[2021-03-01 17:13] LABS: Basophils # (A) 0.1 k/uL (0-0.2); Basophils % (A) 1 %; Eosinophils # (A) 0.1 k/uL (0-0.7); Eosinophils % (A) 1 %; HCT 45.9 % (34.0-46.0); HGB 15.3 gm/dL (11.4-16.0); Lymphocytes # (A) 1.9 k/uL (1.0-4.8); Lymphocytes % (A) 19 %; MCH 30.7 pg (25.0-35.0); MCHC 33.4 g/dL (31.0-37.0); Mean Platelet Volume 8.2; Monocytes # (A) 0.5 k/uL (0-1.0); Monocytes % (A) 5 %; Neutrophils # (A) 7.3 k/uL (1.3-7.7); Neutrophils % (A) 73 %; Platelet Count 231 k/uL (150-450); Poikilocytosis Slight; RBC 4.99 m/uL (3.80-5.40); WBC 9.9 k/uL (3.8-10.6)
[2021-03-01 17:24] LABS: ALT 31 U/L (4-34); AST 27 U/L (14-36); African American GFR (CKD) >90 (>60 ml/min/1.73 sqM); Albumin 4.6 g/dL (3.5-5.0); Alkaline Phosphatase 55 U/L (38-126); Anion Gap 8 mmol/L; Blood Urea Nitrogen 14 mg/dL (7-17); Calcium 9.6 mg/dL (8.4-10.2); Carbon Dioxide 26 mmol/L (22-30); Chloride 105 mmol/L (98-107); Creatine Kinase 80 U/L (30-135); Glucose 138 mg/dL (74-99); Magnesium 2.1 mg/dL (1.6-2.3); Non-African American GFR(CKD) >90 (>60 ml/min/1.73 sqM); Potassium 3.8 mmol/L (3.5-5.1); Sodium 139 mmol/L (137-145); Total Bilirubin 0.4 mg/dL (0.2-1.3); Total Protein 7.1 g/dL (6.3-8.2)
[2021-03-01 17:34] LABS: Partial Thromboplastin Time 25.1 sec (22.0-30.0); Prothrombin Time 10.5 sec (9.0-12.0)
--- NOTE | 2021-03-01 17:42 | XR ---
EXAMINATION TYPE: XR chest 2V DATE OF EXAM: 03/01/2021 COMPARISON: 12/23/2020 HISTORY: Chest pain TECHNIQUE: 2 views FINDINGS: Heart and mediastinum are normal. Lungs are clear of consolidation. There are no hilar mass es. Costophrenic angles are clear. There is slight increased interstitial markings. IMPRESSION: Slight increased interstitial markings similar to old exam. No pulmonary consolidation. N ormal heart.
[2021-03-01] MEDS ORDERED: NITROGLYCERIN SL TABS 0.4 MG TAB SUBLINGUAL PRN (18:12)
[2021-03-01] MEDS ORDERED: ACETAMINOPHEN TAB 325 MG TAB PO STA (21:43)
[2021-03-01] MEDS: NITROGLYCERIN OINT 1 INCH/GM PACKET TOPICAL SCH (23:51)
--- NOTE | 2021-03-02 00:07 | P.HPIM ---
History of Present Illness H&P Date: 03/02/21 The patient is a 50-year-old female with a PMH of type II DM and asthma who presented to the emergency room with complaints of chest pain. The patient reports that she woke up this morning feeling somewhat nauseous with an upset stomach. She didn't think much of it and carried on with her day until she developed intermittent left-sided sharp chest discomfort, radiating to the left arm, 10 out of 10 on maximal intensity, lasting only up to 5 minutes at a time, and then resolving spontaneously. She reports associated lightheadedness and diaphoresis which would resolve along with the chest discomfort. She reported multiple episodes as described above throughout the day. 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 She reports not having any additional episodes since being hospitalized. She reports feeling back to her baseline at time of evaluation. Denied pain radiating to the back, palpitations, fever, cough, and nausea, vomiting, abdominal pain, diarrhea. EKG in the emergency room revealed normal sinus rhythm at [address]/T-wave changes noted as reviewed by me. Chest x-ray was unremarkable. Laboratory evaluation was remarkable for troponin less than 0.012 with d-dimer 0.33. Review of systems: Pertinent positives and negatives as discussed in HPI, a complete review of systems was performed and all other systems are negative. Physical examination: General: non toxic, no distress, appears at stated age, normal weight Derm: no unusual rashes/lesions no unusual ecchymoses, warm, dry Head: atraumatic, normocephalic, symmetric Eyes: EOMI, no lid lag, anicteric sclera, pupils equal round reactive to light ENT: Nose and ears atraumatic, no thrush, no pharyngeal erythema Neck: No thyromegaly, no cervical lymphadenopathy, trachea midline, supple Mouth: no lip lesion, mucus membranes moist Cardiovascular: S1S2 reg, no murmur, positive posterior tibial pulse bilateral, no edema, capillary refill less than 2 seconds Lungs: CTA bilateral, no rhonchi, no rales , no accessory muscle use Abdominal: soft, nontender to palpation, no guarding, no appreciable org anomegaly, normal bowel sounds Ext: no gross muscle atrophy, muscle strength 5 out of 5 in all 4 extremities grossly, no contractures, Neuro: CN II-XI grossly intact, light touch intact all 4 extremities, finger to nose within normal limits, Psych: Alert, oriented, appropriate affect Assessment/plan Atypical chest pain, rule out ACS -Cardiology consulted -Trend troponin -Cardiac monitoring -Continue with aspirin Chronic conditions: Type II DM, asthma -Lispro insulin sliding scale with blood glucose monitoring -Check A1c -Hold oral hypoglycemics DVT prophylaxis -Heparin subq The patient is admitted with an anticipated less than 2 midnight stay for evaluation of cp CODE STATUS: Full Code Discussed with: Patient Anticipated discharge date: in am Anticipated discharge place: Home Past Medical History Past Medical History: Asthma, Diabetes Mellitus, Sleep Apnea/CPAP/BIPAP Additional Past Medical History / Comment(s): CHIARI MALFORMATION., MIGRAINES, 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 Pt had covid in October of 2020. Pt states she does not use a CPAP/BIPAP. History of Any Multi-Drug Resistant Organisms: Unobtainable Past Surgical History: Hernia Repair, Orthopedic Surgery, Tubal Ligation, Uterine Ablation Additional Past Surgical History / Comment(s): ARTHROSCOPY KNEE, LEFT ANKLE SURGERY X2 FOR X-TRA BONE GROWTH, LEFT FX FIBULA WITH PLATE AND SCREWS, UMBILICAL HERNIA SURGERY (CHILD). Past Anesthesia/Blood Transfusion Reactions: No Reported Reaction Additional Past Anesthesia/Blood Transfusion Reaction / Comment(s): last time she had sx she had a hard time waking up from anethesia Past Psychological History: Anxiety, Depression Smoking Status: Former smoker Past Alcohol Use History: Occasional Additional Past Alcohol Use History / Comment(s): QUIT SMOKING 20 PLUS YEARS AG O, SMOKED 1 PACK/WEEK, SMOKED 10 YEARS. Past Drug Use History: Marijuana Additional Drug Use History / Comment(s): OCCASIONAL THC GUMMIES. , CBD OIL - Past Family History Mother Family Medical History: No Reported History, Coronary Artery Disease (CAD) Medications and Allergies Home Medications Medication Instructions Recorded Confirmed Type Rizatriptan Benzoate [Rizatriptan] 10 mg PO DAILY PRN 05/06/20 03/01/21 History traMADol HCL [Ultram] 50 mg PO DAILY PRN 05/06/20 03/01/21 History Liraglutide [Victoza 2-Primitivo] 0.6 mg PO DAILY 10/14/20 03/01/21 History Albuterol Sulfate [Proair Hfa] 2 puff INHALATION RT-Q6H PRN 03/01/21 03/01/21 History Ascorbic Acid [Vitamin C] 1,000 mg PO DAILY 03/01/21 03/01/21 History Cholecalciferol (Vitamin D3) 125 mcg PO DAILY 03/01/21 03/01/21 History [Vitamin D3 (125 MCG = 5,000 IU)] Famotidine 20 mg PO DAILY PRN 03/01/21 03/01/21 History L.acidoph,Paracasei, B.lactis 1 cap PO DAILY 03/01/21 03/01/21 History [Probiotic] Loratadine [Claritin] 10 mg PO DAILY PRN 03/01/21 03/01/21 History Magnesium 250 mg PO DAILY 03/01/21 03/01/21 History Pantoprazole Sodium [Protonix] 40 mg PO DAILY 03/01/21 03/01/21 History Zinc 50 mg PO DAILY 03/01/21 03/01/21 History Allergies Allergy/AdvReac Type Severity Reaction Status Date / Time No Known Allergies Allergy Verified 03/01/21 18:52 Physical Exam Vitals: Vital Signs Temp Pulse Pulse Resp BP BP Pulse Ox 03/01/21 20:00 97.6 F 106 H 18 124/83 96 03/01/21 18:59 99 18 133/94 97 03/01/21 16:22 98.1 F 104 H 18 167/100 98 Intake and Output 03/01/21 03/01/21 03/02/21 14:59 22:59 06:59 Other: Voiding Method Toilet # Voids 1 Weight 147.418 kg Results CBC & Chem 7: 03/01/21 17:03 03/01/21 17:03 Labs: Abnormal Lab Results - Last 24 Hours (Table) 03/01/21 Range/Units 17:03 Glucose 138 H (74-99) mg/dL Thrombosis Risk Factor Assmnt - Choose All That Apply Any of the Below Risk Factors Present?: Yes Each Factor Represents 1 point: Age 41-60 years Thrombosis Risk Factor Assessment Total Risk Factor Score: 1 Thrombosis Risk Factor Assessment Level: Low Risk
[2021-03-02] MEDS ORDERED: SUMAtriptan succinate 25 MG TAB PO STA (00:41)
[2021-03-02 01:44] VITALS: RESP 17
[2021-03-02] MEDS: NITROGLYCERIN OINT 1 INCH/GM PACKET TOPICAL SCH ×2 (05:53→06:00)
[2021-03-02 07:16] LABS: Glucose,Whole Blood 127 mg/dL (75-99)
[2021-03-02] MEDS ORDERED: ONDANSETRON 4 MG/2 ML VIAL IVP PRN (07:25)
[2021-03-02] MEDS: INSULIN ASPART (NovoLOG) 100 UNIT/ML VIAL SQ SCH ×2 (07:28→12:03)
[2021-03-02 07:44] VITALS: BP 117/80; PULSE 76; TEMP 98.1
[2021-03-02] MEDS ORDERED: HEPARIN SODIUM,PORCINE/PF 5,000 UNIT/0.5 ML SYRINGE SQ SCH (08:00)
[2021-03-02] MEDS ORDERED: DOBUTamine DRIP for NUC MED 500 MG in DEXTROSE/WATER 1 250ML.BAG IV PRN (08:00)
[2021-03-02] MEDS ORDERED: ASPIRIN 325 MG TAB PO SCH (09:00)
--- NOTE | 2021-03-02 09:27 | P.CRDCN ---
History of Present Illness History of present illness: HISTORY OF PRESENTING ILLNESS This is a pleasant 50-year-old female past medical history significant for GERD, asthma, diabetes mellitus and obesity. 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 We have been asked to see in consultation for chest pain. She started feeling indigestion earlier in the day yesterday, then later on felt a sharp pain in the left torso/axilla. The indigestion started in the upper abdomen and went up to the base of the throat. Associated with frequent belching. No shortness of breath, dizziness, palpitations, nausea or vomiting. Patient has been having these symptoms since September of this year. Her PCP put her on oral reflux medications and scheduled her to have a stress test and echocardiogram. She did get the echocardiogram which revealed preserved LV systolic function with ejection fraction 55-60% with no significant valvular ab normalities on what was visualized due to a difficult study. However unfortunately at the time of her scheduled stress test she did come down with Covid and was unable to completed at that time. DIAGNOSTICS EKG reveals SR with no acute ST or Twave abnormalities. Telemetry tracings indicate SR. Chest xray negative for an acute process. Laboratory reviewed, CBC unremarkable, d-dimer 0.33, sodium 139, potassium 3.8, magnesium 2.1, cardiac enzymes negative x3. She takes no daily cardiac medications. REVIEW OF SYSTEMS At the time of my exam: CONSTITUTIONAL: Denies fever or chills. CARDIOVASCULAR: Denies chest pain, shortness of breath, orthopnea, PND or palpitations. RESPIRATORY: Denies cough. GASTROINTESTINAL: Denies abdominal pain, diarrhea, constipation, nausea or vomiting. MUSCULOSKELETAL: Denies myalgias. NEUROLOGIC: Denies numbness, tingling, headache or weakness. ENDOCRINE: Denies fatigue, weight change, polydipsia or polyurina. GENITOURINARY: Denies burning, hematuria or urgency with micturation. HEMATOLOGIC: Denies history of anemia or bleeding. PHYSICAL EXAMINATION Blood pressure 117/80 heart rate 76 afebrile and maintaining oxygen saturation on room air. CONSTITUTIONAL: No apparent distress. HEENT: Head is normocephalic. Pupils are equal, round. Sclerae anicteric. Mucous membranes of the mouth are moist. No JVD. No carotid bruit. CHEST EXAMINATION: Lungs are clear to auscultation. No chest wall tenderness is noted on palpation or with deep breathing. HEART EXAMINATION: Regular rate and rhythm. S1, S2 heard. No murmurs, gallops or rub. ABDOMEN: Soft, nontender. EXTREMITIES: 2+ peripheral pulses, no lower extremity edema and no calf tenderness. NEUROLOGIC EXAMINATION: Patient is awake, alert and oriented x3. ASSESSMENT Chest pain, atypical Gastroesophageal reflux disease Diabetes mellitus Morbid obesity, BMI 45 PLAN An acute coronary event has been ruled out. Perform dobutamine stress echocardiogram to assess for stress-induced cardiac ischemia. Given her history of diabetes mellitus we recommend low intensity statin, lipitor 20 mg daily to start upon discharge. Baseline lipid panel is pending. If stress test is normal, she can be discharged from a cardiac perspective. Thank you kindly for this consultation. Nurse Practitioner note has been reviewed, I agree with a documented findings and plan of care. Patient was seen and examined. 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 Pt had covid in October of 2020. Pt states she does not use a CPAP/BIPAP. History of Any Multi-Drug Resistant Organisms: Unobtainable Past Surgical History: Hernia Repair, Orthopedic Surgery, Tubal Ligation, Uterine Ablation Additional Past Surgical History / Comment(s): ARTHROSCOPY KNEE, LEFT ANKLE SURGERY X2 FOR X-TRA BONE GROWTH, LEFT FX FIBULA WITH PLATE AND SCREWS, UMBILICAL HERNIA SURGERY (CHILD). Past Anesthesia/Blood Transfusion Reactions: No Reported Reaction Additional Past Anesthesia/Blood Transfusion Reaction / Comment(s): last time she had sx she had a hard time waking up from anethesia Past Psychological History: Anxiety, Depression Smoking Status: Former smoker Past Alcohol Use History: Occasional Additional Past Alcohol Use History / Comment(s): QUIT SMOKING 20 PLUS YEARS AGO, SMOKED 1 PACK/WEEK, SMOKED 10 YEARS. Past Drug Use History: Marijuana Additional Drug Use History / Comment(s): OCCASIONAL THC GUMMIES. , CBD OIL - Past Family History Mother Family Medical History: No Reported History, Coronary Artery Disease (CAD) Medications and Allergies Home Medications Medication Instructions Recorded Confirmed Type Rizatriptan Benzoate [Rizatriptan] 10 mg PO DAILY PRN 05/06/20 03/01/21 History traMADol HCL [Ultram] 50 mg PO DAILY PRN 05/06/20 03/01/21 History Liraglutide [Victoza 2-Primitivo] 0.6 mg PO DAILY 10/14/20 03/01/21 History Albuterol Sulfate [Proair Hfa] 2 puff INHALATION RT-Q6H PRN 03/01/21 03/01/21 History Ascorbic Acid [Vitamin C] 1,000 mg PO DAILY 03/01/21 03/01/21 History Cholecalciferol (Vitamin D3) 125 mcg PO DAILY 03/01/21 03/01/21 History [Vitamin D3 (125 MCG = 5,000 IU)] Famotidine 20 mg PO DAILY PRN 03/01/21 03/01/21 History L.acidoph,Paracasei, B.lactis 1 cap PO DAILY 03/01/21 03/01/21 History [Probiotic] Loratadine [Claritin] 10 mg PO DAILY PRN 03/01/21 03/01/21 History Magnesium 250 mg PO DAILY 03/01/21 03/01/21 History Pantoprazole Sodium [Protonix] 40 mg PO DAILY 03/01/21 03/01/21 History Zinc 50 mg PO DAILY 03/01/21 03/01/21 History Allergies Allergy/AdvReac Type Severity Reaction Status Date / Time No Known Allergies Allergy Verified 03/01/21 18:52 Physical Exam Vitals: Vital Signs Temp Pulse Pulse Resp BP BP Pulse Ox 03/02/21 07:32 17 03/02/21 07:00 98.1 F 76 18 117/80 97 03/02/21 01:43 97.6 F 90 17 98/63 98 03/02/21 01:34 106 H 18 03/01/21 20:00 97.6 F 106 H 18 124/83 96 03/01/21 18:59 99 18 133/94 97 03/01/21 16:22 98.1 F 104 H 18 167/100 98 Intake and Output 03/01/21 03/02/21 03/02/21 22:59 06:59 14:59 Intake Total 0 Balance 0 Intake: Oral 0 Other: Voiding Method Toilet Toilet # Voids 1 2 Weight 147.418 kg Results 03/01/21 17:03 03/01/21 17:03 Cardiac Enzymes 03/01/21 03/01/21 03/01/21 Range/Units 17:03 17:03 20:03 AST 27 (14-36) U/L Troponin I <0.012 <0.012 (0.000-0.034) ng/mL 03/01/21 Range/Units 23:04 AST (14-36) U/L Troponin I <0.012 (0.000-0.034) ng/mL Coagulation 03/01/21 Range/Units 17:03 PT 10.5 (9.0-12.0) sec APTT 25.1 (22.0-30.0) sec CBC 03/01/21 Range/Units 17:03 WBC 9.9 (3.8-10.6) k/uL RBC 4.99 (3.80-5.40) m/uL Hgb 15.3 (11.4-16.0) gm/dL Hct 45.9 (34.0-46.0) % Plt Count 231 (150-450) k/uL Comprehensive Metabolic Panel 03/01/21 Range/Units 17:03 Sodium 139 (137-145) mmol/L Potassium 3.8 (3.5-5.1) mmol/L Chloride 105 (98-107) mmol/L Carbon Dioxide 26 (22-30) mmol/L BUN 14 (7-17) mg/dL Creatinine 0.71 (0.52-1.04) mg/dL Glucose 138 H (74-99) mg/dL Calcium 9.6 (8.4-10.2) mg/dL AST 27 (14-36) U/L ALT 31 (4-34) U/L Alkaline Phosphatase 55 (38-126) U/L Total Protein 7.1 (6.3-8.2) g/dL Albumin 4.6 (3.5-5.0) g/dL Current Medications Generic Name Dose Route Start Last Admin Trade Name Freq PRN Reason Stop Dose Admin Aspirin 325 mg 03/02/21 09:00 03/02/21 07:43 Aspirin 325 Mg Tab PO 325 mg DAILY ZARIA Administration Heparin Sodium (Porcine) 5,000 unit 03/02/21 08:00 03/02/21 07:43 Heparin Sodium,Porcine/Pf 5,000 Unit/0.5 Ml Syringe SQ 5,000 unit Q8HR ZARIA Administration Insulin Aspart 0 unit 03/02/21 07:30 03/02/21 07:28 Insulin Aspart (Novolog) 100 Unit/Ml Vial SQ Not Given ACHS [facility] Protocol Nitroglycerin 0.4 mg 03/01/21 18:12 Nitroglycerin Sl Tabs 0.4 Mg Tab SUBLINGUAL Q5M PRN Chest Pain Nitroglycerin 1 inch 03/02/21 00:00 03/02/21 06:00 Nitroglycerin Oint 1 Inch/Gm Packet TOPICAL 1 inch Q6HR ZARIA Administration Ondansetron HCl 4 mg 03/02/21 07:25 03/02/21 07:41 Ondansetron 4 Mg/2 Ml Vial IVP 4 mg Q6HR PRN Administration Nausea And Vomiting Intake and Output 03/01/21 03/02/21 03/02/21 22:59 06:59 14:59 Intake Total 0 Balance 0 Intake: Oral 0 Other: Voiding Method Toilet Toilet # Voids 1 2 Weight 147.418 kg 03/01/21 17:03 03/01/21 17:03
[2021-03-02 11:38] LABS: Glucose,Whole Blood 170 mg/dL (75-99)
--- NOTE | 2021-03-02 12:08 | P.STRESS ---
- Stress Test Note Stress Test Results/Findings: Exam Performed: dobutamine stress echo with con Exam Date: 03/02/21 Reason for Exam: cp Height: 5 ft 11 in Weight: 147.42 kg Protocol: dse Stage: III Duration of Exercise: 18.82 Resting Heart Rate: 78 Resting Blood Pressure: 120/72 Maximum Achieved Heart Rate: 146 Maximum Achieved Blood Pressure: 120/72 85% PMHR: 145 100% PMHR: 182 METS: Technologist Comment: Stress Test Results/Findings: Baseline heart rate 78 beats a minute, Baseline blood pressure 120/72 mmHg Baseline twelve-lead EKG shows sinus rhythm normal ST segments Patient received dobutamine infusion per protocol Peak heart rate 146 beats a minute. Mild drop in blood pressure to 99/48 mmHg No ECG evidence for ischemia No arrhythmias noted Baseline 2-D echo images were suboptimal and therefore Definity contrast was used With dobutamine infusion was a stepwise increment in overall LV contractility without development of any wall motion abnormalities At the recovery regional global LV systolic function may normal No arrhythmias Impression normal dobutamine stress echo without evidence for ischemia or arrhythmia
--- NOTE | 2021-03-02 12:59 | P.DS ---
Providers Date of admission: 03/01/21 18:12 Expected date of discharge: 03/02/21 Attending physician: Damian Burnett MD Consults: 03/01/21 18:12 Consult Physician Urgent Consulting Provider: Theodore Sanchez Consult Reason/Comments: cp Do you want consulting provider notified?: Yes Primary care physician: Pierce Remy [facility] Course: Atypical chest pain, ruled out ACS -Patient admitted for atypical chest pain. EKG non-ischemic, trops negative. No events on telemetry. Cardiology consulted and recommended stress test which was negative for ischemia. Patient was discharged home with PCP follow up. Atorvastatin was added to patient's medications per ASCVD guidelines. Chronic conditions: Type II DM, asthma -No changes to home meds except as above. Assessment: otGen: awake, alert HEENT: normocephalic, atraumatic, good hearing acuity, moist mucous membranes Resp: good air exchange, breathing comfortably with no accessory muscle use CVS: good distal perfusion x 4, GI: soft, NTTP, ND : no SPT, no CVAT, razo catheter not present MSK: no pitting edema, no clubbing Neuro: non-focal, moving all extremities Psych: cooperative, euthymic mood Patient Condition at Discharge: Good Plan - Discharge Summary Discharge Rx Participant: Yes New Discharge Prescriptions: New Atorvastatin [Lipitor] 20 mg PO DAILY #90 tablet Continue traMADol HCL [Ultram] 50 mg PO DAILY PRN PRN Reason: Pain Rizatriptan Benzoate [Rizatriptan] 10 mg PO DAILY PRN PRN Reason: Migraine Headache Liraglutide [Victoza 2-Primitivo] 0.6 mg PO DAILY Famotidine 20 mg PO DAILY PRN PRN Reason: Gi Upset Albuterol Sulfate [Proair Hfa] 2 puff INHALATION RT-Q6H PRN PRN Reason: Shortness Of Breath Loratadine [Claritin] 10 mg PO DAILY PRN PRN Reason: Allergy Symptoms Zinc 50 mg PO DAILY Magnesium 250 mg PO DAILY Cholecalciferol (Vitamin D3) [Vitamin D3 (125 MCG = 5,000 IU)] 125 mcg PO DAILY Pantoprazole Sodium [Protonix] 40 mg PO DAILY L.acidoph,Paracasei, B.lactis [Probiotic] 1 cap PO DAILY Ascorbic Acid [Vitamin C] 1,000 mg PO DAILY Discharge Medication List Rizatriptan Benzoate [Rizatriptan] 10 mg PO DAILY PRN 05/06/20 [History] traMADol HCL [Ultram] 50 mg PO DAILY PRN 05/06/20 [History] Liraglutide [Victoza 2-Primitivo] 0.6 mg PO DAILY 10/14/20 [History] Albuterol Sulfate [Proair Hfa] 2 puff INHALATION RT-Q6H PRN 03/01/21 [History] Ascorbic Acid [Vitamin C] 1,000 mg PO DAILY 03/01/21 [History] Cholecalciferol (Vitamin D3) [Vitamin D3 (125 MCG = 5,000 IU)] 125 mcg PO DAILY 03/01/21 [History] Famotidine 20 mg PO DAILY PRN 03/01/21 [History] L.acidoph,Paracasei, B.lactis [Probiotic] 1 cap PO DAILY 03/01/21 [History] Loratadine [Claritin] 10 mg PO DAILY PRN 03/01/21 [History] Magnesium 250 mg PO DAILY 03/01/21 [History] Pantoprazole Sodium [Protonix] 40 mg PO DAILY 03/01/21 [History] Zinc 50 mg PO DAILY 03/01/21 [History] Atorvastatin [Lipitor] 20 mg PO DAILY #90 tablet 03/02/21 [Rx] Follow up Appointment(s)/Referral(s): Pierce Silva MD [Primary Care Provider] - 1-2 days Garland Thompson MD [STAFF PHYSICIAN] - 2 Weeks Patient Instructions/Handouts: Cholesterol and Your Health (GEN) Discharge Disposition: HOME SELF-CARE
[2021-03-02 15:44] LABS: Hemoglobin A1C 5.7 % (4.0-6.0)
[2021-03-02 16:31] LABS: Chol/HDL Ratio 2.7; LDL Cholesterol,Calculated 80.8 mg/dL (0.0-131.0); VLDL Calculation 14.2 mg/dL (5.00-40.00)
[2021-03-03] MEDS ORDERED: ASPIRIN 81 MG PO SCH (09:00)
--- NOTE | 2021-03-04 10:39 | ECHOS ---
Exam Performed: dobutamine stress echo with con Exam Date: 03/02/21 Reason for Exam: cp Height: 5 ft 11 in Weight: 147.42 kg Protocol: dse Stage: III Duration of Exercise: 18.82 Resting Heart Rate: 78 Resting Blood Pressure: 120/72 Maximum Achieved Heart Rate: 146 Maximum Achieved Blood Pressure: 120/72 85% PMHR: 145 100% PMHR: 182 METS: Technologist Comment: Stress Test Results/Findings: Baseline heart rate 78 beats a minute, Baseline blood pressure 120/72 mmHg Baseline twelve-lead EKG shows sinus rhythm normal ST segments Patient received dobutamine infusion per protocol Peak heart rate 146 beats a minute. Mild drop in blood pressure to 99/48 mmHg No ECG evidence for ischemia No arrhythmias noted Baseline 2-D echo images were suboptimal and therefore Definity contrast was used With dobutamine infusion was a stepwise increment in overall LV contractility without development of any wall motion abnormalities At the recovery regional global LV systolic function may normal No arrhythmias Impression Normal dobutamine stress echo without evidence for ischemia or arrhythmia MTDD
== END 2021-03-02 13:55 | disposition home or self-care (01) ==
LOC: EC 16:13 → 6NMEDSUR 18:12
PROVIDERS: ADMIT Internal Medicine; ATTEND Internal Medicine
CPT/HCPCS: 96372; 96374; 99285; 36415; 93005; 85379; 80061; 80053; 82550; 83735; 84484; 85025; 85610; 85730; 83036; 71046; G0378 ×2; C8930; J2405; Q9950; J1644; 93351